=== PATIENT | male | born 1970 | race Caucasian/White ===

== ENCOUNTER → 2019-04-07 00:01 | Outpatient (RCR) | payer MEDICARE, MEDICAID, SELFPAY | LOC: ONCMED 03-10 06:01 | PROVIDERS: Family Provider Family Medicine; Referring Provider Internal Medicine Hematology & Oncology; Visit Provider Internal Medicine Hematology & Oncology | DX: Z51.0 Encounter for antineoplastic radiation therapy (principal); C16.2 Malignant neoplasm of body of stomach; R12 Heartburn; K52.9 Noninfective gastroenteritis and colitis, unspecified; R07.89 Other chest pain; J90 Pleural effusion, not elsewhere classified; E87.6 Hypokalemia; Z79.899 Other long term (current) drug therapy ==

== ENCOUNTER 2019-04-09 17:04 | Outpatient (CLI) | payer MEDICARE, MEDICAID, SELFPAY ==
--- NOTE | 2019-04-09 17:14 | XR_ITS ---
WS: [id number] CHEST 2 VIEWS HISTORY: ESOPHAGEAL CA, BILATERAL RIB PAIN COMPARISON: 02/02/2019 Lungs: Mildly hyperinflated lungs. Improved aeration at the LEFT lung base. No pneumonia or pleural e ffusion. No pulmonary nodules. Cardiac size: Normal. Mediastinum/Aorta: Normal mediastinum. Bones: Normal. XR/XR chest 2V* [id number] IMPRESSION: Resolved LEFT lower lobe pneumonia. No pulmonary mass or bone destruction identified.
== END 2019-04-09 17:05 | disposition home or self-care (01) ==
LOC: WPI 17:08
PROVIDERS: Family Provider Family Medicine; PCP Family Medicine; Referring Provider Nurse Practitioner; Visit Provider Nurse Practitioner
DX: R07.81 Pleurodynia (principal); C15.9 Malignant neoplasm of esophagus, unspecified
CPT/HCPCS: 71046

== ENCOUNTER 2019-05-01 05:44 | Outpatient (RCR) | payer MEDICARE, MEDICAID, SELFPAY ==
[2019-04-10] MEDS: sodium chloride 0.9% 500 ML 999 ML IV (11:22)
--- NOTE | 2019-04-12 23:37 | ONC FU_ITS ---
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 Castro is a 48-year-old gentleman with history of chronic anemia, melena and upper abdominal pain/discomfort underwent EGD on 08/05/2017 showed normal stomach with normal exam and duodenal, possible Merritt's esophagitis biopsy or done was negative also had colonoscopy same time, 6 mm polyp was removed from ascending colon. He continued to have abdominal discomfort/pain and he had abdominal sonogram done on 08/06/2017 which showed liver with increased echogenicity which is nonspecific. 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 pylori was identified. Patient underwent CT scan of chest abdomen pelvis on 08/29/2018 which showed no acute findings within the abdomen or pelvis and his blood workup showed normal hemoglobin and hematocrit and CMP was also normal. Patient underwent CT PET scan on 09/25/2018 which showed small focus of increase uptake within the distal gastric body/antrum. No finding to suggest metastatic disease in the chest abdomen or pelvis. Hypermetabolic left thyroid nodule 5 mm right pulmonary nodule along the major fissure probably represents an intrapulmonary lymph node. Underwent endoscopy ultrasound on 10/14/2018 which showed 1.6 x 0.9 cm hypoechoic lesion at the level of the known mass at 60 cm from the incisors. It appeared to penetrate the submucosa but not through it and the muscularis propria was intact and the visualized portion and EUS stage was T1 B, N0 MX, so no neoadjuvant chemotherapy was considered Patient was seen by Dr. Medel surgeon and underwent laparoscopic partial gastrectomy and perigastric lymph node and omental dissection on 11/19/2018 Final pathology report showed invasive poorly differentiated adenocarcinoma, diffuse/signet ring cell type Ulcerated tumor measures 1.5 cm in greatest dimension and shows invasion through the muscularis propria with involvement of serosa pT4a Surgical margins free 0 out of 11 lymph nodes showed metastatic disease. N0 stage IIB (T4a, N0 Mx) Now, based on new findings e.g. T4 a lesion seen on partial gastrectomy specimen compared to T1B on EUS staging, adjuvant chemotherapy/chemoradiation was recommended by medical oncologist in [place] Mr Castro was referred to GI oncology at [facility] for evaluation for clinical trial/second opinion and he was seen by on 01/12/2019 and her recommendations were, being high risk pT4a, less than D2 lymphadenectomy, adjuvant chemoradiation was recommended to maximize chance of cure. There was no clinical trial available at this time and due to patient's poor performance status and overall condition due to several postoperative complication, adjuvant chemotherapy was also suggested has an option or observation alone was also discussed. If patient's condition improves then FOLFOX or 5-FU alone could be considered and also recommended radiation consult. Patient underwent CT scan of abdomen pelvis on 01/23/2019 which showed partial atelectasis or pneumonia left lower lobe. Small loculated appearing left pleural effusion with an air-fluid level, a small empyema is not excluded. Resolved previous left subdiaphragmatic abscess but post infirmity changes remains in the left subdiaphragmatic soft tissue. Mr Castro was seen by Dr. Kauffman for left lower lobe consolidation and concern about empyema. As per Dr. Kauffman it could be reactive to his subdiaphragmatic process which was treated with catheter drainage and considering area of loculation was very small, he recommended follow-up CT scan in 3 months and patient underwent CT scan of abdomen pelvis on 03/06/2019 which showed significant improvement in the previous pneumonitis and a partial atelectasis left lower lobe and decrease in left pleural effusion since 01/23/2019. He was treatment with combined chemoradiation with oral Xeloda.1500 mg by mouth twice a day concurrent with radiation therapy. He developed diarrhea and hypokalemia so his Xeloda was put on hold. Once the diarrhea had resolved, the Xeloda restarted on 03/31/2019 but reduced to 1000 mg by mouth twice a day concurrent with radiation therapy. Mr. Castro is here today for follow-up. He is due for his weekly Xeloda visit. He states overall he does not feel he is tolerating it at all. He states his low to her to stomach about 30 to 40 minutes after he takes it. He states he has really bad cramping and flatulence and just measurable. He states he has really not had diarrhea or constipation with thoses symptoms although he does have constipation chronically. He denies any mouth sores, sore throat or difficulty swallowing. He has had no rashes or skin changes. He has had no skin flaking or peeling. He denies any abdominal pain. He has had no lower extremity edema. He denies fever or chills. His appetite is poor. His ECOG is 2. Past Medical History: Hypertension Renal calculi Thyroid nodule Past Surgical History: Colonoscopy in 2018 Allergies: Haldol Medications: amLODIPine Besylate 1 Tablet (of 10 mg) Oral daily Cyclobenzaprine HCl 1 Tablet (of 10 mg) Oral PRN Dicyclomine HCl 1 Capsule (of 10 mg) Oral four times a day PRN Famotidine 1 Tablet (of 40 mg) Oral b.i.d. Ferrous Gluconate 1 Tablet (of 324 (37.5 fe) mg) Oral b.i.d. Lisinopril 1 Tablet (of 20 mg) Oral daily Multivitamin Adult 1 Tablet Oral daily Ondansetron HCl 1 Tablet (of 4 mg) Oral q 6 hours PRN Pantoprazole Sodium 1 Tablet (of 40 mg) Tablet, enteric coated Oral b.i.d. Simvastatin 1 Tablet (of 5 mg) Oral daily Family History: The family history is unremarkable. Social History: Mr. Castro is and he is a disabled. Mr. Castro quit smoking less than one year ago but had smoked 1.0 pack/day for 24 years. He has no history of drinking. Mr. Castro reports the following support systems: lives with spouse, significant other, family, or friends, lives in own house, supportive family/friends willing to assist with needs, and adequate transportation available for expected visits. His diet consists of regular meals. He indicates his activity level as: regular exercise. Review Of Symptoms: Constitutional Denies fevers, chills, night sweats, excessive fatigue or new weight loss. Appetite is poor. Allergic/Immunologic No reactions. Eyes Denies significant visual changes. No diplopia. No amaurosis. ENMT Denies changes in hearing, sore throat, mouth sores, difficulty or changes in swallowing ability, and/or sinus drainage. Hematologic/Lymphatic Denies easy bruising or bleeding. The patient denies any tender or palpable lymph nodes. Respiratory Denies dyspnea on exertion, chest pain, cough or hemoptysis. Denies orthopnea. Cardiovascular Denies anginal chest pain, palpitations or orthopnea. Gastrointestinal Denies nausea, vomiting, diarrhea, GI bleeding, or constipation. Denies change in bowel habits and/or stool color or early satiety. He is having persistent heartburn/gastritis symptoms despite being on Protonix 40 mg twice daily. He states is consistent with when he takes the Xeloda. He states he has bad stomach cramps about 30 to 40 minutes after taking it. He states his been this way all along. He states he is scared to take it due to the cramping. Genitourinary (M) Denies hematuria, dysuria, increased frequency, urgency, hesitancy or incontinence. Musculoskeletal Denies joint pain, swelling or redness. No decreased range of motion. Integumentary Denies chronic rashes, inflammation, ulcerations or skin changes. Neurologic Denies headache, blurred vision, and no areas of focal weakness or numbness. Normal gait. No sensory problems. Psychiatric Denies insomnia, depression, dutch or mood swings. Vital Signs: Performed on Apr 09, 2019 15:26 Height - 75.00 in Weight - 148.0 lbs (HIGH) BSA - 1.93 sq.m BMI - 18.50 Temperature - 97.4 F (LOW) Pulse - 51 /min (LOW) Respiration - 24 /min BP - 140/83 mm(hg) O2 Sat - 100 % Pain - 5,2 - Ambulatory/capable of all self-care, unable to perform any work activities. Up and about more than 50% of waking hours. (ECOG) Physical Examination: Constitutional Alert, oriented, no acute distress. Frail in appearance. Skin pink, warm and dry. Head Normocephalic; atraumatic. Eyes Conjunctivae and sclerae are clear and without icterus. Pupils are reactive and equal. Neck Supple without masses or thyromegaly. No jugular venous distension. Hematologic/Lymphatic No petechiae or purpura. No tender or palpable lymph nodes in the cervical or supraclavicular areas. Respiratory Lungs are clear to auscultation without rhonchi or wheezing. Cardiovascular Regular rate and rhythm of heart without murmurs,clicks, gallops or rubs. Abdomen Non-tender, non-distended, no masses or ascites. Good bowel sounds noted in all quads. No guarding or rebound tenderness. No pulsatile masses. Back/Spine Non-tender to palpation. Extremities No visible deformities, no cyanosis, clubbing or edema. Musculoskeletal No tenderness or swelling, normal range of motion without obvious weakness. Integumentary No rashes or lesions. Neurologic No sensory or motor deficits, normal cerebellar function, normal gait. Psychiatric Alert and oriented times three. Coherent speech. Verbalizes understanding of our discussions today. Laboratory:Test performed on Apr 07, 2019 12:22 Sodium 143 mmol/L Potassium 3.5 mmol/L Chloride 103 mmol/L CO2 29 mmol/L Anion Gap 14.5 BUN 8 mg/dL Creatinine 0.8 mg/dL Cr Clearance (Est) 104.6100 mL/min eGFR 102.3 mL/min Glucose 105 mg/dl Calcium 9.8 mg/dL Protein, Total 6.5 g/dL Albumin 4.5 g/dL Globulin 2.0 gm/dL Bilirubin, Total 0.3 mg/dL ALT (SGPT) 15 U/L AST (SGOT) 23 U/L Alkaline Phosphatase 88 U/L WBC 4.0 10 3/uL RBC 5.04 10 6/uL HGB 12.8 g/dL HCT 41.0 % MCV 81.3 fl MCH 25.4 pg MCHC 31.2 g/dl RDW 16.7 % Platelet Count 255 10 3/cmm MPV 11.4 fl Neutrophils 2.6 10 3/uL Lymphocytes 0.5 10 3/uL Monocytes 0.5 10 3/uL Eosinophils 0.4 10 3/uL Basophils 0.1 10 3/uL Neutrophil % 63.7 % Lymphocyte % 12.6 % Monocyte % 12.6 % Eosinophil % 9.2 % Basophils % 1.7 % Test performed on Mar 10, 2019 14:08 Magnesium 2.0 mg/dL Test performed on Feb 18, 2019 11:31 Ferritin 187.0 ng/ml Iron 61 ug/dL % Iron Saturation 30.0 % UIBC 142 ug/dL Test performed on Feb 05, 2019 14:58 Vitamin B12 339 pg/mL Impression: Gastric signet cell adenocarcinoma, 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 However it is questionable how compliant he has been with the capecitabine because he is having side effects of it. Plan: 1. Encourage Mr. Castro to take nausea meds prior to trying the Xeloda. I encouraged him to ry just 1 tablet twice daily and if this goes well, he can resume the 100 mg BID dosing. 2. I have requested a PA for Marinol 2.5 to 5 mg 2-3 times daily for appetite. This may allow him to tolerate the Xeloda a little better also. 3. Labs from 04/07/2019 reviewed in detail and discussed with and Mrs. Castro and a copy was given to them. WBC 4.0, hemoglobin 12.8 platelets 255,000 ANC is 2600. Potassium 3.5 creatinine 0.8 LFTs are normal. 4. We will plan to see him back in 1 week with CBC CMP and discuss further with him Xeloda. I am concerned that he is not taking it. His states he only is taking a full dose for 5 times since he started. We discussed the benefits of the Xeloda but he is advised if it is making him sicker that he would need to hold it and just let us know. 5. We can do daily supportive care if needed such as hydration and antiemetics as wanted. 6. Mr. Castro was instructed to contact us in interim should questions or problems arise. Signed By: Remi Sherwood-KHANG, [facility] Gillian Marrero MD <<Signature on File>>
[2019-04-13] MEDS: sodium chloride 0.9% 500 ML 999 ML IV (10:40)
[2019-04-14] MEDS: sodium chloride 0.9% 500 ML IV (16:11)
--- NOTE | 2019-04-15 08:39 | ONCRAD TMN_ITS ---
Radiation Oncology Weekly Treatment Management Patient: Benny Castro MR#: [id number] : 1970> Age: 48> Sex: Male Dictated by: Dr. Johan Black Date of Service: 04/14/2019 Referring Physician(s) : Pedro Marrero M.D. Primary Diagnosis: C16.2 - Malignant neoplasm of body of stomach, Diagnosed 11/21/2018 (Active) Stage IIB, T4a, N0, M0 Radiotherapy to date: Course: Stomach 2018, Treatment Site: Stomach 45Gy, Ref. ID: [id number], Energy: 6X, Dose/Fx (cGy): 180, #Fx: , Dose Correction (cGy): 0, Total Dose (cGy): 2,520, Start Date: 03/24/2019, Elapsed Days: Current Complaints/Interval History: Constitutional Complains of lack of appetite and mild fatigue. Denies fever, night sweats and change in weight. Integumentary No redness or rash to the area of treatment Gastrointestinal Complains of moderate abdominal pain which is generalized / diffuse in nature. Complains of intermittent diarrhea which is characterized as loose, semisolid. Complains of heartburn / dyspepsia. Complains of mild nausea but denies vomiting. Complains of satiety. Denies melena / GI bleeding. Current Medications: AmLODIPine Besylate, cyclobenzaprine HCl, dicyclomine HCl, dronabinol, famotidine, famotidine, ferrous Gluconate, lisinopril, multivitamin Adult, nystatin, ondansetron HCl, ondansetron HCl, pantoprazole Sodium, potassium Chloride ER, simvastatin, sodium Chloride. Allergies: Haldol. Vital Signs: Performed on 04/14/2019 3:41 PM BMI - 18.574 kg/m2, Height - 75.00 in, Weight - 148.6 lbs, Temperature - 97.8 f, Pulse - 52, Respiration - 18, O2 Sat - 100 %, Pain - 3 and BP - 134/ 85 mm(hg). Physical Exam: Appears stable, no skin erythema or desquamation. Performance Status: 2 - Ambulatory/capable of all self-care, unable to perform any work activities. Up and about more than 50% of waking hours. (ECOG) Lab: Test performed on 04/07/2019 12:22 PM HCT - 41.0 % (low), MCH - 25.4 pg (low), RDW - 16.7 % (high), MPV - 11.4 fl (high), Lymphocytes - 0.5 10 3/ul (low) and Protein, Total - 6.5 g/dl (low). Imaging: No new diagnostic imaging was performed since the last weekly treatment visit. All radiation therapy related imaging (including but not limited to CBCT generated images) was reviewed. Appropriate changes, if any, were made to assure accurate target localization. Impression/Plan: Tolerating treatment well with expected side effects. Continue treatment as planned. Continue protonix and maalox CPT: 88970 Signed by: Dr. Johan Black>04/15/2019 8:39:10 AM <<Signature on File>>
[2019-04-17] MEDS: sodium chloride 0.9% 500 ML 999 ML IV (08:50)
[2019-04-21] MEDS: sodium chloride 0.9% 500 ML 999 ML IV (15:59)
[2019-04-23] MEDS: sodium chloride 0.9% 500 ML 999 ML IV (15:00)
--- NOTE | 2019-04-24 12:42 | ONCRAD TMN_ITS ---
Radiation Oncology Weekly Treatment Management Patient: Benny Castro MR#: [id number] : 1970> Age: 48> Sex: Male Dictated by: Dr. Johan Black Date of Service: 04/21/2019 Referring Physician(s) : Pedro Marrero M.D. Primary Diagnosis: C16.2 - Malignant neoplasm of body of stomach, Diagnosed 11/21/2018 (Active) Stage IIB, T4a, N0, M0 Radiotherapy to date: Course: Stomach 2018, Treatment Site: Stomach 45Gy, Ref. ID: [id number], Energy: 6X, Dose/Fx (cGy): 180, #Fx: , Dose Correction (cGy): 0, Total Dose (cGy): 3,420, Start Date: 03/24/2019, Elapsed Days: 28 Current Complaints/Interval History: Constitutional Complains of lack of appetite off and on, mild fatigue. and weight loss of 5 lbs. since last OTV on 04/14/19. Denies fever and night sweats. Gastrointestinal Complains of abdominal pain which is generalized / diffuse in nature characterized as dull, aching pain and mostly in the left lower quadrant. Complains of diarrhea has some last night. Complains of nausea. Complains of intermittent vomiting. Denies constipation. Genitourinary (M) Complains of dysuria off and on. Denies frequency, nocturia and urgency. Current Medications: AmLODIPine Besylate, cyclobenzaprine HCl, dicyclomine HCl, dronabinol, famotidine, famotidine, ferrous Gluconate, lidocaine HCl, lidocaine Viscous HCl, lisinopril, multivitamin Adult, norco, nystatin, ondansetron HCl, ondansetron HCl, pantoprazole Sodium, potassium Chloride ER, simvastatin. Allergies: Haldol. Vital Signs: Performed on 04/21/2019 3:27 PM BMI - 17.949 kg/m2 (low), Height - 75.00 in, Weight - 143.6 lbs, Temperature - 97.0 f, Pulse - 53, Respiration - 18, O2 Sat - 100 %, Pain - 3 and BP - 140/ 88 mm(hg). Physical Exam: Appears stable, no skin erythema or desquamation. Performance Status: 2 - Ambulatory/capable of all self-care, unable to perform any work activities. Up and about more than 50% of waking hours. (ECOG) Lab: Test performed on 04/07/2019 12:22 PM HCT - 41.0 % (low), MCH - 25.4 pg (low), RDW - 16.7 % (high), MPV - 11.4 fl (high), Lymphocytes - 0.5 10 3/ul (low) and Protein, Total - 6.5 g/dl (low). Imaging: No new diagnostic imaging was performed since the last weekly treatment visit. All radiation therapy related imaging (including but not limited to CBCT generated images) was reviewed. Appropriate changes, if any, were made to assure accurate target localization. Impression/Plan: Tolerating treatment well with expected side effects. Continue treatment as planned. Continue anti-nausea and anti-diarrhea medication as needed CPT: 47006 Signed by: Dr. Johan Black>04/24/2019 12:40:45 PM <<Signature on File>>
[2019-04-27] MEDS: sodium chloride 0.9% 500 ML 999 ML IV (12:05)
--- NOTE | 2019-04-28 16:27 | ONCRAD TMN_ITS ---
Radiation Oncology Weekly Treatment Management Patient: Benny Castro MR#: [id number] : 1970> Age: 48> Sex: Male Dictated by: Dr. Johan Black Date of Service: 04/28/2019 Referring Physician(s) : Pedro Marrero M.D. Primary Diagnosis: C16.2 - Malignant neoplasm of body of stomach, Diagnosed 11/21/2018 (Active) Stage IIB, T4a, N0, M0 Radiotherapy to date: Course: Stomach 2018, Treatment Site: Stomach 45Gy, Ref. ID: [id number], Energy: 6X, Dose/Fx (cGy): 180, #Fx: , Dose Correction (cGy): 0, Total Dose (cGy): 4,320, Start Date: 03/24/2019, Elapsed Days: 35 Current Complaints/Interval History: Constitutional Complains of moderate fatigue. Denies lack of appetite, fever and night sweats. Gastrointestinal Complains of abdominal pain, mild heartburn / dyspepsia, nausea and satiety. Denies constipation, diarrhea, melena / GI bleeding and vomiting. Genitourinary (M) Denies dysuria, frequency, nocturia and urgency. Current Medications: AmLODIPine Besylate, cyclobenzaprine HCl, dicyclomine HCl, dronabinol, famotidine, famotidine, ferrous Gluconate, lidocaine HCl, lidocaine Viscous HCl, lisinopril, multivitamin Adult, norco, nystatin, ondansetron HCl, ondansetron HCl, pantoprazole Sodium, potassium Chloride ER, simvastatin. Allergies: Haldol. Vital Signs: Performed on 04/28/2019 10:33 AM BMI - 18.024 kg/m2 (low), Height - 75.00 in, Weight - 144.2 lbs, Temperature - 96.9 f, Pulse - 59, Respiration - 20, O2 Sat - 100 %, Pain - 0 and BP - 142/ 88 mm(hg)(high/). Physical Exam: Appears stable, no skin erythema or desquamation. Performance Status: 2 - Ambulatory/capable of all self-care, unable to perform any work activities. Up and about more than 50% of waking hours. (ECOG) Lab: Test performed on 04/07/2019 12:22 PM HCT - 41.0 % (low), MCH - 25.4 pg (low), RDW - 16.7 % (high), MPV - 11.4 fl (high), Lymphocytes - 0.5 10 3/ul (low) and Protein, Total - 6.5 g/dl (low). Imaging: No new diagnostic imaging was performed since the last weekly treatment visit. All radiation therapy related imaging (including but not limited to CBCT generated images) was reviewed. Appropriate changes, if any, were made to assure accurate target localization. Impression/Plan: Tolerating treatment well with expected side effects. Continue treatment as planned. Continue anti-nausea medication as needed CPT: 60590 Signed by: Dr. Johan Black>04/28/2019 4:27:03 PM <<Signature on File>>
[2019-04-30] MEDS: sodium chloride 0.9% 500 ML 999 ML IV (10:39)
== END 2019-05-08 23:59 | disposition home or self-care (01) ==
LOC: ONCMED 05:44
PROVIDERS: Family Provider Family Medicine; PCP Family Medicine; Visit Provider Radiology Radiation Oncology
DX: Z51.0 Encounter for antineoplastic radiation therapy (principal); C16.2 Malignant neoplasm of body of stomach; E86.0 Dehydration; E04.1 Nontoxic single thyroid nodule; R91.1 Solitary pulmonary nodule; Z79.899 Other long term (current) drug therapy; Z79.891 Long term (current) use of opiate analgesic; Z90.3 Acquired absence of stomach [part of]; Z87.01 Personal history of pneumonia (recurrent); Z87.891 Personal history of nicotine dependence
CPT/HCPCS: 77014; 77280; 77300; 77336; 77338; 77386; 77427; 96360; 96361; 96365; 99214; J2405; J7040

== ENCOUNTER 2019-05-27 05:47 | Outpatient (RCR) | payer MEDICARE, MEDICAID, SELFPAY ==
[2019-05-12] MEDS: sodium chloride 0.9% 500 ML 999 ML IV (16:19)
[2019-05-15] MEDS: sodium chloride 0.9% 500 ML 999 ML IV (08:55)
[2019-05-15 09:58] LABS: Basophils % 1.5 %; Eosinophils # 0.2 10^3/uL (0.0-0.8); Eosinophils % 7.6 %; Hematocrit 37.8 % (42.0-52.0); Hemoglobin 12.1 g/dL (11.7-16.6); Lymphocytes # 0.4 10^3/uL (0.8-4.8); Lymphocytes % 13.3 %; Mean Corpuscular Volume 84.4 fL (80-94); Mean Platelet Volume 11.1 fL (7.4-10.4); Monocytes # 0.5 10^3/uL (0.2-0.9); Monocytes % 17.1 %; Neutrophils # 1.6 10^3/uL (1.8-7.7); Neutrophils % 60.1 %; Nucleated Red Blood Cells % 0 %; Platelet Count 156 10^3/cmm (130-400); Red Blood Count 4.48 10^6/uL (4.1-5.3); Red Cell Distribution Width 16.3 % (12.1-15.1); White Blood Count 2.6 10^3/uL (4.0-10.0)
[2019-05-15 10:13] LABS: Alanine Aminotransferase 19 U/L (0-41); Albumin Level 3.2 g/dL (3.5-5.2); Alkaline Phosphatase 80 IU/L (40-130); Anion Gap 11.4 (5-19); Aspartate Amino Transferase 25 U/L (0-40); Blood Urea Nitrogen 11 mg/dL (6-20); Calcium 9.1 mg/dL (8.5-10.5); Carbon Dioxide 28 mmol/L (22-29); Chloride 104 mmol/L (98-107); Globulin 2.5 g/dL (1.3-4.6); Glomerular Filtration Rate 102.3 mL/min (90-130); Glucose 115 mg/dL (65-115); Potassium 3.4 mmol/L (3.5-5.1); Sodium 140 mmol/L (136-145); Total Bilirubin 0.3 mg/dL (0.15-1.2); Total Protein 5.7 g/dL (6.6-8.7)
--- NOTE | 2019-05-17 15:45 | ONC FU_ITS ---
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 Castro is a 48-year-old gentleman with history of chronic anemia, melena and upper abdominal pain/discomfort underwent EGD on 08/05/2017 showed normal stomach with normal exam and duodenal, possible Merritt's esophagitis biopsy or done was negative also had colonoscopy same time, 6 mm polyp was removed from ascending colon. He continued to have abdominal discomfort/pain and he had abdominal sonogram done on 08/06/2017 which showed liver with increased echogenicity which is nonspecific. 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 pylori was identified. Patient underwent CT scan of chest abdomen pelvis on 08/29/2018 which showed no acute findings within the abdomen or pelvis and his blood workup showed normal hemoglobin and hematocrit and CMP was also normal. Patient underwent CT PET scan on 09/25/2018 which showed small focus of increase uptake within the distal gastric body/antrum. No finding to suggest metastatic disease in the chest abdomen or pelvis. Hypermetabolic left thyroid nodule 5 mm right pulmonary nodule along the major fissure probably represents an intrapulmonary lymph node. Underwent endoscopy ultrasound on 10/14/2018 which showed 1.6 x 0.9 cm hypoechoic lesion at the level of the known mass at 60 cm from the incisors. It appeared to penetrate the submucosa but not through it and the muscularis propria was intact and the visualized portion and EUS stage was T1 B, N0 MX, so no neoadjuvant chemotherapy was considered Patient was seen by Dr. Medel surgeon and underwent laparoscopic partial gastrectomy and perigastric lymph node and omental dissection on 11/19/2018 Final pathology report showed invasive poorly differentiated adenocarcinoma, diffuse/signet ring cell type Ulcerated tumor measures 1.5 cm in greatest dimension and shows invasion through the muscularis propria with involvement of serosa pT4a Surgical margins free 0 out of 11 lymph nodes showed metastatic disease. N0 stage IIB (T4a, N0 Mx) Based on the findings e.g. T4 a lesion seen on partial gastrectomy specimen compared to T1B on EUS staging, adjuvant chemotherapy/chemoradiation was recommended by medical oncologist in [place]. Mr Castro was referred to GI oncology at [facility] for evaluation for clinical trial/second opinion and he was seen by on 01/12/2019 and her recommendations were, being high risk pT4a, less than D2 lymphadenectomy, adjuvant chemoradiation was recommended to maximize chance of cure. There was no clinical trial available at this time and due to patient's poor performance status and overall condition due to several postoperative complication, adjuvant chemotherapy was also suggested has an option or observation alone was also discussed. If patient's condition improves then FOLFOX or 5-FU alone could be considered and also recommended radiation consult. Patient underwent CT scan of abdomen pelvis on 01/23/2019 which showed partial atelectasis or pneumonia left lower lobe. Small loculated appearing left pleural effusion with an air-fluid level, a small empyema is not excluded. Resolved previous left subdiaphragmatic abscess but post infirmity changes remains in the left subdiaphragmatic soft tissue. Mr Castro was seen by Dr. Kauffman for left lower lobe consolidation and concern about empyema. As per Dr. Kauffman it could be reactive to his subdiaphragmatic process which was treated with catheter drainage and considering area of loculation was very small, he recommended follow-up CT scan in 3 months and patient underwent CT scan of abdomen pelvis on 03/06/2019 which showed significant improvement in the previous pneumonitis and a partial atelectasis left lower lobe and decrease in left pleural effusion since 01/23/2019. He was treatment with combined chemoradiation with oral Xeloda.1500 mg by mouth twice a day concurrent with radiation therapy. He developed diarrhea and hypokalemia so his Xeloda was put on hold. Once the diarrhea had resolved, the Xeloda restarted on 03/31/2019 but reduced to 1000 mg by mouth twice a day concurrent with radiation therapy. Mr. Castro is here today for follow-up. He has completed radiation therapy. I am not convinced that he was able to take very much of his Xeloda during radiation. His compliance would be questionable as he frequently said it bothered his stomach and he couldn't take it. None the less, he has completed radiation. He completed 2 fractions for total dosing of 360 cGy to the stomach on May 01, 2019. He had fractionated dosing which consisted of 25 doses starting on March 24, 2019 and ending on April. This total dosing was 4500 cGy. He is required continuous supportive care. He is getting hydration at least 2-3 times a week. He states he is eating and swallowing much better but nothing tastes really good. He denies any fever or chills. The nausea seems to be some better. He has been taken the ondansetron at home which seems to help when he does take it. He is becoming a little bit more active but still overall has fatigue. He denies any diarrhea or constipation. He has had no change in his bladder function. He has had no skin changes. He denies any hand-foot syndrome symptoms. His ECOG is 2 due to the fatigue. Past Medical History: Hypertension Renal calculi Thyroid nodule Past Surgical History: Colonoscopy in 2018 Allergies: Haldol Medications: amLODIPine Besylate 1 Tablet (of 10 mg) Oral daily Cyclobenzaprine HCl 1 Tablet (of 10 mg) Oral PRN Dicyclomine HCl 1 Capsule (of 10 mg) Oral four times a day PRN Famotidine 1 Tablet (of 40 mg) Oral b.i.d. Ferrous Gluconate 1 Tablet (of 324 (37.5 fe) mg) Oral b.i.d. Lisinopril 1 Tablet (of 20 mg) Oral daily Multivitamin Adult 1 Tablet Oral daily Ondansetron HCl 1 Tablet (of 4 mg) Oral q 6 hours PRN Pantoprazole Sodium 1 Tablet (of 40 mg) Tablet, enteric coated Oral b.i.d. Simvastatin 1 Tablet (of 5 mg) Oral daily Family History: The family history is unremarkable. Social History: Mr. Castro is and he is a disabled. Mr. Castro quit smoking less than one year ago but had smoked 1.0 pack/day for 24 years. He has no history of drinking. Mr. Castro reports the following support systems: lives with spouse, significant other, family, or friends, lives in own house, supportive family/friends willing to assist with needs, and adequate transportation available for expected visits. His diet consists of regular meals. He indicates his activity level as: regular exercise. Review Of Symptoms: Constitutional Denies fevers, chills, night sweats, excessive fatigue or new weight loss. Appetite is poor. Allergic/Immunologic No reactions. Eyes Denies significant visual changes. No diplopia. No amaurosis. ENMT Denies changes in hearing, sore throat, mouth sores, difficulty or changes in swallowing ability, and/or sinus drainage. Endocrine No diabetes, thyroid disease or hormone replacement. Denies hot flashes or night sweats. Hematologic/Lymphatic Denies easy bruising or bleeding. The patient denies any tender or palpable lymph nodes. Breasts Respiratory Denies dyspnea on exertion, chest pain, cough or hemoptysis. Denies orthopnea. Cardiovascular Denies anginal chest pain, palpitations or orthopnea. Gastrointestinal Denies nausea, vomiting, diarrhea, GI bleeding, or constipation. Denies change in bowel habits and/or stool color or early satiety. He is having persistent heartburn/gastritis symptoms despite being on Protonix 40 mg twice daily. Genitourinary (M) Denies hematuria, dysuria, increased frequency, urgency, hesitancy or incontinence. Musculoskeletal Denies joint pain, swelling or redness. No decreased range of motion. Integumentary Denies chronic rashes, inflammation, ulcerations or skin changes. Neurologic Denies headache, blurred vision, and no areas of focal weakness or numbness. Normal gait. No sensory problems. Psychiatric Denies insomnia, depression, dutch or mood swings. Vital Signs: Performed on May 13, 2019 14:39 Height - 75.00 in Weight - 138.8 lbs (LOW) BSA - 1.88 sq.m BMI - 17.35 (LOW) Temperature - 97.5 F (LOW) Pulse - 62 /min Respiration - 18 /min BP - 132/84 mm(hg) O2 Sat - 100 % Pain - 5,2 - Ambulatory/capable of all self-care, unable to perform any work activities. Up and about more than 50% of waking hours. (ECOG) Physical Examination: Constitutional Alert, oriented, no acute distress. Frail in appearance. Skin pink, warm and dry. Head Normocephalic; atraumatic. Eyes Conjunctivae and sclerae are clear and without icterus. Pupils are reactive and equal. Neck Supple without masses or thyromegaly. No jugular venous distension. Hematologic/Lymphatic No petechiae or purpura. No tender or palpable lymph nodes in the cervical or supraclavicular areas. Respiratory Lungs are clear to auscultation without rhonchi or wheezing. Cardiovascular Regular rate and rhythm of heart without murmurs,clicks, gallops or rubs. Abdomen Non-tender, non-distended, no masses or ascites. Good bowel sounds noted in all quads. No guarding or rebound tenderness. No pulsatile masses. Back/Spine Non-tender to palpation. Extremities No visible deformities, no cyanosis, clubbing or edema. Musculoskeletal No tenderness or swelling, normal range of motion without obvious weakness. Integumentary No rashes or lesions. Neurologic No sensory or motor deficits, normal cerebellar function, normal gait. Psychiatric Alert and oriented times three. Coherent speech. Verbalizes understanding of our discussions today. Laboratory:Test performed on Apr 07, 2019 12:22 Sodium 143 mmol/L Potassium 3.5 mmol/L Chloride 103 mmol/L CO2 29 mmol/L Anion Gap 14.5 BUN 8 mg/dL Creatinine 0.8 mg/dL Cr Clearance (Est) 104.6100 mL/min eGFR 102.3 mL/min Glucose 105 mg/dl Calcium 9.8 mg/dL Protein, Total 6.5 g/dL Albumin 4.5 g/dL Globulin 2.0 gm/dL Bilirubin, Total 0.3 mg/dL ALT (SGPT) 15 U/L AST (SGOT) 23 U/L Alkaline Phosphatase 88 U/L WBC 4.0 10 3/uL RBC 5.04 10 6/uL HGB 12.8 g/dL HCT 41.0 % MCV 81.3 fl MCH 25.4 pg MCHC 31.2 g/dl RDW 16.7 % Platelet Count 255 10 3/cmm MPV 11.4 fl Neutrophils 2.6 10 3/uL Lymphocytes 0.5 10 3/uL Monocytes 0.5 10 3/uL Eosinophils 0.4 10 3/uL Basophils 0.1 10 3/uL Neutrophil % 63.7 % Lymphocyte % 12.6 % Monocyte % 12.6 % Eosinophil % 9.2 % Basophils % 1.7 % Test performed on Mar 10, 2019 14:08 Magnesium 2.0 mg/dL Test performed on Feb 18, 2019 11:31 Ferritin 187.0 ng/ml Iron 61 ug/dL % Iron Saturation 30.0 % UIBC 142 ug/dL Test performed on Feb 05, 2019 14:58 Vitamin B12 339 pg/mL Impression: Gastric signet cell adenocarcinoma, 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 However it is questionable how compliant he has been with the capecitabine because he is having side effects of it. He completed radiation therapy on 05/01/2019. Plan: 1. Continue supportive care with hydration and IV antiemetics if needed. 2. I have requested a PA for Marinol 2.5 to 5 mg 2-3 times daily for appetite. 3. He most recent labs were from 04/07/2019. I did request CBC CMP for follow-up today. 4. I did add omeprazole 40 mg twice daily to replace the Protonix. He does not feel the Protonix is controlling his acid reflux. 5. I have also asked him to go ahead and try Diflucan 100 mg daily to see if this will help the symptoms. He can continue the nystatin for now. 6. Also I did refill his hydrocodone APAP 7.5/325 for 5-day supply for persistent stomach wall pain. 7. He was inquiring about resuming his simvastatin I told him he could hold that for now until he recovers from the chemotherapy but did go ahead and authorize refills. 8. We will plan for him to see Dr. Marrero in the next few weeks for follow-up post chemoradiation and for further plan of care planning. 9. Mr. Castro was instructed to contact us in interim should questions or problems arise. Signed By: Remi Sherwood-, AOCNP Pedro Marrero MD <<Signature on File>>
[2019-05-21] MEDS: sodium chloride 0.9% 500 ML 999 ML IV (08:45)
[2019-05-21 08:58] LABS: Basophils # 0.1 10^3/uL (0.0-0.1); Basophils % 1.7 %; Eosinophils # 0.2 10^3/uL (0.0-0.8); Hemoglobin 12.5 g/dL (11.7-16.6); Lymphocytes # 0.5 10^3/uL (0.8-4.8); Lymphocytes % 15.7 %; Mean Corpuscular HGB Conc 32.1 g/dL (30.0-36.0); Mean Corpuscular Hemoglobin 26.9 pg (28.0-34.0); Mean Corpuscular Volume 84.1 fL (80-94); Mean Platelet Volume 10.8 fL (7.4-10.4); Monocytes # 0.5 10^3/uL (0.2-0.9); Monocytes % 17.3 %; Neutrophils # 1.7 10^3/uL (1.8-7.7); Neutrophils % 57.3 %; Nucleated Red Blood Cells % 0 %; Platelet Count 163 10^3/cmm (130-400); Red Blood Count 4.64 10^6/uL (4.1-5.3); Red Cell Distribution Width 16.5 % (12.1-15.1)
[2019-05-21 09:18] LABS: Alanine Aminotransferase 20 U/L (0-41); Alkaline Phosphatase 89 IU/L (40-130); Anion Gap 12.6 (5-19); Aspartate Amino Transferase 29 U/L (0-40); Blood Urea Nitrogen 13 mg/dL (6-20); Calcium 9.7 mg/dL (8.5-10.5); Carbon Dioxide 30 mmol/L (22-29); Chloride 105 mmol/L (98-107); Globulin 2.8 g/dL (1.3-4.6); Glomerular Filtration Rate 89.3 mL/min (90-130); Glucose 97 mg/dL (65-115); Potassium 3.6 mmol/L (3.5-5.1); Sodium 144 mmol/L (136-145); Total Bilirubin 0.4 mg/dL (0.15-1.2); Total Protein 6.8 g/dL (6.6-8.7)
[2019-05-25] MEDS: sodium chloride 0.9% 500 ML 999 ML IV (09:00)
== END 2019-05-27 23:59 | disposition home or self-care (01) ==
LOC: ONCMED 05:47
PROVIDERS: Family Provider Family Medicine; PCP Internal Medicine; Visit Provider Nurse Practitioner
DX: E86.0 Dehydration (principal); C16.2 Malignant neoplasm of body of stomach; I10 Essential (primary) hypertension; E04.1 Nontoxic single thyroid nodule; Z90.3 Acquired absence of stomach [part of]; Z87.01 Personal history of pneumonia (recurrent); Z92.3 Personal history of irradiation; Z87.442 Personal history of urinary calculi; Z87.891 Personal history of nicotine dependence; Z92.21 Personal history of antineoplastic chemotherapy; Z79.899 Other long term (current) drug therapy
CPT/HCPCS: 80053; 85025; 96360; 96365; 99214; J7040

== ENCOUNTER 2019-05-28 10:54 | Outpatient (CLI) | payer MEDICARE, MEDICAID, SELFPAY ==
--- NOTE | 2019-05-28 11:14 | CT_ITS ---
WS: [id number] CT CHEST WITH INTRAVENOUS CONTRAST HISTORY: PLEURAL EFFUSION TECHNIQUE: Contiguous 5 mm axial imaging performed on the thorax. Coronal and sagittal reformats are submitted. All CT scans at [facility] use at least one of these dose optimization techniq ues: automated exposure control; mA and/or kV adjustment per patient size (includes targeted exams wh ere dose is matched to clinical indication); or iterative reconstruction. CONTRAST: Omnipaque 300; 95 mL IV. DLP: 653.87 mGycm COMPARISON: 01/23/2019 and 01/23/2016 Lungs and central airway: Marked pulmonary hyperinflation. Stable linear nodularity at the RIGHT apex . Interval resolution of the LEFT lower lobe atelectasis/opacification since 01/23/2019. No residual nodular pneumonia or atelectasis. Pleura: Complex pleural fluid collection described at the LEFT lung base has also resolved. No residu al pleural fluid or empyema. Heart and pericardium: Normal size heart. No pericardial effusion. Mediastinum and bruce: RIGHT hilar lymph node measures 9.1 mm. There are additional smaller lymph node s throughout the mediastinum and hilum. Vessels: Normal size aorta. Normal size pulmonary artery. No coronary artery calcifications. The esop hagus beginning above the anthony through the level of the anthony is mildly prominent with wall thicke miguelangel. Chest wall and lower neck: Stable subcentimeter LEFT thyroid nodule. There are several axillary lymph nodes present bilaterally. The size is within normal limits. The number is increased. Upper abdomen: No adrenal mass. Visualized liver is normal. Partial gastrectomy is evident. Osseous structures: No destructive process. CT/CT chest w con* [id number] IMPRESSION: 1. Resolved LEFT pleural effusion and LEFT lower lobe atelectasis/pneumonia. 2. Chronic emphysema. 3. No adenopathy. Increase in number but subcentimeter bilateral axillary lymp h nodes. 4. Mild thickening of the esophagus. Consider esophagitis.
[2019-05-28] MEDS: iohexol 300 mg/mL 100 mL Btl IV (11:31)
== END 2019-05-28 10:55 | disposition home or self-care (01) ==
LOC: RADWPI 11:00
PROVIDERS: Family Provider Family Medicine; PCP Internal Medicine; Visit Provider Thoracic Surgery (Cardiothoracic Vascular Surgery)
DX: J90 Pleural effusion, not elsewhere classified (principal); J43.9 Emphysema, unspecified; J98.11 Atelectasis
CPT/HCPCS: 71260; Q9967

== ENCOUNTER 2019-06-02 05:33 | Outpatient (RCR) | payer MEDICARE, MEDICAID, SELFPAY ==
[2019-06-02 14:46] LABS: Basophils # 0.1 10^3/uL (0.0-0.1); Basophils % 1.2 %; Eosinophils # 0.3 10^3/uL (0.0-0.8); Eosinophils % 7.5 %; Hematocrit 38.9 % (42.0-52.0); Hemoglobin 12.2 g/dL (11.7-16.6); Lymphocytes # 0.4 10^3/uL (0.8-4.8); Lymphocytes % 9.7 %; Mean Corpuscular HGB Conc 31.4 g/dL (30.0-36.0); Mean Corpuscular Hemoglobin 26.4 pg (28.0-34.0); Mean Corpuscular Volume 84.2 fL (80-94); Mean Platelet Volume 10.5 fL (7.4-10.4); Monocytes # 0.6 10^3/uL (0.2-0.9); Monocytes % 14.9 %; Neutrophils # 2.8 10^3/uL (1.8-7.7); Neutrophils % 66.5 %; Nucleated Red Blood Cells % 0 %; Platelet Count 230 10^3/cmm (130-400); Red Blood Count 4.62 10^6/uL (4.1-5.3); Red Cell Distribution Width 17.2 % (12.1-15.1); White Blood Count 4.2 10^3/uL (4.0-10.0)
[2019-06-02 14:52] LABS: Alanine Aminotransferase 26 U/L (0-41); Alkaline Phosphatase 109 IU/L (40-130); Anion Gap 13.7 (5-19); Aspartate Amino Transferase 33 U/L (0-40); Blood Urea Nitrogen 8 mg/dL (6-20); Calcium 9.1 mg/dL (8.5-10.5); Carbon Dioxide 29 mmol/L (22-29); Chloride 104 mmol/L (98-107); Globulin 2.8 g/dL (1.3-4.6); Glomerular Filtration Rate 89.3 mL/min (90-130); Glucose 92 mg/dL (65-115); Potassium 3.7 mmol/L (3.5-5.1); Sodium 143 mmol/L (136-145); Total Bilirubin 0.4 mg/dL (0.15-1.2); Total Protein 6.8 g/dL (6.6-8.7)
--- NOTE | 2019-06-02 17:15 | ONC FU_ITS ---
Dr. Marrero follow up note Patient: Benny Castro Unit #: [id number]: [id number] Dicatated By: Pedro Marrero M.D.Date of Visit:Jun 02, 2019 Onc Med Follow-up/Prog Note History of Present Illness: Mr. Castro is a 48-year-old gentleman with history of chronic anemia, melena and upper abdominal pain/discomfort underwent EGD on 08/05/2017 showed normal stomach with normal exam and duodenal, possible Merritt's esophagitis biopsy or done was negative also had colonoscopy same time, 6 mm polyp was removed from ascending colon. He continued to have abdominal discomfort/pain and he had abdominal sonogram done on 08/06/2017 which showed liver with increased echogenicity which is nonspecific. 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 pylori was identified. Patient underwent CT scan of chest abdomen pelvis on 08/29/2018 which showed no acute findings within the abdomen or pelvis and his blood workup showed normal hemoglobin and hematocrit and CMP was also normal. Patient underwent CT PET scan on 09/25/2018 which showed small focus of increase uptake within the distal gastric body/antrum. No finding to suggest metastatic disease in the chest abdomen or pelvis. Hypermetabolic left thyroid nodule 5 mm right pulmonary nodule along the major fissure probably represents an intrapulmonary lymph node. Underwent endoscopy ultrasound on 10/14/2018 which showed 1.6 x 0.9 cm hypoechoic lesion at the level of the known mass at 60 cm from the incisors. It appeared to penetrate the submucosa but not through it and the muscularis propria was intact and the visualized portion and EUS stage was T1 B, N0 MX, so no neoadjuvant chemotherapy was considered Patient was seen by Dr. Medel surgeon and underwent laparoscopic partial gastrectomy and perigastric lymph node and omental dissection on 11/19/2018 Final pathology report showed invasive poorly differentiated adenocarcinoma, diffuse/signet ring cell type Ulcerated tumor measures 1.5 cm in greatest dimension and shows invasion through the muscularis propria with involvement of serosa pT4a Surgical margins free 0 out of 11 lymph nodes showed metastatic disease. N0 stage IIB (T4a, N0 Mx) Based on the findings e.g. T4 a lesion seen on partial gastrectomy specimen compared to T1B on EUS staging, adjuvant chemotherapy/chemoradiation was recommended by medical oncologist in [place]. Mr Castro was referred to GI oncology at [facility] for evaluation for clinical trial/second opinion and he was seen by on 01/12/2019 and her recommendations were, being high risk pT4a, less than D2 lymphadenectomy, adjuvant chemoradiation was recommended to maximize chance of cure. There was no clinical trial available at this time and due to patient's poor performance status and overall condition due to several postoperative complication, adjuvant chemotherapy was also suggested has an option or observation alone was also discussed. If patient's condition improves then FOLFOX or 5-FU alone could be considered and also recommended radiation consult. Patient underwent CT scan of abdomen pelvis on 01/23/2019 which showed partial atelectasis or pneumonia left lower lobe. Small loculated appearing left pleural effusion with an air-fluid level, a small empyema is not excluded. Resolved previous left subdiaphragmatic abscess but post infirmity changes remains in the left subdiaphragmatic soft tissue. Mr Castro was seen by Dr. Kauffman for left lower lobe consolidation and concern about empyema. As per Dr. Kauffman it could be reactive to his subdiaphragmatic process which was treated with catheter drainage and considering area of loculation was very small, he recommended follow-up CT scan in 3 months and patient underwent CT scan of abdomen pelvis on 03/06/2019 which showed significant improvement in the previous pneumonitis and a partial atelectasis left lower lobe and decrease in left pleural effusion since 01/23/2019. He was treatment with combined chemoradiation with oral Xeloda.1500 mg by mouth twice a day concurrent with radiation therapy. He developed diarrhea and hypokalemia so his Xeloda was put on hold. Once the diarrhea had resolved, the Xeloda restarted on 03/31/2019 but reduced to 1000 mg by mouth twice a day concurrent with radiation therapy. He has completed radiation therapy. I am not convinced that he was able to take very much of his Xeloda during radiation. His compliance would be questionable as he frequently said it bothered his stomach and he couldn't take it. None the less, he has completed radiation. He completed 2 fractions for total dosing of 360 cGy to the stomach on May 01, 2019. He had fractionated dosing which consisted of 25 doses starting on March 24, 2019 and ending on April. This total dosing was 4500 cGy. He is required continuous supportive care. He is getting hydration at least 2-3 times a week.but completed treatment on 05/01/2019 Came for follow-up, feeling somewhat better, now recovering from combined chemoradiation, still has mild abdominal discomfort especially with large meals otherwise no nausea or vomiting no diarrhea constipation, weight is stable appetite is reasonable. Medications: amLODIPine Besylate 1 Tablet (of 10 mg) Oral daily, Cyclobenzaprine HCl 1 Tablet (of 10 mg) Oral PRN, Dicyclomine HCl 1 Capsule (of 10 mg) Oral four times a day PRN, Famotidine 1 Tablet (of 40 mg) Oral b.i.d., Ferrous Gluconate 1 Tablet (of 324 (37.5 fe) mg) Oral b.i.d., Lisinopril 1 Tablet (of 20 mg) Oral daily, Multivitamin Adult 1 Tablet Oral daily, Ondansetron HCl 1 Tablet (of 4 mg) Oral q 6 hours PRN, Pantoprazole Sodium 1 Tablet (of 40 mg) Tablet, enteric coated Oral b.i.d., Simvastatin 1 Tablet (of 5 mg) Oral daily Allergies: Haldol Review of Systems: Review of Systems is not available for this patient. Vital Signs: Performed on Jun 02, 2019 15:47 Height - 75.00 in Weight - 141.0 lbs (HIGH) BSA - 1.89 sq.m BMI - 17.62 (LOW) Temperature - 97.8 F (LOW) Pulse - 71 /min Respiration - 18 /min BP - 127/80 mm(hg) O2 Sat - 99 % Pain - 5 Performance Status: 1 - No physically strenuous activity, but ambulatory and able to carry out light or sedentary work (e.g. office work, light house work). (ECOG) Physical Examination: ENMT - No oral exudates, ulcers, masses, thrush or mucositis. Oropharynx clear. Tongue normal, Respiratory - Lungs are clear to auscultation without rhonchi or wheezing, Cardiovascular - Regular rate and rhythm of heart, Abdomen - Non-tender, non-distended, Good bowel sounds. No guarding or rebound tenderness. No pulsatile masses, Extremities - no edema. Lab/Imaging: Test performed on May 21, 2019 08:49 Sodium 144 mmol/L Potassium 3.6 mmol/L Chloride 105 mmol/L CO2 30 mmol/L Anion Gap 12.6 BUN 13 mg/dL Creatinine 0.9 mg/dL Cr Clearance (Est) 87.4400 mL/min eGFR 89.3 mL/min Glucose 97 mg/dL Calcium 9.7 mg/dL Protein, Total 6.8 g/dL Albumin 4.0 g/dL Globulin 2.8 g/dL Bilirubin, Total 0.4 mg/dL ALT (SGPT) 20 U/L AST (SGOT) 29 U/L Alkaline Phosphatase 89 IU/L WBC 3.0 10 3/uL RBC 4.64 10 6/uL HGB 12.5 g/dL HCT 39.0 % MCV 84.1 fL MCH 26.9 pg MCHC 32.1 g/dL RDW 16.5 % Platelet Count 163 10 3/cmm MPV 10.8 fL Neutrophils 1.7 10 3/uL Lymphocytes 0.5 10 3/uL Monocytes 0.5 10 3/uL Eosinophils 0.2 10 3/uL Basophils 0.1 10 3/uL Neutrophil % 57.3 % Lymphocyte % 15.7 % Monocyte % 17.3 % Eosinophil % 8.0 % Basophils % 1.7 % Test performed on Mar 10, 2019 14:08 Magnesium 2.0 mg/dL Test performed on Feb 18, 2019 11:31 Ferritin 187.0 ng/ml Iron 61 ug/dL % Iron Saturation 30.0 % UIBC 142 ug/dL Test performed on Feb 05, 2019 14:58 Vitamin B12 339 pg/mL Impression: Gastric signet cell adenocarcinoma, 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 However it is questionable how compliant he has been with the capecitabine because he is having side effects of it. He completed radiation therapy on 05/01/2019. Plan: Discussed with patient regarding his labs white blood count 4.2 hemoglobin 12.2 crit 38.9 platelets 230,000 CMP within normal limits Clinically, patient is doing reasonably well, now recovering from combined chemoradiation which he completed on 05/01/2019. Role of adjuvant chemotherapy with FOLFOX or capeox was discussed but patient and decided not to take further chemotherapy because of related side effects and toxicity and patient could not tolerate combined chemoradiation that well either. Patient wants to wait for follow-up CT scan of abdomen are advised admission oncology and if it showed no disease then he would prefer observation alone. Knowing the risk versus benefits involved. Return to clinic in one month with CBC CMP. Signed By: Pedro Marrero M.D. <<Signature on File>>
[2019-06-05] MEDS: sodium chloride 0.9% 500 ML 999 ML IV (10:30)
== END 2019-06-06 23:59 | disposition home or self-care (01) ==
LOC: ONCMED 05:33
PROVIDERS: Family Provider Family Medicine; PCP Internal Medicine; Visit Provider Internal Medicine Hematology & Oncology
DX: E86.0 Dehydration (principal); C16.2 Malignant neoplasm of body of stomach; Z79.899 Other long term (current) drug therapy; Z90.3 Acquired absence of stomach [part of]; Z92.3 Personal history of irradiation; Z92.21 Personal history of antineoplastic chemotherapy
CPT/HCPCS: 80053; 85025; 96360; 99214; J7040

== ENCOUNTER 2019-07-07 06:36 | Outpatient (RCR) | payer MEDICARE, MEDICAID, SELFPAY ==
[2019-06-16] MEDS: sodium chloride 0.9% 1,000 ML 999 ML IV (14:20)
--- NOTE | 2019-06-19 21:38 | ONC FU_ITS ---
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 Castro is a 48-year-old gentleman with history of chronic anemia, melena and upper abdominal pain/discomfort underwent EGD on 08/05/2017 showed normal stomach with normal exam and duodenal, possible Merritt's esophagitis biopsy or done was negative also had colonoscopy same time, 6 mm polyp was removed from ascending colon. He continued to have abdominal discomfort/pain and he had abdominal sonogram done on 08/06/2017 which showed liver with increased echogenicity which is nonspecific. 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 pylori was identified. Patient underwent CT scan of chest abdomen pelvis on 08/29/2018 which showed no acute findings within the abdomen or pelvis and his blood workup showed normal hemoglobin and hematocrit and CMP was also normal. Patient underwent CT PET scan on 09/25/2018 which showed small focus of increase uptake within the distal gastric body/antrum. No finding to suggest metastatic disease in the chest abdomen or pelvis. Hypermetabolic left thyroid nodule 5 mm right pulmonary nodule along the major fissure probably represents an intrapulmonary lymph node. Underwent endoscopy ultrasound on 10/14/2018 which showed 1.6 x 0.9 cm hypoechoic lesion at the level of the known mass at 60 cm from the incisors. It appeared to penetrate the submucosa but not through it and the muscularis propria was intact and the visualized portion and EUS stage was T1 B, N0 MX, so no neoadjuvant chemotherapy was considered Mr Castro was seen by Dr. Medel and underwent laparoscopic partial gastrectomy and perigastric lymph node and omental dissection on 11/19/2018. Final pathology report showed invasive poorly differentiated adenocarcinoma, diffuse/signet ring cell type; Ulcerated tumor measures 1.5 cm in greatest dimension and shows invasion through the muscularis propria with involvement of serosa pT4a; Surgical margins free; 0 out of 11 lymph nodes showed metastatic disease. N0 stage IIB (T4a, N0 Mx) Based on the findings e.g. T4 a lesion seen on partial gastrectomy specimen compared to T1B on EUS staging, adjuvant chemotherapy/chemoradiation was recommended by medical oncologist in [place]. Mr Castro was referred to GI oncology at [facility] for evaluation for clinical trial/second opinion. He was seen by on 01/12/2019 and her recommendations were, being high risk pT4a, less than D2 lymphadenectomy, adjuvant chemoradiation was recommended to maximize chance of cure. There was no clinical trial available at this time and due to patient's poor performance status and overall condition due to several postoperative complication, adjuvant chemotherapy was also suggested has an option or observation alone was also discussed. If patient's condition improves then FOLFOX or 5-FU alone could be considered and also recommended radiation consult. Mr Castro underwent CT scan of abdomen pelvis on 01/23/2019 which showed partial atelectasis or pneumonia left lower lobe.Small loculated appearing left pleural effusion with an air-fluid level, a small empyema is not excluded. Resolved previous left subdiaphragmatic abscess but post infirmity changes remains in the left subdiaphragmatic soft tissue. Mr Castro was seen by Dr. Kauffman for left lower lobe consolidation and concern about empyema. As per Dr. Kauffman it could be reactive to his subdiaphragmatic process which was treated with catheter drainage and considering area of loculation was very small, he recommended follow-up CT scan in 3 months and patient underwent CT scan of abdomen pelvis on 03/06/2019 which showed significant improvement in the previous pneumonitis and a partial atelectasis left lower lobe and decrease in left pleural effusion since 01/23/2019. He was treatment with combined chemoradiation with oral Xeloda.1500 mg by mouth twice a day concurrent with radiation therapy. He developed diarrhea and hypokalemia so his Xeloda was put on hold. Once the diarrhea had resolved, the Xeloda restarted on 03/31/2019 but reduced to 1000 mg by mouth twice a day concurrent with radiation therapy. He has completed radiation therapy. I am not convinced that he was able to take very much of his Xeloda during radiation. His compliance would be questionable as he frequently said it bothered his stomach and he couldn't take it. None the less, he has completed radiation. He completed 2 fractions for total dosing of 360 cGy to the stomach on May 01, 2019. He had fractionated dosing which consisted of 25 doses starting on March 24, 2019 and ending on April. This total dosing was 4500 cGy. He has required continuous supportive care. He is getting hydration at least 2-3 times a week but completed treatment on 05/01/2019. Dr. Marrero discussed the role of adjuvant chemotherapy with FOLFOX for [facility] with and Mrs. Kenyon. Mr. Palm has decided not to take any further chemotherapy because of related side effects and toxicity. He did not tolerate combined chemoradiation well. The plan was to do a CT follow-up of the abdomen and if it showed no disease he would prefer observation alone. Follow-up chest CT report from May 28, 2019 reported resolved left pleural effusion and left lower lobe atelectasis/pneumonia. Chronic emphysema. No adenopathy, but increase in number of subcentimeter bilateral axillary lymph nodes there was a right hilar lymph node measuring at 9.1 mm. Also reported was mild thickening of the esophagus. Consider esophagitis . Mr Castro is here today for an unscheduled, urgent visit for concerns of increased abdominal pain. He states that he continues to have abdominal pain. He describes the pain as burning sharp and dull at times. He states he really just cannot describe it very well. It has been persistent over the last 2 to 3 weeks but he states he feels it is worsening over the last couple of days. He states he has had some red and dark stools but denies any bright red blood. He has had no emesis. He indicates that his pain occurs in the mid gastric area and radiates towards his chin. He states at times though it does travel across his stomach in the mid left quad and occasionally some in the mid right quad. He states he is just miserable at times. He states it seems to be worse after he eats. He states that he has had no actual nausea or vomiting but just a lot of discomfort. His energy is marginal. He is unsure if he is actually lost weight or not as he has been trying to eat small amounts frequently. He states he feels he can swallow okay but just has a lot of pain. He denies any fever or chills. He states he has had no diarrhea. Has occasional constipation which typically is relieved with stool softeners and [id number]-[id number] laxatives. He denies any mouth sores. He has poor oral dentition. He states his bladder is normal for him. He has had no lower extremity edema. He denies any neuropathy pain. His ECOG is 2. Past Medical History: Hypertension Renal calculi Thyroid nodule Past Surgical History: Colonoscopy in 2018 Allergies: Haldol Medications: amLODIPine Besylate 1 Tablet (of 10 mg) Oral daily Cyclobenzaprine HCl 1 Tablet (of 10 mg) Oral PRN Dicyclomine HCl 1 Capsule (of 10 mg) Oral four times a day PRN Ferrous Gluconate 1 Tablet (of 324 (37.5 fe) mg) Oral b.i.d. Lisinopril 1 Tablet (of 20 mg) Oral daily Multivitamin Adult 1 Tablet Oral daily Omeprazole 1 (40 mg) Capsule Delayed Release Oral b.i.d. Ondansetron HCl 1 Tablet (of 4 mg) Oral q 6 hours PRN Simvastatin 1 Tablet (of 5 mg) Oral daily Family History: The family history is unremarkable. Social History: Mr. Castro is and he is a disabled. Mr. Castro quit smoking less than one year ago but had smoked 1.0 pack/day for 24 years. He has no history of drinking. Mr. Castro reports the following support systems: lives with spouse, significant other, family, or friends, lives in own house, supportive family/friends willing to assist with needs, and adequate transportation available for expected visits. His diet consists of regular meals. He indicates his activity level as: regular exercise. Review Of Symptoms: Constitutional Denies fevers, chills, night sweats, excessive fatigue or new weight loss. Appetite is marginal to poor. Allergic/Immunologic No reactions. ENMT Denies changes in hearing, sore throat, mouth sores, difficulty or changes in swallowing ability, and/or sinus drainage. Endocrine No diabetes, thyroid disease or hormone replacement. Denies hot flashes or night sweats. Hematologic/Lymphatic Denies easy bruising or bleeding. The patient denies any tender or palpable lymph nodes. Respiratory Denies dyspnea on exertion, chest pain, cough or hemoptysis. Denies orthopnea. Cardiovascular Denies anginal chest pain, palpitations or orthopnea. Gastrointestinal Denies nausea, vomiting, diarrhea, GI bleeding, or constipation. Denies change in bowel habits and/or stool color or early satiety. He is having persistent and worsening abdominal pain that is suggestive of heartburn/gastritis symptoms despite being on Prilosec twice daily. Genitourinary (M) Denies hematuria, dysuria, increased frequency, urgency, hesitancy or incontinence. Musculoskeletal Denies joint pain, swelling or redness. No decreased range of motion. Integumentary Denies chronic rashes, inflammation, ulcerations or skin changes. Neurologic Denies headache, blurred vision, and no areas of focal weakness or numbness. Normal gait. No sensory problems. Psychiatric Denies insomnia, depression, dutch or mood swings. Vital Signs: Performed on Jun 16, 2019 14:20 Height - 75.00 in Temperature - 97.6 F (LOW) Pulse - 68 /min Respiration - 18 /min BP - 151/95 mm(hg) (HIGH) O2 Sat - 99 % Pain - 2 Fatigue - 0 Performed on Jun 16, 2019 11:28 Height - 75.00 in Weight - 140.0 lbs (LOW) BSA - 1.89 sq.m BMI - 17.50 (LOW) Temperature - 98.0 F (LOW) Pulse - 49 /min (LOW) Respiration - 18 /min BP - 143/87 mm(hg) (HIGH) O2 Sat - 100 % Pain - 5 Fatigue - 3,2 - Ambulatory/capable of all self-care, unable to perform any work activities. Up and about more than 50% of waking hours. (ECOG) Physical Examination: Constitutional Alert, oriented, no acute distress. Frail in appearance. Skin pink, warm and dry. Head Normocephalic; atraumatic. Eyes Conjunctivae and sclerae are clear and without icterus. Pupils are reactive and equal. Neck Supple without masses or thyromegaly. No jugular venous distension. Hematologic/Lymphatic No petechiae or purpura. Abdomen Mildly-tender but non-distended, no masses or ascites. Good bowel sounds noted in all quads. No guarding or rebound tenderness. No pulsatile masses. Back/Spine Non-tender to palpation. Extremities No visible deformities, no cyanosis, clubbing or edema. Musculoskeletal No tenderness or swelling, normal range of motion without obvious weakness. Integumentary No rashes or lesions. Neurologic No sensory or motor deficits, normal cerebellar function, normal gait. Psychiatric Alert and oriented times three. Coherent speech. Verbalizes understanding of our discussions today. Laboratory:Test performed on Jun 02, 2019 14:16 Sodium 143 mmol/L Potassium 3.7 mmol/L Chloride 104 mmol/L CO2 29 mmol/L Anion Gap 13.7 BUN 8 mg/dL Creatinine 0.9 mg/dL Cr Clearance (Est) 88.83 mL/min eGFR 89.3 mL/min Glucose 92 mg/dL Calcium 9.1 mg/dL Protein, Total 6.8 g/dL Albumin 4.0 g/dL Globulin 2.8 g/dL Bilirubin, Total 0.4 mg/dL ALT (SGPT) 26 U/L AST (SGOT) 33 U/L Alkaline Phosphatase 109 IU/L WBC 4.2 10 3/uL RBC 4.62 10 6/uL HGB 12.2 g/dL HCT 38.9 % MCV 84.2 fL MCH 26.4 pg MCHC 31.4 g/dL RDW 17.2 % Platelet Count 230 10 3/cmm MPV 10.5 fL Neutrophils 2.8 10 3/uL Lymphocytes 0.4 10 3/uL Monocytes 0.6 10 3/uL Eosinophils 0.3 10 3/uL Basophils 0.1 10 3/uL Neutrophil % 66.5 % Lymphocyte % 9.7 % Monocyte % 14.9 % Eosinophil % 7.5 % Basophils % 1.2 % Impression: Gastric signet cell adenocarcinoma, 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 However it is questionable how compliant he has been with the capecitabine because he was having side effects of it. He completed radiation therapy on 05/01/2019. Dr. Marrero discussed the role of adjuvant chemotherapy with FOLFOX for [place] with and Mrs. Kenyon. Mr. Palm has decided not to take any further chemotherapy because of related side effects and toxicity. He did not tolerate combined chemoradiation well. The plan was to do a CT follow-up of the abdomen and if it showed no disease he would prefer observation alone. Follow-up chest CT report from May 28, 2019 reported resolved left pleural effusion and left lower lobe atelectasis/pneumonia. Chronic emphysema. No adenopathy, but increase in number of subcentimeter bilateral axillary lymph nodes there was a right hilar lymph node measuring at 9.1 mm. Also reported was mild thickening of the esophagus. Consider esophagitis . Plan: 1. Continue supportive care with hydration and IV antiemetics as needed. 2. Increase fluconazole to 200 mg daily and add Protonix 40 mg twice daily for suspected gastritis. He is advised he could continue the Magic mouthwash but would need to swallow it and he will need to watch for sedation due to the Benadryl. 3. He most recent labs were from 06/02/2019. I did review the labs in detail and discussed them with Mr & Mrs Castro. 4. I did increase his hydrocodone APAP 10/325 for 5-day supply for persistent stomach wall/esophageal pain. 5. IFOB for red/dark stools. 6. Referral to Dr Barraza for possible EGD and colonoscopy (Mr Castro thinks he is due for followup and Dr Barraza had performed the last scope). With the CT of the chest from 05/28/2019 suggesting esophagitis, I recommended that Mr Castro followup with Dr Barraza for possible scope. 7. We will plan to see him back as scheduled. 8. Mr. Castro was instructed to contact us in interim should questions or problems arise. Signed By: Rayna SherwoodN.P.-KHANG, AOBOGDAN Marrero MD <<Signature on File>>
[2019-06-24] MEDS: sodium chloride 0.9% 1,000 ML 999 ML IV (14:13)
[2019-07-01] MEDS: sodium chloride 0.9% 1,000 ML 999 ML IV (13:37)
== END 2019-07-07 23:59 | disposition home or self-care (01) ==
LOC: ONCMED 06:36
PROVIDERS: Family Provider Family Medicine; PCP Internal Medicine; Visit Provider Internal Medicine Hematology & Oncology
DX: E86.0 Dehydration (principal); C16.2 Malignant neoplasm of body of stomach; J43.9 Emphysema, unspecified; R10.9 Unspecified abdominal pain; Z79.899 Other long term (current) drug therapy; Z79.891 Long term (current) use of opiate analgesic; Z90.3 Acquired absence of stomach [part of]; Z92.21 Personal history of antineoplastic chemotherapy; Z92.3 Personal history of irradiation; Z87.442 Personal history of urinary calculi; Z87.891 Personal history of nicotine dependence
CPT/HCPCS: 82274; 96360; 99214; J7030

== ENCOUNTER 2019-07-15 10:34 | Emergency (ER) | payer MEDICARE, MEDICAID, SELFPAY ==
[2019-07-15] VITALS (9 sets, daily range): BP systolic 125–144; BP diastolic 74–85; PULSE 48–56; RESP 14–16; TEMP 36.7; O2SAT 95–100; BMI 15.4
--- NOTE | 2019-07-15 11:09 | W.ED.GENADLT ---
Documented by User: LYLE Mcmillan 07/16/19 07:27 HPI - General Adult General: Chief complaint: General Medical Stated complaint: ABNORMAL LABS Time Seen by Provider: 07/15/19 10:59 History of Present Illness: HPI narrative: Patient is a 48-year-old male who comes into the ED with abdominal pain. He has a past medical history of stomach cancer. Patient says he received radiation treatment for his stomach cancer around 3 to 4 months ago. He says the last 3 days he has been unable to eat or drink much of anything. He says he does not have much of an appetite and then says when he does eat something it causes his abdominal pain to increase significantly. He also says he drinks some water yesterday and threw it right up. He also says he urinates about once a day. With the nausea and increased pain whenever he tries to ingest something has caused him to refrain from eating or drinking anything these past couple days. Denies any fever, chest pain, shortness of breath, diarrhea, hematuria. Associated symptoms: Reports nausea and vomiting; Deny chest pain, dyspnea, headache(s), rash or palpitations Review of Systems Const: Reports: change in appetite and change in weight (Since diagnosed with cancer he has lost over 60+ lbs.); Denies: fever, chills or fatigue Eyes: Denies: change in vision or eye discomfort ENMT: Denies: throat pain, painful swallowing, nasal discharge or nasal congestion Card: Denies: chest pain, palpitations, edema, swelling of feet/ankles, shortness of breath on exertion or shortness of breath when lying down Resp: Denies: shortness of breath, productive cough or non-productive cough GI: Reports: abdominal pain, nausea and vomiting; Denies: diarrhea, constipation or blood in stool : Reports: decreased urine ouput; Denies: flank pain, difficulty urinating, painful urination or blood in urine Musc: Denies: neck pain, back pain or extremity swelling Skin/Breast: Denies: rash or new lesion Neuro: Denies: headache, numbness in extremities or weakness in extremities [facility] ED PFSH: Social History Smoking and tobacco status: never smoked Physical Exam Const: COMMON NORMALS: oriented x3; negative for well nourished (Emaciation) NUTRITIONAL APPEARANCE: thin ORIENTATION/CONSCIOUSNESS: Yes awake, Yes oriented to person, Yes oriented to place and Yes oriented to time HENMT: COMMON NORMALS: normocephalic HEAD & SCALP: normocephalic MOUTH: oral and palatal mucosa normal TEETH & GINGIVA: Yes other (Teeth absent) THROAT: posterior oropharynx normal and uvula midline Eye: COMMON NORMALS: PERRL GENERAL EYE: normal appearance of both eyes PUPIL: Yes PERRL Neck/C-Spine: COMMON NORMALS: supple GENERAL: Yes normal visual inspection Resp: COMMON NORMALS: normal respiratory effort, no retractions, no use of accessory muscles and clear to auscultation bilaterally EFFORT & INSPECTION: Yes able to speak in complete sentences and No respiratory distress AUSCULTATION: clear to auscultation bilaterally Cardio: COMMON NORMALS: regular rate, regular rhythm, S1 normal heart sound, S2 normal heart sound, no gallops, no clicks, no murmurs and peripheral pulses 2+ throughout RATE: regular rate RHYTHM: regular rhythm HEART SOUNDS: S1 normal and S2 normal PERIPHERAL PULSES: pulses 2+ throughout GI: COMMON NORMALS: normal to inspection, nondistended, normoactive bowel sounds, soft to palpation, non-tender and no masses PALPATION: Yes soft : COMMON NORMALS: Yes no CVA tenderness BLADDER/KIDNEY EXAM: Yes no CVA tenderness Back/Pelvis: COMMON NORMALS: no CVA tenderness Extremity: COMMON NORMALS: normal to inspection and normal capillary refill Neuro: COMMON NORMALS: oriented x3 and moves all extremities SENSORIUM/ORIENTATION: Yes oriented to person, Yes oriented to place and Yes oriented to time Skin: COMMON NORMALS: no rashes or lesions noted GENERAL SKIN EXAM: no rashes or lesions noted and dry skin Course Consultations: Consultation #1: I called patient's oncologist Dr. Marrero and left a message for him to return my call to discuss patient case. Did not receive a call back. Vital Signs: Vital signs: Vital Signs Temperature 98.1 F 07/15/19 10:53 Pulse Rate 48 L 07/15/19 16:41 Respiratory Rate 14 07/15/19 16:40 Blood Pressure 125/78 07/15/19 16:41 Pulse Oximetry 100 07/15/19 16:41 MDM - General Adult MDM Narrative: Medical decision making narrative: Patient is a 48-year-old male with past medical history of stomach cancer that comes to the ED with worsening abdominal pain, nausea and vomiting. Oncology office told patient to come to the ED to help manage his acute on chronic pain and to check some blood work. Patient finished radiation treatments approximately 3 to 4 months ago. CBC was remarkable for white blood cell count of 3.3 and hemoglobin 10.8. CMP was all normal. Urinalysis no signs of bacterial infection. CT of the abdomen was performed and it did show some mild gallbladder wall thickening and it was recommended to do an ultrasound of the gallbladder. US Gallbladder showed Minimal prominence of the gallbladder wall with suggestion of trace edema. This may be incidental. Gallbladder wall measures approximately 3 mm. Gallbladder function can be further evaluated with HIDA scan. Patient's pain and nausea was controlled with Zofran and morphine along with IV fluids while here in the ED. Patient was told about ultrasound and CT findings and told to talk with PCP/oncologist about possible HIDA scan. Patient has a previously prescribed prescription of hydrocodone and Zofran at home. I instructed him on the importance of taking Zofran to help with the nausea. He is going to follow-up with his PCP in 1 to 3 days. Patient understood and agreed with plan. Lab Data: Attestation: I reviewed the patient's lab results. Labs: Lab Results 07/15/19 07/15/19 07/15/19 Range/Units 11:25 11:25 11:25 WBC 3.3 L (4.0-10.0) 10^3/ uL RBC 3.68 L (4.1-5.3) 10^6/u L Hgb 10.8 L (11.7-16.6) g/dL Hct 34.2 L (42.0-52.0) % MCV 92.9 (80-94) fL MCH 29.3 (28.0-34.0) pg MCHC 31.6 (30.0-36.0) g/dL RDW 15.7 H (12.1-15.1) % Plt Count 244 (130-400) 10^3/c mm MPV 10.6 H (7.4-10.4) fL Neut % (Auto) 55.0 % Lymph % (Auto) 14.5 % [place] % (Auto) 13.9 % Eos % (Auto) 14.8 % Baso % (Auto) 1.5 % Neut # (Auto) 1.8 (1.8-7.7) 10^3/u L Lymph # (Auto) 0.5 L (0.8-4.8) 10^3/u L [place] # (Auto) 0.5 (0.2-0.9) 10^3/u L Eos # (Auto) 0.5 (0.0-0.8) 10^3/u L Baso # (Auto) 0.1 (0.0-0.1) 10^3/u L Nucleated RBC % (a uto) 0 % Nucleated RBCs # 0.0 /100WBC Sodium 143 (136-145) mmol/L Potassium 3.6 (3.5-5.1) mmol/L Chloride 104 (98-107) mmol/L Carbon Dioxide 27 (22-29) mmol/L Anion Gap 15.6 (5-19) BUN 13 (6-20) mg/dL Creatinine 1.0 (0.7-1.2) mg/dL GFR Calculation 79.1 L (90-130) mL/min Glucose 98 (65-115) mg/dL Calculated Osmolal ity 292 (285-295) mOsm/k g Lactate 0.9 (0.5-2.2) mmol/L Calcium 9.3 (8.5-10.5) mg/dL Total Bilirubin 0.5 (0.15-1.2) mg/dL AST 29 (0-40) U/L ALT 14 (0-41) U/L Alkaline Phosphata se 111 (40-130) IU/L Total Protein 6.9 (6.6-8.7) g/dL Albumin 3.7 (3.5-5.2) g/dL Globulin 3.2 (1.3-4.6) g/dL Lipase 3 L (13-60) U/L Urine Color (Yellow) Urine Appearance (CLEAR) Urine pH (5-7) Ur Specific Gravit y (1.005-1.030) Urine Protein (Negative) Urine Glucose (UA) (Normal) Urine Ketones (Negative) Urine Blood (Negative) Urine Nitrate (Negative) Urine Bilirubin (NEGATIVE) Urine Urobilinogen (Negative) mg/dL Ur Leukocyte Beena ase (Negative) Urine RBC (0-2) /hpf Urine WBC (0-5) /hpf Ur Squamous Epith Cells (0-5) Calcium Oxalate Cr ystal /hpf Amorphous Sediment Urine Bacteria (NONE) 07/15/19 Range/Units 12:00 WBC (4.0-10.0) 10^3/ uL RBC (4.1-5.3) 10^6/u L Hgb (11.7-16.6) g/dL Hct (42.0-52.0) % MCV (80-94) fL MCH (28.0-34.0) pg MCHC (30.0-36.0) g/dL RDW (12.1-15.1) % Plt Count (130-400) 10^3/c mm MPV (7.4-10.4) fL Neut % (Auto) % Lymph % (Auto) % [place] % (Auto) % Eos % (Auto) % Baso % (Auto) % Neut # (Auto) (1.8-7.7) 10^3/u L Lymph # (Auto) (0.8-4.8) 10^3/u L [place] # (Auto) (0.2-0.9) 10^3/u L Eos # (Auto) (0.0-0.8) 10^3/u L Baso # (Auto) (0.0-0.1) 10^3/u L Nucleated RBC % (a uto) % Nucleated RBCs # /100WBC Sodium (136-145) mmol/L Potassium (3.5-5.1) mmol/L Chloride (98-107) mmol/L Carbon Dioxide (22-29) mmol/L Anion Gap (5-19) BUN (6-20) mg/dL Creatinine (0.7-1.2) mg/dL GFR Calculation (90-130) mL/min Glucose (65-115) mg/dL Calculated Osmolal ity (285-295) mOsm/k g Lactate (0.5-2.2) mmol/L Calcium (8.5-10.5) mg/dL Total Bilirubin (0.15-1.2) mg/dL AST (0-40) U/L ALT (0-41) U/L Alkaline Phosphata se (40-130) IU/L Total Protein (6.6-8.7) g/dL Albumin (3.5-5.2) g/dL Globulin (1.3-4.6) g/dL Lipase (13-60) U/L Urine Color Opal (Yellow) Urine Appearance Clear (CLEAR) Urine pH 6 (5-7) Ur Specific Gravit y 1.015 (1.005-1.030) Urine Protein Neg (Negative) Urine Glucose (UA) Norm (Normal) Urine Ketones 1+ H (Negative) Urine Blood Neg (Negative) Urine Nitrate Negative (Negative) Urine Bilirubin 1+ H (NEGATIVE) Urine Urobilinogen 1 H (Negative) mg/dL Ur Leukocyte Beena ase Negative (Negative) Urine RBC None (0-2) /hpf Urine WBC None (0-5) /hpf Ur Squamous Epith Cells None (0-5) Calcium Oxalate Cr ystal 0-4 H /hpf Amorphous Sediment 2+ Urine Bacteria Trace (NONE) Imaging Data^: CT Abd/Pel: Attestation: I personally reviewed and interpreted this imaging study as follows: Radiologist's impression: [place] [address] CT Scan Report Signed Patient: Benny Castro Unit #: [id number] : 1970 Age/Sex: 48 / M ADM Date: 07/15/19 Loc: ER Room/Bed: Attending Dr: Ordering Provider/Ordering MD: Leighton Vega Date of Service: 07/15/19 Procedure(s): CT abdomen pelvis w con* [id number] Accession Number(s): [id number] Report Number: [id number] WS: [id number] CT ABDOMEN PELVIS TECHNIQUE: Contrast-enhanced CT of the abdomen and pelvis with coronal and sagittal reformatted images. CLINICAL INFORMATION: abdominal pain, N/V COMPARISON: CT March 06, 2019 DLP: 506.[address] scans at [facility] use at least one of these dose optimization techniques: automated exposure control; mA and/or kV adjustment per patient size (includes targeted exams where dose is matched to clinical indication); or iterative reconstruction. FINDINGS: Prior postoperative changes subtotal gastrectomy with gastrojejunal anastomosis. This is unchanged in appearance from previous. Liver is normal in appearance. Normal portal vein and splenic vein. Mild gallbladder wall thickening with mild gallbladder wall enhancement. This could be further evaluated ultrasound. No cholelithiasis. Normal common bile duct. Normal spleen. Lung bases are well aerated. Adrenal glands are normal. Normal renal parenchymal enhancement. No hydronephrosis. Normal pancreas. Normal caliber abdominal aorta. No evidence of small or large bowel obstruction. Scattered stool in the colon. Appendix in the right lower quadrant is normal. Normal caliber fluid-filled small bowel loops in the pelvis. No evidence of high-grade obstruction. No abdominal or inguinal lymphadenopathy. Disc space narrowing L5-S1. CT/CT abdomen pelvis w con* [id number] IMPRESSION: 1. Mild gallbladder wall thickening with slight gallbladder wall enhancement. This can be further evaluated with ultrasound. No cholelithiasis. 2. Normal common bile duct. 3. Prior postoperative changes gastrojejunal anastomosis with subtotal gastrectomy. 4. A few fluid-filled loops of small bowel in the pelvis. No evidence of high-grade bowel obstruction. 5. Appendix in the right lower quadrant is normal. 6. No other significant findings. Dictated By: Khang Carter MD Signed By: Khang Carter MD Signed Date/Time: 07/15/19 1338 DD/ 1329 US: Attestation: I personally reviewed and interpreted this imaging study as follows: Radiologist's impression: [address] [place] [address] Ultrasound Report Signed Patient: Benny Castro Unit #: [id number] : 1970 Age/Sex: 48 / M ADM Date: 07/15/19 Loc: ER Room/Bed: Attending Dr: Ordering Provider/Ordering MD: Leighton Vega Date of Service: 07/15/19 Procedure(s): US gall bladder 03037 Accession Number(s): [id number] Report Number: [id number] WS: [id number] ULTRASOUND ABDOMEN LIMITED CLINICAL INFORMATION: n/v and abdominal pain COMPARISON: None. FINDINGS: Liver Size: Normal. Craniocaudal length: 9.8 cm. Echogenicity: Normal. Surface nodularity: None. Mass (size and location): None. Bile ducts Intrahepatic ducts: Normal. Common bile duct diameter: 0.4 cm. Gallbladder Minimal gallbladder wall thickening. No cholelithiasis. Gallstones: None. Gallbladder sludge: None. Gallbladder wall thickening: Minimal measuring 3 mm Pericholecystic fluid: Suggestion of trace edema Sonographic Estevez sign: Absent. Pancreas Normal as visualized. Right kidney: Normal. Hydronephrosis: None. Size: 10.5 cm x 4.9 cm x 3.9 cm. Abdominal aorta and IVC Visualized portions are normal. Ascites: None. US/US gall bladder 71243 IMPRESSION: 1. Minimal prominence of the gallbladder wall with suggestion of trace edema. This may be incidental. Gallbladder wall measures approximately 3 mm. Gallbladder function can be further evaluated with HIDA scan. 2. No cholelithiasis. 3. Normal common bile duct. 4. Normal liver. 5. No hydronephrosis in right kidney. Dictated By: Khang Carter MD Signed By: Khang Carter MD Signed Date/Time: 07/15/191436 DD/ 143 Discharge Plan Discharge Patient Disposition: Home, Self-Care Clinical Impression: Chronic abdominal pain, History of stomach cancer Condition: Stable Prescriptions: No Action fluconazole 200 mg tablet 200 mg PO DAILY RF: 0 lisinopril 20 mg tablet 20 mg PO DAILY RF: 0 ondansetron HCl 4 mg tablet 4 mg PO DAILY PRN (Reason: nausea/vomiting) RF: 0 famotidine 40 mg tablet 40 mg PO BID RF: 0 hydrocodone-acetaminophen 10-325 mg tablet 10 - 325 tab PO QID PRN (Reason: Pain) RF: 0 omeprazole 40 mg capsule,delayed release(DR/EC) 40 mg PO BID RF: 0 amlodipine 10 mg tablet 10 mg PO DAILY RF: 0 simvastatin 5 mg tablet 5 mg PO DAILY RF: 0 pantoprazole 40 mg tablet,delayed release (DR/EC) 40 mg PO DAILY RF: 0 Discharge Orders: Discharge Order (Routine); Ordered 07/15/19 Ordered By: Leighton Vega Referrals: GREGORIO MATHIS DO [Primary Care Provider] - Siri Hernandez DO [Family Provider] - Discharge Diet: Advance as tolerated Discharge Activity: Increase activity as tolerated Patient Instructions: Abdominal Pain (ED) Activity Restrictions/Additional Instructions: Follow-up with your oncologist tomorrow to set up next appointment and to discuss recent visit to the emergency department. It is recommended that she get an outpatient HIDA scan to assess your gallbladder function. Continue taking all your home medications as previously prescribed. Advance your diet as tolerated and make sure to take your Zofran for any nausea. Continue taking your hydrocodone as prescribed as needed for pain. Discharge Date/Time: 07/15/19 16:44 Coding Level of Care Code ED Mobility Specialist for Chg Fwd Exam Comprehensive Documented by User: Joseph Goldman DO 07/16/19 09:43 HPI - General Adult General: Chief complaint: General Medical Stated complaint: ABNORMAL LABS Time Seen by Provider: 07/15/19 10:59 PFSH ED PFSH: Social History Smoking and tobacco status: never smoked Course Vital Signs: Vital signs: Vital Signs Temperature 98.1 F 07/15/19 10:53 Pulse Rate 48 L 07/15/19 16:41 Respiratory Rate 14 07/15/19 16:40 Blood Pressure 125/78 07/15/19 16:41 Pulse Oximetry 100 07/15/19 16:41 MDM - General Adult MDM Narrative: Medical decision making narrative: Patient discussed with midlevel chart, reviewed agree with assessment and plan Lab Data: Labs: Lab Results 07/15/19 07/15/19 07/15/19 Range/Units 11:25 11:25 11:25 WBC 3.3 L (4.0-10.0) 10^3/ uL RBC 3.68 L (4.1-5.3) 10^6/u L Hgb 10.8 L (11.7-16.6) g/dL Hct 34.2 L (42.0-52.0) % MCV 92.9 (80-94) fL MCH 29.3 (28.0-34.0) pg MCHC 31.6 (30.0-36.0) g/dL RDW 15.7 H (12.1-15.1) % Plt Count 244 (130-400) 10^3/c mm MPV 10.6 H (7.4-10.4) fL Neut % (Auto) 55.0 % Lymph % (Auto) 14.5 % [place] % (Auto) 13.9 % Eos % (Auto) 14.8 % Baso % (Auto) 1.5 % Neut # (Auto) 1.8 (1.8-7.7) 10^3/u L Lymph # (Auto) 0.5 L (0.8-4.8) 10^3/u L [place] # (Auto) 0.5 (0.2-0.9) 10^3/u L Eos # (Auto) 0.5 (0.0-0.8) 10^3/u L Baso # (Auto) 0.1 (0.0-0.1) 10^3/u L Nucleated RBC % (a uto) 0 % Nucleated RBCs # 0.0 /100WBC Sodium 143 (136-145) mmol/L Potassium 3.6 (3.5-5.1) mmol/L Chloride 104 (98-107) mmol/L Carbon Dioxide 27 (22-29) mmol/L Anion Gap 15.6 (5-19) BUN 13 (6-20) mg/dL Creatinine 1.0 (0.7-1.2) mg/dL GFR Calculation 79.1 L (90-130) mL/min Glucose 98 (65-115) mg/dL Calculated Osmolal ity 292 (285-295) mOsm/k g Lactate 0.9 (0.5-2.2) mmol/L Calcium 9.3 (8.5-10.5) mg/dL Total Bilirubin 0.5 (0.15-1.2) mg/dL AST 29 (0-40) U/L ALT 14 (0-41) U/L Alkaline Phosphata se 111 (40-130) IU/L Total Protein 6.9 (6.6-8.7) g/dL Albumin 3.7 (3.5-5.2) g/dL Globulin 3.2 (1.3-4.6) g/dL Lipase 3 L (13-60) U/L Urine Color (Yellow) Urine Appearance (CLEAR) Urine pH (5-7) Ur Specific Gravit y (1.005-1.030) Urine Protein (Negative) Urine Glucose (UA) (Normal) Urine Ketones (Negative) Urine Blood (Negative) Urine Nitrate (Negative) Urine Bilirubin (NEGATIVE) Urine Urobilinogen (Negative) mg/dL Ur Leukocyte Beena ase (Negative) Urine RBC (0-2) /hpf Urine WBC (0-5) /hpf Ur Squamous Epith Cells (0-5) Calcium Oxalate Cr ystal /hpf Amorphous Sediment Urine Bacteria (NONE) 07/15/19 Range/Units 12:00 WBC (4.0-10.0) 10^3/ uL RBC (4.1-5.3) 10^6/u L Hgb (11.7-16.6) g/dL Hct (42.0-52.0) % MCV (80-94) fL MCH (28.0-34.0) pg MCHC (30.0-36.0) g/dL RDW (12.1-15.1) % Plt Count (130-400) 10^3/c mm MPV (7.4-10.4) fL Neut % (Auto) % Lymph % (Auto) % [place] % (Auto) % Eos % (Auto) % Baso % (Auto) % Neut # (Auto) (1.8-7.7) 10^3/u L Lymph # (Auto) (0.8-4.8) 10^3/u L [place] # (Auto) (0.2-0.9) 10^3/u L Eos # (Auto) (0.0-0.8) 10^3/u L Baso # (Auto) (0.0-0.1) 10^3/u L Nucleated RBC % (a uto) % Nucleated RBCs # /100WBC Sodium (136-145) mmol/L Potassium (3.5-5.1) mmol/L Chloride (98-107) mmol/L Carbon Dioxide (22-29) mmol/L Anion Gap (5-19) BUN (6-20) mg/dL Creatinine (0.7-1.2) mg/dL GFR Calculation (90-130) mL/min Glucose (65-115) mg/dL Calculated Osmolal ity (285-295) mOsm/k g Lactate (0.5-2.2) mmol/L Calcium (8.5-10.5) mg/dL Total Bilirubin (0.15-1.2) mg/dL AST (0-40) U/L ALT (0-41) U/L Alkaline Phosphata se (40-130) IU/L Total Protein (6.6-8.7) g/dL Albumin (3.5-5.2) g/dL Globulin (1.3-4.6) g/dL Lipase (13-60) U/L Urine Color Opal (Yellow) Urine Appearance Clear (CLEAR) Urine pH 6 (5-7) Ur Specific Gravit y 1.015 (1.005-1.030) Urine Protein Neg (Negative) Urine Glucose (UA) Norm (Normal) Urine Ketones 1+ H (Negative) Urine Blood Neg (Negative) Urine Nitrate Negative (Negative) Urine Bilirubin 1+ H (NEGATIVE) Urine Urobilinogen 1 H (Negative) mg/dL Ur Leukocyte Beena ase Negative (Negative) Urine RBC None (0-2) /hpf Urine WBC None (0-5) /hpf Ur Squamous Epith Cells None (0-5) Calcium Oxalate Cr ystal 0-4 H /hpf Amorphous Sediment 2+ Urine Bacteria Trace (NONE) Discharge Plan Discharge Patient Disposition: Home, Self-Care Clinical Impression: Chronic abdominal pain, History of stomach cancer Condition: Stable Prescriptions: No Action fluconazole 200 mg tablet 200 mg PO DAILY RF: 0 lisinopril 20 mg tablet 20 mg PO DAILY RF: 0 ondansetron HCl 4 mg tablet 4 mg PO DAILY PRN (Reason: nausea/vomiting) RF: 0 famotidine 40 mg tablet 40 mg PO BID RF: 0 hydrocodone-acetaminophen 10-325 mg tablet 10 - 325 tab PO QID PRN (Reason: Pain) RF: 0 omeprazole 40 mg capsule,delayed release(DR/EC) 40 mg PO BID RF: 0 amlodipine 10 mg tablet 10 mg PO DAILY RF: 0 simvastatin 5 mg tablet 5 mg PO DAILY RF: 0 pantoprazole 40 mg tablet,delayed release (DR/EC) 40 mg PO DAILY RF: 0 Discharge Orders: Discharge Order (Routine); Ordered 07/15/19 Ordered By: Leighton Vega Referrals: GREGORIO MATHIS DO [Primary Care Provider] - Siri Hernandez DO [Family Provider] - Discharge Diet: Advance as tolerated Discharge Activity: Increase activity as tolerated Patient Instructions: Abdominal Pain (ED) Activity Restrictions/Additional Instructions: Follow-up with your oncologist tomorrow to set up next appointment and to discuss recent visit to the emergency department. It is recommended that she get an outpatient HIDA scan to assess your gallbladder function. Continue taking all your home medications as previously prescribed. Advance your diet as tolerated and make sure to take your Zofran for any nausea. Continue taking your hydrocodone as prescribed as needed for pain. Discharge Date/Time: 07/15/19 16:44 Coding Level of Care Code ED Mobility Specialist for [place]ig Fwd Exam Comprehensive
[2019-07-15 11:36] LABS: Basophils # 0.1 10^3/uL (0.0-0.1); Basophils % 1.5 %; Eosinophils # 0.5 10^3/uL (0.0-0.8); Eosinophils % 14.8 %; Hematocrit 34.2 % (42.0-52.0); Hemoglobin 10.8 g/dL (11.7-16.6); Lymphocytes # 0.5 10^3/uL (0.8-4.8); Lymphocytes % 14.5 %; Mean Corpuscular HGB Conc 31.6 g/dL (30.0-36.0); Mean Corpuscular Hemoglobin 29.3 pg (28.0-34.0); Mean Corpuscular Volume 92.9 fL (80-94); Mean Platelet Volume 10.6 fL (7.4-10.4); Monocytes # 0.5 10^3/uL (0.2-0.9); Monocytes % 13.9 %; Neutrophils # 1.8 10^3/uL (1.8-7.7); Nucleated Red Blood Cells % 0 %; Platelet Count 244 10^3/cmm (130-400); Red Blood Count 3.68 10^6/uL (4.1-5.3); Red Cell Distribution Width 15.7 % (12.1-15.1); White Blood Count 3.3 10^3/uL (4.0-10.0)
[2019-07-15 11:44] LABS: Alanine Aminotransferase 14 U/L (0-41); Albumin Level 3.7 g/dL (3.5-5.2); Alkaline Phosphatase 111 IU/L (40-130); Anion Gap 15.6 (5-19); Aspartate Amino Transferase 29 U/L (0-40); Blood Urea Nitrogen 13 mg/dL (6-20); Calcium 9.3 mg/dL (8.5-10.5); Carbon Dioxide 27 mmol/L (22-29); Chloride 104 mmol/L (98-107); Globulin 3.2 g/dL (1.3-4.6); Glomerular Filtration Rate 79.1 mL/min (90-130); Glucose 98 mg/dL (65-115); Lipase 3 U/L (13-60); Osmolality Calculated 292 mOsm/kg (285-295); Potassium 3.6 mmol/L (3.5-5.1); Sodium 143 mmol/L (136-145); Total Bilirubin 0.5 mg/dL (0.15-1.2); Total Protein 6.9 g/dL (6.6-8.7)
[2019-07-15 11:45] LABS: Lactate (Lactic Acid level) 0.9 mmol/L (0.5-2.2)
[2019-07-15] MEDS: ondansetron 2 mg/ML SDV 2 mL 4 MG IVP (11:53)
[2019-07-15] MEDS: morphine 4 mg/mL SDV 1 mL IVP ×2 (11:53→16:00)
--- NOTE | 2019-07-15 11:55 | CT_ITS ---
WS: [id number] CT ABDOMEN PELVIS TECHNIQUE: Contrast-enhanced CT of the abdomen and pelvis with coronal and sagittal reformatted image s. CLINICAL INFORMATION: abdominal pain, N/V COMPARISON: CT March 06, 2019 DLP: 506.[address] scans at [facility] use at least one of these dose optimization techniques: automat ed exposure control; mA and/or kV adjustment per patient size (includes targeted exams where dose is matched to clinical indication); or iterative reconstruction. FINDINGS: Prior postoperative changes subtotal gastrectomy with gastrojejunal anastomosis. This is unchanged in appearance from previous. Liver is normal in appearance. Normal portal vein and splenic vein. Mild gallbladder wall thickening with mild gallbladder wall enhancement. This could be further evaluated ultrasound. No cholelithiasis . Normal common bile duct. Normal spleen. Lung bases are well aerated. Adrenal glands are normal. Normal renal parenchymal enhan cement. No hydronephrosis. Normal pancreas. Normal caliber abdominal aorta. No evidence of small or l arge bowel obstruction. Scattered stool in the colon. Appendix in the right lower quadrant is normal. Normal caliber fluid-filled small bowel loops in the pelvis. No evidence of high-grade obstruction. No abdominal or inguinal lymphadenopathy. Disc space narrowing L5-S1. CT/CT abdomen pelvis w con* [id number] IMPRESSION: 1. Mild gallbladder wall thickening with slight gallbladder wall enhancement. This can be further evaluated with ultrasound. No cholelithiasis. 2. Normal common bile duct. 3. Prior postoperative changes gastrojejunal anastomosis with subtotal gastrec ryan. 4. A few fluid-filled loops of small bowel in the pelvis. No evidence of high- grade bowel obstruction. 5. Appendix in the right lower quadrant is normal. 6. No other significant findings.
[2019-07-15] MEDS: sodium chloride 0.9% 1,000 ML 999 ML IV (12:08)
[2019-07-15] MEDS: iohexol 300 mg/mL 100 mL Btl IV (12:24)
--- NOTE | 2019-07-15 13:49 | US_ITS ---
WS: [id number] ULTRASOUND ABDOMEN LIMITED CLINICAL INFORMATION: n/v and abdominal pain COMPARISON: None. FINDINGS: Liver Size: Normal. Craniocaudal length: 9.8 cm. Echogenicity: Normal. Surface nodularity: None. Mass (size and location): None. Bile ducts Intrahepatic ducts: Normal. Common bile duct diameter: 0.4 cm. Gallbladder Minimal gallbladder wall thickening. No cholelithiasis. Gallstones: None. Gallbladder sludge: None. Gallbladder wall thickening: Minimal measuring 3 mm Pericholecystic fluid: Suggestion of trace edema Sonographic Estevez sign: Absent. Pancreas Normal as visualized. Right kidney: Normal. Hydronephrosis: None. Size: 10.5 cm x 4.9 cm x 3.9 cm. Abdominal aorta and IVC Visualized portions are normal. Ascites: None. US/US gall bladder [id number] IMPRESSION: 1. Minimal prominence of the gallbladder wall with suggestion of trace edema. This may be incidental. Gallbladder wall measures approximately 3 mm. Gallbladd er function can be further evaluated with HIDA scan. 2. No cholelithiasis. 3. Normal common bile duct. 4. Normal liver. 5. No hydronephrosis in right kidney.
[2019-07-15 15:12] LABS: Bilirubin Urine 1+ (NEGATIVE); Blood Urine Neg (Negative); Glucose Urine UA Norm (Normal); Ketones Urine 1+ (Negative); Leukocyte Esterase Urine Negative (Negative); Nitrate Urine Negative (Negative); Protein Urine Neg (Negative); Specific Gravity, Urine 1.015 (1.005-1.030); Urine Appearance Clear (CLEAR); Urine Color Amber (Yellow); Urobilinogen Urine 1 mg/dL (Negative); pH Urine 6 (5-7)
[2019-07-15 15:13] LABS: Add Urine Culture? No; Amorphous Sediment Urine 2+; Bacteria Urine TRACE; Calcium Oxalate Crystals Urine 0-4 /hpf
== END 2019-07-15 16:44 | disposition home or self-care (01) ==
PROVIDERS: Emergency Provider Physician Assistant; Family Provider Family Medicine; PCP Internal Medicine
DX: R10.9 Unspecified abdominal pain (principal); G89.29 Other chronic pain; Z85.028 Personal history of other malignant neoplasm of stomach
CPT/HCPCS: 12345; 36415; 74177; 76705; 80053; 81001; 83605; 83690; 85025; 96361; 96374; 96375; 96376; 99283; 99284; J2270; J2405; J7030; Q9967

== ENCOUNTER 2019-07-22 07:47 | Outpatient (CLI) | payer MEDICARE, MEDICAID, SELFPAY ==
--- NOTE | 2019-07-22 07:55 | NM_ITS ---
WS: [id number] NUCLEAR MEDICINE HIDA SCAN WITH GALLBLADDER EJECTION FRACTION HISTORY: ABDOMINAL PAIN,OTHER SPECIFIED DISORDER OF GALLBLADDER COMPARISON: 07/15/2019 TECHNIQUE: The patient was intravenously injected with 8.1 mCi of TC99m Mebrofenin. Immediate imaging over the right upper quadrant was followed by 5 minute image and additional images for a total of 60 minutes. Normal uptake of radiotracer throughout the liver. Activity identified in the gallbladder at 15 minutes and well distended by 60 minutes. Activity in the proximal small bowel was seen by 15 minutes. Good washout of the radiotracer from the liver by 60 minutes. The patient then drank 8 ounces of Ensure Plus. Ejection fraction at 60 minutes was 77%. Normal GB ej ection fraction is 35-75%. Post fatty meal symptoms: Mild nausea. NM/NM hepatobiliary w phar* [id number] IMPRESSION: 1. Normal HIDA scan. 2. Normal gallbladder ejection fraction.
== END 2019-07-22 07:48 | disposition home or self-care (01) ==
PROVIDERS: Family Provider Family Medicine; PCP Internal Medicine; Visit Provider Nurse Practitioner Family
DX: R10.9 Unspecified abdominal pain (principal); K82.8 Other specified diseases of gallbladder
CPT/HCPCS: 78227; A9537

== ENCOUNTER 2019-08-05 06:43 | Outpatient (RCR) | payer MEDICARE, MEDICAID, SELFPAY ==
[2019-07-23 20:23] LABS: Eosinophils # 0.5 10^3/uL (0.0-0.8); Eosinophils % 12.1 %; Hematocrit 36.8 % (42.0-52.0); Hemoglobin 11.1 g/dL (11.7-16.6); Lymphocytes # 0.6 10^3/uL (0.8-4.8); Lymphocytes % 14.6 %; Mean Corpuscular HGB Conc 30.2 g/dL (30.0-36.0); Mean Corpuscular Hemoglobin 28.9 pg (28.0-34.0); Mean Corpuscular Volume 95.8 fL (80-94); Mean Platelet Volume 11.3 fL (7.4-10.4); Monocytes # 0.5 10^3/uL (0.2-0.9); Monocytes % 12.3 %; Neutrophils # 2.4 10^3/uL (1.8-7.7); Neutrophils % 59.7 %; Nucleated Red Blood Cells % 0 %; Platelet Count 268 10^3/cmm (130-400); Red Blood Count 3.84 10^6/uL (4.1-5.3); Red Cell Distribution Width 15.4 % (12.1-15.1)
[2019-07-23 20:46] LABS: Alanine Aminotransferase 17 U/L (0-41); Albumin Level 3.8 g/dL (3.5-5.2); Alkaline Phosphatase 92 IU/L (40-130); Aspartate Amino Transferase 33 U/L (0-40); Blood Urea Nitrogen 19 mg/dL (6-20); Calcium 9.5 mg/dL (8.5-10.5); Carbon Dioxide 30 mmol/L (22-29); Chloride 105 mmol/L (98-107); Globulin 2.5 g/dL (1.3-4.6); Glomerular Filtration Rate 70.9 mL/min (90-130); Glucose 59 mg/dL (65-115); Osmolality Calculated 294 mOsm/kg (285-295); Sodium 145 mmol/L (136-145); Total Bilirubin 0.4 mg/dL (0.15-1.2); Total Protein 6.3 g/dL (6.6-8.7)
--- NOTE | 2019-07-27 14:50 | ONC FU_ITS ---
Dr. Marrero follow up note Patient: Benny Castro Unit #: [id number]: [id number] Dicatated By: Pedro Marrero M.D.Date of Visit:Jul 27, 2019 Onc Med Follow-up/Prog Note History of Present Illness: Mr. Castro is a 48-year-old gentleman with history of chronic anemia, melena and upper abdominal pain/discomfort underwent EGD on 08/05/2017 showed normal stomach with normal exam and duodenal, possible Merritt's esophagitis biopsy or done was negative also had colonoscopy same time, 6 mm polyp was removed from ascending colon. He continued to have abdominal discomfort/pain and he had abdominal sonogram done on 08/06/2017 which showed liver with increased echogenicity which is nonspecific. 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 pylori was identified. Patient underwent CT scan of chest abdomen pelvis on 08/29/2018 which showed no acute findings within the abdomen or pelvis and his blood workup showed normal hemoglobin and hematocrit and CMP was also normal. Patient underwent CT PET scan on 09/25/2018 which showed small focus of increase uptake within the distal gastric body/antrum. No finding to suggest metastatic disease in the chest abdomen or pelvis. Hypermetabolic left thyroid nodule 5 mm right pulmonary nodule along the major fissure probably represents an intrapulmonary lymph node. Underwent endoscopy ultrasound on 10/14/2018 which showed 1.6 x 0.9 cm hypoechoic lesion at the level of the known mass at 60 cm from the incisors. It appeared to penetrate the submucosa but not through it and the muscularis propria was intact and the visualized portion and EUS stage was T1 B, N0 MX, so no neoadjuvant chemotherapy was considered Mr Castro was seen by Dr. Medel and underwent laparoscopic partial gastrectomy and perigastric lymph node and omental dissection on 11/19/2018. Final pathology report showed invasive poorly differentiated adenocarcinoma, diffuse/signet ring cell type; Ulcerated tumor measures 1.5 cm in greatest dimension and shows invasion through the muscularis propria with involvement of serosa pT4a; Surgical margins free; 0 out of 11 lymph nodes showed metastatic disease. N0 stage IIB (T4a, N0 Mx) Based on the findings e.g. T4 a lesion seen on partial gastrectomy specimen compared to T1B on EUS staging, adjuvant chemotherapy/chemoradiation was recommended by medical oncologist in [place]. Mr Castro was referred to GI oncology at [facility] for evaluation for clinical trial/second opinion. He was seen by on 01/12/2019 and her recommendations were, being high risk pT4a, less than D2 lymphadenectomy, adjuvant chemoradiation was recommended to maximize chance of cure. There was no clinical trial available at this time and due to patient's poor performance status and overall condition due to several postoperative complication, adjuvant chemotherapy was also suggested has an option or observation alone was also discussed. If patient's condition improves then FOLFOX or 5-FU alone could be considered and also recommended radiation consult. Mr Castro underwent CT scan of abdomen pelvis on 01/23/2019 which showed partial atelectasis or pneumonia left lower lobe.Small loculated appearing left pleural effusion with an air-fluid level, a small empyema is not excluded. Resolved previous left subdiaphragmatic abscess but post infirmity changes remains in the left subdiaphragmatic soft tissue. Mr Castro was seen by Dr. Kauffman for left lower lobe consolidation and concern about empyema. As per Dr. Kauffman it could be reactive to his subdiaphragmatic process which was treated with catheter drainage and considering area of loculation was very small, he recommended follow-up CT scan in 3 months and patient underwent CT scan of abdomen pelvis on 03/06/2019 which showed significant improvement in the previous pneumonitis and a partial atelectasis left lower lobe and decrease in left pleural effusion since 01/23/2019. He was treatment with combined chemoradiation with oral Xeloda.1500 mg by mouth twice a day concurrent with radiation therapy. He developed diarrhea and hypokalemia so his Xeloda was put on hold. Once the diarrhea had resolved, the Xeloda restarted on 03/31/2019 but reduced to 1000 mg by mouth twice a day concurrent with radiation therapy. He has completed radiation therapy. I am not convinced that he was able to take very much of his Xeloda during radiation. His compliance would be questionable as he frequently said it bothered his stomach and he couldn't take it. None the less, he has completed radiation. He completed 2 fractions for total dosing of 360 cGy to the stomach on May 01, 2019. He had fractionated dosing which consisted of 25 doses starting on March 24, 2019 and ending on April. This total dosing was 4500 cGy. He has required continuous supportive care. He is getting hydration at least 2-3 times a week but completed treatment on 05/01/2019. discussed the role of adjuvant chemotherapy with FOLFOX for [facility] with and Mrs. Kenyon. Mr. Palm has decided not to take any further chemotherapy because of related side effects and toxicity. He did not tolerate combined chemoradiation well. he would prefer observation alone. Follow-up chest CT report from May 28, 2019 reported resolved left pleural effusion and left lower lobe atelectasis/pneumonia. Chronic emphysema. No adenopathy, but increase in number of subcentimeter bilateral axillary lymph nodes there was a right hilar lymph node measuring at 9.1 mm. Also reported was mild thickening of the esophagus. Consider esophagitis . Follow-up CT scan of abdomen pelvis done on 07/15/2019 showed mild gallbladder wall thickening with slight gallbladder wall enhancement. Normal common bile duct. Post operative changes gastrojejunal anastomosis with subtotal gastrectomy. No lymphadenopathy. Ultrasound gallbladder done on 07/15/2019 shows minimal gallbladder wall thickening no cholelithiasis. No sludge noted. pericholecystic fluid suggestive of trace edema HIDA scan done on 07/22/2019 showed normal HIDA scan normal gallbladder ejection fraction. Came for follow-up, complaining of mid abdominal pain, more with fried food especially with fried chicken. Denies any nausea vomiting denies any diarrhea constipation, denies any abdominal fullness, denies any dysuria or hematuria, denies any hemoptysis or hematemesis melena or hematochezia. Denies any jaundice denies any fever chills. Poor appetite, and also losing weight. Patient said with the pain medication hydrocodone he can at least eat otherwise having problem with maintaining nutrition. Patient schedule see Dr. Barraza on 08/04/2019 Medications: amLODIPine Besylate 1 Tablet (of 10 mg) Oral daily, Cyclobenzaprine HCl 1 Tablet (of 10 mg) Oral PRN, Dicyclomine HCl 1 Capsule (of 10 mg) Oral four times a day PRN, Ferrous Gluconate 1 Tablet (of 324 (37.5 fe) mg) Oral b.i.d., Lisinopril 1 Tablet (of 20 mg) Oral daily, Multivitamin Adult 1 Tablet Oral daily, Omeprazole 1 (40 mg) Capsule Delayed Release Oral b.i.d., Ondansetron HCl 1 Tablet (of 4 mg) Oral q 6 hours PRN, Simvastatin 1 Tablet (of 5 mg) Oral daily Allergies: Haldol Review of Systems: Review of Systems is not available for this patient. Vital Signs: Performed on Jul 27, 2019 14:06 Height - 75.00 in Weight - 129.2 lbs (LOW) BSA - 1.82 sq.m BMI - 16.15 (LOW) Temperature - 98.3 F (LOW) Pulse - 62 /min Respiration - 18 /min BP - 115/84 mm(hg) O2 Sat - 99 % Pain - 8 Performance Status: 1 - No physically strenuous activity, but ambulatory and able to carry out light or sedentary work (e.g. office work, light house work). (ECOG) Physical Examination: ENMT - no mouth sores, Respiratory - Lungs are clear to auscultation, Abdomen - Good bowel sounds. mild guarding but rebound tenderness.or distention, Extremities - no edema. Lab/Imaging: Test performed on Jun 02, 2019 14:16 Sodium 143 mmol/L Potassium 3.7 mmol/L Chloride 104 mmol/L CO2 29 mmol/L Anion Gap 13.7 BUN 8 mg/dL Creatinine 0.9 mg/dL Cr Clearance (Est) 88.83 mL/min eGFR 89.3 mL/min Glucose 92 mg/dL Calcium 9.1 mg/dL Protein, Total 6.8 g/dL Albumin 4.0 g/dL Globulin 2.8 g/dL Bilirubin, Total 0.4 mg/dL ALT (SGPT) 26 U/L AST (SGOT) 33 U/L Alkaline Phosphatase 109 IU/L WBC 4.2 10 3/uL RBC 4.62 10 6/uL HGB 12.2 g/dL HCT 38.9 % MCV 84.2 fL MCH 26.4 pg MCHC 31.4 g/dL RDW 17.2 % Platelet Count 230 10 3/cmm MPV 10.5 fL Neutrophils 2.8 10 3/uL Lymphocytes 0.4 10 3/uL Monocytes 0.6 10 3/uL Eosinophils 0.3 10 3/uL Basophils 0.1 10 3/uL Neutrophil % 66.5 % Lymphocyte % 9.7 % Monocyte % 14.9 % Eosinophil % 7.5 % Basophils % 1.2 % Test performed on Mar 10, 2019 14:08 Magnesium 2.0 mg/dL Test performed on Feb 18, 2019 11:31 Ferritin 187.0 ng/ml Iron 61 ug/dL % Iron Saturation 30.0 % UIBC 142 ug/dL Test performed on Feb 05, 2019 14:58 Vitamin B12 339 pg/mL Impression: Gastric signet cell adenocarcinoma, 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 However it is questionable how compliant he has been with the capecitabine because he is having side effects of it. He completed radiation therapy on 05/01/2019. discussed the role of adjuvant chemotherapy with FOLFOX for [place] with and Mrs. Kenyon. Mr. Palm has decided not to take any further chemotherapy because of related side effects and toxicity. He did not tolerate combined chemoradiation well. The plan was to do a CT follow-up of the abdomen and if it showed no disease he would prefer observation alone. Follow-up chest CT report from May 28, 2019 reported resolved left pleural effusion and left lower lobe atelectasis/pneumonia. Chronic emphysema. No adenopathy, but increase in number of subcentimeter bilateral axillary lymph nodes there was a right hilar lymph node measuring at 9.1 mm. Also reported was mild thickening of the esophagus. Consider esophagitis . Plan: Discussed with patient regarding his labs white blood count 4 hemoglobin 11.1 crit 36.8 platelets 268,000 CMP within normal limits except glucose 59 Clinically, patient is in mild to moderate distress due to persistent/recurrent midepigastric/mid abdomen pain. So far workup done including CT scan of chest abdomen pelvis, ultrasound gallbladder, HIDA scan remained inconclusive, showed no evidence of recurrence of disease or any acute changes. Etiology of his persistent abdominal pain is still unclear, patient is scheduled to see Dr. Barraza, general surgeon for evaluation. In the meantime we will check amylase and lipase to rule out pancreatitis and continue with pain medication, as patient said it helps him tolerating food orally. Patient will return after surgical evaluation. Patient was advised in case there is a worsening of pain, he need to go to hospital immediately. Signed By: Pedro Marrero M.D. <<Signature on File>>
[2019-07-27 15:55] LABS: Amylase 44 U/L (28-100); Lipase 27 U/L (13-60)
[2019-08-05] MEDS: sodium chloride 0.9% 1,000 ML 999 ML IV (14:15)
== END 2019-08-06 23:59 | disposition home or self-care (01) ==
LOC: ONCMED 06:43
PROVIDERS: Internal Medicine Hematology & Oncology; Family Provider Family Medicine; PCP Internal Medicine; Visit Provider Nurse Practitioner
DX: C16.2 Malignant neoplasm of body of stomach (principal); E86.0 Dehydration; I10 Essential (primary) hypertension
CPT/HCPCS: 36415; 80053; 82150; 83690; 85025; 96360; J7030

== ENCOUNTER 2019-08-13 08:15 | Day surgery (SDC) | payer MEDICARE, MEDICAID, SELFPAY ==
[2019-08-12 14:05] VITALS: BMI 15.7
[2019-08-13] MEDS: sodium chloride 0.9% 1,000 ML 30 ML IV (08:43)
--- NOTE | 2019-08-13 08:54 | W.PM.OPSUD ---
Surgery/Procedure H&P Update DATE OF PROCEDURE: August 13, 2019 DATE H&P PERFORMED: 08/04/19 H&P UPDATE INFORMATION: I have examined patient prior to procedure and No changes to prior documentation PLANNED PROCEDURE: Operation Date: 08/13/19 09:45 Proposed Procedures p EGD(Not Applicable) - Marcos Barraza MD s scar exploration with possible hernia repair(Right) - Marcos Barraza MD
[2019-08-13 09:00] VITALS: BP 161/94; PULSE 51; RESP 18; TEMP 36.5; O2SAT 100
--- NOTE | 2019-08-13 09:24 | ANES.PREANE2 ---
Pre-Anesthetic Assessment Pre-Anesthetic Assessment: Height/Weight: Height 1.91 m Weight 57.153 kg Proposed Procedure: Operation Date: 08/13/19 09:45 Proposed Procedures p EGD(Not Applicable) - Marcos Barraza MD s scar exploration with possible hernia repair(Right) - Marcos Barraza MD Was Beta Aga taken within 24 hours: N/A Last intake: Intake Last Liquid Date 08/12/19 Last Liquid Time 20:00 Last Solid Date 08/12/19 Last Solid Time 20:00 Social: Social History: No alcohol and No tobacco Exam: Pre-Anes Outpt Exam: alert, oriented x 3, clear to auscultation bilaterally and regular rate & rhythm Airway: Submandibular: WNL Cervical ROM: WNL MP: 2 Dentition: False History/ROS: No significant history except as noted Pulmonary: Pulmonary: None reported CV/HEM: CV/HEM: HTN : : None reported Hepatic: Hepatic: None reported GI: GI: GERD Musc/skel: Musc/skel: Lower Back Pain Anesthetic Plan: ASA status: 2 Anesthesia: Anesthesia Evaluation and General Meds/Allergies Current Medications: Current Medications Generic Name Dose Route Start Last Admin Trade Name Freq PRN Reason Stop Dose Admin Sodium Chloride 1,000 mls @ 30 ml s/hr 08/13/19 08:30 08/13/19 08:43 Sodium Chloride 0.9% IV 08/14/19 08:29 30 mls/hr .Q24H TORRES Administration PFSH Anesthesia PFSH: Social History Smoking and tobacco status: never smoked Data Anesthesia Cardiac Studies: No Data to Display
--- NOTE | 2019-08-13 09:28 | ANES.PREANE2 ---
Pre-Anesthetic Assessment Pre-Anesthetic Assessment: Height/Weight: Height 1.91 m Weight 57.153 kg Proposed Procedure: Operation Date: 08/13/19 09:45 Proposed Procedures p EGD(Not Applicable) - Marcos Barraza MD s scar exploration with possible hernia repair(Right) - Marcos Barraza MD Was Beta Aga taken within 24 hours: N/A Last intake: Intake Last Liquid Date 08/12/19 Last Liquid Time 20:00 Last Solid Date 08/12/19 Last Solid Time 20:00 Social: Social History: No alcohol and No tobacco Exam: Pre-Anes Outpt Exam: alert, oriented x 3, clear to auscultation bilaterally and regular rate & rhythm Airway: Submandibular: WNL Cervical ROM: WNL MP: 2 Dentition: False History/ROS: No significant history except as noted Pulmonary: Pulmonary: None reported CV/HEM: CV/HEM: HTN : : None reported Hepatic: Hepatic: None reported GI: GI: None reported Metabolic: Metabolic: None reported Musc/skel: Musc/skel: None reported Neuropsych: Neuropsych: None reported Anesthetic Plan: ASA status: 2 Anesthesia: Anesthesia Evaluation and MAC Meds/Allergies Current Medications: Current Medications Generic Name Dose Route Start Last Admin Trade Name Freq PRN Reason Stop Dose Admin Sodium Chloride 1,000 mls @ 30 ml s/hr 08/13/19 08:30 08/13/19 08:43 Sodium Chloride 0.9% IV 08/14/19 08:29 30 mls/hr .Q24H TORRES Administration PFSH Anesthesia PFSH: Social History Smoking and tobacco status: never smoked Data Anesthesia Cardiac Studies: No Data to Display
--- NOTE | 2019-08-13 10:46 | P.OP_ITS ---
Operative Report Date of procedure: August 13, 2019 Pre-op Diagnosis: 1. Esophageal thickening by CAT scan with history of gastric carcinoma.2. Painful laparoscopy scar in the right upper quadrant. Post-op diagnosis: same Post-op Diagnosis: Normal esophagus on endoscopy, apparent retracting scar tissue underneath laparoscopic scar in right upper quadrant. Procedure Done: 1. EGD (upper endoscopy). 2. Scar exploration with excision of scar tissue at rectus muscle and right upper quadrant. Specimens removed/disposition: Apparent scar tissue from anterior rectus sheath/rectus muscle in right upper quadrant. Surgeon: Marcos Barraza Anesthesia: MAC Estimated blood loss (mL): 5 Complications: None. Condition: stable Disposition: same day Procedure: The patient was brought to the operating room and was placed in a supine position on the operating room table. A monitored anesthetic was induced. Upper endoscopy was then carried out. The distal esophagus appeared normal. The gastric anatomy had been obviously changed from the patient's previous gastric surgery and he had a small gastric remnant with an apparent gastrojejun ostomy present. Other than the anatomic changes, no obvious abnormalities were noted. See endoscopy report for further details. The abdomen was then prepped and draped in a sterile fashion. A combination of 1% lidocaine with 1 to 100,000 parts epinephrine and 0.5% bupivacaine was used for local anesthesia throughout the procedure. The patient's previous laparoscopy scar above and to the right side of the umbilicus was reopened with a scalpel. The patient had some very dense scar tissue in the subcutaneous layer which was intimately associated with the anterior rectus sheath on that side. This scar tissue was from the surrounding subcutaneous tissue and then was excised including a portion of the anterior rectus sheath. Given the patient's history of gastric carcinoma, the decision was made to send the specimen for pathologic analysis. No other abnormalities were seen or palpated in the region after the scar tissue had been removed; it was clearly responsible for the firm mass that was being felt preoperatively. The small opening in the anterior rectus sheath was closed using multiple interrupted sutures of 0 Vicryl placed transversely. The wound was extensively irrigated with saline. The skin was reapproximated using a running subcuticular suture of 3-0 Vicryl. Benzoin and Steri-Strips were placed over the incision and the patient was taken to the outpatient recovery area in stable condition postoperatively.
[2019-08-13 10:56] VITALS: BP 122/75; PULSE 58; RESP 16; TEMP 36.1; O2SAT 100
[2019-08-13 11:07] VITALS: BP 149/79; PULSE 61; RESP 18; O2SAT 100
== END 2019-08-13 11:26 | disposition home or self-care (01) ==
PROVIDERS: PCP Internal Medicine; Visit Provider Surgery
PROC: 0DJ08ZZ Inspection of Upper Intestinal Tract, Via Natural or Artificial Opening Endoscopic (ICD-10-PCS; CPT 43235; principal; 2019-08-13 09:45)
PROC: (CPT 11400; 2019-08-13 09:45)
DX: K22.8 Other specified diseases of esophagus (principal); L90.5 Scar conditions and fibrosis of skin; I10 Essential (primary) hypertension; Z79.1 Long term (current) use of non-steroidal anti-inflammatories (NSAID); F17.210 Nicotine dependence, cigarettes, uncomplicated; Z79.891 Long term (current) use of opiate analgesic; Z85.028 Personal history of other malignant neoplasm of stomach
CPT/HCPCS: 11400; 43235; 12345; J0690; J2001; J2704; J3010; J3490; J7030

== ENCOUNTER 2019-08-17 15:18 | Outpatient (RCR) | payer MEDICARE, MEDICAID, SELFPAY ==
[2019-08-17] MEDS: sodium chloride 0.9% 1,000 ML 75 ML IV ×6 (15:30→16:43)
== END 2019-08-17 23:59 | disposition home or self-care (01) ==
LOC: ONCMED 15:18
PROVIDERS: PCP Internal Medicine; Visit Provider Internal Medicine Medical Oncology
DX: E86.0 Dehydration (principal); C16.2 Malignant neoplasm of body of stomach
CPT/HCPCS: 88304; 96360; J7030

== ENCOUNTER 2019-08-18 10:21 | Outpatient (CLI) | payer MEDICARE, MEDICAID, SELFPAY ==
--- NOTE | 2019-08-18 10:28 | CT_ITS ---
WS: [id number] CT ABDOMEN CONTRAST TECHNIQUE: Contrast enhanced CT of the abdomen with coronal and sagittal reformatted images. CLINICAL INFORMATION: LEFT UPPER QUADRANT ABDOMINAL PAIN COMPARISON: CT July 15, 2019 DLP: 607.[address] scans at [facility] use at least one of these dose optimization techniques: automat ed exposure control; mA and/or kV adjustment per patient size (includes targeted exams where dose is matched to clinical indication); or iterative reconstruction. Liver is normal in appearance. Normal portal vein and splenic vein. Gallbladder is contracted today. Normal common bile duct. Normal spleen. Prior postoperative changes subtotal gastrectomy with gastro jejunal anastomosis. This is unchanged in appearance. Again seen are a few dilated loops of small bow el in the anterior abdomen with air-fluid levels. Normal caliber abdominal aorta. Disc space narrowing L5-S1. Lung bases are well aerated. Diffuse heterogeneous striated enhancement involving both kidneys consis tent with pyelonephritis. This is new from previous. No hydronephrosis. Recommend correlation for uri nary tract infection. Fatty atrophy of the pancreas with normal enhancement. Splenic vein is normal. New mild abdominal ascites with perihepatic and perisplenic ascites. Diffuse transmural wall thickening with mucosal enhancement involving the transverse colon consistent with infectious or inflammatory colitis. Less prominent involvement of the hepatic flexure. Descendi ng left colon and sigmoid colon appear normal. Mild abdominal ascites likely related to colitis. CT/CT abdomen w con* [id number] IMPRESSION: 1. Circumferential diffuse wall thickening and mucosal enhancement involving t he transverse colon most consistent with infectious or inflammatory colitis. Le ss prominent involvement of the hepatic flexure. 2. Diffuse heterogeneous striated enhancement involving the right greater than left kidneys consistent with pyelonephritis. This is new from previous. 3. New mild abdominal ascites mainly in the upper abdomen and pericolic gutter s likely related to the above-described colitis colitis. 4. Prior postoperative changes subtotal gastrectomy with gastrojejunal anastom osis.
[2019-08-18] MEDS: iohexol 300 mg/mL 50 mL Btl PO (11:00)
[2019-08-18] MEDS: iohexol 300 mg/mL 100 mL Btl IV (11:06)
[2019-08-18 11:43] LABS: Basophils # 0.1 10^3/uL (0.0-0.1); Basophils % 0.8 %; Eosinophils # 0.2 10^3/uL (0.0-0.8); Eosinophils % 2.8 %; Hematocrit 40.4 % (42.0-52.0); Hemoglobin 12.8 g/dL (11.7-16.6); Lymphocytes # 0.5 10^3/uL (0.8-4.8); Lymphocytes % 7.7 %; Mean Corpuscular HGB Conc 31.7 g/dL (30.0-36.0); Mean Corpuscular Hemoglobin 29.4 pg (28.0-34.0); Mean Corpuscular Volume 92.9 fL (80-94); Mean Platelet Volume 10.2 fL (7.4-10.4); Monocytes # 0.6 10^3/uL (0.2-0.9); Monocytes % 9.1 %; Neutrophils # 5.1 10^3/uL (1.8-7.7); Neutrophils % 79.3 %; Nucleated Red Blood Cells % 0 %; Platelet Count 317 10^3/cmm (130-400); Red Blood Count 4.35 10^6/uL (4.1-5.3); Red Cell Distribution Width 13.3 % (12.1-15.1); White Blood Count 6.4 10^3/uL (4.0-10.0)
[2019-08-18 12:03] LABS: Alanine Aminotransferase 25 U/L (0-41); Albumin Level 4.3 g/dL (3.5-5.2); Alkaline Phosphatase 105 IU/L (40-130); Anion Gap 15.8 (5-19); Aspartate Amino Transferase 41 U/L (0-40); Blood Urea Nitrogen 11 mg/dL (6-20); Calcium 9.3 mg/dL (8.5-10.5); Carbon Dioxide 26 mmol/L (22-29); Chloride 100 mmol/L (98-107); Globulin 2.7 g/dL (1.3-4.6); Glomerular Filtration Rate 89.3 mL/min (90-130); Glucose 102 mg/dL (65-115); Osmolality Calculated 282 mOsm/kg (285-295); Potassium 3.8 mmol/L (3.5-5.1); Sodium 138 mmol/L (136-145); Total Bilirubin 0.4 mg/dL (0.15-1.2)
== END 2019-08-18 10:22 | disposition home or self-care (01) ==
LOC: RADWPI 10:25
PROVIDERS: PCP Internal Medicine; Visit Provider Nurse Practitioner Family
DX: R10.12 Left upper quadrant pain (principal); K52.9 Noninfective gastroenteritis and colitis, unspecified; R18.8 Other ascites
CPT/HCPCS: 36415; 74160; 80053; 85025; Q9967

== ENCOUNTER 2019-08-19 20:02 | Inpatient (IN) | payer MEDICARE, MEDICAID, SELFPAY ==
[2019-08-19 20:21] VITALS: BP 169/105; PULSE 70; RESP 16; TEMP 36.3; O2SAT 100; BMI 15.4
[2019-08-19 20:53] LABS: Basophils # 0.1 10^3/uL (0.0-0.1); Eosinophils # 0.3 10^3/uL (0.0-0.8); Eosinophils % 5.4 %; Hematocrit 35.2 % (42.0-52.0); Hemoglobin 11.1 g/dL (11.7-16.6); Lymphocytes # 0.4 10^3/uL (0.8-4.8); Lymphocytes % 9.2 %; Mean Corpuscular HGB Conc 31.5 g/dL (30.0-36.0); Mean Corpuscular Hemoglobin 29.8 pg (28.0-34.0); Mean Corpuscular Volume 94.6 fL (80-94); Mean Platelet Volume 10.3 fL (7.4-10.4); Monocytes # 0.6 10^3/uL (0.2-0.9); Monocytes % 12.7 %; Neutrophils # 3.4 10^3/uL (1.8-7.7); Neutrophils % 71.5 %; Nucleated Red Blood Cells % 0 %; Platelet Count 259 10^3/cmm (130-400); Red Blood Count 3.72 10^6/uL (4.1-5.3); Red Cell Distribution Width 13.5 % (12.1-15.1); White Blood Count 4.8 10^3/uL (4.0-10.0)
[2019-08-19 21:00] VITALS: RESP 16
[2019-08-19] MEDS: sodium chloride 0.9% 1,000 ML 999 ML IV (21:00)
[2019-08-19] MEDS: HYDROmorphone 1 mg/mL INJ 1 mL 0.5 MG IVP (21:00)
[2019-08-19] MEDS: ondansetron 2 mg/ML SDV 2 mL 4 MG IVP (21:05)
[2019-08-19 21:08] VITALS: BP 144/105; BP 168/95; BP 176/103; PULSE 55; PULSE 58; PULSE 68
[2019-08-19 21:08] LABS: Alanine Aminotransferase 21 U/L (0-41); Albumin Level 3.8 g/dL (3.5-5.2); Alkaline Phosphatase 93 IU/L (40-130); Anion Gap 11.8 (5-19); Aspartate Amino Transferase 34 U/L (0-40); Blood Urea Nitrogen 10 mg/dL (6-20); Calcium 9.5 mg/dL (8.5-10.5); Carbon Dioxide 28 mmol/L (22-29); Chloride 102 mmol/L (98-107); Globulin 2.9 g/dL (1.3-4.6); Glomerular Filtration Rate 102.3 mL/min (90-130); Glucose 108 mg/dL (65-115); Lipase 3 U/L (13-60); Osmolality Calculated 283 mOsm/kg (285-295); Potassium 3.8 mmol/L (3.5-5.1); Sodium 138 mmol/L (136-145); Total Bilirubin 0.3 mg/dL (0.15-1.2); Total Protein 6.7 g/dL (6.6-8.7)
[2019-08-19] MEDS: piperacillin-tazobactam 3.375 GM in sodium chloride 0.9% (plus) 50 ML IV (21:30)
--- NOTE | 2019-08-19 21:47 | ED_ITS ---
HPI - Abdominal Pain General: Chief Complaint: Abdominal Pain Stated Complaint: in pain Time Seen by Provider: 08/19/19 20:34 History of Present Illness: HPI narrative: Benny is a very nice 48-year-old male who comes in complaining of abdominal pain. Patient had a subcutaneous tissue surgery done 1 week ago and was doing fine after that but over the past few days has developed pain and nauseousness and vomiting. He had an outpatient CT scan performed yesterday and he is unsure of the results but he was referred by his nurse practitioner to go to [place]. The patient does not want to go that far so is here to be evaluated. Associated Symptoms: Denies chills, coffee ground emesis, constipation, GI cramping, diarrhea, dysuria, fever(s), heartburn, hematochezia, hematuria, hematemesis, melena, nausea, syncope and vomiting Review of Systems Const: Denies: fever(s), chills, body aches, fatigue, malaise, night sweats or diaphoresis Eyes: Denies: change in vision, blurry vision or blind spots ENMT: Denies: throat pain, odynophagia, hoarseness, ear or mastoid pain, ear discharge, change in hearing or nasal discharge Card: Denies: chest pain, palpitations, irregular heart rhythm, lightheadedness, syncope, pre-syncope, dyspnea on exertion or orthopnea Resp: Denies: dyspnea, productive cough, non-productive cough, wheezing, hemoptysis or chest congestion GI: Reports: abdominal pain; Denies: nausea, vomiting, hematemesis, coffee ground emesis, heartburn, diarrhea, constipation, GI cramping, hematochezia or melena : Denies: flank pain, dysuria, urinary frequency, urinary urgency, oliguria, urinary incontinence or hematuria Musc: Denies: neck pain, back pain, extremity pain, extremity swelling, joint pain, joint swelling, joint redness, joint warmth or joint stiffness Skin/Breast: Denies: rash, pruritus, erythema, skin tenderness or jaundice Neuro: Denies: headache(s), numbness in extremities, weakness in extremities, sensory changes, lack of coordination, difficulty walking, dizziness, vertigo, confusion or Slurred speech present Endo: Denies: polyuria, polydipsia, tired all the time, cold intolerance, excessive sweating, flushing, hot flashes or heat intolerance Ceasar/Lymph: Denies: easy bruising, easy bleeding, petechiae, purpura or enla rged lymph nodes All/Imm: Denies: urticaria, throat swelling, tongue swelling, facial swelling or acute wheezing PFSH ED PFSH: Medical History Gastric carcinoma GERD (gastroesophageal reflux disease) HTN (hypertension), benign Surgical History (Updated 08/20/19 @ 15:26 by Maximiliano Petty MD) H/O esophagogastroduodenoscopy S/P partial gastrectomy Status post colonoscopy with polypectomy Social History Smoking and tobacco status: former smoker Physical Exam Const: COMMON NORMALS: no acute distress, patient oriented x3, no limitations, healthy appearing and well nourished EXAM LIMITATIONS: no altered mental status GENERAL APPEARANCE: cooperative, well kempt and well developed HENMT: COMMON NORMALS: normocephalic, atraumatic, hearing grossly normal bilaterally, external ears normal, EAC's normal, Normal external nose present and moist oral mucous membranes HEAD & SCALP: normal to inspection, normocephalic and atraumatic FACE & SINUS: normal facial exam and face symmetric NOSE: Normal external nose present and Normal nares present EXTERNAL EAR: Yes external ears normal EXTERNAL AUDITORY CANAL: EAC's normal MOUTH: Normal oral and palatal mucosa present, lip normal and tongue normal Eye: COMMON NORMALS: Equal, round and reactive pupils present, EOMs intact bilaterally, conjunctivae normal and no scleral icterus GENERAL EYE: appearance normal, both eyes and all related structures and normal light reflex ALIGNMENT: Yes alignment normal PERIORBITAL: periorbital findings normal EYELID: eyelids normal CONJUNCTIVA: Yes conjunctivae normal SCLERA: sclerae normal PUPIL: Yes Equal, round and reactive pupils present DIRECT OPHTHALMOSCOPY: Yes normal light reflex Neck/C-Spine: COMMON NORMALS: full ROM, no lymphadenopathy, supple, no meningeal signs and no JVD GENERAL: Yes normal visual inspection and Yes trachea midline CERVICAL SPINE: Yes cervical ROM normal Chest: COMMONS NORMALS: normal inspection of the chest and normal palpation of entire chest wall Resp: COMMON NORMALS: normal respiratory effort, No retractions, No use of accessory muscles and clear to auscultation bilaterally EFFORT & INSPECTION: Yes able to speak in complete sentences AUSCULTATION: clear to auscultation bilaterally, no crackles, no rales, no rhonchi and no wheezes Cardio: COMMON NORMALS: no JVD, regular rate, regular rhythm, S1 normal heart sound present, S2 normal heart sound present, No gallops present (Cardio), No clicks present (Cardio), No murmurs present (Cardio) and No rub (Cardio) RATE: regular rate RHYTHM: regular rhythm HEART SOUNDS: S1 normal heart sound present, S2 normal heart sound present, no click, no gallops, no murmurs and no rubs GI: COMMON NORMALS: Soft to palpation, No hepatosplenomegaly present and no masses PALPATION: Yes Soft to palpation, Yes Tenderness to palpation present (GI) (firm and tender diffusely.), No Guarding due to palpation present (GI), No Rigid due to palpation, Yes No hepatosplenomegaly present, No Hernia present, No Palpable mass present and No Pulsatile mass present : COMMON NORMALS: Yes no CVA tenderness BLADDER/KIDNEY EXAM: Yes no CVA tenderness Back/Pelvis: COMMON NORMALS: no CVA tenderness, thoracic and lumbar spine normal to inspection, no thoracic nor lumbar tenderness and thoraco-lumbar ROM normal Extremity: COMMON NORMALS: normal to inspection, full ROM, capillary refill normal, no joint enlargement, no clubbing, cyanosis or edema and no calf tenderness Neuro: COMMON NORMALS: patient oriented x3, CN's II-XII intact bilaterally, moves all extremities, no focal motor deficits and no sensory deficits noted MENINGEAL SIGNS: Yes no meningeal signs SPEECH: speech normal Psych: COMMON NORMALS: mental status grossly normal, Normal thought process present, cooperative, normal affect, speech normal and activity/motor behavior normal APPEARANCE: Yes well kempt SPEECH: Yes normal speech THOUGHT PROCESS: Normal thought process present Skin: COMMON NORMALS: no rashes or lesions noted, turgor normal, no jaundice, no petechiae and no mottling GENERAL SKIN EXAM: no rashes or lesions noted and turgor normal Course Vital Signs: Vital signs: Vital Signs Temperature 98.0 F 08/21/19 16:00 Pulse Rate 72 08/21/19 16:00 Respiratory Rate 16 08/21/19 17:10 Blood Pressure 150/100 08/21/19 16:00 Pulse Oximetry 100 08/21/19 16:00 MDM - Abdominal Pain MDM Narrative: Medical decision making narrative: Patient's previous CT showed significant colitis and possible pyelonephritis. Because of his tenderness tonight I have reviewed the case with Dr. Nice he agrees with going ahead with another CT as the patient is so tender. We have tried to avoid repeat radiation but due to his tenderness we feel this should happen. Dr. Nice agrees to follow-up on CT and consult surgery if necessary. Lab Data: Attestation: I reviewed the patient's lab results. Labs: Lab Results 08/19/19 08/19/19 08/19/19 Range/Units 20:45 20:45 20:45 WBC 4.8 (4.0-10.0) 10^3/ uL RBC 3.72 L (4.1-5.3) 10^6/u L Hgb 11.1 L (11.7-16.6) g/dL Hct 35.2 L (42.0-52.0) % MCV 94.6 H (80-94) fL MCH 29.8 (28.0-34.0) pg MCHC 31.5 (30.0-36.0) g/dL RDW 13.5 (12.1-15.1) % Plt Count 259 (130-400) 10^3/c mm MPV 10.3 (7.4-10.4) fL Neut % (Auto) 71.5 % Lymph % (Auto) 9.2 % [place] % (Auto) 12.7 % Eos % (Auto) 5.4 % Baso % (Auto) 1.0 % Neut # (Auto) 3.4 (1.8-7.7) 10^3/u L Lymph # (Auto) 0.4 L (0.8-4.8) 10^3/u L [place] # (Auto) 0.6 (0.2-0.9) 10^3/u L Eos # (Auto) 0.3 (0.0-0.8) 10^3/u L Baso # (Auto) 0.1 (0.0-0.1) 10^3/u L Nucleated RBC % (a uto) 0 % Nucleated RBCs # 0.0 /100WBC Sodium 138 (136-145) mmol/L Potassium 3.8 (3.5-5.1) mmol/L Chloride 102 (98-107) mmol/L Carbon Dioxide 28 (22-29) mmol/L Anion Gap 11.8 (5-19) BUN 10 (6-20) mg/dL Creatinine 0.8 (0.7-1.2) mg/dL GFR Calculation 102.3 (90-130) mL/min Glucose 108 (65-115) mg/dL Calculated Osmolal ity 283 L (285-295) mOsm/k g Lactic Acid 1.0 (0.5-2.2) mmol/L Calcium 9.5 (8.5-10.5) mg/dL Magnesium (1.7-2.3) mg/dL Total Bilirubin 0.3 (0.15-1.2) mg/dL AST 34 (0-40) U/L ALT 21 (0-41) U/L Alkaline Phosphata se 93 (40-130) IU/L Total Protein 6.7 (6.6-8.7) g/dL Albumin 3.8 (3.5-5.2) g/dL Globulin 2.9 (1.3-4.6) g/dL Lipase 3 L (13-60) U/L Urine Color (Yellow) Urine Appearance (CLEAR) Urine pH (5-7) Ur Specific [place] y (1.005-1.030) Urine Protein (Negative) Urine Glucose (UA) (Normal) Urine Ketones (Negative) Urine Blood (Negative) Urine Nitrate (Negative) Urine Bilirubin (NEGATIVE) Urine Urobilinogen (Negative) mg/dL Ur Leukocyte Beena ase (Negative) Urine RBC (0-2) /hpf Urine WBC (0-5) /hpf Ur Squamous Epith Cells (0-5) Urine Bacteria (NONE) 08/19/19 08/20/19 08/20/19 Range/Units 22:01 04:34 04:34 WBC 4.8 (4.0-10.0) 10^3/ uL RBC 3.79 L (4.1-5.3) 10^6/u L Hgb 11.1 L (11.7-16.6) g/dL Hct 35.4 L (42.0-52.0) % MCV 93.4 (80-94) fL MCH 29.3 (28.0-34.0) pg MCHC 31.4 (30.0-36.0) g/dL RDW 13.7 (12.1-15.1) % Plt Count 251 (130-400) 10^3/c mm MPV 10.7 H (7.4-10.4) fL Neut % (Auto) 69.1 % Lymph % (Auto) 9.1 % [place] % (Auto) 16.2 % Eos % (Auto) 4.6 % Baso % (Auto) 0.8 % Neut # (Auto) 3.3 (1.8-7.7) 10^3/u L Lymph # (Auto) 0.4 L (0.8-4.8) 10^3/u L [place] # (Auto) 0.8 (0.2-0.9) 10^3/u L Eos # (Auto) 0.2 (0.0-0.8) 10^3/u L Baso # (Auto) 0.0 (0.0-0.1) 10^3/u L Nucleated RBC % (a uto) 0 % Nucleated RBCs # 0.0 /100WBC Sodium 142 (136-145) mmol/L Potassium 3.9 (3.5-5.1) mmol/L Chloride 103 (98-107) mmol/L Carbon Dioxide 30 H (22-29) mmol/L Anion Gap 12.9 (5-19) BUN 9 (6-20) mg/dL Creatinine 0.8 (0.7-1.2) mg/dL GFR Calculation 102.3 (90-130) mL/min Glucose 100 (65-115) mg/dL Calculated Osmolal ity 290 (285-295) mOsm/k g Lactic Acid (0.5-2.2) mmol/L Calcium 9.3 (8.5-10.5) mg/dL Magnesium 2.3 (1.7-2.3) mg/dL Total Bilirubin (0.15-1.2) mg/dL AST (0-40) U/L ALT (0-41) U/L Alkaline Phosphata se (40-130) IU/L Total Protein (6.6-8.7) g/dL Albumin (3.5-5.2) g/dL Globulin (1.3-4.6) g/dL Lipase (13-60) U/L Urine Color Yellow (Yellow) Urine Appearance Clear (CLEAR) Urine pH 5 (5-7) Ur Specific Gravit y 1.020 (1.005-1.030) Urine Protein Neg (Negative) Urine Glucose (UA) Norm (Normal) Urine Ketones Negative (Negative) Urine Blood Neg (Negative) Urine Nitrate Negative (Negative) Urine Bilirubin Neg (NEGATIVE) Urine Urobilinogen Norm (Negative) mg/dL Ur Leukocyte Beena ase Negative (Negative) Urine RBC 0-4 H (0-2) /hpf Urine WBC 0-4 H (0-5) /hpf Ur Squamous Epith Cells 0-4 H (0-5) Urine Bacteria Trace (NONE) Discharge Plan Discharge Patient Disposition: Admitted As Inpatient Admit Provider: Alberto Glover Clinical Impression: Abdominal pain Qualifiers: Abdominal location: generalized Qualified Code(s): R10.84 - Generalized abdominal pain Condition: Stable Discharge Date/Time: 08/20/19 03:52 Coding Level of Care Code ED Jig And Fixture Builder for Chg Fwd Exam Comprehensive
[2019-08-19] MEDS: sodium chloride 0.9% 1,000 ML 100 ML IV (22:00)
--- NOTE | 2019-08-19 22:11 | CTR_ITS ---
PROCEDURE INFORMATION: Exam: CT Abdomen And Pelvis With Contrast Exam date and time: 08/19/2019 10:18 PM Age: 48 years old Clinical indication: Abdominal pain; Prior surgery; Surgery type: Stomach TECHNIQUE: Imaging protocol: Computed tomography of the abdomen and pelvis with intravenous contrast. Radiation optimization: All CT scans at this facility use at least one of these dose optimization techniques: automated exposure control; mA and/or kV adjustment per patient size (includes targeted exams where dose is matched to clinical indication); or iterative reconstruction. Contrast material: OMNI 300; Contrast volume: 95 ml; Contrast route: IV; COMPARISON: CT abdomen pelvis w con* [id number] 07/15/2019 12:22 PM RADIATION DOSE METRICS: Total DLP: 526.94 mGy-cm FINDINGS: Lungs: Limited assessment lung bases without visible evidence of active cardiopulmonary process. Liver: Liver unremarkable without visible hepatic mass. No visible hepatic metastasis. Gallbladder and bile ducts: Gallbladder without visible cholelithiasis. No gross intra or extrahepatic biliary ectasia. Pancreas: Pancreas atrophic but without pancreatic ductal ectasia. Spleen: Spleen unremarkable. Adrenals: Adrenal glands unremarkable. Kidneys and ureters: Stable simple parapelvic cyst inferior pole left kidney. No hydronephrosis or perinephric fluid bilaterally. Stomach and bowel: Apparent status post subtotal gastrectomy with gastrojejunal anastomosis. Markedly ectatic loops of distal small bowel. The ectatic loops of small bowel appear to be ileal loops to the terminal ileum. Proximal small bowel loops appear non ectatic. Transition zone for the small bowel partial obstruction appears left lower quadrant best identified on the coronal images series 602 image 23. The evidence of marked ectasia of the ileal loops alone raises the potential for closed loop obstruction. Associated marked ectasia of the proximal colon to the splenic flexure. Decompression of the descending colon to the rectosigmoid junction. Old consolidated oral contrast within the distal colonic segment from the splenic flexure distally from a CT abdomen exam of 08/18/2019. The examination of 08/18/2019 is not available for review.. Concern for both high-grade partial small bowel and colonic obstruction due to adhesions. Transition zone for the colonic obstruction appears to be left mid abdomen near numerous anastomotic sutures. Appendix: No evidence of appendicitis. Unable to identify the appendix this examination. Appendix appeared normal on 07/15/2019. Intraperitoneal space: Small volume intraperitoneal ascites the majority of the fluid in the pouch of [place]. Vasculature: The abdominal aorta is nonaneurysmal. Mild arterial sclerotic disease. Lymph nodes: Unremarkable. No visible enlarged lymph nodes. Bladder: Urinary bladder without filling defect. Reproductive: Unremarkable as visualized. Bones/joints: No visible acute osseous abnormality. Degenerative disc disease L5/S1. Soft tissues: Unremarkable. Other findings: No oral contrast administered. This will limit assessment. Cachexia. CT/CT abdomen pelvis w con* [id number] IMPRESSION: 1. Findings of both a partial high-grade distal small bowel and proximal colonic obstruction as detailed in text above. 2. Ectatic colonic loops to the splenic flexure near numerous anastomotic sutures. 3. Ectatic loops of ileal bowel loops to the terminal ileum without ectasia of proximal jejunal loops. This raises concern for potential closed-loop small bowel obstruction. 4. Evidence of a previous subtotal gastrectomy with gastrojejunal anastomosis. 5. Small volume intraperitoneal ascites. Radiation Dose CTDIVOL = (mGy): DLP = 526.94 (mGy-cm)
[2019-08-19] MEDS: iohexol 300 mg/mL 100 mL Btl IV (22:41)
[2019-08-19 22:55] LABS: Bacteria Urine TRACE; Bilirubin Urine Neg (NEGATIVE); Blood Urine Neg (Negative); Glucose Urine UA Norm (Normal); Ketones Urine Negative (Negative); Leukocyte Esterase Urine Negative (Negative); Nitrate Urine Negative (Negative); Protein Urine Neg (Negative); RBC Urine 0-4 /hpf (0-2); Squamous Epithelial Cell Urine 0-4 (0-5); Urine Appearance Clear (CLEAR); Urine Color Yellow (Yellow); Urobilinogen Urine Norm (Negative); WBC Urine 0-4 /hpf (0-5); pH Urine 5 (5-7)
--- NOTE | 2019-08-19 23:47 | PC.NURSE ---
during pt rounds, pt states his pain in RLQ is 7/10 scale. vo obtained from Dr Barber 0.5mg of dilaudid IVP
[2019-08-20] VITALS (12 sets, daily range): BP systolic 116–178; BP diastolic 82–109; PULSE 52–98; RESP 13–19; TEMP 36.4–37.4; O2SAT 95–100
[2019-08-20] MEDS: HYDROmorphone 1 mg/mL INJ 1 mL 0.5 MG IVP (00:05)
--- NOTE | 2019-08-20 00:19 | P.HP_ITS ---
Providers/Chief Complaint Admitting Physician: Alberto Glover Primary Care Provider: GREGORIO MATHIS DO Chief Complaint: in pain History of Present Illness Benny Castro is a 48 year old male who underwent partial gastrectomy due to poorly differentiated stage IIb gastric adenocarcinoma in [place]. Consequently the patient experienced ongoing abdominal pain. Recently the patient underwent EGD and exploration of the surgical scar by Dr. Barraza. Since then the patient reports generalized abdominal pain. The pain is moderate to severe intensity. No modifying factors. He denies fevers or chills. No nausea or vomiting. His last bowel movement was 2 days ago. He denies diarrhea or rectal blood/black stools. Denies any chest pain, shortness of breath, cough, palpitations. He denies dysuria. He denies similar episodes in the past. Today CT of the abdomen reveals small bowel obstruction and colonic obstruction. See official radiology report for more details. The patient also reports history of well-controlled hypertension, GERD. Review of Systems General: Reports: 10 or more systems reviewed and unremarkable except in HPI and below Medications/Allergies Home Medications Medication Instructions Recorded Confirmed Last Taken Type amlodipine 10 mg PO DAILY 07/15/19 08/19/19 08/12/19 History famotidine 40 mg PO BID 07/15/19 08/19/19 08/18/19 History fluconazole 200 mg PO DAILY 07/15/19 08/19/19 08/12/19 History hydrocodone-acetaminophen 10 - 325 tab PO QID PRN 07/15/19 08/19/19 08/19/19 History lisinopril 20 mg PO DAILY 07/15/19 08/19/19 08/18/19 History pantoprazole 40 mg PO DAILY 07/15/19 08/19/19 08/18/19 History acetaminophen [Tylenol] 325 mg PO QID PRN 08/19/19 08/19/19 Unknown History ibuprofen 800 mg PO Q6H PRN 08/19/19 08/19/19 Unknown History magnesium carbonate 54 mg PO BID 08/19/19 08/19/19 08/19/19 History omeprazole 40 mg PO BID 08/19/19 08/19/19 08/18/19 History ondansetron HCl 4 mg PO PRN PRN 08/19/19 08/19/19 Unknown History Allergies Allergy/AdvReac Type Severity Reaction Status Date / Time No Known Allergies Allergy Verified 08/13/19 08:37 PFSH Acute PFSH: Social History Smoking and tobacco status: former smoker Vitals/I&O/Wt Last Vital Signs Temp 97.4 F L 08/19/19 20:21 Pulse 55 L 08/19/19 21:08 Resp 16 08/19/19 21:00 BP 168/95 08/19/19 21:08 Pulse Ox 100 08/19/19 20:21 Weight last 48 hrs Weight 57.606 kg Physical Exam Narrative: EXAM NARRATIVE: The patient is awake alert and oriented. No acute distress. Mood and affect are appropriate responses are adequate. Skin is warm and dry. Dry mucous membranes. Eyes PERRLA, extraocular muscles intact. No icterus. Neck supple. No JVD Lungs clear to auscultation bilaterally. No wheezes or crackles. No res piratory distress Heart S1, S2, regular Abdomen is soft, tender diffusely, no rebound, bowel sounds are present Extremities no edema cyanosis or calf tenderness bilaterally Neuro examination is nonfocal. Data : 08/19/19 20:45 08/19/19 20:45 Other Labs: Laboratory Results WBC 4.8 10^3/uL (4.0-10.0) 08/19/19 20:45 RBC 3.72 10^6/uL (4.1-5.3) L 08/19/19 20:45 Hgb 11.1 g/dL (11.7-16.6) L 08/19/19 20:45 Hct 35.2 % (42.0-52.0) L 08/19/19 20:45 MCV 94.6 fL (80-94) H 08/19/19 20:45 MCH 29.8 pg (28.0-34.0) 08/19/19 20:45 MCHC 31.5 g/dL (30.0-36.0) 08/19/19 20:45 RDW 13.5 % (12.1-15.1) 08/19/19 20:45 Plt Count 259 10^3/cmm (130-400) 08/19/19 20:45 MPV 10.3 fL (7.4-10.4) 08/19/19 20:45 Neut % (Auto) 71.5 % 08/19/19 20:45 Lymph % (Auto) 9.2 % 08/19/19 20:45 [place] % (Auto) 12.7 % 08/19/19 20:45 Eos % (Auto) 5.4 % 08/19/19 20:45 Baso % (Auto) 1.0 % 08/19/19 20:45 Neut # (Auto) 3.4 10^3/uL (1.8-7.7) 08/19/19 20:45 Lymph # (Auto) 0.4 10^3/uL (0.8-4.8) L 08/19/19 20:45 [place] # (Auto) 0.6 10^3/uL (0.2-0.9) 08/19/19 20:45 Eos # (Auto) 0.3 10^3/uL (0.0-0.8) 08/19/19 20:45 Baso # (Auto) 0.1 10^3/uL (0.0-0.1) 08/19/19 20:45 Nucleated RBC % (auto) 0 % 08/19/19 20:45 Nucleated RBCs # 0.0 /100WBC 08/19/19 20:45 Sodium 138 mmol/L (136-145) 08/19/19 20:45 Potassium 3.8 mmol/L (3.5-5.1) 08/19/19 20:45 Chloride 102 mmol/L (98-107) 08/19/19 20:45 Carbon Dioxide 28 mmol/L (22-29) 08/19/19 20:45 Anion Gap 11.8 (5-19) 08/19/19 20:45 BUN 10 mg/dL (6-20) 08/19/19 20:45 Creatinine 0.8 mg/dL (0.7-1.2) 08/19/19 20:45 GFR Calculation 102.3 mL/min (90-130) 08/19/19 20:45 Glucose 108 mg/dL (65-115) 08/19/19 20:45 Calculated Osmolality 283 mOsm/kg (285-295) L 08/19/19 20:45 Lactic Acid 1.0 mmol/L (0.5-2.2) 08/19/19 20:45 Calcium 9.5 mg/dL (8.5-10.5) 08/19/19 20:45 Total Bilirubin 0.3 mg/dL (0.15-1.2) 08/19/19 20:45 AST 34 U/L (0-40) 08/19/19 20:45 ALT 21 U/L (0-41) 08/19/19 20:45 Alkaline Phosphatase 93 IU/L (40-130) 08/19/19 20:45 Total Protein 6.7 g/dL (6.6-8.7) 08/19/19 20:45 Albumin 3.8 g/dL (3.5-5.2) 08/19/19 20:45 Globulin 2.9 g/dL (1.3-4.6) 08/19/19 20:45 Lipase 3 U/L (13-60) L 08/19/19 20:45 Urine Color Yellow (Yellow) 08/19/19 22: Urine Appearance Clear (CLEAR) 08/19/19 22: Urine pH 5 (5-7) 08/19/19 22: Ur Specific [place] 1.020 (1.005-1.030) 08/19/19 22: Urine Protein Neg (Negative) 08/19/19 22: Urine Glucose (UA) Norm (Normal) 08/19/19 22: Urine Ketones Negative (Negative) 08/19/19 22: Urine Blood Neg (Negative) 08/19/19 22: Urine Nitrate Negative (Negative) 08/19/19 22: Urine Bilirubin Neg (NEGATIVE) 08/19/19 22: Urine Urobilinogen Norm mg/dL (Negative) 08/19/19 22: Ur Leukocyte Esterase Negative (Negative) 08/19/19 22: Urine RBC 0-4 /hpf (0-2) H 08/19/19 22: Urine WBC 0-4 /hpf (0-5) H 08/19/19 22: Ur Squamous Epith Cells 0-4 (0-5) H 08/19/19 22: Urine Bacteria Trace (NONE) 08/19/19 22:01 Impressions Abdomen/Pelvis CT 08/19/19 22:11 IMPRESSION: 1. Findings of both a partial high-grade distal small bowel and proximal colonic obstruction as detailed in text above. 2. Ectatic colonic loops to the splenic flexure near numerous anastomotic sutures. 3. Ectatic loops of ileal bowel loops to the terminal ileum without ectasia of proximal jejunal loops. This raises concern for potential closed-loop small bowel obstruction. 4. Evidence of a previous subtotal gastrectomy with gastrojejunal anastomosis. 5. Small volume intraperitoneal ascites. Radiation Dose CTDIVOL = (mGy): DLP = 526.94 (mGy-cm) ADDENDUM: 08/19/19 2343 THIS REPORT CONTAINS FINDINGS THAT MAY BE CRITICAL TO PATIENT CARE. The findings were verbally communicated via telephone conference with Aysha Barber at 11:41 PM CDT on 08/19/2019. The findings were acknowledged and understood. Radiation Dose CTDIVOL = (mGy): DLP = 526.94 (mGy-cm) A&P Additional A&P Information 48-year-old male presenting with abdominal pain. He has history of recent partial gastrectomy secondary to poorly differentiated gastric adenocarcinoma stage IIb. He is found to have small bowel obstruction and colonic obstruction. I had a long discussion with the radiologist who read the CT report, Dr. Hicks. I appreciate his input! there is no evidence of bowel ischemia or any findings of impending perforation such as severely distended cecum at this time. He feels that it is reasonable to wait until morning for surgical evaluation. The patient underwent EGD and exploration of the surgical scar by Dr. Barraza recently. Please contact Dr. Barraza in the morning. Small bowel obstruction and colonic obstruction. Bowel rest/n.p.o., NG tube, IV fluids. Will monitor and replace electrolytes as needed. Pain management. History of hypertension. Since he is n.p.o. we will hold his home medications and order as needed hydralazine. DVT prophylaxis. Lovenox. CODE STATUS. The patient wants to be full code. Attestations Medical Necessity Statement*: Based on my assessment of patient's findings I expect that the patient will spend more than 2 midnights in the hospital. Coding Level of Care Code Acute Hvac Refrigeration Technician for Ramin Alston
[2019-08-20] MEDS: enoxaparin 40 mg/0.4 mL Syringe SUBCUT (02:30)
[2019-08-20] MEDS: sodium chlor 0.9% + KCl 20 mEq 20 MEQ/1,000 ML BAG 100 MEQ IV ×3 (03:11→19:30)
[2019-08-20] MEDS: pantoprazole 40 mg SDV IVP ×3 (03:11→23:52)
--- NOTE | 2019-08-20 03:12 | PC.NURSE ---
After three attempts, pt is refusing NG tube insertion stating that will cause his pain to increase. Floor notified
[2019-08-20] MEDS: morphine 4 mg/mL SDV 1 mL IVP ×5 (04:51→23:56)
[2019-08-20 05:32] LABS: Basophils % 0.8 %; Eosinophils # 0.2 10^3/uL (0.0-0.8); Eosinophils % 4.6 %; Hematocrit 35.4 % (42.0-52.0); Hemoglobin 11.1 g/dL (11.7-16.6); Lymphocytes # 0.4 10^3/uL (0.8-4.8); Lymphocytes % 9.1 %; Mean Corpuscular HGB Conc 31.4 g/dL (30.0-36.0); Mean Corpuscular Hemoglobin 29.3 pg (28.0-34.0); Mean Corpuscular Volume 93.4 fL (80-94); Mean Platelet Volume 10.7 fL (7.4-10.4); Monocytes # 0.8 10^3/uL (0.2-0.9); Monocytes % 16.2 %; Neutrophils # 3.3 10^3/uL (1.8-7.7); Neutrophils % 69.1 %; Nucleated Red Blood Cells % 0 %; Platelet Count 251 10^3/cmm (130-400); Red Blood Count 3.79 10^6/uL (4.1-5.3); Red Cell Distribution Width 13.7 % (12.1-15.1); White Blood Count 4.8 10^3/uL (4.0-10.0)
[2019-08-20 05:43] LABS: Anion Gap 12.9 (5-19); Blood Urea Nitrogen 9 mg/dL (6-20); Calcium 9.3 mg/dL (8.5-10.5); Carbon Dioxide 30 mmol/L (22-29); Chloride 103 mmol/L (98-107); Glomerular Filtration Rate 102.3 mL/min (90-130); Glucose 100 mg/dL (65-115); Magnesium 2.3 mg/dL (1.7-2.3); Osmolality Calculated 290 mOsm/kg (285-295); Potassium 3.9 mmol/L (3.5-5.1); Sodium 142 mmol/L (136-145)
--- NOTE | 2019-08-20 05:44 | XR_ITS ---
WS: [id number] PORTABLE CHEST HISTORY: CHECK FOR NG TUBE PLACEMENT COMPARISON: 04/09/2019 Nasogastric tube ends in the LEFT upper quadrant. The proximal port is at the GE junction. Lungs are clear and well expanded. No pleural effusion or pneumothorax. Cardiac size: Normal. Mediastinum/Aorta: Normal mediastinum. No osseous abnormality seen. XR/XR chest 1V portable [id number] IMPRESSION: Recommend advancing nasogastric tube 10 cm for more optimal positioning.
[2019-08-20] MEDS: LORazepam 2 mg/mL INJ 1 mL 1 MG IVP (06:41)
--- NOTE | 2019-08-20 08:59 | PC.NURSE ---
Patient reports he used the urinal and spilled urine on the floor. He states he slipped and did not fall but caught his NG tube and it came out. Dr. Peña on unit. Dr. Peña made aware NG is out.
[2019-08-20] MEDS: ondansetron 2 mg/ML SDV 2 mL 4 MG IVP ×2 (09:06→15:30)
--- NOTE | 2019-08-20 10:41 | PM.PN ---
Subjective Subjective: Interval history: This morning patient states that he continues to have abdominal pain and feels nauseous, has not had a bowel movement, after NG tube placement, had nosebleed from right nostril, since an NG tube has been removed, nasal bleed has reduced, Patient states that what brought me here was abdominal pain, feeling lightheaded and dizzy, poor appetite, has not had a bowel movement in many days, just does not feel well, denies shortness of breath, denies cough, denies fevers Vitals/I&O/Wt Last Vital Signs Temp 98.8 F 08/20/19 07:52 Pulse 98 08/20/19 07:52 Resp 18 08/20/19 09:06 BP 177/109 08/20/19 07:52 Pulse Ox 96 08/20/19 09:06 08/19/19 08/20/19 08/20/19 22:59 06:59 14:59 Intake Total 0 / 0 Balance 0 / 0 Weight last 48 hrs Weight 57.606 kg Physical Exam Const: COMMON NORMALS: no acute distress and patient oriented x3 HENMT: COMMON NORMALS: normocephalic HEAD & SCALP: normocephalic Neck/C-Spine: COMMON NORMALS: no JVD Resp: COMMON NORMALS: normal respiratory effort, No retractions, No use of accessory muscles and clear to auscultation bilaterally AUSCULTATION: clear to auscultation bilaterally Cardio: COMMON NORMALS: no JVD, regular rate, regular rhythm, S1 normal heart sound present and S2 normal heart sound present RATE: regular rate RHYTHM: regular rhythm HEART SOUNDS: S1 normal heart sound present and S2 normal heart sound present GI: COMMON NORMALS: Normal to inspection, nondistended, normoactive bowel sounds present, non-tender and No hepatosplenomegaly present INSPECTION: Yes incision Inspection of incision: healing well PALPATION: No Firmness to palpation present (GI), Yes Tenderness to palpation present (GI) Details: LLQ, RLQ, LUQ, RUQ and other, No Guarding due to palpation present (GI), No Rigid due to palpation and Yes No hepatosplenomegaly present Extremity: COMMON NORMALS: capillary refill normal, no clubbing, cyanosis or edema, no calf tenderness and no pedal edema Neuro: COMMON NORMALS: patient oriented x3 Psych: COMMON NORMALS: mental status grossly normal Data : 08/20/19 04:34 08/20/19 04:34 A&P Assessment and plan (1) Bowel obstruction: -Patient has a history of gastric singlet cell adenocarcinoma, status post partial gastrectomy, perigastric lymph nodes and omentum dissection done 11/19/2018, stage IIb, status post radiation completed course 05/01/2019 and capecitabine -Patient has been on Protonix and fluconazole for gastritis -Status post EGD and colonoscopy Dr. Barraza, normal esophagus on endoscopy, apparent retracting scar tissue underneath laparoscopic scar in the right upper quadrant, also had scar exploration with excision of scar tissue at the rectus muscle and right upper quadrant -CT scan abdomen shows: 1. Findings of both a partial high-grade distal small bowel and proximal colonic obstruction as detailed in text above. 2. Ectatic colonic loops to the splenic flexure near numerous anastomotic sutures. 3. Ectatic loops of ileal bowel loops to the terminal ileum without ectasia of proximal jejunal loops. This raises concern for potential closed-loop small bowel obstruction. Plan: -I have consulted general surgery -Keep n.p.o. 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
--- NOTE | 2019-08-20 11:15 | PC.CHAP ---
Pastoral Care Encounter/Spiritual Assessment Type of Contact [] Declined eligibility technician visit [] Patient/Family/Request visit [] Outpatient visit [] Follow-up visit [] Physician referral [] Code/Alert [x] Routine visit [] Staff referral [] Actively dying [] Patient sleeping [] Family support [] [] Out of room [] Palliative care [] [] Receiving care in room [] Pre-surgical visit [] Trauma [] Long length of stay [] ICU visit [] Other: Relational/Emotional Strength [x] Patient feels connected with others/family/visitors/staff [] Distress [] Loneliness/isolation [] Abandonment Spirituality of Patient [x] Person of Mary [x] Attends Nondenominational of their Mary [x] Believes in Prayer [x] Reads Bible or Yarsanism materials [] There are Spiritual issues to be addressed 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 Interventions [x] Prayer [x] Active listening [x] Non-anxious presence [x] Spiritual/emotional support [] Crisis/trauma care x[] Spiritual counseling [] Bereavement support [] Provided bereavement packet [] Provided Bible/devotional materials [] Provided toy/stuffed animal, coloring book to patient or family member [] Provided Communion [] Anointing/Stover [] Salvation [x] Completed spiritual assessment [] Other: Impact on Illness or Injury [] Angry [] Fearful [] Anxious [] Often cries [] Exhaustion [] Unable to work [] Unable to attend sabianist [] Unable to walk/stand [] Unable to read [] Unable to drive [] Unable to eat/drink [] Unable to sleep [] Unable to be with family [] Patient intubated [x] Other: n/a Summary Patient is strong in his mary in [place] and also asked for prayer for his . Time spent with patient 10 minutes
[2019-08-20 11:19] LABS: Hemoglobin 11.2 g/dL (11.7-16.6)
--- NOTE | 2019-08-20 15:22 | P.CONIM_ITS ---
Providers/Reason For Consult Consulting Physican/Specialty*: Syd Peña MD Reason for Consult*: Colonic obstruction Attending Physician: Syd Peña MD Primary Care Provider: GREGORIO MATHIS DO History of Present Illness History of Present Illness Benny Castro is a 48 year old male who had undergone partial gastrectomy in [place] for stage IIb gastric adenocarcinoma. Patient had recently undergone EGD correction of abdominal wall scar by Dr. Barraza last week for abdom inal pain. He presented to the ER yesterday with generalized abdominal pain. He denies any nausea, vomiting, states that he is passing flatus and has not had a bowel movement for 3 days. No fevers or chills. Patient states that he has been constipated while being on pain medications. Review of Systems General: Reports: 10 or more systems reviewed and unremarkable except in HPI and below Meds/Allergies Home Medications and Allergies Home Medications Medication Instructions Recorded Confirmed Last Taken Type amlodipine 10 mg PO DAILY 07/15/19 08/19/19 08/12/19 History famotidine 40 mg PO BID 07/15/19 08/19/19 08/18/19 History fluconazole 200 mg PO DAILY 07/15/19 08/19/19 08/12/19 History hydrocodone-acetaminophen 10 - 325 tab PO QID PRN 07/15/19 08/19/19 08/19/19 History lisinopril 20 mg PO DAILY 07/15/19 08/19/19 08/18/19 History pantoprazole 40 mg PO DAILY 07/15/19 08/19/19 08/18/19 History acetaminophen [Tylenol] 325 mg PO QID PRN 08/19/19 08/19/19 Unknown History ibuprofen 800 mg PO Q6H PRN 08/19/19 08/19/19 Unknown History magnesium carbonate 54 mg PO BID 08/19/19 08/19/19 08/19/19 History omeprazole 40 mg PO BID 08/19/19 08/19/19 08/18/19 History ondansetron HCl 4 mg PO PRN PRN 08/19/19 08/19/19 Unknown History Allergies Allergy/AdvReac Type Severity Reaction Status Date / Time No Known Allergies Allergy Verified 08/13/19 08:37 Current Medications Current Medications Generic Name Dose Route Start Last Admin Trade Name Freq PRN Reason Stop Dose Admin Potassium Chloride/Sodium Chloride 20 meq in 1,000 mls @ 100 mls/hr 08/19/19 23:30 08/20/19 12:01 Sodium Chlor 0.9% + Kcl 20 Meq IV 100 mls/hr .Q10H TORRES Administration Lorazepam 1 mg 08/20/19 06:32 08/20/19 06:41 Ativan IVP 1 mg Q8H PRN Administration ANXIETY Morphine Sulfate 4 mg 08/19/19 23:28 08/20/19 09:06 Morphine IVP 4 mg Q4H PRN Administration SEVERE PAIN Ondansetron HCl 4 mg 08/19/19 23:28 08/20/19 09:06 Zofran IVP 4 mg Q6H PRN Administration vomiting, or N/V if npo Pantoprazole Sodium 40 mg 08/19/19 23:45 08/20/19 12:00 Protonix IVP 40 mg Q12H TORRES Administration PFSH Acute PFSH: Medical History Gastric carcinoma GERD (gastroesophageal reflux disease) HTN (hypertension), benign Surgical History H/O esophagogastroduodenoscopy S/P partial gastrectomy Social History Smoking and tobacco status: former smoker Vitals/I&O/Wt Last Vital Signs Temp 98.3 F 08/20/19 11:47 Pulse 53 L 08/20/19 11:47 Resp 13 08/20/19 11:47 BP 162/103 08/20/19 11:47 Pulse Ox 99 08/20/19 11:47 08/20/19 08/20/19 08/20/19 06:59 14:59 22:59 Intake Total 0 / 0 883.333 / 883.333 Output Total 820 / 820 Balance 0 / 0 63.333 / 63.333 Weight last 48 hrs Weight 127 lb Physical Exam Narrative: EXAM NARRATIVE: HEENT: Normocephalic Eye: Sclera /conjunctiva normal Abdomen: Soft to palpation, well-healed scar, generalized tenderness but no gu arding or rigidity, nondistended Neurological: Oriented to place person and time Skin: Intact, no lesions appreciated on gross exam Data Imaging^: CT Abd/Pel: Radiologist's impression: Lungs: Limited assessment lung bases without visible evidence of active cardiopulmonary process. Liver: Liver unremarkable without visible hepatic mass. No visible hepatic metastasis. Gallbladder and bile ducts: Gallbladder without visible cholelithiasis. No gross intra or extrahepatic biliary ectasia. Pancreas: Pancreas atrophic but without pancreatic ductal ectasia. Spleen: Spleen unremarkable. Adrenals: Adrenal glands unremarkable. Kidneys and ureters: Stable simple parapelvic cyst inferior pole left kidney. No hydronephrosis or perinephric fluid bilaterally. Stomach and bowel: Apparent status post subtotal gastrectomy with gastrojejunal anastomosis. Markedly ectatic loops of distal small bowel. The ectatic loops of small bowel appear to be ileal loops to the terminal ileum. Proximal small bowel loops appear non ectatic. Transition zone for the small bowel partial obstruction appears left lower quadrant best identified on the coronal images series 602 image 23. The evidence of marked ectasia of the ileal loops alone raises the potential for closed loop obstruction. Associated marked ectasia of the proximal colon to the splenic flexure. Decompression of the descending colon to the rectosigmoid junction. Old consolidated oral contrast within the distal colonic segment from the splenic flexure distally from a CT abdomen exam of 08/18/2019. The examination of 08/18/2019 is not available for review.. Concern for both high-grade partial small bowel and colonic obstruction due to adhesions. Transition zone for the colonic obstruction appears to be left mid abdomen near numerous anastomotic sutures. Appendix: No evidence of appendicitis. Unable to identify the appendix this examination. Appendix appeared normal on 07/15/2019. Intraperitoneal space: Small volume intraperitoneal ascites the majority of the fluid in the pouch of Lopez. Vasculature: The abdominal aorta is nonaneurysmal. Mild arterial sclerotic disease. Lymph nodes: Unremarkable. No visible enlarged lymph nodes. Bladder: Urinary bladder without filling defect. Reproductive: Unremarkable as visualized. Bones/joints: No visible acute osseous abnormality. Degenerative disc disease L5/S1. Soft tissues: Unremarkable. Other findings: No oral contrast administered. This will limit assessment. Cachexia. CT/CT abdomen pelvis w con* [id number] IMPRESSION: 1. Findings of both a partial high-grade distal small bowel and proximal colonic obstruction as detailed in text above. 2. Ectatic colonic loops to the splenic flexure near numerous anastomotic sutures. 3. Ectatic loops of ileal bowel loops to the terminal ileum without ectasia of proximal jejunal loops. This raises concern for potential closed-loop small bowel obstruction. 4. Evidence of a previous subtotal gastrectomy with gastrojejunal anastomosis. 5. Small volume intraperitoneal ascites. A&P Assessment and plan (1) Bowel obstruction: 48-year-old gentleman status post partial gastrectomy for gastric adenocarcinoma presents with suspected bowel obstruction on CT scan. Patient is currently hemodynamically stable, no evidence of peritonitis. CT scan shows significant amount of stool in the right colon and possible obstruction near the splenic flexure. N.p.o. Milk of molasses enema Abdominal series in the morning Labs a.m. 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
[2019-08-21] VITALS (12 sets, daily range): BP systolic 120–167; BP diastolic 77–100; PULSE 63–112; RESP 16–20; TEMP 36.6–37.2; O2SAT 96–100
--- NOTE | 2019-08-21 03:30 | XR_ITS ---
WS: [id number] ABDOMEN 2 VIEW(S) HISTORY: sbo COMPARISON: 08/19/2019 Air-fluid levels at various levels in the small bowel consistent with small bowel obstruction. There are additional air-fluid levels in the proximal colon. There is mild dilatation of the colon to the s plenic flexure. Oral contrast is noted in the distal colon. No free air. As compared to the prior exa mination no significant improvement. No suspicious calcifications or masses. No bone abnormality. XR/XR abdomen min 2V [id number] IMPRESSION: 1. Partial small bowel mechanical obstruction. 2. Mild distention of the colon to the splenic flexure. No complete obstructio n. 3. No free air.
[2019-08-21] MEDS: enoxaparin 40 mg/0.4 mL Syringe SUBCUT (03:32)
[2019-08-21] MEDS: morphine 4 mg/mL SDV 1 mL IVP ×2 (04:04→08:22)
[2019-08-21] MEDS: sodium chlor 0.9% + KCl 20 mEq 20 MEQ/1,000 ML BAG 100 MEQ IV ×2 (04:33→17:05)
[2019-08-21 04:35] LABS: Basophils % 0.7 %; Eosinophils # 0.2 10^3/uL (0.0-0.8); Eosinophils % 3.3 %; Hemoglobin 12.5 g/dL (11.7-16.6); Lymphocytes # 0.4 10^3/uL (0.8-4.8); Lymphocytes % 6.9 %; Mean Corpuscular HGB Conc 32.1 g/dL (30.0-36.0); Mean Corpuscular Volume 93.5 fL (80-94); Mean Platelet Volume 10.2 fL (7.4-10.4); Monocytes # 0.8 10^3/uL (0.2-0.9); Monocytes % 13.9 %; Neutrophils % 74.8 %; Nucleated Red Blood Cells % 0 %; Platelet Count 258 10^3/cmm (130-400); Red Blood Count 4.17 10^6/uL (4.1-5.3); Red Cell Distribution Width 13.6 % (12.1-15.1); White Blood Count 5.4 10^3/uL (4.0-10.0)
[2019-08-21 04:53] LABS: Alanine Aminotransferase 17 U/L (0-41); Albumin Level 3.4 g/dL (3.5-5.2); Alkaline Phosphatase 86 IU/L (40-130); Anion Gap 16.4 (5-19); Aspartate Amino Transferase 27 U/L (0-40); Blood Urea Nitrogen 10 mg/dL (6-20); Calcium 8.7 mg/dL (8.5-10.5); Carbon Dioxide 25 mmol/L (22-29); Chloride 101 mmol/L (98-107); Globulin 2.3 g/dL (1.3-4.6); Glomerular Filtration Rate 102.3 mL/min (90-130); Glucose 78 mg/dL (65-115); Magnesium 2.3 mg/dL (1.7-2.3); Osmolality Calculated 281 mOsm/kg (285-295); Phosphorus 3.4 mg/dL (2.5-4.5); Potassium 4.4 mmol/L (3.5-5.1); Sodium 138 mmol/L (136-145); Total Bilirubin 0.5 mg/dL (0.15-1.2); Total Protein 5.7 g/dL (6.6-8.7)
--- NOTE | 2019-08-21 09:44 | PC.CHAP ---
Pastoral Care Encounter/Spiritual Assessment Type of Contact [] Declined cableman visit [] Patient/Family/Request visit [] Outpatient visit [x] Follow-up visit [] Physician referral [] Code/Alert [x] Routine visit [] Staff referral [] Actively dying [] Patient sleeping [] Family support [] [] Out of room [] Palliative care [] [] Receiving care in room [] Pre-surgical visit [] Trauma [] Long length of stay [] ICU visit [] Other: Relational/Emotional Strength [] Patient feels connected with others/family/visitors/staff [] Distress [] Loneliness/isolation [] Abandonment Spirituality of Patient [] Person of Mary [] Attends Oriental Orthodox of their Mary [] Believes in Prayer [] Reads Bible or Yazidism materials [] There are Spiritual issues to be addressed 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 [x] Prayer [] Active listening [] Non-anxious presence [] Spiritual/emotional support [] Crisis/trauma care [] Spiritual counseling [] Bereavement support [] Provided bereavement packet [] Provided Bible/devotional materials [] Provided toy/stuffed animal, coloring book to patient or family member [] Provided Communion [] Anointing/Piru [] Salvation [x] Completed spiritual assessment [] Other: Impact on Illness or Injury [] Angry [] Fearful [] Anxious [] Often cries [] Exhaustion [] Unable to work [] Unable to attend christian [] Unable to walk/stand [] Unable to read [] Unable to drive [] Unable to eat/drink [] Unable to sleep [] Unable to be with family [] Patient intubated [] Other: Summary Patient resting Time spent with patient 10 min
--- NOTE | 2019-08-21 11:31 | CT_ITS ---
WS: [id number] CT CHEST ANGIOGRAPHY WITH REFORMATS HISTORY: chest pain, pleuritic, rule out PE TECHNIQUE: Contiguous axial images are obtained through the chest during arterial injection of intrav enous contrast. Images are reconstructed to evaluate the pulmonary arteries. MIP imaging also reviewe d. All CT scans at [facility] use at least one of these dose optimization techniques: aut omated exposure control; mA and/or kV adjustment per patient size (includes targeted exams where dose is matched to clinical indication); or iterative reconstruction. CONTRAST: Omnipaque 350; 95 mL IV. DLP: 525.87 mGy.cm COMPARISON: 05/28/2019. Good opacification of the pulmonary arteries. No filling defect or pulmonary embolism. Normal-sized t horacic aorta and pulmonary artery. Indeterminate 10 mm RIGHT hilar lymph node is similar to the prio r study. There is dilatation and air distention of the proximal esophagus. Thickening of the distal w all of the esophagus. No pulmonary mass or adenopathy. Small LEFT pleural effusion. There is a moderate amount of ascites within the upper abdomen surrounding the liver and spleen. Diff use mesenteric edema. Recent CT of the abdomen was performed as a dedicated exam on 08/19/2019. There are extensive postoperative changes which are better seen on the prior study. There is still marked d ilatation of the visualized GI tract with wall thickening. CT/CT angio chest PE protcl [id number] IMPRESSION: 1. No pulmonary embolism. 2. No pulmonary nodule or mass. 3. Small LEFT pleural effusion. 4. Indeterminate but stable RIGHT hilar lymph node at 10 mm. 5. Ascites noted in the upper abdomen. The abdomen was recently evaluated by Arjun Engel of 08/19/2019 is a dedicated study. 6. Proximal air-filled esophagus with distal esophageal wall thickening.
[2019-08-21] MEDS: pantoprazole 40 mg SDV IVP (11:34)
[2019-08-21] MEDS: iohexol 350 mg/mL 100 mL Btl IV (11:51)
[2019-08-21] MEDS: HYDROmorphone 1 mg/mL INJ 1 mL IVP ×3 (12:57→21:19)
--- NOTE | 2019-08-21 14:06 | PM.PN ---
Subjective Subjective: Interval history: Patient appears to be doing okay, will start him on a clear liquid diet Vitals/I&O/Wt Last Vital Signs Temp 98.3 F 08/21/19 11:40 Pulse 64 08/21/19 11:40 Resp 16 08/21/19 12:57 BP 142/89 08/21/19 11:40 Pulse Ox 98 08/21/19 11:40 08/20/19 08/21/19 08/21/19 22:59 06:59 14:59 Intake Total 748.333 / 2536.666 905 / 2536.666 Output Total 822 Balance 746.333 / 1714.666 905 / 1714.666 Weight last 48 hrs Weight 127 lb Physical Exam Narrative: EXAM NARRATIVE: Abdomen: Soft, nondistended, minimally tender Data : 08/22/19 05:02 08/22/19 05:02 A&P Assessment and plan (1) Bowel obstruction: Small bowel obstruction likely secondary to adhesions aggravated by constipation, abdominal x-ray today shows significant improvement. Clear liquid diet Ambulate ad aubree. 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
[2019-08-21] MEDS: magnesium citrate Btl 296 mL PO (14:43)
--- NOTE | 2019-08-21 14:45 | P.PN_ITS ---
Subjective Subjective: Interval history: Patient this morning was a bit agitated, was walking in the hallways, said that the nurses have not been giving his pain medications when he needs him, states that the pain medication wears off too soon, states that he still has abdominal pain, he had 2 small bowel movements overnight, no fevers, no chills, no nausea, no vomiting He does report pleuritic-like chest pain, with taking a deep breath in, left- sided, no hemoptysis, no recent travel, but does have a history of gastric cancer Vitals/I&O/Wt Last Vital Signs Temp 98.3 F 08/21/19 11:40 Pulse 64 08/21/19 11:40 Resp 16 08/21/19 12:57 BP 142/89 08/21/19 11:40 Pulse Ox 98 08/21/19 11:40 08/20/19 08/21/19 08/21/19 22:59 06:59 14:59 Intake Total 748.333 / 1631.666 905 / 2536.666 Output Total 2 / 822 Balance 746.333 / 809.666 905 / 1714.666 Weight last 48 hrs Weight 57.606 kg Physical Exam Const: COMMON NORMALS: no acute distress and patient oriented x3 HENMT: COMMON NORMALS: normocephalic HEAD & SCALP: normocephalic Neck/C-Spine: COMMON NORMALS: no JVD Resp: COMMON NORMALS: normal respiratory effort, No retractions, No use of accessory muscles and clear to auscultation bilaterally AUSCULTATION: clear to auscultation bilaterally Cardio: COMMON NORMALS: no JVD, regular rate, regular rhythm, S1 normal heart sound present and S2 normal heart sound present RATE: regular rate RHYTHM: regular rhythm HEART SOUNDS: S1 normal heart sound present and S2 normal heart sound present GI: COMMON NORMALS: Normal to inspection, nondistended, normoactive bowel sounds present, non-tender and No hepatosplenomegaly present INSPECTION: Yes incision Inspection of incision: healing well PALPATION: No Firmness to palpation present (GI), Yes Tenderness to palpation present (GI), No Guarding due to palpation present (GI), No Rigid due to palpation and Yes No hepatosplenomegaly present Extremity: COMMON NORMALS: capillary refill normal, no clubbing, cyanosis or edema, no calf tenderness and no pedal edema Neuro: COMMON NORMALS: patient oriented x3 Psych: COMMON NORMALS: mental status grossly normal Data : 08/21/19 04:27 08/21/19 04:27 A&P Assessment and plan (1) Bowel obstruction: -Patient has a history of gastric singlet cell adenocarcinoma, status post partial gastrectomy, perigastric lymph nodes and omentum dissection done 11/19/2018, stage IIb, status post radiation completed course 05/01/2019 and capecitabine -Patient has been on Protonix and fluconazole for gastritis -Status post EGD and colonoscopy Dr. Barraza, normal esophagus on endoscopy, apparent retracting scar tissue underneath laparoscopic scar in the right upper quadrant, also had scar exploration with excision of scar tissue at the rectus muscle and right upper quadrant -CT scan abdomen shows: 1. Findings of both a partial high-grade distal small bowel and proximal colonic obstruction as detailed in text above. 2. Ectatic colonic loops to the splenic flexure near numerous anastomotic sutures. 3. Ectatic loops of ileal bowel loops to the terminal ileum without ectasia of proximal jejunal loops. This raises concern for potential closed-loop small bowel obstruction. -NG tube has been removed -Abdominal exam is improved today, abdomen less distended, has good bowel sounds, had 2 bowel movements, still has generalized tenderness Plan: -I have consulted general surgery -Keep n.p.o. -IV hydration -Place NG tube -Serial abdominal exams, monitor for bowel movement -Pain control with Dilaudid Status: Acute (2) Gastric carcinoma: Status: Acute Additional A&P Information Given patient's complaints of chest pain, intermittent shortness of breath, pleuritic pain, history of gastric cancer I will order up a CTA to rule out pulmonary embolism History of hypertension. Since he is n.p.o. we will hold his home medications and order as needed hydralazine. DVT prophylaxis. Lovenox. CODE STATUS. The patient wants to be full code. Attestations Medical Necessity Statement*: She requires continued hospitalization for small bowel obstruction Coding Level of Care Code Acute Director Loss Prevention for g Fwd Diagnoses Bowel obstruction K56.609 Gastric carcinoma C16.9
[2019-08-22] VITALS (11 sets, daily range): BP systolic 114–158; BP diastolic 71–102; PULSE 62–80; RESP 16–20; TEMP 36.7–37.1; O2SAT 96–100
[2019-08-22] MEDS: pantoprazole 40 mg SDV IVP ×3 (00:12→22:43)
[2019-08-22] MEDS: enoxaparin 40 mg/0.4 mL Syringe SUBCUT (02:53)
[2019-08-22] MEDS: ondansetron 2 mg/ML SDV 2 mL 4 MG IVP (02:59)
[2019-08-22] MEDS: HYDROmorphone 1 mg/mL INJ 1 mL IVP ×5 (03:58→22:13)
[2019-08-22] MEDS: sodium chlor 0.9% + KCl 20 mEq 20 MEQ/1,000 ML BAG 100 MEQ IV ×2 (04:17→15:29)
[2019-08-22 05:59] LABS: Eosinophils # 0.1 10^3/uL (0.0-0.8); Eosinophils % 3.7 %; Hematocrit 30.5 % (42.0-52.0); Hemoglobin 9.7 g/dL (11.7-16.6); Lymphocytes # 0.4 10^3/uL (0.8-4.8); Lymphocytes % 9.4 %; Mean Corpuscular HGB Conc 31.8 g/dL (30.0-36.0); Mean Corpuscular Hemoglobin 29.7 pg (28.0-34.0); Mean Corpuscular Volume 93.3 fL (80-94); Mean Platelet Volume 10.5 fL (7.4-10.4); Monocytes # 0.8 10^3/uL (0.2-0.9); Monocytes % 19.8 %; Neutrophils # 2.5 10^3/uL (1.8-7.7); Neutrophils % 65.8 %; Nucleated Red Blood Cells % 0 %; Platelet Count 247 10^3/cmm (130-400); Red Blood Count 3.27 10^6/uL (4.1-5.3); Red Cell Distribution Width 13.6 % (12.1-15.1); White Blood Count 3.8 10^3/uL (4.0-10.0)
[2019-08-22 06:28] LABS: Alanine Aminotransferase 13 U/L (0-41); Albumin Level 3.1 g/dL (3.5-5.2); Alkaline Phosphatase 75 IU/L (40-130); Anion Gap 13.3 (5-19); Aspartate Amino Transferase 22 U/L (0-40); Blood Urea Nitrogen 13 mg/dL (6-20); Calcium 9.1 mg/dL (8.5-10.5); Carbon Dioxide 28 mmol/L (22-29); Chloride 105 mmol/L (98-107); Globulin 2.2 g/dL (1.3-4.6); Glomerular Filtration Rate 227.7 mL/min (90-130); Glucose 106 mg/dL (65-115); Magnesium 2.3 mg/dL (1.7-2.3); Osmolality Calculated 291 mOsm/kg (285-295); Phosphorus 3.6 mg/dL (2.5-4.5); Potassium 4.3 mmol/L (3.5-5.1); Sodium 142 mmol/L (136-145); Total Bilirubin 0.2 mg/dL (0.15-1.2); Total Protein 5.3 g/dL (6.6-8.7)
--- NOTE | 2019-08-22 11:25 | PM.PN ---
Subjective Subjective: Interval history: Patient is ambulating, no nausea or vomiting, tolerating clear liquid diet. Had loose BMs patient is distended over the incision Vitals/I&O/Wt Last Vital Signs Temp 98.2 F 08/22/19 11:15 Pulse 73 08/22/19 11:15 Resp 18 08/22/19 11:15 BP 158/102 08/22/19 11:15 Pulse Ox 99 08/22/19 11:15 08/21/19 08/22/19 08/22/19 22:59 06:59 14:59 Intake Total 1240 / 2240 240 / 240 Balance 1240 / 2240 240 / 240 Physical Exam Narrative: EXAM NARRATIVE: Soft, nondistended, tender over the scar. Recent surgery Data : 08/22/19 05:02 08/22/19 05:02 A&P Assessment and plan (1) Bowel obstruction: 48-year-old gentleman status post partial gastrectomy for gastric adenocarcinoma presents with suspected bowel obstruction on CT scan. Patient is currently hemodynamically stable, no evidence of peritonitis. 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
[2019-08-22] MEDS: magnesium citrate Btl 296 mL PO (12:06)
[2019-08-22] MEDS: lactulose oral liq 20 gm/30 mL UDC 10 GM PO ×2 (12:06→22:42)
--- NOTE | 2019-08-22 12:31 | PM.PN ---
Subjective Subjective: Interval history: No acute events overnight. On examination patient walking in the hallway doing well. He states he has had a bowel movement earlier in the day today. He is complaining of mild abdominal pain at the surgical site. Denies of having any nausea, vomiting, headache, dizziness. He states he tolerated clear liquid diet well. Vitals/I&O/Wt Last Vital Signs Temp 98.2 F 08/22/19 11:15 Pulse 73 08/22/19 11:15 Resp 18 08/22/19 11:15 BP 158/102 08/22/19 11:15 Pulse Ox 99 08/22/19 11:15 08/21/19 08/22/19 08/22/19 22:59 06:59 14:59 Intake Total 1240 / 2240 240 / 240 Balance 1240 / 2240 240 / 240 Physical Exam Narrative: EXAM NARRATIVE: General: No acute distress, AO x3, cachectic HEENT: PERRLA, pupils bilaterally equal and reactive Chest: Normal vesicular breath sounds, no added sounds, equal good air entry bilaterally CVS: S1-S2 regular, no murmurs, no tachycardia, no gallops, no rubs Abdomen: Bowel sounds present, nondistended, nontender except to palpation in right lower quadrant, no guarding no rigidity, no organomegaly. Neuro: No focal deficits, no facial deformity, AO x3, power 5/5 in all limbs Data : 08/22/19 05:02 08/22/19 05:02 A&P Assessment and plan (1) Abdominal pain: Status: Acute Qualifiers: Abdominal location: generalized Qualified Code(s): R10.84 - Generalized abdominal pain (2) Bowel obstruction: Status: Acute (3) Gastric carcinoma: Status: Acute (4) HTN (hypertension), benign: Status: Acute (5) Anemia: Status: Acute Additional A&P Information Abdominal pain most likely due to bowel obstruction: History of gastric stimulator and adenocarcinoma, status post partial gastrectomy in November 2018, stage II, status post radiation course completed April 2019 -Status post EGD and colonoscopy Dr. Barraza, normal esophagus on endoscopy, apparent retracting scar tissue underneath laparoscopic scar in the right upper quadrant, also had scar exploration with excision of scar tissue at the rectus muscle and right upper quadrant -CT scan abdomen shows: Partial high-grade distal small bowel and proximal colonic obstruction. Plan: Greatly appreciate surgical recommendations. Diet advanced to soft diet today. Continue with lactulose p.o. every 12 hourly. Continue with Protonix 40 mg IV every 12 hourly. Patient is to get milk of molasses enema today. Abdominal series in the morning. Serial abdominal examination. Hypertension: Blood pressure well controlled. We will start him back on his home medication of amlodipine. We will hold off on lisinopril for now to prevent hypotension/JULIA due to decreased oral intake. Anemia: Hemoglobin 9.7 today. Baseline seems to be ranging from 11.5-10. Has gone down as low as 9.6 in January of last year. Most likely because of iron deficiency anemia and anemia of chronic disease. Check iron panel. Will check stool for occult blood as well. Monitor hemoglobin daily. DVT prophylaxis. Lovenox. GI soft diet. Full code. Patient continues to do well can plan to discharge patient tomorrow. 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
[2019-08-22 16:48] LABS: Iron 23 ug/dL (59-158); Percent Saturation 16.5 % (20-50); Total Iron Binding Capacity 139 mcg/dl; Unsaturated Iron Binding 116 ug/dL (112-347)
[2019-08-23] VITALS (8 sets, daily range): BP systolic 122–157; BP diastolic 78–93; PULSE 64–74; RESP 16–20; TEMP 36.7–37.3; O2SAT 97–100
[2019-08-23] MEDS: enoxaparin 40 mg/0.4 mL Syringe SUBCUT (02:26)
[2019-08-23] MEDS: sodium chlor 0.9% + KCl 20 mEq 20 MEQ/1,000 ML BAG 100 MEQ IV ×2 (02:26→13:30)
[2019-08-23] MEDS: HYDROmorphone 1 mg/mL INJ 1 mL IVP ×3 (05:12→13:31)
[2019-08-23 05:51] LABS: Basophils % 0.9 %; Eosinophils # 0.2 10^3/uL (0.0-0.8); Hematocrit 31.5 % (42.0-52.0); Hemoglobin 9.9 g/dL (11.7-16.6); Lymphocytes # 0.4 10^3/uL (0.8-4.8); Lymphocytes % 12.1 %; Mean Corpuscular HGB Conc 31.4 g/dL (30.0-36.0); Mean Corpuscular Hemoglobin 29.7 pg (28.0-34.0); Mean Corpuscular Volume 94.6 fL (80-94); Mean Platelet Volume 10.8 fL (7.4-10.4); Monocytes # 0.7 10^3/uL (0.2-0.9); Monocytes % 20.9 %; Neutrophils # 1.9 10^3/uL (1.8-7.7); Neutrophils % 58.8 %; Nucleated Red Blood Cells % 0 %; Platelet Count 244 10^3/cmm (130-400); Red Blood Count 3.33 10^6/uL (4.1-5.3); Red Cell Distribution Width 13.6 % (12.1-15.1); White Blood Count 3.3 10^3/uL (4.0-10.0)
[2019-08-23 06:21] LABS: Alanine Aminotransferase 12 U/L (0-41); Albumin Level 3.3 g/dL (3.5-5.2); Alkaline Phosphatase 71 IU/L (40-130); Anion Gap 11.7 (5-19); Aspartate Amino Transferase 25 U/L (0-40); Blood Urea Nitrogen 8 mg/dL (6-20); Calcium 8.2 mg/dL (8.5-10.5); Carbon Dioxide 28 mmol/L (22-29); Chloride 103 mmol/L (98-107); Globulin 2.1 g/dL (1.3-4.6); Glomerular Filtration Rate 102.3 mL/min (90-130); Glucose 101 mg/dL (65-115); Magnesium 2.1 mg/dL (1.7-2.3); Osmolality Calculated 284 mOsm/kg (285-295); Phosphorus 2.2 mg/dL (2.5-4.5); Potassium 3.7 mmol/L (3.5-5.1); Sodium 139 mmol/L (136-145); Total Bilirubin 0.3 mg/dL (0.15-1.2); Total Protein 5.4 g/dL (6.6-8.7)
--- NOTE | 2019-08-23 06:25 | XRR_ITS ---
PROCEDURE INFORMATION: Exam: XR Abdomen, 2 Views Exam date and time: 08/23/2019 7:33 AM Age: 48 years old Clinical indication: Abdominal pain; Generalized; Additional info: Sbo TECHNIQUE: Imaging protocol: XR of the abdomen. Views: 2 Views. COMPARISON: CR [place] upper GI series [id number] 11/20/2018 10:30 AM FINDINGS: Gastrointestinal tract: Diffuse abnormal and prominent dilatation of bowel with numerous air-fluid levels most suspicious for mechanical bowel obstruction. Distinction of colonic and small bowel involvement is limited with at least partial gaseous distension of the right colon. Intraperitoneal space: Numerous surgical changes of suture material and clips overlie the abdomen. Bones/joints: Unremarkable for age. XR/XR abdomen min 2V [id number] IMPRESSION: Markedly distended bowel with numerous air-fluid levels remains concerning for mechanical bowel obstruction. There is partial clearance of residual contrast media within the distal colon although the extent of dilatation of small bowel centrally and within the upper abdomen appears mildly worsened.
--- NOTE | 2019-08-23 09:00 | PC.SOCIAL ---
Pg 2 IMM Explained to pt Pg 2 IMM. Pt verbally understands. No questions voiced. Provided pt a copy & left on pt's bedside table. Signed, dated, & timed a copy & placed in pt's chart.
[2019-08-23] MEDS: amlodipine 10 mg Tablet PO (09:10)
--- NOTE | 2019-08-23 12:35 | PM.PN ---
Subjective Subjective: Interval history: Patient has been doing well denies any nausea or vomiting, tolerating GI soft diet, had multiple bowel movements Vitals/I&O/Wt Last Vital Signs Temp 98.7 F 08/23/19 11:21 Pulse 74 08/23/19 11:21 Resp 19 H 08/23/19 11:21 BP 135/93 08/23/19 11:21 Pulse Ox 100 08/23/19 11:21 08/22/19 08/23/19 08/23/19 22:59 06:59 14:59 Intake Total 1000 / 2840 40 / 40 Balance 1000 / 2840 40 / 40 Physical Exam Narrative: EXAM NARRATIVE: Abdomen: Soft, nondistended, tender around the incision Data : 08/23/19 04:55 08/23/19 04:55 Micro: Microbiology 08/22/19 18:15 Occult Blood (FIT) - Final Stool A&P Assessment and plan (1) Bowel obstruction: 48-year-old gentleman status post partial gastrectomy for gastric adenocarcinoma presents with suspected bowel obstruction on CT scan. Patient is currently hemodynamically stable, no evidence of peritonitis. Tolerating GI soft diet, DC home today Follow-up with Dr. 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
--- NOTE | 2019-08-23 12:55 | PM.DCS ---
Discharge Providers Date of Admission: 08/20/19 09:38 Date of Discharge: August 23, 2019 Attending Provider at Admission: Alberto Glover Attending Provider at Discharge: Jose Macias MD Consults: Surgery: Dr. Petty Primary Care Provider: GREGORIO MATHIS DO Diagnoses at Discharge Discharge Diagnosis (1) Abdominal pain: Status: Acute Qualifiers: Abdominal location: generalized Qualified Code(s): R10.84 - Generalized abdominal pain (2) Bowel obstruction: Status: Acute (3) Gastric carcinoma: Status: Acute Problem details: Status post partial gastrectomy in November, stage II, status post radiation course with last in April 2019. Follows up with Dr. Marrero. (4) HTN (hypertension), benign: Status: Acute (5) Anemia: Status: Acute Reason for Visit Reason for Visit: Reason For Visit: in pain Hospital Course Discharge Summary: Benny Castro is a 48 year old male who underwent partial gastrectomy due to poorly differentiated stage IIb gastric adenocarcinoma in [place]. Consequently the patient experienced ongoing abdominal pain. Recently the patient underwent EGD and exploration of the surgical scar by Dr. Barraza. Since then the patient reports generalized abdominal pain. The pain is moderate to severe intensity. No modifying factors. He denies fevers or chills. No nausea or vomiting. His last bowel movement was 2 days ago. He denies diarrhea or rectal blood/black stools. Denies any chest pain, shortness of breath, cough, palpitations. He denies dysuria. He denies similar episodes in the past. He presented to ER on 08/19. Today CT of the abdomen reveals small bowel obstruction and colonic obstruction. See official radiology report for more details. Patient was admitted to the hospital and surgery was consulted. Patient concerning for obstruction of the splenic flexure along with severe constipation with family clinical picture as per the surgical plan so at first he was put n.p.o. With enema patient responded well to the treatment and had good bowel movement. His diet was gradually advanced which he tolerated well. Patient during the hospital stay did receive aggressive bowel regimen during which he had frequent bowel movements. His abdominal pain has been getting better during the hospitalization. Given extensive surgery in the past as per surgery recommendation patient is most likely to have recurrent abdominal pains and most likely SBO. He has been advised to follow-up with Dr. Barraza and he already has an appointment for complicated stay. He has been discharged in hemodynamically stable condition on GI soft bland diet advised to follow-up with his surgeons. Physical Exam Narrative: EXAM NARRATIVE: General: No acute distress, AO x3, cachectic HEENT: PERRLA, pupils bilaterally equal and reactive Chest: Normal vesicular breath sounds, no added sounds, equal good air entry bilaterally CVS: S1-S2 regular, no murmurs, no tachycardia, no gallops, no rubs Abdomen: Bowel sounds present, nondistended, nontender except to palpation in right lower quadrant, no guarding no rigidity, no organomegaly. Neuro: No focal deficits, no facial deformity, AO x3, power 5/5 in all limbs Discharge Data Data Completed and Pending: Completed Studies During Hospitalization Category Date Time Status CT abdomen pelvis w con* [id number] Stat Cat Scan 08/19/19 22:[address] angio chest PE protcl [id number] Rout ine Cat Scan 08/21/19 11:31 Completed XR abdomen min 2V [id number] Routine Exams 08/21/19 03:30 Completed XR abdomen min 2V [id number] Routine Exams 08/23/19 06:25 Completed XR chest 1V alexandro ble [id number] Stat Exams 08/20/19 05:44 Completed Labs from last 24 hours 08/23/19 08/23/19 08/22/19 04:55 04:55 05:02 WBC 3.3 L RBC 3.33 L Hgb 9.9 L Hct 31.5 L MCV 94.6 H MCH 29.7 MCHC 31.4 RDW 13.6 Plt Count 244 MPV 10.8 H Neut % (Auto) 58.8 Lymph % (Auto) 12.1 Castro % (Auto) 20.9 Eos % (Auto) 7.0 Baso % (Auto) 0.9 Neut # (Auto) 1.9 Lymph # (Auto) 0.4 L Castro # (Auto) 0.7 Eos # (Auto) 0.2 Baso # (Auto) 0.0 Nucleated RBC % (a uto) 0 Nucleated RBCs # 0.0 Sodium 139 Potassium 3.7 Chloride 103 Carbon Dioxide 28 Anion Gap 11.7 BUN 8 Creatinine 0.8 GFR Calculation 102.3 Glucose 101 Calculated Osmolal ity 284 L Calcium 8.2 L Phosphorus 2.2 L Magnesium 2.1 Iron 23 L TIBC 139 % Saturation 16.5 L Unsat Iron Binding 116 Total Bilirubin 0.3 AST 25 ALT 12 Alkaline Phosphata se 71 Total Protein 5.4 L Albumin 3.3 L Globulin 2.1 Vitals: Last Vital Signs Temp 98.7 F 08/23/19 11:21 Pulse 74 08/23/19 11:21 Resp 19 H 08/23/19 11:21 BP 135/93 08/23/19 11:21 Pulse Ox 100 08/23/19 11:21 Discharge Plan Discharge Patient Disposition: Home, Self-Care Condition: Stable Prescriptions: New lactulose 20 gram/30 mL Solution 10 g PO Q12H Qty: 150 RF: 0 Colace 2-In-1 8.6-50 mg tablet 1 tab-cap PO BID Qty: 30 RF: 0 Continued fluconazole 200 mg tablet 200 mg PO DAILY RF: 0 lisinopril 20 mg tablet 20 mg PO DAILY RF: 0 famotidine 40 mg tablet 40 mg PO BID RF: 0 amlodipine 10 mg tablet 10 mg PO DAILY RF: 0 pantoprazole 40 mg tablet,delayed release (DR/EC) 40 mg PO DAILY RF: 0 ibuprofen 800 mg Tablet 800 mg PO Q6H PRN (Reason: Pain) RF: 0 ondansetron HCl 4 mg tablet 4 mg PO PRN PRN (Reason: nausea/vomiting) RF: 0 omeprazole 40 mg capsule,delayed release(DR/EC) 40 mg PO BID RF: 0 magnesium carbonate 54 mg/5 mL Liquid 54 mg PO BID RF: 0 Changed hydrocodone-acetaminophen 10-325 mg tablet 10 - 325 tab PO Q8H PRN (Reason: Pain) Qty: 0 RF: 0 Discontinued acetaminophen [Tylenol] 325 mg Tablet 325 mg PO QID PRN (Reason: Pain) RF: 0 Discharge Orders: Discharge Order (Routine); Ordered 08/23/19 Ordered By: Jose Macias Referrals: GREGORIO MATHIS DO [Primary Care Provider] - 2 weeks (You will need to call Saturday and make a hosptial follow up appointment with Dr. Mathis in 2 weeks.) Marcos Barraza MD [Physician] - 08/25/19 (You will need to call Saturday and make a hospital follow up appointment with Dr. Barraza for August 24 is when they were wanting to see you.) Discharge Diet: GI Soft Discharge Activity: Resume usual activity Patient Instructions: Bowel Obstruction, Laxative, Stimulant (By mouth), Lactulose (By mouth), Soft Diet (DC) Activity Restrictions/Additional Instructions: Please follow-up with Dr. Barraza on scheduled appointment. Please follow-up with your surgeon at [place] within next 2 weeks. Discharge Date/Time: 08/23/19 14:45 Discharge Attestations Time Spent in Discharge Care*: greater than 30 min Specific Discharge Activities: Specific discharge activities: educating patient, educating and/or supporting family/caregiver, discussing with pcp/other providers, documenting/other paperwork and evaluating patient/reviewing data Status at Discharge: Cognitive status at discharge: cognitively intact, Behavioral status at discharge: cooperative, Functional status at discharge: independent ambulation Overall status at discharge: patient is progressing back to baseline Quality Metrics Clinical Quality Measures During this hospital stay, did patient experience: None Coding Level of Care Code 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
[2019-08-23] MEDS: pantoprazole 40 mg SDV IVP (13:30)
== END 2019-08-23 14:45 | disposition home or self-care (01) | DRG 389 ==
LOC: ER 23:30 → MEDSURG 08-20 00:12
PROVIDERS: Emergency Medicine; Family Medicine; Admitting Provider Internal Medicine; PCP Internal Medicine; Visit Provider Student in an Organized Health Care Education/Training Program
DX: K56.50 Intestinal adhesions [bands], unspecified as to partial versus complete obstruction (principal); C16.9 Malignant neoplasm of stomach, unspecified; Z90.3 Acquired absence of stomach [part of]; Z87.891 Personal history of nicotine dependence; Z92.3 Personal history of irradiation; K59.03 Drug induced constipation; T40.605A Adverse effect of unspecified narcotics, initial encounter; K21.9 Gastro-esophageal reflux disease without esophagitis; I10 Essential (primary) hypertension; D50.9 Iron deficiency anemia, unspecified; D63.8 Anemia in other chronic diseases classified elsewhere
CPT/HCPCS: 12345; 36415; 71045; 71275; 74019; 74160; 74177; 80048; 80053; 81001; 82274; 83540; 83550; 83605; 83690; 83735; 84100; 85014; 85018; 85025; 96360; 96372; 96375; 99283; C9113; G0378; J1170; J1650; J2060; J2270; J2405; J2543; J7030; Q9967

== ENCOUNTER 2019-08-27 08:51 | Day surgery (SDC) | payer MEDICARE, MEDICAID, SELFPAY ==
[2019-08-26 10:17] VITALS: BMI 16.0
--- NOTE | 2019-08-27 09:19 | W.PM.OPSUD ---
Surgery/Procedure H&P Update DATE OF PROCEDURE: August 27, 2019 DATE H&P PERFORMED: 08/04/19 H&P UPDATE INFORMATION: No changes to prior documentation PREOP DIAGNOSIS: 1. Esophageal thickening by CAT scan with history of gastric carcinoma.2. Painful laparoscopy scar in the right upper quadrant. PLANNED PROCEDURE: Operation Date: 08/27/19 10:20 Proposed Procedures p Colonoscopy(Not Applicable) - Marcos Barraza MD
[2019-08-27] MEDS: sodium chloride 0.9% 1,000 ML 30 ML IV (09:27)
[2019-08-27 09:30] VITALS: BP 128/91; PULSE 94; RESP 20; TEMP 36.7; O2SAT 100
--- NOTE | 2019-08-27 09:39 | P.ANESASSM_ITS ---
Pre-Anesthetic Assessment Pre-Anesthetic Assessment: Height/Weight: Height 1.91 m Weight 58.06 kg Temp Pulse Resp BP Pulse Ox 98.1 F 94 20 H 128/91 100 08/27/19 09:30 08/27/19 09:30 08/27/19 09:30 08/27/19 09:30 08/27/19 09:30 Preop Diagnosis: 1. Esophageal thickening by CAT scan with history of gastric carcinoma.2. Painful laparoscopy scar in the right upper quadrant. Proposed Procedure: Operation Date: 08/27/19 10:20 Proposed Procedures p Colonoscopy(Not Applicable) - Marcos Barraza MD Familial anesthetic complications: none Was Beta Aga taken within 24 hours: N/A Last intake: Intake Last Liquid Date 08/26/19 Last Liquid Time 23:00 Last Solid Date 08/25/19 Last Solid Time 23:59 Social: Social History: No alcohol and No tobacco Exam: Pre-Anes Outpt Exam: alert, oriented x 3, clear to auscultation bilaterally and regular rate & rhythm Airway: Cervical ROM: WNL MP: 3 Additional comments: ednetulous CV/HEM: CV/HEM: HTN GI: GI: GERD Comments: gastric cancer Anesthetic Plan: ASA status: 3 Anesthesia: MAC Risk of > 500 ml blood l oss (7ml/kg in children): No Meds/Allergies Current Medications: Current Medications Generic Name Dose Route Start Last Admin Trade Name Freq PRN Reason Stop Dose Admin Sodium Chloride 1,000 mls @ 30 ml s/hr 08/27/19 09:15 08/27/19 09:27 Sodium Chloride 0.9% IV 08/28/19 09:14 30 mls/hr .Q24H TORRES Administration PFSH Anesthesia PFSH: Medical History (Updated 08/24/19 @ 00:00 by ) Gastric carcinoma Status post partial gastrectomy in November, stage II, status post radiation course with last in April 2019. Follows up with Dr. Marrero. GERD (gastroesophageal reflux disease) HTN (hypertension), benign Surgical History (Updated 08/20/19 @ 15:26 by Maximiliano Petty MD) H/O esophagogastroduodenoscopy S/P partial gastrectomy Status post colonoscopy with polypectomy Social History Smoking and tobacco status: former smoker Data Anesthesia Cardiac Studies: No Data to Display
[2019-08-27 11:16] VITALS: BP 127/87; PULSE 68; RESP 16; TEMP 36.2; O2SAT 98
--- NOTE | 2019-08-27 11:19 | ANE.PACU2 ---
Inpatient post-anesthesia follow up: Airway intact: Yes Vital signs: Temperature 97.2 F Pulse Rate 68 Respiratory Rate 16 Blood Pressure 127/87 Pulse Oximetry 98 Oxygen Delivery Me thod Room Air Oxygen Flow Rate Fraction of Inspir ed Oxygen Hydration adequate: Yes Nausea and vomiting: No Pain level: 1 Mental status: Baseline
[2019-08-27 11:36] VITALS: BP 131/90; PULSE 64; RESP 18; O2SAT 99
== END 2019-08-27 12:00 | disposition home or self-care (01) ==
PROVIDERS: Visit Provider Surgery
PROC: 0DJD8ZZ Inspection of Lower Intestinal Tract, Via Natural or Artificial Opening Endoscopic (ICD-10-PCS; CPT 45378; principal; 2019-08-27 10:15)
DX: K22.8 Other specified diseases of esophagus (principal); Z85.028 Personal history of other malignant neoplasm of stomach; L90.5 Scar conditions and fibrosis of skin; I10 Essential (primary) hypertension; K21.9 Gastro-esophageal reflux disease without esophagitis; E78.00 Pure hypercholesterolemia, unspecified; Z79.1 Long term (current) use of non-steroidal anti-inflammatories (NSAID); Z79.891 Long term (current) use of opiate analgesic; K56.699 Other intestinal obstruction unspecified as to partial versus complete obstruction
CPT/HCPCS: 12345; 45378; J2704; J7030

== ENCOUNTER 2019-08-29 11:08 | Emergency (ER) | payer MEDICARE, MEDICAID, SELFPAY ==
[2019-08-29] VITALS (7 sets, daily range): BP systolic 148–189; BP diastolic 93–111; PULSE 52–69; RESP 16–18; TEMP 36.5; O2SAT 98–100; BMI 16.7
--- NOTE | 2019-08-29 11:35 | ED_ITS ---
HPI - Abdominal Pain General: Chief Complaint: Urogenital-Male Stated Complaint: flank pain, hematuria Time Seen by Provider: 08/29/19 11:25 Source: patient Mode of arrival: ambulatory Limitations: no limitations History of Present Illness: HPI narrative: Patient is a 48-year-old male with a history of gastric adenocarcinoma here for complaint of right lower abdominal pain x 2 days. Patient has had multiple abdominal issues over the past few years. Patient was recently admitted to the hospital on 08/18 for a SBO. He was managed inpatient non-operatively with a clear liquid diet and aggressive bowel regimen. After discharge, he underwent a colonoscopy (08/26) by Dr. Barraza. Patient tells me pain is localized to his right lower quadrant and suprapubic area. He states he has had one episode of non bloody vomit yesterday. Bowel movements seem to be normal-last BM was yesterday. Patient is passing gas. He is not complaining of any urinary symptoms. Patient was seen at urgent care and referred here for further evaluation. Onset (ago): day(s) Pain Consistency: constant Location: RLQ and Suprapubic Severity: moderate Quality: aching and sharp Migration to: no migration Exacerbating factors: nothing Associated Symptoms: Reports nausea and vomiting; Denies change in stool character, chills, coffee ground emesis, constipation, diarrhea, dysuria, fever(s), heartburn, hematochezia, hematuria, hematemesis, melena and syncope Review of Systems Const: Denies: fever(s), chills, body aches, change in appetite, change in weight, fatigue or malaise Eyes: Denies: change in vision or blurry vision Card: Denies: chest pain, palpitations, irregular heart rhythm, lightheadedness, syncope or dyspnea on exertion Resp: Denies: dyspnea, productive cough or pain on inspiration GI: Reports: abdominal pain, nausea and vomiting; Denies: hematemesis, coffee ground emesis, heartburn, diarrhea, constipation, pain on defecation, change in stool character, hematochezia, melena or white/light colored stool : Denies: flank pain, difficulty urinating, dysuria, urinary frequency, urinary urgency, urinary hesitancy, difficulty starting urination, change in urine stream, hematuria, genital pain, genital lesions, testicular pain or scrotal swelling Musc: Denies: neck pain, back pain or joint pain Skin/Breast: Denies: rash Neuro: Denies: headache(s), numbness in extremities, weakness in extremities or sensory changes PFSH ED PFSH: Medical History (Updated 08/29/19 @ 16:08 by LYLE Dumont) Gastric carcinoma Status post partial gastrectomy in November, stage II, status post radiation course with last in April 2019. Follows up with Dr. Marrero. GERD (gastroesophageal reflux disease) HTN (hypertension), benign Surgical History (Updated 08/20/19 @ 15:26 by Maximiliano Petty MD) H/O esophagogastroduodenoscopy S/P partial gastrectomy Status post colonoscopy with polypectomy Social History (Updated 08/29/19 @ 10:12 by Viry Perez LPN) Smoking and tobacco status: former smoker Physical Exam Const: COMMON NORMALS: patient oriented x3, no limitations and alert GENERAL APPEARANCE: in distress (due to discomfort ) HENMT: COMMON NORMALS: normocephalic and atraumatic HEAD & SCALP: normocephalic and atraumatic Resp: COMMON NORMALS: normal respiratory effort and clear to auscultation bilaterally AUSCULTATION: clear to auscultation bilaterally Cardio: COMMON NORMALS: regular rate and regular rhythm RATE: regular rate RHYTHM: regular rhythm GI: COMMON NORMALS: No hepatosplenomegaly present and no masses AUSCULTATION: Yes normoactive bowel sounds PALPATION: Yes Tenderness to palpation present (GI) (throughout abdomen but more so to RLQ and suprapubic region), Yes Guarding due to palpation present (GI) and Yes No hepatosplenomegaly present : MALE GROIN/PERINEUM EXAM: No edema, No erythema and No inguinal lymphadenopathy PENIS: normal penis MEATUS: meatus normal SCROTUM: Yes testes descended bilaterally TESTES: Yes testicular lie normal, No Enlarged testicle(s) present, No testicular swelling, No testicular tenderness, No testicular mass, Yes epididymides normal and No epididymal tenderness Extremity: COMMON NORMALS: normal to inspection Neuro: COMMON NORMALS: patient oriented x3 SENSORIUM/ORIENTATION: Yes alert Skin: COMMON NORMALS: no rashes or lesions noted GENERAL SKIN EXAM: no rashes or lesions noted Course Vital Signs: Vital signs: Vital Signs Temperature 97.7 F 05/23/20 11:17 Pulse Rate 69 08/29/19 15:00 Respiratory Rate 16 08/29/19 15:00 Blood Pressure 148/98 08/29/19 15:00 Pulse Oximetry 99 08/29/19 15:00 MDM - Abdominal Pain MDM Narrative: Medical decision making narrative: Patient is a 48-year-old male who presents to ED today with a complaint of right lower abdominal pain. On patient's CT scan it shows persistent area of mid transverse colon region narrowing/stricture producing partial obstruction that is relatively unchanged from previous exam. I spoke to the general surgeon on-call Dr. Juarez and we reviewed patient's recent colonoscopy. Colonoscopy appeared normal. There were no obvious intraluminal abnormalities seen. Dr. Barraza commented while no obvious strictures were present, the patient's colon is very redundant. He felt this may be contributing to the partial bowel obstruction process. Patient had a normal bowel movement yesterday. He had one episode of vomiting yesterday but none since. He is continuing to pass gas. Patient was offered admission however states he feels he can go home. Dr. Juarez recommend we write him for an outpatient order for a barium enema (this was done and placed with CM) and he needs to follow-up with either Dr. Barraza, Dr. Petty who he saw in patient or Dr. Juarez stated he would be more than happy to see patient as well. I will have CM try and get him follow up with Dr. Barraza as he recently performed the colonscopy and I feel this would be the best continuity of care. Strict return to ED precautions given. Patient instructed to adhere to clear liquid diet, advancing as tolerated. Lab Data: Labs: Lab Results 08/29/19 08/29/19 08/29/19 Range/Units 11:44 11:44 12:10 WBC 4.1 (4.0-10.0) 10^3/ uL RBC 4.03 L (4.1-5.3) 10^6/u L Hgb 11.7 (11.7-16.6) g/dL Hct 37.5 L (42.0-52.0) % MCV 93.1 (80-94) fL MCH 29.0 (28.0-34.0) pg MCHC 31.2 (30.0-36.0) g/dL RDW 12.5 (12.1-15.1) % Plt Count 379 (130-400) 10^3/c mm MPV 9.6 (7.4-10.4) fL Neut % (Auto) 58.2 % Lymph % (Auto) 10.4 % [place] % (Auto) 27.5 % Eos % (Auto) 2.7 % Baso % (Auto) 0.7 % Neut # (Auto) 2.4 (1.8-7.7) 10^3/u L Lymph # (Auto) 0.4 L (0.8-4.8) 10^3/u L [place] # (Auto) 1.1 H (0.2-0.9) 10^3/u L Eos # (Auto) 0.1 (0.0-0.8) 10^3/u L Baso # (Auto) 0.0 (0.0-0.1) 10^3/u L Nucleated RBC % (a uto) 0 % Nucleated RBCs # 0.0 /100WBC Sodium 139 (136-145) mmol/L Potassium 3.3 L (3.5-5.1) mmol/L Chloride 99 (98-107) mmol/L Carbon Dioxide 30 H (22-29) mmol/L Anion Gap 13.3 (5-19) BUN 15 (6-20) mg/dL Creatinine 0.8 (0.7-1.2) mg/dL GFR Calculation 102.3 (90-130) mL/min Glucose 97 (65-115) mg/dL Calculated Osmolal ity 284 L (285-295) mOsm/k g Calcium 8.3 L (8.5-10.5) mg/dL Total Bilirubin 0.3 (0.15-1.2) mg/dL AST 27 (0-40) U/L ALT 13 (0-41) U/L Alkaline Phosphata se 90 (40-130) IU/L Total Protein 5.9 L (6.6-8.7) g/dL Albumin 3.5 (3.5-5.2) g/dL Globulin 2.4 (1.3-4.6) g/dL Urine Color Yellow (Yellow) Urine Appearance Clear (CLEAR) Urine pH 5 (5-7) Ur Specific Gravit y 1.010 (1.005-1.030) Urine Protein Neg (Negative) Urine Glucose (UA) Norm (Normal) Urine Ketones Negative (Negative) Urine Blood Neg (Negative) Urine Nitrate Negative (Negative) Urine Bilirubin Neg (NEGATIVE) Urine Urobilinogen Norm (Negative) mg/dL Ur Leukocyte Beena ase Negative (Negative) Imaging Data ^: CT Abd/Pel: Radiologist's impression: [facility] [address] [place] [address] CT Scan Report Signed with Addenda Patient: Benny Castro Unit #: [id number] : [id number] Age/Sex: 48 / M ADM Date: 08/29/19 Loc: ER Room/Bed: Attending Dr: Ordering Provider/Ordering MD: Yasmeen Ribeiro Date of Service: 08/29/19 Procedure(s): CT abdomen pelvis w con* [id number] Accession Number(s): [id number] Report Number: [id number]/CT abdomen pelvis w con* [id number] Addendum created at 2:[address] findings discussed with LYLE Ribeiro via phone conference at 2:38 p.m.. Findings were understood and acknowledged. Radiation Dose CTDIVOL = (mGy): DLP = 563.76 (mGy-cm) Addendum Dictated By: Houston Harrington MD Addendum Signed By: Houston Harrington MD Signed Date/Time: 1459 Addendum Cosigned By: PROCEDURE INFORMATION: Exam: CT Abdomen And Pelvis With Contrast Exam date and time: 08/29/2019 12:41 PM Age: 48 years old Clinical indication: Abdominal pain; Localized; Prior surgery; Surgery date: 6+ months; Surgery type: Stomach; Patient HX: Lower abdomen pain; Additional info: Rlq/suprapubic pain; Recent colonoscopy TECHNIQUE: Imaging protocol: Computed tomography of the abdomen and pelvis with intravenous contrast. Radiation optimization: All CT scans at this facility use at least one of these dose optimization techniques: automated exposure control; mA and/or kV adjustment per patient size (includes targeted exams where dose is matched to clinical indication); or iterative reconstruction. Contrast material: OMNI 300; Contrast volume: 95 ml; Contrast route: 20G; COMPARISON: CT abdomen pelvis w con* [id number] 08/19/2019 10:34 PM RADIATION DOSE METRICS: Total DLP: 563.76 mGy-cm FINDINGS: Pleural space: Small left pleural effusion. Liver: Normal. No mass. Gallbladder and bile ducts: Normal. No calcified stones. No ductal dilation. Pancreas: Normal. No ductal dilation. Spleen: Normal. No splenomegaly. Adrenals: Normal. No mass. Kidneys and ureters: Normal. No hydronephrosis. Stomach and bowel: Prior subtotal gastrectomy with probable gastrojejunostomy. Dilated mid and distal small bowel with fecalization of contents. Abundant stool throughout right side of colon. Persistent area of mid transverse colon region narrowing/stricture (series 2, axial image 27 or series 602, coronal image 38). Modest amount of air and stool in rectosigmoid region. Appendix: No evidence of appendicitis. Intraperitoneal space: Increasing ascites. Vasculature: Unremarkable. No abdominal aortic aneurysm. Lymph nodes: Unremarkable. No enlarged lymph nodes. Bladder: Unremarkable as visualized. Reproductive: Unremarkable as visualized. Bones/joints: L5-S1 degenerative disc disease, chronic. Soft tissues: Unremarkable. CT/CT abdomen pelvis w con* [id number] IMPRESSION: 1.) Persistent area of mid transverse colon region narrowing/stricture producing partial obstruction, relatively unchanged. 2.) Prior gastric surgery. 3.) Increasing ascites. New small left pleural effusion. Radiation Dose CTDIVOL = (mGy): DLP = 563.76 (mGy-cm) Dictated By: Houston Harrington MD Signed By: Houston Harrington MD Signed Date/Time: 08/29/191412 DD/ 11 Discharge Plan Discharge Patient Disposition: Home, Self-Care Clinical Impression: Partial bowel obstruction Qualifiers: Intestinal obstruction type: unspecified Qualified Code(s): K56.600 - Partial intestinal obstruction, unspecified as to cause Condition: Stable Prescriptions: No Action lisinopril 20 mg tablet 20 mg PO DAILY RF: 0 famotidine 40 mg tablet 40 mg PO BID RF: 0 amlodipine 10 mg tablet 10 mg PO DAILY RF: 0 pantoprazole 40 mg tablet,delayed release (DR/EC) 40 mg PO DAILY RF: 0 ibuprofen 800 mg Tablet 800 mg PO Q6H PRN (Reason: Pain) RF: 0 ondansetron HCl 4 mg tablet 4 mg PO PRN PRN (Reason: nausea/vomiting) RF: 0 lactulose 20 gram/30 mL Solution 10 g PO Q12H Qty: 150 RF: 0 sennosides-docusate sodium [Colace 2-In-1] 8.6-50 mg tablet 1 tab-cap PO BID Qty: 30 RF: 0 hydrocodone-acetaminophen 10-325 mg tablet 10 - 325 tab PO Q8H PRN (Reason: Pain) Qty: 0 RF: 0 Discharge Orders: Discharge Order (Routine); Ordered 08/29/19 Ordered By: Yasmeen Ribeiro Referrals: Marcos Barraza MD [Physician] - Discharge Diet: Clear Liquid Patient Instructions: Bowel Obstruction (ED) Activity Restrictions/Additional Instructions: As discussed I will have case management try to set you up with Dr. Barraza for follow-up. You need to adhere to a clear liquid diet and advance as tolerated. Return to the emergency department for worsening pain, inability to defecate or pass gas, repetitive episodes of vomiting, fevers, or any other concerns you may have. Coding Level of Care Code ED Transit Planning Director for [facility] Fwd Exam Comprehensive
[2019-08-29 11:50] LABS: Basophils % 0.7 %; Eosinophils # 0.1 10^3/uL (0.0-0.8); Eosinophils % 2.7 %; Hematocrit 37.5 % (42.0-52.0); Hemoglobin 11.7 g/dL (11.7-16.6); Lymphocytes # 0.4 10^3/uL (0.8-4.8); Lymphocytes % 10.4 %; Mean Corpuscular HGB Conc 31.2 g/dL (30.0-36.0); Mean Corpuscular Volume 93.1 fL (80-94); Mean Platelet Volume 9.6 fL (7.4-10.4); Monocytes # 1.1 10^3/uL (0.2-0.9); Monocytes % 27.5 %; Neutrophils # 2.4 10^3/uL (1.8-7.7); Neutrophils % 58.2 %; Nucleated Red Blood Cells % 0 %; Platelet Count 379 10^3/cmm (130-400); Red Blood Count 4.03 10^6/uL (4.1-5.3); Red Cell Distribution Width 12.5 % (12.1-15.1); White Blood Count 4.1 10^3/uL (4.0-10.0)
[2019-08-29 12:08] LABS: Alanine Aminotransferase 13 U/L (0-41); Albumin Level 3.5 g/dL (3.5-5.2); Alkaline Phosphatase 90 IU/L (40-130); Anion Gap 13.3 (5-19); Aspartate Amino Transferase 27 U/L (0-40); Blood Urea Nitrogen 15 mg/dL (6-20); Calcium 8.3 mg/dL (8.5-10.5); Carbon Dioxide 30 mmol/L (22-29); Chloride 99 mmol/L (98-107); Globulin 2.4 g/dL (1.3-4.6); Glomerular Filtration Rate 102.3 mL/min (90-130); Glucose 97 mg/dL (65-115); Osmolality Calculated 284 mOsm/kg (285-295); Potassium 3.3 mmol/L (3.5-5.1); Sodium 139 mmol/L (136-145); Total Bilirubin 0.3 mg/dL (0.15-1.2); Total Protein 5.9 g/dL (6.6-8.7)
[2019-08-29 12:28] LABS: Add Urine Microscopic? NO
[2019-08-29] MEDS: ondansetron 2 mg/ML SDV 2 mL 4 MG IVP (12:33)
[2019-08-29] MEDS: morphine 4 mg/mL SDV 1 mL IVP ×2 (12:34→14:27)
[2019-08-29 12:37] LABS: Urine Appearance Clear (CLEAR); Urine Color Yellow (Yellow)
[2019-08-29 12:38] LABS: Bilirubin Urine Neg (NEGATIVE); Blood Urine Neg (Negative); Glucose Urine UA Norm (Normal); Ketones Urine Negative (Negative); Leukocyte Esterase Urine Negative (Negative); Nitrate Urine Negative (Negative); Protein Urine Neg (Negative); Urobilinogen Urine Norm (Negative); pH Urine 5 (5-7)
[2019-08-29] MEDS: iohexol 300 mg/mL 100 mL Btl IV (13:06)
--- NOTE | 2019-09-01 14:07 | DCPLANNER ---
Addendum entered by Kiera Apodaca 09/08/19 08:00: Maria E from Dr. Bonilla office called case investigator and informed case investigator that this appointment is cancelled, per Dr. Barraza, patient can follow up at his regular scheduled appointment. Original Note: e learning manager had message to schedule a follow up appointment for patient with . e learning manager spoke with Maria E, gave clinic patients information. A follow up appointment was scheduled for Sunday, September 08, 2019 at 9:15 with . e learning manager was asked to fax patients records to the clinic. e learning manager called patient, unable to speak with patient at this time, a voicemail was left for patient to return major case detective phone call. e learning manager also faxed an order for barium enema to centralized scheduling to be scheduled. e learning manager will call for appointment information.
--- NOTE | 2019-09-08 08:02 | DCPLANNER ---
Patient has an outpatient barium enema study scheduled for Saturday, September 14, 2019 at 9:15.
--- NOTE | 2019-09-25 12:41 | DCPLANNER ---
Patient did not attend appointment scheduled for 09.14.19.
== END 2019-08-29 16:41 | disposition home or self-care (01) ==
PROVIDERS: Emergency Provider Physician Assistant
DX: K56.600 Partial intestinal obstruction, unspecified as to cause (principal); Z85.00 Personal history of malignant neoplasm of unspecified digestive organ; I10 Essential (primary) hypertension; Z87.891 Personal history of nicotine dependence
CPT/HCPCS: 12345; 36415; 74177; 80053; 81000; 81003; 85025; 87086; 96374; 96375; 96376; 99283; J2270; J2405; Q9967

== ENCOUNTER 2019-09-12 12:09 | Inpatient (IN) | payer MEDICARE, MEDICAID, SELFPAY ==
[2019-09-12] VITALS (17 sets, daily range): BP systolic 102–147; BP diastolic 67–102; PULSE 54–98; RESP 12–20; TEMP 36–36.9; O2SAT 69–100; BMI 16.5
--- NOTE | 2019-09-12 12:33 | ED_ITS ---
HPI - Abdominal Pain General: Chief Complaint: Abdominal Pain Stated Complaint: abdominal swelling, unable to eat Time Seen by Provider: 09/12/19 12:25 History of Present Illness: HPI narrative: Mr. Esposito is a 48-year-old male who comes in complaining of abdominal bloating and nausea. The patient states he has been out of [facility] in [place] for approximately 1 week. He was diagnosed with an intestinal infection but also had a scope with a dilation of the junction of his stomach and small bowel. He states that he had scar tissue there from previous partial gastrectomy. The gastrectomy was performed secondary to a history of adenocarcinoma of the stomach which he says he is been cleared from. He states since leaving he has been on Flagyl but anytime he eats or drinks anything his abdomen bloats and causes him pain. He states he had a large normal bowel movement 2 days ago. He is still passing flatulence. He denies any fevers, chills, urinary symptoms or any other exacerbating or alleviating factors. Patient states that the bloating was present ever since he left the hospital and just will not resolve. Associated Symptoms: Reports nausea; Denies chills, coffee ground emesis, constipation, GI cramping, diarrhea, dysuria, fever(s), heartburn, hematochezia, hematuria, hematemesis, melena, syncope and vomiting Review of Systems Const: Denies: fever(s), chills, body aches, fatigue, malaise or diaphoresis Eyes: Denies: change in vision, blurry vision, blind spots or photophobia ENMT: Denies: throat pain, odynophagia, hoarseness, swelling of lips/tongue, ear or mastoid pain, ear discharge, change in hearing or nasal discharge Card: Denies: chest pain, palpitations, irregular heart rhythm, edema, lightheadedness, syncope, pre-syncope, dyspnea on exertion or orthopnea Resp: Denies: dyspnea, productive cough, non-productive cough, wheezing, hemoptysis or chest congestion GI: Reports: abdominal pain and nausea; Denies: vomiting, hematemesis, coffee ground emesis, heartburn, diarrhea, constipation, GI cramping, hematochezia or melena : Denies: flank pain, dysuria, urinary frequency, urinary urgency or hematuria Musc: Denies: neck pain, back pain, extremity pain, extremity swelling, joint pain, joint swelling, joint redness, joint warmth or joint stiffness Skin/Breast: Denies: rash, pruritus, erythema, skin tenderness or jaundice Neuro: Denies: headache(s), numbness in extremities, weakness in extremities, sensory changes, lack of coordination, difficulty walking, dizziness, vertigo, confusion or Slurred speech present Ceasar/Lymph: Denies: easy bruising, easy bleeding, petechiae, purpura or enlarged lymph nodes All/Imm: Denies: urticaria, throat swelling, tongue swelling, facial swelling or acute wheezing PFSH ED PFSH: Medical History Gastric carcinoma Status post partial gastrectomy in November 2018, stage II, status post radia tion course with last in April 2019. Follows up with Dr. Marrero. GERD (gastroesophageal reflux disease) History of colon polyps HTN (hypertension), benign Hyperlipidemia Surgical History (Updated 09/12/19 @ 15:46 by Marcos Barraza MD) H/O esophagogastroduodenoscopy S/P partial gastrectomy Laparoscopic --Dr. Medel in [place] Scar conditions/skin fibrosis Excision of subcutaneous/anterior rectus sheath scar tissue at laparoscopic incision Status post colonoscopy with polypectomy 07/2017 -- 1 polyp, pathology unknown ([place]) Family History Family/Other Cancer Paternal uncle with bone cancer Social History Smoking and tobacco status: never smoked Physical Exam Const: COMMON NORMALS: no acute distress, patient oriented x3, no limitations, healthy appearing and well nourished GENERAL APPEARANCE: cooperative, well kempt and well developed HENMT: COMMON NORMALS: normocephalic, atraumatic, external ears normal, EAC's normal and Normal external nose present HEAD & SCALP: normal to inspection, normocephalic and atraumatic FACE & SINUS: normal facial exam and face symmetric NOSE: Normal external nose present and Normal nares present EXTERNAL EAR: Yes external ears normal EXTERNAL AUDITORY CANAL: EAC's normal MOUTH: Normal oral and palatal mucosa present, lip normal and tongue normal Eye: COMMON NORMALS: Equal, round and reactive pupils present and conjunctivae normal GENERAL EYE: appearance normal, both eyes and all related structures ALIGNMENT: Yes alignment normal PERIORBITAL: periorbital findings normal EYELID: eyelids normal CONJUNCTIVA: Yes conjunctivae normal SCLERA: sclerae normal PUPIL: Yes Equal, round and reactive pupils present Neck/C-Spine: COMMON NORMALS: full ROM, no lymphadenopathy, supple, no meningeal signs and no JVD GENERAL: Yes normal visual inspection and Yes trachea midline Chest: COMMONS NORMALS: normal inspection of the chest and normal palpation of entire chest wall Resp: COMMON NORMALS: normal respiratory effort, No retractions and No use of accessory muscles EFFORT & INSPECTION: Yes able to speak in complete sentences and Yes symmetric chest movement AUSCULTATION: no crackles, no rales, no rhonchi and no wheezes Cardio: COMMON NORMALS: no JVD, regular rate, regular rhythm, S1 normal heart sound present and S2 normal heart sound present RATE: regular rate RHYTHM: regular rhythm HEART SOUNDS: S1 normal heart sound present, S2 normal heart sound present, no click, no gallops, no murmurs, no rubs and abnormal split S2 GI: COMMON NORMALS: Soft to palpation and No hepatosplenomegaly present PALPATION: Yes Soft to palpation, Yes Tenderness to palpation present (GI) (Mild diffusely without rebound or guarding.), No Guarding due to palpation present (GI), No Rigid due to palpation, Yes No hepatosplenomegaly present, No Hernia present, No Palpable mass present and No Pulsatile mass present : COMMON NORMALS: Yes no CVA tenderness BLADDER/KIDNEY EXAM: Yes no CVA tenderness Back/Pelvis: COMMON NORMALS: no CVA tenderness, thoracic and lumbar spine normal to inspection, no thoracic nor lumbar tenderness and thoraco-lumbar ROM normal Extremity: COMMON NORMALS: normal to inspection, full ROM, capillary refill normal, no joint enlargement, no clubbing, cyanosis or edema and no calf tenderness Neuro: COMMON NORMALS: patient oriented x3, CN's II-XII intact bilaterally, moves all extremities, no focal motor deficits and no sensory deficits noted MENINGEAL SIGNS: Yes no meningeal signs SPEECH: speech normal Psych: COMMON NORMALS: mental status grossly normal, Normal thought process present, cooperative, normal affect, speech normal and activity/motor behavior normal APPEARANCE: Yes well kempt SPEECH: Yes normal speech THOUGHT PROCESS: Normal thought process present Skin: COMMON NORMALS: no rashes or lesions noted, turgor normal, no jaundice, no petechiae and no mottling GENERAL SKIN EXAM: no rashes or lesions noted and turgor normal Course Vital Signs: Vital signs: Vital Signs Temperature 98.4 F 09/12/19 16:09 Pulse Rate 80 09/12/19 16:09 Respiratory Rate 16 09/12/19 16:09 Blood Pressure 147/102 09/12/19 16:09 Pulse Oximetry 96 09/12/19 16:09 MDM - Abdominal Pain MDM Narrative: Medical decision making narrative: Arrival -Mr. Esposito is a nice 48-year-old male who comes in with a complaint of abdominal pain and bloating. His vital signs are stable and the problem is been present for 1 week. On exam his abdomen is distended and mildly tender. Differential is extensive and include small bowel obstruction, colitis, appendicitis, among many others. Work-up will be directed at alleviating his symptoms and pain as well as investigating for cause. Admission -CT scan reveals a bowel obstruction originating from the mid transverse colon. This appears worse than previous. I reviewed the case with both Dr. Macias and Christi, they will admit and consult respectively. At this time we will hold off an NG tube as the patient is not vomiting. His abdomen is tender and distended but there is no sign of peritonitis. Further care be dictated on the admission side. Lab Data: Attestation: I reviewed the patient's lab results. Labs: Lab Results 09/12/19 09/12/19 09/12/19 Range/Units 12:36 12:36 12:36 WBC 8.4 (4.0-10.0) 10^3/ uL RBC 3.78 L (4.1-5.3) 10^6/u L Hgb 11.2 L (11.7-16.6) g/dL Hct 34.6 L (42.0-52.0) % MCV 91.5 (80-94) fL MCH 29.6 (28.0-34.0) pg MCHC 32.4 (30.0-36.0) g/dL RDW 13.4 (12.1-15.1) % Plt Count 399 (130-400) 10^3/c mm MPV 10.0 (7.4-10.4) fL Neut % (Auto) 83.3 % Lymph % (Auto) 6.0 % Angelina % (Auto) 9.3 % Eos % (Auto) 0.5 % Baso % (Auto) 0.5 % Neut # (Auto) 7.0 (1.8-7.7) 10^3/u L Lymph # (Auto) 0.5 L (0.8-4.8) 10^3/u L Angelina # (Auto) 0.8 (0.2-0.9) 10^3/u L Eos # (Auto) 0.0 (0.0-0.8) 10^3/u L Baso # (Auto) 0.0 (0.0-0.1) 10^3/u L Nucleated RBC % (a uto) 0 % Nucleated RBCs # 0.0 /100WBC Sodium 135 L (136-145) mmol/L Potassium 3.7 (3.5-5.1) mmol/L Chloride 97 L (98-107) mmol/L Carbon Dioxide 26 (22-29) mmol/L Anion Gap 15.7 (5-19) BUN 19 (6-20) mg/dL Creatinine 0.8 (0.7-1.2) mg/dL GFR Calculation 102.3 (90-130) mL/min Glucose 105 (65-115) mg/dL Calculated Osmolal ity 277 L (285-295) mOsm/k g Lactic Acid 1.9 (0.5-2.2) mmol/L Calcium 8.9 (8.5-10.5) mg/dL Ferritin (30-400) ng/mL Total Bilirubin 0.2 (0.15-1.2) mg/dL AST 29 (0-40) U/L ALT 12 (0-41) U/L Alkaline Phosphata se 64 (40-130) IU/L Total Protein 6.1 L (6.6-8.7) g/dL Albumin 3.2 L (3.5-5.2) g/dL Globulin 2.9 (1.3-4.6) g/dL Lipase 14 (13-60) U/L Procalcitonin (0-0.5) ng/mL TSH (0.27-4.20) uIU/ mL Urine Color (Yellow) Urine Appearance (CLEAR) Urine pH (5-7) Ur Specific Gravit y (1.005-1.030) Urine Protein (Negative) Urine Glucose (UA) (Normal) Urine Ketones (Negative) Urine Blood (Negative) Urine Nitrate (Negative) Urine Bilirubin (NEGATIVE) Urine Urobilinogen (Negative) mg/dL Ur Leukocyte Beena ase (Negative) Urine RBC (0-2) /hpf Urine WBC (0-5) /hpf Ur Squamous Epith Cells (0-5) Urine Bacteria (NONE) Urine Mucus 09/12/19 09/12/19 09/12/19 Range/Units 12:36 12:36 13:00 WBC (4.0-10.0) 10^3/ uL RBC (4.1-5.3) 10^6/u L Hgb (11.7-16.6) g/dL Hct (42.0-52.0) % MCV (80-94) fL MCH (28.0-34.0) pg MCHC (30.0-36.0) g/dL RDW (12.1-15.1) % Plt Count (130-400) 10^3/c mm MPV (7.4-10.4) fL Neut % (Auto) % Lymph % (Auto) % Angelina % (Auto) % Eos % (Auto) % Baso % (Auto) % Neut # (Auto) (1.8-7.7) 10^3/u L Lymph # (Auto) (0.8-4.8) 10^3/u L Angelina # (Auto) (0.2-0.9) 10^3/u L Eos # (Auto) (0.0-0.8) 10^3/u L Baso # (Auto) (0.0-0.1) 10^3/u L Nucleated RBC % (a uto) % Nucleated RBCs # /100WBC Sodium (136-145) mmol/L Potassium (3.5-5.1) mmol/L Chloride (98-107) mmol/L Carbon Dioxide (22-29) mmol/L Anion Gap (5-19) BUN (6-20) mg/dL Creatinine (0.7-1.2) mg/dL GFR Calculation (90-130) mL/min Glucose (65-115) mg/dL Calculated Osmolal ity (285-295) mOsm/k g Lactic Acid (0.5-2.2) mmol/L Calcium (8.5-10.5) mg/dL Ferritin 326 (30-400) ng/mL Total Bilirubin (0.15-1.2) mg/dL AST (0-40) U/L ALT (0-41) U/L Alkaline Phosphata se (40-130) IU/L Total Protein (6.6-8.7) g/dL Albumin (3.5-5.2) g/dL Globulin (1.3-4.6) g/dL Lipase (13-60) U/L Procalcitonin 0.09 (0-0.5) ng/mL TSH 4.67 H (0.27-4.20) uIU/ mL Urine Color Yellow (Yellow) Urine Appearance Clear (CLEAR) Urine pH 5 (5-7) Ur Specific Gravit y 1.015 (1.005-1.030) Urine Protein Neg (Negative) Urine Glucose (UA) Norm (Normal) Urine Ketones Negative (Negative) Urine Blood Neg (Negative) Urine Nitrate Negative (Negative) Urine Bilirubin 1+ H (NEGATIVE) Urine Urobilinogen Norm (Negative) mg/dL Ur Leukocyte Beena ase 1+ H (Negative) Urine RBC None (0-2) /hpf Urine WBC 5-10 H (0-5) /hpf Ur Squamous Epith Cells Rare (0-5) Urine Bacteria Trace (NONE) Urine Mucus 1+ Imaging Data ^: CT Abd/Pel: Radiologist's impression: [place] [address] CT Scan Report Signed Patient: Benny Castro Unit #: [id number] : 1970 Age/Sex: 48 / M ADM Date: 09/12/19 Loc: ER Room/Bed: Attending Dr: Ordering Provider/Ordering MD: Aysha Barber DO Date of Service: 09/12/19 Procedure(s): CT abdomen pelvis w con* [id number] Accession Number(s): [id number] Report Number: [id number] PROCEDURE INFORMATION: Exam: CT Abdomen And Pelvis With Contrast Exam date and time: 09/12/2019 12:59 PM Age: 48 years old Clinical indication: Abdominal pain; Generalized; Prior surgery; Surgery date: 6+ months; Surgery type: Stomach; Patient HX: C/O abd pain and distention TECHNIQUE: Imaging protocol: Computed tomography of the abdomen and pelvis with intravenous contrast. Radiation optimization: All CT scans at this facility use at least one of these dose optimization techniques: automated exposure control; mA and/or kV adjustment per patient size (includes targeted exams where dose is matched to clinical indication); or iterative reconstruction. Contrast material: OMNI 300; Contrast volume: 95 ml; Contrast route: 20G; COMPARISON: CT abdomen pelvis w con* [id number] 08/29/2019 12:43 PM RADIATION DOSE METRICS: Total DLP: 614.32 mGy-cm FINDINGS: Pleural space: Small pleural effusions larger on the left, relatively unchanged. Liver: Normal. No mass. Gallbladder and bile ducts: Normal. No calcified stones. No ductal dilation. Pancreas: Normal. No ductal dilation. Spleen: Normal. No splenomegaly. Adrenals: Normal. No mass. Kidneys and ureters: Normal. No hydronephrosis. Stomach and bowel: Persistent area of mid transverse colon narrowing (series 2, axial image 30). Uncertain if this is due to intrinsic transverse colon disease versus extrinsic compression. Nevertheless, process/narrowing is resulting in worsening bowel obstruction with considerable stool throughout dilated right colon. All of the small bowel loops are distended with fecalization of contents. Left colon beyond lesion is empty/collapsed. Prior gastric surgery. Appendix: No evidence of appendicitis. Intraperitoneal space: Scattered ascites, unchanged. Vasculature: Unremarkable. No abdominal aortic aneurysm. Lymph nodes: Unremarkable. No enlarged lymph nodes. Bladder: Small amount of urinary bladder air is presumably iatrogenic from recent catheterization/instrumentation. Reproductive: Unremarkable as visualized. Bones/joints: L5-S1 degenerative disc disease, chronic. Soft tissues: Unremarkable. CT/CT abdomen pelvis w con* [id number] IMPRESSION: Persistent mid transverse colon narrowing/stricture with worsening bowel obstruction. Radiation Dose CTDIVOL = (mGy): DLP = 614.32 (mGy-cm) Dictated By: Houston Harrington MD Signed By: Houston Harrington MD Signed Date/Time: 09/12/191402 DD/ 02 Discharge Plan Discharge Patient Disposition: Admitted As Inpatient Clinical Impression: Bowel obstruction Qualifiers: Intestinal obstruction type: unspecified Intestinal obstruction extent: complete Qualified Code(s): K56.601 - Complete intestinal obstruction, unspecified as to cause Condition: Stable Discharge Date/Time: 09/12/19 16:08 Coding Level of Care Code ED Quality Process Engineer for g Fwd Exam Comprehensive
[2019-09-12 12:47] LABS: Basophils % 0.5 %; Eosinophils % 0.5 %; Hematocrit 34.6 % (42.0-52.0); Hemoglobin 11.2 g/dL (11.7-16.6); Lymphocytes # 0.5 10^3/uL (0.8-4.8); Mean Corpuscular HGB Conc 32.4 g/dL (30.0-36.0); Mean Corpuscular Hemoglobin 29.6 pg (28.0-34.0); Mean Corpuscular Volume 91.5 fL (80-94); Monocytes # 0.8 10^3/uL (0.2-0.9); Monocytes % 9.3 %; Neutrophils % 83.3 %; Nucleated Red Blood Cells % 0 %; Platelet Count 399 10^3/cmm (130-400); Red Blood Count 3.78 10^6/uL (4.1-5.3); Red Cell Distribution Width 13.4 % (12.1-15.1); White Blood Count 8.4 10^3/uL (4.0-10.0)
[2019-09-12] MEDS: sodium chloride 0.9% 1,000 ML 100 ML IV (12:49)
[2019-09-12] MEDS: ondansetron 2 mg/ML SDV 2 mL 4 MG IVP (12:49)
[2019-09-12] MEDS: morphine 4 mg/mL SDV 1 mL IVP ×2 (12:49→15:32)
[2019-09-12 13:02] LABS: Lactic Sepsis W/Reflex 1.9 mmol/L (0.5-2.2)
[2019-09-12 13:03] LABS: Alanine Aminotransferase 12 U/L (0-41); Albumin Level 3.2 g/dL (3.5-5.2); Alkaline Phosphatase 64 IU/L (40-130); Anion Gap 15.7 (5-19); Aspartate Amino Transferase 29 U/L (0-40); Blood Urea Nitrogen 19 mg/dL (6-20); Calcium 8.9 mg/dL (8.5-10.5); Carbon Dioxide 26 mmol/L (22-29); Chloride 97 mmol/L (98-107); Globulin 2.9 g/dL (1.3-4.6); Glomerular Filtration Rate 102.3 mL/min (90-130); Glucose 105 mg/dL (65-115); Lipase 14 U/L (13-60); Osmolality Calculated 277 mOsm/kg (285-295); Potassium 3.7 mmol/L (3.5-5.1); Sodium 135 mmol/L (136-145); Total Bilirubin 0.2 mg/dL (0.15-1.2); Total Protein 6.1 g/dL (6.6-8.7)
[2019-09-12] MEDS: iohexol 300 mg/mL 100 mL Btl IV (13:07)
[2019-09-12 13:41] LABS: Specific Gravity, Urine 1.015 (1.005-1.030); Urine Appearance Clear (CLEAR); Urine Color Yellow (Yellow); pH Urine 5 (5-7)
[2019-09-12 13:42] LABS: Bilirubin Urine 1+ (NEGATIVE); Blood Urine Neg (Negative); Glucose Urine UA Norm (Normal); Ketones Urine Negative (Negative); Leukocyte Esterase Urine 1+ (Negative); Nitrate Urine Negative (Negative); Protein Urine Neg (Negative); Urobilinogen Urine Norm (Negative)
[2019-09-12 13:54] LABS: Bacteria Urine TRACE; Mucus Urine 1+; Squamous Epithelial Cell Urine RARE (0-5)
[2019-09-12 13:55] LABS: Add Urine Culture? No
--- NOTE | 2019-09-12 14:40 | P.HP_ITS ---
Providers/Chief Complaint Chief Complaint: cant drink, eat, and swelling History of Present Illness Benny Castro is a 48 year old male who underwent partial gastrectomy due to poorly differentiated stage IIb gastric adenocarcinoma in [place]. Consequently the patient experienced ongoing abdominal pain. Recently the patient underwent EGD and exploration of the surgical scar by Dr. Barraza on 08/13/2019 and then was admitted again from August 19 to August 22 for small bowel obstruction which was treated conservatively. Since then patient has been to his primary gastric surgeon in [facility] and had a procedure which sounds like dilation of gastric outlet obstruction by EGD last week. After the patient since the procedure patient has been feeling bloated with episodes of some nausea and vomiting last night. Vomitus consisted of food particles was nonprojectile, nonbloody or foul-smelling. As per the patient and his patient some bloating has been going up and down gets worse after having a meal but is never completely gone. Patient's last bowel movement was 2 days ago and was normal without any blood, constipation or diarrhea. He denies of having any cough, runny nose, fever, chills, dizziness, chest palpitations, chest pain, dysuria. In the ER patient's hemoglobin was 11.2, white count was 8.4, sodium of 135, chloride was 97, creatinine was 0.8 and urinalysis was positive for 1+ bilirubin and 1+ leuk esterase with WBC 5-10. CT abdomen was done which was consistent of persistent mid transverse colon narrowing/stricture with worsening bowel obs truction. Review of Systems Const: Denies: fever(s), chills, body aches, change in appetite, malaise, night sweats, diaphoresis, change in sleep pattern, daytime sleepiness or snoring Eyes: Denies: change in vision, blurry vision, photophobia, eye discomfort or eye discharge ENMT: Denies: throat pain, enlarged tonsils, hoarseness, mouth pain, oral sores, dry mouth, tinnitus, nasal congestion or post nasal drip Card: Denies: chest pain, palpitations, irregular heart rhythm, edema, swelling of feet/ankles, lightheadedness, syncope, pre-syncope, dyspnea on exertion, orthopnea, leg pain with exertion or acrocyanosis Resp: Denies: dyspnea, productive cough, non-productive cough, wheezing, stridor, pain on inspiration, change in phlegm color, hemoptysis or chest congestion GI: Reports: abdominal pain, nausea, vomiting, bloating and GI cramping; Denies: hematemesis, coffee ground emesis, dysphagia, heartburn, diarrhea, constipation, change in bowel habits, pain on defecation, hematochezia or melena : Denies: flank pain, difficulty urinating, dysuria, urinary frequency, urinary urgency, urinary hesitancy, urinary dribbling, difficulty starting urination, change in urine stream, nocturia or hematuria Musc: Denies: neck pain, back pain, extremity pain, joint pain, joint sw elling, joint redness, joint stiffness or limited range of motion Neuro: Denies: headache(s), numbness in extremities, weakness in extremities, sensory changes, lack of coordination, difficulty walking, frequent falls, dizziness, vertigo, confusion, Slurred speech present, difficulty communicating thoughts or seizure-like activity Psych: Denies: anxiety, depression, mood swings, panic attacks, hopelessness or irritability Endo: Denies: polyuria, polydipsia, tired all the time, cold intolerance, excessive sweating, flushing or heat intolerance Ceasar/Lymph: Denies: easy bruising or easy bleeding All/Imm: Denies: tongue swelling, facial swelling or acute wheezing Medications/Allergies Home Medications Medication Instructions Recorded Confirmed Last Taken Type lisinopril 20 mg PO DAILY 07/15/19 09/12/19 09/05/19 History pantoprazole 40 mg PO BID 07/15/19 09/12/19 09/05/19 History ibuprofen 800 mg PO Q6H PRN 08/19/19 09/12/19 08/26/19 History ondansetron HCl 4 - 8 mg PO TID PRN 08/19/19 09/12/19 09/10/19 History sennosides-docusate sodium [Colace 1 tab-cap PO BID #30 tab 08/23/19 09/12/19 08/26/19 Rx 2-In-1] Gas Relief (simethicone) See Rx Instructions .ROUTE .COMPLEX 09/12/19 09/12/19 Unknown History acetaminophen [Tylenol Extra 1,000 mg PO PRN 09/12/19 09/12/19 09/11/19 History Strength] alum-mag hydroxide-simeth [Mylanta 20 ml PO PRN 09/12/19 09/12/19 09/12/19 History Maximum Strength] dicyclomine 20 mg PO QID 09/12/19 09/12/19 09/10/19 History hydrocodone-acetaminophen [[place]] 1 tab PO Q6H PRN 09/12/19 09/12/19 09/12/19 04:00 History metronidazole 500 mg PO TID 09/12/19 09/12/19 09/12/19 08:00 History Allergies Allergy/AdvReac Type Severity Reaction Status Date / Time haloperidol [From Haldol] Allergy ADR/ALGY-Pa Verified 09/12/19 13:32 lpitations PFSH Acute PFSH: Medical History Gastric carcinoma Status post partial gastrectomy in November 2018, stage II, status post radiation course with last in April 2019. Follows up with Dr. Marrero. GERD (gastroesophageal reflux disease) History of colon polyps HTN (hypertension), benign Hyperlipidemia Surgical History (Updated 09/12/19 @ 15:46 by Marcos Barraza MD) H/O esophagogastroduodenoscopy S/P partial gastrectomy Laparoscopic --Dr. Medel in [place] Scar conditions/skin fibrosis Excision of subcutaneous/anterior rectus sheath scar tissue at laparoscopic incision Status post colonoscopy with polypectomy 07/2017 -- 1 polyp, pathology unknown ([place]) Family History Family/Other Cancer Paternal uncle with bone cancer Social History Smoking and tobacco status: never smoked Vitals/I&O/Wt Last Vital Signs Temp 97.7 F 09/12/19 12:18 Pulse 69 09/12/19 13:56 Resp 18 09/12/19 13:56 BP 107/74 09/12/19 13:56 Pulse Ox 69 L 09/12/19 13:56 Weight last 48 hrs Weight 61.689 kg Physical Exam Narrative: EXAM NARRATIVE: General: No acute distress, AO x3 HEENT: PERRLA, pupils bilaterally equal and reactive Chest: Normal vesicular breath sounds, no added sounds, equal good air entry bilaterally CVS: S1-S2 regular, no murmurs, no tachycardia, no gallops, no rubs Abdomen: Soft, nontender, no organomegaly, bowel sounds present Neuro: No focal deficits, no facial deformity, AO x3, power 5/5 in all limbs Data : 09/12/19 12:36 09/12/19 12:36 A&P Assessment and plan (1) Bowel obstruction: Status: Acute Qualifiers: Intestinal obstruction extent: complete Intestinal obstruction type: unspecified Qualified Code(s): K56.601 - Complete intestinal obstruction, unspecified as to cause (2) Gastric carcinoma: Status: Acute (3) HTN (hypertension), benign: Status: Acute (4) GERD (gastroesophageal reflux disease): Status: Acute (5) S/P partial gastrectomy: Status: Acute Additional A&P Information Abdominal pain most likely due to bowel obstruction: History of gastric stimulator and adenocarcinoma, status post partial gastrectomy in November 2018, stage II, status post radiation course completed April 2019 -Status post EGD and colonoscopy Dr. Barraza, normal esophagus on endoscopy, apparent retracting scar tissue underneath laparoscopic scar in the right upper quadrant, also had scar exploration with excision of scar tissue at the rectus muscle and right upper quadrant -CT scan abdomen shows: Persistent mid transverse colon narrowing/stricture with worsening bowel obstruction. Plan: Dr. Barraza has been consulted from the ER. Keep n.p.o. Zofran for vomiting as needed, Protonix 40 mg twice daily, pain regimen. NG tube to be placed by Dr. Barraza and patient to go to the OR for possible colectomy and diverting colostomy. Hypertension: Blood pressure well controlled. Normal saline with D5 at 75 cc/h for now. For now we will hold off on any antihypertensives. Postop will start IV antihypertensives as required. Anemia: Baseline is around 11.5. Today 11.2. Iron studies done last time consistent with mild iron deficiency anemia and anemia of chronic disease. Continue with IV iron supplementation. Check ferritin levels. SCDs for DVT prophylaxis for now. We will hold off on mechanical prophylaxis as patient is supposed to go to the OR. We will start postop prophylaxis as per Dr. Barraza. N.p.o. for now. Full code Attestations Medical Necessity Statement*: More than 2 midnights for mechanical bowel obstruction Time Spent in Patient Care: Greater than 35 minutes (>than 50% of time spent in counselling and/or direct pt care on unit) . Coding Level of Care Code Acute Medical Technical Writer for Chg Fwd Diagnoses Bowel obstruction K56.601 Intestinal obstruction extent: complete Intestinal obstruction type: unspecified Gastric carcinoma C16.9 HTN (hypertension), benign I10 GERD (gastroesophageal reflux disease) K21.9 S/P partial gastrectomy Z90.3
[2019-09-12] MEDS: cefTRIAXone 1,000 MG in sodium chloride 0.9% (plus) 50 ML 100 MG IV (14:49)
--- NOTE | 2019-09-12 15:23 | PM.CONSULT ---
Providers/Reason For Consult Consulting Physican/Specialty*: General Surgery Marcos Barraza MD Reason for Consult*: Recurrent transverse colon obstruction. Attending Physician: Jose Macias MD History of Present Illness History of Present Illness Benny Castro is a 48 year old male who I met within the past couple of months for some pain at a previous laparoscopic incision as well as some possible esophageal thickening on imaging. He had undergone laparoscopic surgery in [place] for a small gastric adenocarcinoma the previous year. The patient had been complaining of pain at 1 of the laparoscopic sites and this was explored and some scar tissue was removed from the anterior rectus sheath. His EGD showed postoperative changes of the stomach, but no evidence of any esophageal issues. He has had recurring problems with a transverse colon stricture/obstruction on multiple imaging studies. He has been admitted here at least once and conservative management was employed. I actually performed a colonoscopy on him last month and the colon was very redundant and somewhat difficult to traverse in areas due to its redundancy, but no intrinsic lesions were identified. I told him at that time that I think his colon is either being affected by some scar tissue in the area of his previous surgery, or is becoming distended and kinked from the combination of distention and the redundant course that it takes. Since then, he has had continuing problems with distention. He was sent back to his surgeon in [place] and apparently they did an endoscopic dilatation of the anastomosis between his stomach and small bowel. He was discharged from there a week ago today. He has been distended ever since. He says he has continued to pass some flatus but less so recently. He did have a normal bowel movement a couple days ago, although it was small. He presented once again to the emergency department today with abdominal distention and a CAT scan once again showed an obstructive process involving the transverse colon adjacent to his area of previous surgery on his stomach. The patient says he has not been vomiting at home, but does feel fluid gurgling up into my throat. Review of Systems General: Reports: 10 or more systems reviewed and unremarkable except in HPI and below Const: Denies: fever(s) GI: Reports: abdominal pain and bloating Meds/Allergies Home Medications and Allergies Home Medications Medication Instructions Recorded Confirmed Last Taken Type lisinopril 20 mg PO DAILY 07/15/19 09/12/19 09/05/19 History pantoprazole 40 mg PO BID 07/15/19 09/12/19 09/05/19 History ibuprofen 800 mg PO Q6H PRN 08/19/19 09/12/19 08/26/19 History ondansetron HCl 4 - 8 mg PO TID PRN 08/19/19 09/12/19 09/10/19 History sennosides-docusate sodium [Colace 1 tab-cap PO BID #30 tab 08/23/19 09/12/19 08/26/19 Rx 2-In-1] Gas Relief (simethicone) See Rx Instructions .ROUTE .COMPLEX 09/12/19 09/12/19 Unknown History acetaminophen [Tylenol Extra 1,000 mg PO PRN 09/12/19 09/12/19 09/11/19 History Strength] alum-mag hydroxide-simeth [Mylanta 20 ml PO PRN 09/12/19 09/12/19 09/12/19 History Maximum Strength] dicyclomine 20 mg PO QID 09/12/19 09/12/19 09/10/19 History hydrocodone-acetaminophen [Pioneer] 1 tab PO Q6H PRN 09/12/19 09/12/19 09/12/19 04:00 History metronidazole 500 mg PO TID 09/12/19 09/12/19 09/12/19 08:00 History Allergies Allergy/AdvReac Type Severity Reaction Status Date / Time haloperidol [From Haldol] Allergy ADR/ALGY-Pa Verified 09/12/19 13:32 lpitations PFSH Acute PFSH: Medical History Gastric carcinoma Status post partial gastrectomy in November 2018, stage II, status post radiation course with last in April 2019. Follows up with Dr. Marrero. GERD (gastroesophageal reflux disease) History of colon polyps HTN (hypertension), benign Hyperlipidemia Surgical History (Updated 09/12/19 @ 15:46 by Marcos Barraza MD) H/O esophagogastroduodenoscopy S/P partial gastrectomy Laparoscopic --Dr. Medel in [place] Scar conditions/skin fibrosis Excision of subcutaneous/anterior rectus sheath scar tissue at laparoscopic incision Status post colonoscopy with polypectomy 07/2017 -- 1 polyp, pathology unknown ([place]) Family History Family/Other Cancer Paternal uncle with bone cancer Social History Smoking and tobacco status: never smoked Vitals/I&O/Wt Last Vital Signs Temp 97.7 F 09/12/19 12:18 Pulse 62 09/12/19 14:53 Resp 16 09/12/19 14:53 BP 115/80 09/12/19 14:53 Pulse Ox 99 09/12/19 14:53 09/12/19 09/12/19 09/12/19 06:59 14:59 22:59 Intake Total 1000 / 1000 Balance 1000 / 1000 Weight last 48 hrs Weight 136 lb Physical Exam Narrative: EXAM NARRATIVE: The patient was encountered in his room in the emergency department. He does not appear to be in any acute distress. The pupils seem equal. No carotid bruits are heard. The lungs are clear anteriorly. The heart is regular. The patient has a tunneled dual-lumen Parmar catheter in the right internal jugular vein exiting on the right side of the chest. The abdomen is clearly distended but not tensely so. He does not really seem to have much in the way of tenderness on exam but bowel sounds are hyperactive. The small incision from his recent scar tissue removal from the anterior rectus sheath in the right upper quadrant has healed well. The extremities reveal no edema. Neurologically the patient appears to be grossly intact. Data Imaging^: CT Abd/Pel: Radiologist's impression: CT abdomen/pelvis 09/12/2019 iMPRESSION: Persistent mid transverse colon narrowing/stricture with worsening bowel obstruction. A&P Assessment and plan (1) Obstruction of transverse colon: This is been a recurring problem clinically, and confirmed on multiple imaging studies. His colonoscopy did not show any intrinsic lesions. The patient has been distended ever since he was discharged from [place] a week ago today. While he did have dilation of the gastroenteric anastomosis, I am afraid that that is not where his persistent trouble has been occurring. I made him aware that while we might be able to temporize and get him feeling better again with conservative measures, I suspect this is going to just recur again; surgery may be only way to make this problem better. While somewhat dangerous to operate with his current distention, it may be the best way to find out where and what his problem is. He does have impressive dilatation of his small intestine on imaging today. The transverse colon stricture was once again identified as the problematic area on CT today. I made him aware that if we explore him we may be able to take some scar tissue down and get things moving through, but it might require removal of a significant portion of his colon if it is more of a kinking phenomenon. Given his current obstructive process an extended right hemicolectomy may be needed. Surgical risks of bleeding, infection, internal organ injury, etc. were all gone over. The patient would like to proceed with surgery today. Status: Acute Consult Attestations Medical Necessity Statement: See admitting service's notation. Coding Level of Care Code Acute Insurance Healthcare Consultant for Ramin Alston Diagnoses Obstruction of transverse colon K56.609
--- NOTE | 2019-09-12 15:43 | ANES.PREANE2 ---
Pre-Anesthetic Assessment Pre-Anesthetic Assessment: Height/Weight: Height 1.93 m Weight 61.689 kg Temp Pulse Resp BP Pulse Ox 97.7 F 62 18 115/80 98 09/12/19 12:18 09/12/19 14:53 09/12/19 15:32 09/12/19 14:53 09/12/19 15:32 Preop Diagnosis: 1. Esophageal thickening by CAT scan with history of gastric carcinoma.2. Painful laparoscopy scar in the right upper quadrant. Proposed Procedure: Operation Date: 09/12/19 16:15 Proposed Procedures p Exploratory Laparotomy(Not Applicable) - Marcos Barraza MD s Colon Resection(Not Applicable) - Marcos Barraza MD Last intake: Intake Last Liquid Date 09/12/19 Last Liquid Time 12:00 Last Solid Date 09/12/19 Last Solid Time 08:30 Pulmonary: Pulmonary: None reported CV/HEM: CV/HEM: HTN GI: GI: GERD Comments: SBO w/ hx gastric cancer and partial gastrectomy Anesthetic Plan: ASA status: 3E Anesthesia: General Risk of > 500 ml blood loss (7ml/kg in children): No PFSH Anesthesia PFSH: Medical History (Updated 09/12/19 @ 15:44 by Marcos Barraza MD) Gastric carcinoma Status post partial gastrectomy in November 2018, stage II, status post radiation course with last in April 2019. Follows up with Dr. Marrero. GERD (gastroesophageal reflux disease) History of colon polyps HTN (hypertension), benign Hyperlipidemia Surgical History (Updated 09/12/19 @ 15:37 by Marcos Barraza MD) H/O esophagogastroduodenoscopy S/P partial gastrectomy Laparoscopic --Dr. Medel in [place] Status post colonoscopy with polypectomy 07/2017 -- 1 polyp, pathology unknown ([place]) Social History Smoking and tobacco status: never smoked Data Anesthesia CBC & Chem 7: 09/12/19 12:36 09/12/19 12:36 Other Labs: Laboratory Results - last 48 hr 09/12/19 09/12/19 09/12/19 12:36 12:36 12:36 WBC 8.4 RBC 3.78 L Hgb 11.2 L Hct 34.6 L MCV 91.5 MCH 29.6 MCHC 32.4 RDW 13.4 Plt Count 399 MPV 10.0 Neut % (Auto) 83.3 Lymph % (Auto) 6.0 Coleman % (Auto) 9.3 Eos % (Auto) 0.5 Baso % (Auto) 0.5 Neut # (Auto) 7.0 Lymph # (Auto) 0.5 L Coleman # (Auto) 0.8 Eos # (Auto) 0.0 Baso # (Auto) 0.0 Nucleated RBC % (auto) 0 Nucleated RBCs # 0.0 Sodium 135 L Potassium 3.7 Chloride 97 L Carbon Dioxide 26 Anion Gap 15.7 BUN 19 Creatinine 0.8 GFR Calculation 102.3 Glucose 105 Calculated Osmolality 277 L Lactic Acid 1.9 Calcium 8.9 Total Bilirubin 0.2 AST 29 ALT 12 Alkaline Phosphatase 64 Total Protein 6.1 L Albumin 3.2 L Globulin 2.9 Lipase 14 Urine Color Urine Appearance Urine pH Ur Specific [place] Urine Protein Urine Glucose (UA) Urine Ketones Urine Blood Urine Nitrate Urine Bilirubin Urine Urobilinogen Ur Leukocyte Esterase Urine RBC Urine WBC Ur Squamous Epith Cells Urine Bacteria Urine Mucus 09/12/19 13:00 WBC RBC Hgb Hct MCV MCH MCHC RDW Plt Count MPV Neut % (Auto) Lymph % (Auto) Coleman % (Auto) Eos % (Auto) Baso % (Auto) Neut # (Auto) Lymph # (Auto) Coleman # (Auto) Eos # (Auto) Baso # (Auto) Nucleated RBC % (auto) Nucleated RBCs # Sodium Potassium Chloride Carbon Dioxide Anion Gap BUN Creatinine GFR Calculation Glucose Calculated Osmolality Lactic Acid Calcium Total Bilirubin AST ALT Alkaline Phosphatase Total Protein Albumin Globulin Lipase Urine Color Yellow Urine Appearance Clear Urine pH 5 Ur Specific [place] 1.015 Urine Protein Neg Urine Glucose (UA) Norm Urine Ketones Negative Urine Blood Neg Urine Nitrate Negative Urine Bilirubin 1+ H Urine Urobilinogen Norm Ur Leukocyte Esterase 1+ H Urine RBC None Urine WBC 5-10 H Ur Squamous Epith Cells Rare Urine Bacteria Trace Urine Mucus 1+ Cardiac Studies: No Data to Display
[2019-09-12 16:06] LABS: Procalcitonin 0.09 ng/mL (0-0.5)
[2019-09-12 16:07] LABS: Ferritin 326 ng/mL (30-400); Thyroid Stimulating Hormone 4.67 uIU/mL (0.27-4.20)
[2019-09-12] MEDS: metroNIDAZOLE IV 500 MG/100 ML PREMIX 100 MG IV ×2 (16:44→23:49)
--- NOTE | 2019-09-12 17:05 | SUR.OPER ---
Family Notified Of Patient's Status Via Phone.
--- NOTE | 2019-09-12 17:49 | SUR.OPER ---
Family Notified Of Patient's Status Via Phone.
--- NOTE | 2019-09-12 18:29 | SUR.OPER ---
Family Notified Of Patient's Status Via Phone.
--- NOTE | 2019-09-12 19:20 | PM.OP ---
Operative Report Date of procedure: September 12, 2019 Pre-op Diagnosis: Chronic recurring transverse colon obstruction. Post-op Diagnosis: Same secondary to scarred small bowel mesenteric window. Procedure Done: 1. Exploratory laparotomy with extended right hemicolectomy with reanastomosis. 2. Mobilization of colonic splenic flexure. Specimens removed/disposition: Right colon with additional transverse colon segment. Surgeon: Marcos Barraza Anesthesia: General Estimated blood loss (mL): 100 Complications: None. Condition: stable Disposition: PACU Procedure: The patient was brought to the operating room and was placed in a supine position on the operating room table. General endotracheal anesthesia was induced. A Kowalski catheter was inserted. The abdomen was prepped and draped in a sterile fashion. A midline incision was carried out from the high epigastrium to a level just below the umbilicus. Cautery was used to divide the subcutaneous tissue in the midline fascia and the peritoneal cavity was entered. The patient had several 100 mL of serosanguineous fluid in the abdomen that were suctioned out. The small bowel was exteriorized and was was found to be quite dilated, apparently chronically, throughout its length. The ascending colon and proximal transverse colon were markedly dilated and tense, even including the appendix. The distal colon was decompressed. It was found that the patient had had a previous antecolic Stephen-en-Y gastrojejunostomy. The patient had extensive fibrosis involving the small bowel mesenteric window just behind the Stephen-en-Y loop, significantly compressing the colon. The colon was squeezing through a very firm, fibrous opening only about 2 cm wide. In addition, he had some dense adhesions to the left side of the abdomen involving some small bowel loops. The most significant of these appeared to be at the anastomosis of the Stephen-en-Y limb in the jejunum, as this area was densely adhesed to the left lateral sidewall. The adhesions were all taken down very carefully. An effort was then made to try to enlarge the mesenteric window, but the patient had dense fibrosis in this area and it was clear that the colon was going to have to be divided to free it from the mesenteric window while not devascularizing any of the small bowel. The ascending colon was mobilized by incising the peritoneal reflections laterally. The appendix was then divided partially at its base to decompress the ascending colon and the distal small bowel. The patient had cuco liquid stool extending retrograde all the way into the jejunum and this was manipulated distally and then into a basin through the partially opened appendix on the field. The ascending colon was similarly decompressed in a retrograde fashion through the appendiceal opening. The appendiceal base was then ligated with a tie of 3-0 Vicryl to avoid any further contamination. The colon was carefully freed from the fibrotic mesenteric window from both a proximal and distal direction. Eventually, the colon was divided with a NEIL stapler to the right side of the mesenteric window after it had been partially freed up. The intervening mesentery was divided using the LigaSure. The distal small bowel had been divided using a NEIL 55 stapler and the right colon was then removed from the field. Additional careful dissection in the fibrotic mesenteric window was performed. The colon also appeared to be densely adhesed to the gastric remnant/area of the gastrojejunal anastomosis to the left side of the mesenteric window. Very careful dissection was done and the colon was eventually freed from the surrounding structures. The splenic flexure of the colon was then systematically taken down using a combination of sharp dissection and cautery. The peritoneal reflection was incised more distally down the left side to allow more mobilization of the left colon. All the bowel was returned to the abdomen and extensive irrigation was carried out with multiple liters of saline. The small bowel was inspected and appeared to be viable and in good condition throughout its length. Decompressing the small bowel actually allowed it to pink up and look more healthy throughout. The remaining colon just distal to the staple line, however, was somewhat dusky and had some somewhat dense omental adhesions on it. An additional segment of transverse colon measuring perhaps 6 inches was then taken off of the transverse colon with a NEIL 55 stapler. Another round of irrigation was carried out. After all of the irrigant had been suctioned out the bowel was once again run from the Stephen-en-Y loop down to the cut end of ileum. All of the small bowel appear to be in good condition. Likewise, the remaining colon all appeared to be viable. The terminal ileum and distal transverse colon were placed next each other in preparation for a functional end-to-end anastomosis. The 2 limbs were held together with some stay sutures of 3-0 Vicryl. An opening was made on the end of the small bowel and the colon and then an arm of a NEIL 55 stapler was passed down either limb and was fired, creating a common opening between the 2 limbs of bowel. The staple lines were transposed and the common opening on the end was closed using a TX 60 stapler. The anastomosis was palpably patent and all of the tissue looked good. Some stay sutures of 3-0 Vicryl were placed at the end of the staple line in between the 2 limbs to take tension off of the anastomosis. There was no significant mesenteric window to close from removal of the colon and mobilization of the transverse colon. The small mesenteric window where the colon had been was now in more of a slitlike configuration, and was closed with a [id number] suture of 3-0 Vicryl. A final round of irrigation was carried out. With some irrigant still in the abdomen I asked anesthesia to insufflate the patient's gastric remnant with air. The air moved distally into the Stephen limb and there were no leaks proximally where the colon had been adhesed to the upper GI structures. After a final round of irrigation and inspection of the anastomosis and layout of the bowel, attention was directed towards closure. The midline fascia was closed using a running looped suture of #1 PDS. The subcutaneous tissue was irrigated and the skin was brought back together using skin geronimo. A sterile dressing was placed over the wound and the patient was taken to the recovery room in stable condition postoperatively.
[2019-09-12] MEDS: D5-NS 0.45% + KCL 20 mEq 20 MEQ/1,000 ML BAG 100 MEQ IV (21:17)
[2019-09-12] MEDS: heparin 5,000 unit/mL INJ 1 mL 5000 UNIT SUBCUT (21:20)
[2019-09-12] MEDS: ketorolac 30 mg/mL INJ 15 MG IVP (21:41)
[2019-09-12] MEDS: famotidine 20 mg/2 mL INJ IVP (21:41)
[2019-09-13] VITALS (15 sets, daily range): BP systolic 100–118; BP diastolic 65–77; PULSE 72–100; RESP 15–18; TEMP 36.7–37.1; O2SAT 96–97
[2019-09-13] MEDS: ketorolac 30 mg/mL INJ 15 MG IVP ×4 (03:01→19:49)
[2019-09-13] MEDS: morphine 4 mg/mL SDV 1 mL IVP ×3 (04:07→09:07)
[2019-09-13 05:30] LABS: Basophils % 0.1 %; Hematocrit 33.2 % (42.0-52.0); Hemoglobin 10.3 g/dL (11.7-16.6); Lymphocytes # 0.3 10^3/uL (0.8-4.8); Lymphocytes % 1.6 %; Mean Corpuscular Hemoglobin 28.9 pg (28.0-34.0); Mean Corpuscular Volume 93.3 fL (80-94); Monocytes # 0.7 10^3/uL (0.2-0.9); Monocytes % 4.6 %; Neutrophils # 14.7 10^3/uL (1.8-7.7); Neutrophils % 93.3 %; Nucleated Red Blood Cells % 0 %; Platelet Count 331 10^3/cmm (130-400); Red Blood Count 3.56 10^6/uL (4.1-5.3); Red Cell Distribution Width 13.8 % (12.1-15.1); White Blood Count 15.8 10^3/uL (4.0-10.0)
[2019-09-13 05:42] LABS: Alanine Aminotransferase 11 U/L (0-41); Albumin Level 2.1 g/dL (3.5-5.2); Alkaline Phosphatase 45 IU/L (40-130); Anion Gap 12.2 (5-19); Aspartate Amino Transferase 30 U/L (0-40); Blood Urea Nitrogen 17 mg/dL (6-20); Calcium 7.9 mg/dL (8.5-10.5); Carbon Dioxide 23 mmol/L (22-29); Chloride 104 mmol/L (98-107); Globulin 2.2 g/dL (1.3-4.6); Glomerular Filtration Rate 142.6 mL/min (90-130); Glucose 149 mg/dL (65-115); Osmolality Calculated 279 mOsm/kg (285-295); Potassium 4.2 mmol/L (3.5-5.1); Sodium 135 mmol/L (136-145); Total Bilirubin 0.2 mg/dL (0.15-1.2); Total Protein 4.3 g/dL (6.6-8.7)
[2019-09-13] MEDS: lactated ringers 1,000 ML 250 ML IV (05:45)
--- NOTE | 2019-09-13 06:52 | PM.PN ---
Subjective Subjective: Interval history: The patient is sore but otherwise has no complaints. Vitals/I&O/Wt Last Vital Signs Temp 98.7 F 09/13/19 04:00 Pulse 87 09/13/19 04:00 Resp 15 09/13/19 04:07 BP 102/68 09/13/19 04:00 Pulse Ox 97 09/13/19 04:00 09/12/19 09/12/19 09/13/19 14:59 22:59 06:59 Intake Total 1000 / 2436.667 600 / 2436.667 836.667 / 2436.667 Output Total 400 / 625 225 / 625 Balance 1000 / 1811.667 200 / 1811.667 611.667 / 1811.667 Weight last 48 hrs Weight 136 lb Physical Exam Narrative: EXAM NARRATIVE: The patient's urine output drifted last night somewhat. He has had a bolus of lactated Ringer's. Vital signs remained stable. Lungs are clear anteriorly. The abdomen actually already reveals a few bowel sounds. The midline dressing is intact. Urinary Catheter Management^: F: Cath Placed During This Visit: yes Reason for Continuing Indwelling Catheter: Perioperative Use in Selected Surgeries Urinary Catheter Date of Insertion: 09/12/19 Urinary Catheter Time of Insertion: 16:40 Data : 09/13/19 05:11 09/13/19 05:11 Micro: Microbiology 09/12/19 20:37 Blood Culture - Preliminary Blood SPECIMEN COLLECTED 09/12/19 12:36 Blood Culture - Preliminary Blood SPECIMEN COLLECTED A&P Assessment and plan (1) Obstruction of transverse colon: Status post extended right hemicolectomy for moderately high-grade colonic obstruction through his small bowel mesenteric window from his gastric surgery. Continue LR boluses as needed to keep urine output up. Status: Acute Attestations Medical Necessity Statement*: See admitting service's notation. Patient remains in inpatient status. Coding Level of Care Code Acute Clerical And Office Support Workers for Ramin Alston Diagnoses Obstruction of transverse colon K56.609
[2019-09-13] MEDS: phenol oral Spray 177 mL 3 SPRAY MUCOUS MEM ×2 (07:33→14:13)
[2019-09-13] MEDS: lactated ringers 500 ML 999 ML IV (07:34)
[2019-09-13] MEDS: heparin 5,000 unit/mL INJ 1 mL 5000 UNIT SUBCUT ×2 (09:09→19:48)
[2019-09-13] MEDS: famotidine 20 mg/2 mL INJ IVP ×2 (09:09→19:49)
[2019-09-13] MEDS: metroNIDAZOLE IV 500 MG/100 ML PREMIX 100 MG IV ×2 (09:28→15:03)
[2019-09-13] MEDS: cefTRIAXone 1,000 MG in sodium chloride 0.9% (plus) 50 ML 100 MG IV (09:33)
[2019-09-13] MEDS: iron sucrose 200 MG in sodium chloride 0.9% (100 ml) 100 ML 220 MG IV ×2 (10:42→10:46)
--- NOTE | 2019-09-13 11:18 | P.PN_ITS ---
Subjective Subjective: Interval history: POD 1. Post OP from exploratory laprotomy and right hemicolectomy and reanastomosis. Examination today patient is in distress because of pain in his bilateral flanks. NG tube is to intermittent suction having some bloody collection. Vitals have remained stable. Patient denies of any nausea, vomiting. Denies of passing any flatus or having any bowel movements. Patient has remained afebrile. Saturating more than 92% on room air. Vitals/I&O/Wt Last Vital Signs Temp 98.7 F 09/13/19 07:21 Pulse 72 09/13/19 09:18 Resp 17 09/13/19 09:18 BP 100/65 09/13/19 07:21 Pulse Ox 96 09/13/19 09:18 09/12/19 09/13/19 09/13/19 22:59 06:59 14:59 Intake Total 600 / 1600 836.667 / 2436.667 14.667 / 14.667 Output Total 400 / 400 225 / 625 Balance 200 / 1200 611.667 / 1811.667 14.667 / 14.667 Weight last 48 hrs Weight 61.689 kg Physical Exam Narrative: EXAM NARRATIVE: General: Acute distress because of pain, AO x3, NG tube present with bloody collection. HEENT: PERRLA, pupils bilaterally equal and reactive Chest: Normal vesicular breath sounds, no added sounds, equal good air entry bilaterally CVS: S1-S2 regular, no murmurs, no tachycardia, no gallops, no rubs Abdomen: Soft, bowel sounds sluggish, tenderness present in bilateral flanks and anteriorly in right lower quadrant. Neuro: No focal deficits, no facial deformity, AO x3, power 5/5 in all limbs Urinary Catheter Management^: F: Cath Placed During This Visit: yes Reason for Continuing Indwelling Catheter: Accurate Measurement of Urinary Output in Critically Ill Patients Urinary Catheter Date of Insertion: 09/12/19 Urinary Catheter Time of Insertion: 16:40 Data : 09/13/19 05:11 09/13/19 05:11 Micro: Microbiology 09/12/19 20:37 Blood Culture - Preliminary Blood SPECIMEN COLLECTED 09/12/19 12:36 Blood Culture - Preliminary Blood SPECIMEN COLLECTED A&P Assessment and plan (1) Gastric carcinoma: Status: Acute (2) HTN (hypertension), benign: Status: Acute (3) GERD (gastroesophageal reflux disease): Status: Acute (4) S/P partial gastrectomy: Status: Acute (5) S/P exploratory laparotomy: Status: Acute (6) S/P right hemicolectomy: Status: Acute (7) Obstruction of transverse colon: Status: Acute Additional A&P Information 48-year-old male with past medical history of gastric stimulator and adenocarcinoma, status post partial gastrectomy in November 2018, stage II, status post radiation course completed April 2019. Has had multiple admissions in last 1 month because of recurrent SBO and abdominal pain and has had EGD and colonoscopy [address] Barraza which revealed normal esophagus on endoscopy, apparent retracting scar tissue underneath laparoscopic scar in the right upper quadrant, also had scar exploration with excision of scar tissue at the rectus muscle and right upper quadrant Transverse colon obstruction: Postop day 1. Patient underwent exploratory laparotomy and right hemicolectomy with Dr. Barraza. Case discussed with Dr. Barraza. Keep n.p.o. for now. Advance diet as per Dr. Barraza Zofran for vomiting as needed, Protonix 40 mg twice daily. Pain regimen: Change morphine to Dilaudid 0.5 and 1 mg for pain scale 1-5 in 6- 10 rib respectively. Patient has remained afebrile. For now we will continue with Rocephin and Flagyl. Leukocytosis today most likely because of postoperative status. If patient continues to remain afebrile and leukocytosis starts resolving can discontinue antibiotics in next 2 to 3 days. Recheck hemoglobin in afternoon at around 4 PM. Hypertension: Blood pressure well controlled without antihypertensives for now Normal saline with D5 at 75 cc/h for now. For now we will hold off on any antihypertensives. Postop will start IV antihypertensives as required. Anemia: Baseline is around 11.5. 10.3 today. Iron studies done last time consistent with mild iron deficiency anemia and anemia of chronic disease. Continue with IV iron supplementation. Check ferritin levels. SCDs for DVT prophylaxis for now. We will hold off on mechanical prophylaxis as patient is supposed to go to the OR. We will start postop prophylaxis as per Dr. Barraza. N.p.o. for now. Full code Attestations Medical Necessity Statement*: Transverse colon mechanical obstruction, postoperative care Time Spent in Patient Care: Greater than 35 minutes (>than 50% of time spent in counselling and/or direct pt care on unit) . Coding Level of Care Code Acute Shrink Pit Supervisor for Chg Fwd Diagnoses Gastric carcinoma C16.9 HTN (hypertension), benign I10 GERD (gastroesophageal reflux disease) K21.9 S/P partial gastrectomy Z90.3 S/P exploratory laparotomy Z98.890 S/P right hemicolectomy Z90.49 Obstruction of transverse colon K56.609
--- NOTE | 2019-09-13 11:33 | PC.NURSE ---
while nurse was in room with pt, a small amount of dark bloody output in NG tube. Dr. Macias notified who spoke with Dr. Barraza
[2019-09-13 12:01] LABS: Free T4 Free Thyroxine 1.15 ng/dL (0.82-1.77); T3 Free 1.2 PG/ML (2.0-4.4)
[2019-09-13] MEDS: D5-NS 0.45% + KCL 20 mEq 20 MEQ/1,000 ML BAG 100 MEQ IV ×2 (12:54→19:48)
[2019-09-13 15:04] LABS: Basophils % 0.2 %; Hemoglobin 9.6 g/dL (11.7-16.6); Lymphocytes # 0.3 10^3/uL (0.8-4.8); Mean Corpuscular Volume 96.9 fL (80-94); Mean Platelet Volume 9.9 fL (7.4-10.4); Monocytes # 0.9 10^3/uL (0.2-0.9); Monocytes % 7.6 %; Neutrophils # 10.2 10^3/uL (1.8-7.7); Neutrophils % 88.9 %; Nucleated Red Blood Cells % 0 %; Platelet Count 300 10^3/cmm (130-400); Red Cell Distribution Width 14.1 % (12.1-15.1); White Blood Count 11.5 10^3/uL (4.0-10.0)
[2019-09-13] MEDS: HYDROmorphone 1 mg/mL INJ 1 mL IVP ×2 (16:42→21:21)
[2019-09-13] MEDS: ondansetron 2 mg/ML SDV 2 mL 4 MG IVP ×2 (17:19→21:35)
--- NOTE | 2019-09-13 18:13 | PC.NURSE ---
pt has only had about 50ml urine output since 1400. Dr. Macias notified who gave order to give 1000ml ns bolus over one hour and to notify Dr. Barraza and ask if he would like to do an abdominal ct. Dr. Barraza notified who stated that the ns bolus was okay but ct was not needed. Pt still complaining of bilateral flank pain. IV dilaudid given. BP 109/72 P 82 at this time. No further orders received.
[2019-09-13] MEDS: sodium chloride 0.9% 1,000 ML 999 ML IV (18:23)
[2019-09-14] VITALS (13 sets, daily range): BP systolic 104–148; BP diastolic 66–92; PULSE 62–87; RESP 16–20; TEMP 36.6–36.9; O2SAT 95–99
[2019-09-14] MEDS: metroNIDAZOLE IV 500 MG/100 ML PREMIX 100 MG IV ×3 (00:29→14:53)
[2019-09-14] MEDS: ketorolac 30 mg/mL INJ 15 MG IVP ×4 (01:22→19:26)
[2019-09-14] MEDS: HYDROmorphone 1 mg/mL INJ 1 mL IVP ×4 (02:13→20:47)
[2019-09-14] MEDS: ondansetron 2 mg/ML SDV 2 mL 4 MG IVP ×3 (02:14→20:48)
--- NOTE | 2019-09-14 04:40 | CTR_ITS ---
PROCEDURE INFORMATION: Exam: CT Abdomen And Pelvis Without Contrast Exam date and time: 09/14/2019 4:45 AM Age: 48 years old Clinical indication: Bloating; Prior surgery; Surgery date: Post-operative (0-2 days); Surgery type: Stomach; Additional info: Compartment syndrome TECHNIQUE: Imaging protocol: Computed tomography of the abdomen and pelvis without contrast. Radiation optimization: All CT scans at this facility use at least one of these dose optimization techniques: automated exposure control; mA and/or kV adjustment per patient size (includes targeted exams where dose is matched to clinical indication); or iterative reconstruction. COMPARISON: CT abdomen pelvis w con* [id number] 09/12/2019 1:00 PM RADIATION DOSE METRICS: Total DLP: 414.37 mGy-cm FINDINGS: Tubes, catheters and devices: NG tube terminates in the stomach. Pleural space: Bilateral pleural effusions with compressive atelectasis in the lower lobes. Liver: No mass. Gallbladder and bile ducts: Diffuse gallbladder edema. No calcified stones. Pancreas: No ductal dilation. Spleen: No splenomegaly. Adrenals: No mass. Kidneys and ureters: No hydronephrosis. Stomach and bowel: Postsurgical changes of the stomach. There are mildly prominent thickened loops of small bowel without a definite a definite abrupt transition point. Small amount of contrast is noted in the left colon. Evaluation of the proximal colon is limited by nondistention. Appendix: The appendix is not identified. Intraperitoneal space: There is free intraperitoneal air in keeping with recent bowel surgery. Large amount of abdominopelvic ascites. Vasculature: No abdominal aortic aneurysm. Lymph nodes: No enlarged lymph nodes. Bladder: Unremarkable as visualized. Reproductive: Unremarkable as visualized. Bones/joints: Unremarkable. No acute fracture. Soft tissues: Unremarkable. CT/CT abdomen pelvis con [id number] IMPRESSION: 1. Mildly prominent thickened loops of small bowel which may represent ileus/enteritis in the early postoperative periods. Limited evaluation of the colon. If symptoms persist short-term follow-up may be considered. 2. Free intraperitoneal air in keeping with recent bowel surgery. 3. Large amount of abdominopelvic ascites. 4. Diffuse gallbladder wall thickening. No stones. 5. Bilateral pleural effusions with compressive atelectasis in the lower lobes. Radiation Dose CTDIVOL = (mGy): DLP = 414.37 (mGy-cm)
[2019-09-14 05:51] LABS: Basophils % 0.2 %; Eosinophils % 0.2 %; Hematocrit 25.1 % (42.0-52.0); Lymphocytes # 0.3 10^3/uL (0.8-4.8); Lymphocytes % 3.9 %; Mean Corpuscular HGB Conc 31.9 g/dL (30.0-36.0); Mean Corpuscular Hemoglobin 29.7 pg (28.0-34.0); Mean Corpuscular Volume 93.3 fL (80-94); Mean Platelet Volume 10.7 fL (7.4-10.4); Monocytes # 0.6 10^3/uL (0.2-0.9); Neutrophils # 5.7 10^3/uL (1.8-7.7); Neutrophils % 86.2 %; Nucleated Red Blood Cells % 0 %; Platelet Count 276 10^3/cmm (130-400); Red Blood Count 2.69 10^6/uL (4.1-5.3); Red Cell Distribution Width 14.1 % (12.1-15.1); White Blood Count 6.6 10^3/uL (4.0-10.0)
[2019-09-14 06:09] LABS: Anion Gap 8.6 (5-19); Blood Urea Nitrogen 15 mg/dL (6-20); Calcium 8.1 mg/dL (8.5-10.5); Carbon Dioxide 25 mmol/L (22-29); Chloride 107 mmol/L (98-107); Glomerular Filtration Rate 119.4 mL/min (90-130); Glucose 104 mg/dL (65-115); Osmolality Calculated 279 mOsm/kg (285-295); Potassium 4.6 mmol/L (3.5-5.1); Sodium 136 mmol/L (136-145)
[2019-09-14] MEDS: D5-NS 0.45% + KCL 20 mEq 20 MEQ/1,000 ML BAG 100 MEQ IV (08:36)
[2019-09-14] MEDS: famotidine 20 mg/2 mL INJ IVP ×2 (08:37→19:26)
--- NOTE | 2019-09-14 09:13 | PM.PN ---
Subjective Subjective: Interval history: The patient says he is feeling better today. He feels a lot of rumbling in his abdomen but has not passed any flatus yet. He does have some chronic back pain and neck pain, but he seems to indicate it's a little bit better today. The patient continued to sequester some fluid yesterday, requiring intravenous fluid boluses. The hospitalist repeated the patient's CAT scan last night which showed reaccumulation of his ascites (which has been worsening over the past several months by imaging) and some postoperative changes. Vitals/I&O/Wt Last Vital Signs Temp 98.3 F 09/14/19 07:58 Pulse 66 09/14/19 08:28 Resp 16 09/14/19 08:28 BP 112/74 09/14/19 07:58 Pulse Ox 95 09/14/19 08:28 09/13/19 09/14/19 09/14/19 22:59 06:59 14:59 Intake Total 790 / 2428.000 1100 / 2428.000 Output Total 100 / 475 175 / 475 Balance 690 / 1953.000 925 / 1953.000 Weight last 48 hrs Weight 143 lb 1 oz Weight 137 lb 4.8 oz Weight 137 lb 4 oz Weight 136 lb Physical Exam Narrative: EXAM NARRATIVE: The patient's abdomen reveals very active bowel sounds this morning. The dressing was removed and the incision looks good. Urinary Catheter Management^: F: Cath Placed During This Visit: yes Reason for Continuing Indwelling Catheter: Accurate Measurement of Urinary Output in Critically Ill Patients Urinary Catheter Date of Insertion: 09/12/19 Urinary Catheter Time of Insertion: 16:40 Data : 09/14/19 04:54 09/14/19 04:54 Other Labs: Laboratory Tests 09/13/19 05:11 Albumin 2.1 L Micro: Microbiology 09/12/19 20:37 Blood Culture - Preliminary Blood NEGATIVE TO DATE 09/12/19 12:36 Blood Culture - Preliminary Blood NEGATIVE TO DATE CT Abd/Pel: Radiologist's impression: CT abdomen/pelvis 09/14/2019 iMPRESSION: 1. Mildly prominent thickened loops of small bowel which may represent ileus/enteritis in the early postoperative periods. Limited evaluation of the colon. If symptoms persist short-term follow-up may be considered. 2. Free intraperitoneal air in keeping with recent bowel surgery. 3. Large amount of abdominopelvic ascites. 4. Diffuse gallbladder wall thickening. No stones. 5. Bilateral pleural effusions with compressive atelectasis in the lower lobes. A&P Assessment and plan (1) Obstruction of transverse colon: Status post extended right hemicolectomy for moderately high-grade colonic obstruction through his small bowel mesenteric window from his gastric surgery. The patient says he is feeling better today. His white blood cell count has returned to normal and his hemodynamics appear to be reasonably stable. Despite some concerns that he is reaccumulating his ascites, all other indicators seem to indicate that he is improving. The patient has had some worsening ascites changes on imaging over the past several months. I suspected at the time of surgery this was from his chronic obstructive process involving his colon, but he is obviously reaccumulating some fluid now. His albumin is low which may be playing a role. I am going to keep his Kowalski catheter in today to keep a close eye on his urine output and will administer some albumin. Ambulate. Awaiting return of bowel function. Status: Acute Attestations Medical Necessity Statement*: The patient remains in inpatient status for close monitoring and convalescence following abdominal surgery. 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
[2019-09-14] MEDS: cefTRIAXone 1,000 MG in sodium chloride 0.9% (plus) 50 ML 100 MG IV (09:29)
[2019-09-14] MEDS: iron sucrose 200 MG in sodium chloride 0.9% (100 ml) 100 ML 220 MG IV (09:45)
--- NOTE | 2019-09-14 14:54 | P.PN_ITS ---
Subjective Subjective: Interval history: Chart reviewed, had 175 mL urine output overnight. He is POD # 2 s/p exploratory laparotomy with extended right hemicolectomy with reanastomosis. Kowalski catheter in place, noted hypoalbuminemia, received 1 dose of IV albumin secondary to noted large amount of ascites on repeat imaging. VSS, afebrile. Patient seen and examined, sitting up in bed, reports some abdominal discomfort but has improved since yesterday and has required less pain medications today. Ambulated in the hallway with nursing staff, now passing gas and will be started on CLD. Medications: Reviewed: Yes Medication Review Details: Active Medications Generic Name Dose Route Start Last Admin Trade Name Freq PRN Reason Stop Dose Admin Albuterol/Ipratrop ium 3 ml 09/13/19 10:44 Duoneb INHALATION Q6H.RESPIRATORY P RN sob Famotidine 20 mg 09/12/19 20:02 09/14/19 08:37 Pepcid Inj IVP 20 mg Q12H TORRES Administration Heparin Sodium (Be ef Lung) 5,000 unit 09/12/19 20:02 09/13/19 19:48 Heparin SUBCUT 5,000 unit Q12H TORRES Administration Hydromorphone HCl 0.5 - 1 mg 09/13/19 11:20 09/14/19 06:14 Dilaudid Inj IVP 0.5 mg Q4H PRN Administration PAIN Iron Sucrose 200 m g/ Sodium 110 mls @ 220 mls /hr 09/13/19 09:00 09/14/19 09:45 Chloride IV 09/18/19 08:59 220 mls/hr DAILY TORRES Administration Metronidazole 500 mg in 100 mls @ 100 mls/hr 09/13/19 00:00 09/14/19 08:36 Flagyl Iv IV 100 mls/hr Q8H TORRES Administration Protocol Ceftriaxone Sodium 1,000 mg/ 50 mls @ 100 mls/ hr 09/13/19 09:00 09/14/19 09:29 Sodium Chloride IV 100 mls/hr Q24H TORRES Administration Protocol Potassium Chloride /Dextrose/Sod Cl 20 meq in 1,000 m ls @ 30 mls/hr 09/12/19 20:02 09/14/19 08:36 D5-Ns 0.45% + Jeff l 20 Meq IV 100 mls/hr .Q24H TORRES Administration Ketorolac Trometha mine 15 mg 09/12/19 20:02 09/14/19 13:02 Toradol IVP 09/17/19 20:01 15 mg Q6H TORRES Administration Ondansetron HCl 4 mg 09/12/19 20:02 09/14/19 06:14 Zofran IVP 4 mg Q4H PRN Administration NAUSEA AND VOMITI NG Phenol 3 spray 09/12/19 20:02 09/13/19 14:13 Phenaseptic MUCOUS MEM 3 spray Q2H PRN Administration SORE THROAT Promethazine HCl 12.5 mg 09/12/19 16:13 Phenergan IM Q6H PRN NAUSEA haloperidol [From Haldol] Allergy (Verified 09/12/19 13:32) ADR/ALGY-Palpitations Vitals/I&O/Wt Last Vital Signs Temp 98.4 F 09/14/19 11:34 Pulse 87 09/14/19 11:34 Resp 16 09/14/19 11:34 BP 127/81 09/14/19 11:34 Pulse Ox 95 09/14/19 11:34 09/13/19 09/14/19 09/14/19 22:59 06:59 14:59 Intake Total 790 / 5457.461 6858 / 2318.000 Output Total 100 / 300 175 / 475 200 / 200 Balance 690 / 918.000 925 / 1843.000 -200 / -200 Weight last 48 hrs Weight 64.892 kg Weight 62.278 kg Weight 62.256 kg Physical Exam Const: COMMON NORMALS: no acute distress, patient oriented x3 and alert GENERAL APPEARANCE: cooperative, comfortable and frail appearing NUTRITIONAL APPEARANCE: cachectic ORIENTATION/CONSCIOUSNESS: Yes awake HENMT: COMMON NORMALS: normocephalic, atraumatic, hearing grossly normal bilaterally and moist oral mucous membranes HEAD & SCALP: normocephalic and atraumatic Eye: COMMON NORMALS: Equal, round and reactive pupils present, EOMs intact bilaterally and conjunctivae normal CONJUNCTIVA: Yes conjunctivae normal PUPIL: Yes Equal, round and reactive pupils present Neck/C-Spine: COMMON NORMALS: full ROM GENERAL: Yes normal visual inspection and Yes trachea midline Chest: CHEST: Yes Vascular access present (PICC line in place on R) Resp: COMMON NORMALS: normal respiratory effort, No retractions, No use of accessory muscles and clear to auscultation bilaterally EFFORT & INSPECTION: Yes able to speak in complete sentences, Yes symmetric chest movement and No tachypneic AUSCULTATION: clear to auscultation bilaterally OTHER: -on RA Cardio: COMMON NORMALS: regular rate, regular rhythm, S1 normal heart sound p resent, S2 normal heart sound present and No murmurs present (Cardio) RATE: regular rate RHYTHM: regular rhythm HEART SOUNDS: S1 normal heart sound present and S2 normal heart sound present GI: COMMON NORMALS: Normal to inspection, nondistended, normoactive bowel s ounds present and Soft to palpation INSPECTION: Yes abdominal distension and Yes scar (linear with geronimo intact) PALPATION: Yes Soft to palpation and Yes Tenderness to palpation present (GI) (tenderness along incision) : BLADDER/KIDNEY EXAM: Yes catheter in place Catheter type (Male): urethral Extremity: COMMON NORMALS: normal to inspection, full ROM, no clubbing, cyanosis or edema and no pedal edema Neuro: COMMON NORMALS: patient oriented x3, moves all extremities, no focal motor deficits, no sensory deficits noted and gait normal SENSORIUM/ORIENTATION: Yes alert Psych: COMMON NORMALS: mental status grossly normal, Normal thought process present, cooperative, normal affect and speech normal SPEECH: Yes normal speech THOUGHT PROCESS: Normal thought process present Skin: COMMON NORMALS: no rashes or lesions noted, no jaundice, no petechiae and no mottling GENERAL SKIN EXAM: no rashes or lesions noted Urinary Catheter Management^: F: Cath Placed During This Visit: yes Reason for Continuing Indwelling Catheter: Accurate Measurement of Urinary Output in Critically Ill Patients Urinary Catheter Date of Insertion: 09/12/19 Urinary Catheter Time of Insertion: 16:40 Data : 09/14/19 04:54 09/14/19 04:54 Micro: Microbiology 09/12/19 20:37 Blood Culture - Preliminary Blood NEGATIVE TO DATE 09/12/19 12:36 Blood Culture - Preliminary Blood NEGATIVE TO DATE A&P Assessment and plan (1) S/P exploratory laparotomy: -POD # 2 s/p exploratory laparotomy with extended right hemicolectomy with reanastomosis -antiemetics, pain control as needed -on IVF hydration, NPO -on dual antibiotics (Ceftriaxone, Metronidazole) -started on CLD for this evening; advance as tolerated Status: Acute (2) S/P right hemicolectomy: -as noted above Status: Acute (3) Obstruction of transverse colon: -had exploratory laparotomy due to recurrent transverse colon obstruction as noted above -recent EGD done showing post-op changes following previous partial gastrectomy (for gastric carcinoma) and he did have some scar tissue removed from anterior rectus sheath Status: Chronic (4) S/P partial gastrectomy: Status: Chronic (5) GERD (gastroesophageal reflux disease): -on famotidine IV Status: Chronic Qualifiers: Esophagitis presence: without esophagitis Qualified Code(s): K21.9 - Gastro-esophageal reflux disease without esophagitis (6) HTN (hypertension), benign: -VSS; continue to monitor -hold antihypertensives Status: Chronic (7) Gastric carcinoma: -s/p partial gastrectomy in November 2018, stage II, status post radiation course with last in April 2019. -Follows up with Dr. Marrero. Status: Chronic Additional A&P Information -Cachexia: BMI-17 kg/m2 -At least moderate protein calorie malnutrition -GI ppx with Famotidine -DVT ppx with heparin, SCDs -Dispo: home, potentially with HH -Code status: FULL code Attestations Medical Necessity Statement*: Patient requires hospitalization for continued post-op care including pain control, pending oral intake. Time Spent in Patient Care: Greater than 35 minutes (>than 50% of time spent in counselling and/or direct pt care on unit) . Coding Level of Care Code Acute Complaint Supervisor for [facility] Fwd Exam Comprehensive Diagnoses S/P exploratory laparotomy Z98.890 S/P right hemicolectomy Z90.49 Obstruction of transverse colon K56.609 S/P partial gastrectomy Z90.3 GERD (gastroesophageal reflux disease) K21.9 Esophagitis presence: without esophagitis HTN (hypertension), benign I10 Gastric carcinoma C16.9
--- NOTE | 2019-09-14 19:11 | PC.NURSE ---
Pt has done well this shift, NG tube was discontinue per Dr. Barraza's order. Only 50mL total output from NG in the last two days, serosanguenous in color. He has ambulated with staff twice this shift. he has sat up in the chair twice. incision to medial abdomen paradise. urine output total of 450 per shift, Dr. Barraza aware and no new orders received.
[2019-09-15] VITALS (9 sets, daily range): BP systolic 130–144; BP diastolic 82–96; PULSE 68–97; RESP 16–20; TEMP 36.6–37.2; O2SAT 95–98; BMI 17.4
[2019-09-15] MEDS: metroNIDAZOLE IV 500 MG/100 ML PREMIX 100 MG IV ×3 (00:01→15:36)
[2019-09-15] MEDS: ketorolac 30 mg/mL INJ 15 MG IVP ×4 (02:15→19:23)
[2019-09-15 02:30] LABS: Basophils % 0.3 %; Eosinophils # 0.1 10^3/uL (0.0-0.8); Eosinophils % 1.7 %; Hematocrit 28.5 % (42.0-52.0); Hemoglobin 8.5 g/dL (11.7-16.6); Lymphocytes # 0.2 10^3/uL (0.8-4.8); Lymphocytes % 3.3 %; Mean Corpuscular HGB Conc 29.8 g/dL (30.0-36.0); Mean Corpuscular Hemoglobin 29.4 pg (28.0-34.0); Mean Corpuscular Volume 98.6 fL (80-94); Mean Platelet Volume 9.9 fL (7.4-10.4); Monocytes # 0.6 10^3/uL (0.2-0.9); Monocytes % 8.4 %; Neutrophils # 6.2 10^3/uL (1.8-7.7); Nucleated Red Blood Cells % 0 %; Platelet Count 297 10^3/cmm (130-400); Red Blood Count 2.89 10^6/uL (4.1-5.3); Red Cell Distribution Width 13.9 % (12.1-15.1); White Blood Count 7.2 10^3/uL (4.0-10.0)
[2019-09-15 03:01] LABS: Anion Gap 12.2 (5-19); Blood Urea Nitrogen 15 mg/dL (6-20); Calcium 8.5 mg/dL (8.5-10.5); Carbon Dioxide 22 mmol/L (22-29); Chloride 104 mmol/L (98-107); Glomerular Filtration Rate 119.4 mL/min (90-130); Glucose 108 mg/dL (65-115); Osmolality Calculated 275 mOsm/kg (285-295); Potassium 4.2 mmol/L (3.5-5.1); Sodium 134 mmol/L (136-145)
[2019-09-15] MEDS: ondansetron 2 mg/ML SDV 2 mL 4 MG IVP (05:57)
[2019-09-15] MEDS: HYDROmorphone 1 mg/mL INJ 1 mL IVP (06:04)
--- NOTE | 2019-09-15 06:46 | P.PN_ITS ---
Subjective Subjective: Interval history: The patient is feeling well today. He started passing flatus and has had a small loose bowel movement. He started clear liquids yesterday which he tolerated well. He would like to try some solid food. Vitals/I&O/Wt Last Vital Signs Temp 98.9 F 09/15/19 03:56 Pulse 69 09/15/19 03:56 Resp 18 09/15/19 06:04 BP 134/82 09/15/19 03:56 Pulse Ox 96 09/15/19 03:56 09/14/19 09/14/19 09/15/19 14:59 22:59 06:59 Intake Total 100 / 330 130 / 330 100 / 330 Output Total 200 / 1200 300 / 1200 700 / 1200 Balance -100 / -870 -170 / -870 -600 / -870 Weight last 48 hrs Weight 143 lb 1 oz Weight 143 lb 1 oz Weight 137 lb 4.8 oz Physical Exam Narrative: EXAM NARRATIVE: Vital signs are stable. Urine output improved considerably yesterday after the administration of albumin. The patient still feels like his peripheral tissues are somewhat edematous. Bowel sounds are present. The incision looks good. Urinary Catheter Management^: F: Cath Placed During This Visit: yes Reason for Continuing Indwelling Catheter: Acute Urinary Retention or Obstruction Urinary Catheter Date of Insertion: 09/12/19 Urinary Catheter Time of Insertion: 16:40 Data : 09/15/19 02:27 09/15/19 02:27 A&P Assessment and plan (1) Obstruction of transverse colon: Status post extended right hemicolectomy. Advance diet. I am going to try 1 dose of Lasix since the patient's blood pressure has improved today. Resume home oral pain medication. Discontinue Kowalski catheter. Status: Chronic Attestations Medical Necessity Statement*: See admitting service's notation. Coding Level of Care Code Acute Dimension [employer]ar[employer] Supervisor for [facility] Diagnoses Obstruction of transverse colon K56.609
[2019-09-15] MEDS: FUROsemide 10 mg/mL SDV 2mL 20 MG IVP (06:59)
[2019-09-15] MEDS: HYDROcodone-acetaminophen 7.5-325 mg Tablet 1 TAB PO ×3 (08:47→22:27)
[2019-09-15] MEDS: cefTRIAXone 1,000 MG in sodium chloride 0.9% (plus) 50 ML 100 MG IV (10:24)
[2019-09-15] MEDS: pantoprazole DR 40 mg Tablet PO (10:27)
[2019-09-15] MEDS: iron sucrose 200 MG in sodium chloride 0.9% (100 ml) 100 ML 220 MG IV (11:08)
--- NOTE | 2019-09-15 11:15 | PC.SOCIAL ---
IMM Update Pg 2 of IMM given and explained to patient who verbalized understanding. Copy provided.
--- NOTE | 2019-09-15 13:39 | P.PN_ITS ---
Subjective Subjective: Interval history: Patient is POD # 3 s/p ex. lap. Had 700 mL urine output and 1 small BM overnight. Seemed to have tolerated CLD without difficulty, advanced to GI soft diet. Stable hemoglobin and renal function. Hemodynamically stable, in fact blood pressure seems to be trending up. Given 20 mg IV dose of Lasix this morning. Has had 2 loose BMs today, has required henrietta e Toradol for pain control. Overall feels better today. Medications: Reviewed: Yes Medication Review Details: Active Medications Generic Name Dose Route Start Last Admin Trade Name Freq PRN Reason Stop Dose Admin Hydrocodone Bitart /Acetaminophen 1 tab 09/15/19 06:38 09/15/19 08:47 [place] 7.5-325 Mg PO 1 tab Q6H PRN Administration Pain Albuterol/Ipratrop ium 3 ml 09/13/19 10:44 Duoneb INHALATION Q6H.RESPIRATORY P RN sob Heparin Sodium (Be ef Lung) 5,000 unit 09/12/19 20:02 09/13/19 19:48 Heparin SUBCUT 5,000 unit Q12H TORRES Administration Iron Sucrose 200 m g/ Sodium 110 mls @ 220 mls /hr 09/13/19 09:00 09/15/19 11:08 Chloride IV 09/18/19 08:59 220 mls/hr DAILY TORRES Administration Metronidazole 500 mg in 100 mls @ 100 mls/hr 09/13/19 00:00 09/15/19 10:51 Flagyl Iv IV Infused Q8H TORRES Infusion Protocol Ceftriaxone Sodium 1,000 mg/ 50 mls @ 100 mls/ hr 09/13/19 09:00 09/15/19 11:11 Sodium Chloride IV Infused Q24H TORRES Infusion Protocol Ketorolac Trometha mine 15 mg 09/12/19 20:02 09/15/19 13:27 Toradol IVP 09/17/19 20:01 15 mg Q6H TORRES Administration Ondansetron HCl 4 mg 09/12/19 20:02 09/15/19 05:57 Zofran IVP 4 mg Q4H PRN Administration NAUSEA AND VOMITI NG Pantoprazole Sodiu m 40 mg 09/15/19 09:00 09/15/19 10:27 Protonix PO 40 mg BID TORRES Administration Phenol 3 spray 09/12/19 20:02 09/13/19 14:13 Phenaseptic MUCOUS MEM 3 spray Q2H PRN Administration SORE THROAT Promethazine HCl 12.5 mg 09/12/19 16:13 Phenergan IM Q6H PRN NAUSEA haloperidol [From Haldol] Allergy (Verified 09/12/19 13:32) ADR/ALGY-Palpitations Vitals/I&O/Wt Last Vital Signs Temp 98.2 F 09/15/19 11:30 Pulse 86 09/15/19 11:30 Resp 20 H 09/15/19 11:30 BP 142/82 09/15/19 11:30 Pulse Ox 97 09/15/19 11:30 09/14/19 09/15/19 09/15/19 22:59 06:59 14:59 Intake Total 130 / 390 100 / 490 270 / 270 Output Total 300 / 500 700 / 1200 375 / 375 Balance -170 / -110 -600 / -710 -105 / -105 Weight last 48 hrs Weight 64.892 kg Weight 64.892 kg Weight 62.278 kg Physical Exam Const: COMMON NORMALS: no acute distress, patient oriented x3 and alert GENERAL APPEARANCE: cooperative, comfortable and frail appearing NUTRITIONAL APPEARANCE: cachectic ORIENTATION/CONSCIOUSNESS: Yes awake HENMT: COMMON NORMALS: normocephalic, atraumatic, hearing grossly normal bilaterally and moist oral mucous membranes HEAD & SCALP: normocephalic and atraumatic Eye: COMMON NORMALS: Equal, round and reactive pupils present, EOMs intact bilaterally and conjunctivae normal CONJUNCTIVA: Yes conjunctivae normal PUPIL: Yes Equal, round and reactive pupils present Neck/C-Spine: COMMON NORMALS: full ROM GENERAL: Yes normal visual inspection and Yes trachea midline Chest: CHEST: Yes Vascular access present (PICC line in place on R) Resp: COMMON NORMALS: normal respiratory effort, No retractions, No use of accessory muscles and clear to auscultation bilaterally EFFORT & INSPECTION: Yes able to speak in complete sentences, Yes symmetric chest movement and No tachypneic AUSCULTATION: clear to auscultation bilaterally OTHER: -on RA Cardio: COMMON NORMALS: regular rate, regular rhythm, S1 normal heart sound present, S2 normal heart sound present and No murmurs present (Cardio) RATE: regular rate RHYTHM: regular rhythm HEART SOUNDS: S1 normal heart sound present and S2 normal heart sound present GI: COMMON NORMALS: Normal to inspection, nondistended, normoactive bowel sounds present and Soft to palpation INSPECTION: Yes abdominal distension and Yes scar (linear with geronimo intact) PALPATION: Yes Soft to palpation and Yes Tenderness to palpation present (GI) (tenderness along incision) : BLADDER/KIDNEY EXAM: Yes catheter in place Extremity: COMMON NORMALS: normal to inspection, full ROM, no clubbing, cyanosis or edema and no pedal edema Neuro: COMMON NORMALS: patient oriented x3, moves all extremities, no focal motor deficits, no sensory deficits noted and gait normal SENSORIUM/OR IENTATION: Yes alert Psych: COMMON NORMALS: mental status grossly normal, Normal thought process present, cooperative, normal affect and speech normal SPEECH: Yes normal speech THOUGHT PROCESS: Normal thought process present Skin: COMMON NORMALS: no rashes or lesions noted, no jaundice, no petechiae and no mottling GENERAL SKIN EXAM: no rashes or lesions noted Urinary Catheter Management^: F: Cath Placed During This Visit: yes Reason for Continuing Indwelling Catheter: Acute Urinary Retention or Obstruction Urinary Catheter Date of Insertion: 09/12/19 Urinary Catheter Time of Insertion: 16:40 Data : 09/15/19 02:27 09/15/19 02:27 A&P Assessment and plan (1) S/P exploratory laparotomy: -POD # 3 s/p exploratory laparotomy with extended right hemicolectomy with reanastomosis -antiemetics, pain control as needed -on IVF hydration, advanced to GI soft diet today -on dual antibiotics (Ceftriaxone, Metronidazole) -antiemetics as needed Status: Acute (2) S/P right hemicolectomy: -as noted above Status: Acute (3) Obstruction of transverse colon: -had exploratory laparotomy due to recurrent transverse colon obstruction as noted above -recent EGD done showing post-op changes following previous partial gastrectomy (for gastric carcinoma) and he did have some scar tissue removed from anterior rectus sheath Status: Chronic (4) S/P partial gastrectomy: Status: Chronic (5) GERD (gastroesophageal reflux disease): -on famotidine IV Status: Chronic Qualifiers: Esophagitis presence: without esophagitis Qualified Code(s): K21.9 - Gastro-esophageal reflux disease without esophagitis (6) HTN (hypertension), benign: -VSS; continue to monitor -antihypertensives on hold; may need more diuresis so will continue to hold BP meds Status: Chronic (7) Gastric carcinoma: -s/p partial gastrectomy in November 2018, stage II, status post radiation course with last in April 2019. -Follows up with Dr. Marrero. Status: Chronic Additional A&P Information -Cachexia: BMI-17 kg/m2 -At least moderate protein calorie malnutrition -GI ppx with Famotidine -DVT ppx with heparin, SCDs -Dispo: home, potentially with HH -Code status: FULL code Attestations Medical Necessity Statement*: Patient requires hospitalization for continued postop care including pain management, improved oral intake and tolerance, diuresis. Time Spent in Patient Care: 16 - 35 minutes (>than 50% of time spent in counselling and/or direct pt care on unit) . 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
--- NOTE | 2019-09-15 18:04 | PC.NURSE ---
summary pt seemed to have a good day. He had several episodes of diarrhea with the last one being a large amt. Oral pain med given twice with pain starting at 8-9 to a zero. pt has ambulated in [facility] once today the to the restroom. he stated he would walk again after dinner.
[2019-09-15] MEDS: heparin 5,000 unit/mL INJ 1 mL 5000 UNIT SUBCUT (19:23)
[2019-09-16] VITALS (8 sets, daily range): BP systolic 126–152; BP diastolic 84–100; PULSE 67–73; RESP 16–18; TEMP 36.6–36.9; O2SAT 97–99; BMI 17.4
[2019-09-16] MEDS: metroNIDAZOLE IV 500 MG/100 ML PREMIX 100 MG IV ×2 (00:55→08:22)
[2019-09-16 02:39] LABS: Basophils % 0.2 %; Eosinophils # 0.2 10^3/uL (0.0-0.8); Eosinophils % 2.4 %; Hematocrit 25.6 % (42.0-52.0); Hemoglobin 8.2 g/dL (11.7-16.6); Lymphocytes # 0.3 10^3/uL (0.8-4.8); Lymphocytes % 4.5 %; Mean Corpuscular Hemoglobin 29.8 pg (28.0-34.0); Mean Corpuscular Volume 93.1 fL (80-94); Monocytes # 0.6 10^3/uL (0.2-0.9); Monocytes % 9.7 %; Neutrophils # 5.1 10^3/uL (1.8-7.7); Neutrophils % 82.4 %; Nucleated Red Blood Cells % 0 %; Platelet Count 297 10^3/cmm (130-400); Red Blood Count 2.75 10^6/uL (4.1-5.3); Red Cell Distribution Width 13.6 % (12.1-15.1); White Blood Count 6.2 10^3/uL (4.0-10.0)
[2019-09-16 03:04] LABS: Anion Gap 11.1 (5-19); Blood Urea Nitrogen 14 mg/dL (6-20); Calcium 8.1 mg/dL (8.5-10.5); Carbon Dioxide 24 mmol/L (22-29); Chloride 106 mmol/L (98-107); Glomerular Filtration Rate 142.6 mL/min (90-130); Glucose 98 mg/dL (65-115); Osmolality Calculated 280 mOsm/kg (285-295); Potassium 4.1 mmol/L (3.5-5.1); Sodium 137 mmol/L (136-145)
--- NOTE | 2019-09-16 04:56 | PC.NURSE ---
Patient with multiple bowel movements, patient states each time he has a BM he is peeing but he isnt going to take the time to grab the urinal and poop his pants. Education given and patient declined.
[2019-09-16] MEDS: HYDROcodone-acetaminophen 7.5-325 mg Tablet 1 TAB PO ×2 (06:04→12:58)
[2019-09-16] MEDS: ketorolac 30 mg/mL INJ 15 MG IVP (08:23)
[2019-09-16] MEDS: heparin 5,000 unit/mL INJ 1 mL 5000 UNIT SUBCUT (08:23)
--- NOTE | 2019-09-16 08:42 | PM.PN ---
Subjective Subjective: Interval history: The patient is feeling well today. He continues to have some loose bowel movements but is tolerating a soft diet. He is anxious to go home. Vitals/I&O/Wt Last Vital Signs Temp 97.9 F 09/16/19 07:28 Pulse 73 09/16/19 08:13 Resp 18 09/16/19 08:13 BP 142/100 09/16/19 07:28 Pulse Ox 97 09/16/19 08:13 09/15/19 09/16/19 09/16/19 22:59 06:59 14:59 Intake Total 100 / 580 100 / 580 Output Total 400 / 1150 375 / 1150 Balance -300 / -570 -275 / -570 Weight last 48 hrs Weight 143 lb 1 oz Weight 143 lb 1 oz Physical Exam Narrative: EXAM NARRATIVE: Bowel sounds are present. The midline incision looks good. Urinary Catheter Management^: F: Cath Placed During This Visit: yes Reason for Continuing Indwelling Catheter: Acute Urinary Retention or Obstruction Urinary Catheter Date of Insertion: 09/12/19 Urinary Catheter Time of Insertion: 16:40 Data : 09/16/19 02:00 09/16/19 02:00 A&P Assessment and plan (1) Obstruction of transverse colon: Status post extended right hemicolectomy. The pathologist called me yesterday to let me know that it appears the patient is going to have some microscopic evidence of his gastric carcinoma on part of the colon specimens. Final pathology pending. This was discussed with him today. I will eventually make arrangements for him to follow-up with oncology regarding this. The patient is doing well and is anxious to go home. He has been instructed with respect to wound care, activity limitations, diet, etc. I will make arrangements for the patient to follow-up with me in the office early next week. Await hospitalist input for final discharge arrangements. Status: Chronic Attestations Medical Necessity Statement*: See admitting service's notation. Coding Level of Care Code Acute Leather Shaver for Ramin Alston Diagnoses Obstruction of transverse colon K56.609
[2019-09-16] MEDS: cefTRIAXone 1,000 MG in sodium chloride 0.9% (plus) 50 ML 100 MG IV (09:41)
[2019-09-16] MEDS: iron sucrose 200 MG in sodium chloride 0.9% (100 ml) 100 ML 220 MG IV (10:45)
--- NOTE | 2019-09-16 12:59 | PM.DCS ---
Discharge Providers Date of Admission: 09/12/19 19:19 Date of Discharge: September 16, 2019 Attending Provider at Admission: Marcos Barraza MD Attending Provider at Discharge: Marcos Barraza MD Diagnoses at Discharge Discharge Diagnosis (1) Obstruction of transverse colon: Status: Chronic Problem details: -POD # 4 s/p exploratory laparotomy with extended right hemicolectomy with reanastomosis -antiemetics, pain control as needed -off IVF hydration, tolerating GI soft diet -on dual antibiotics (Ceftriaxone, Metronidazole) -antiemetics as needed -prelim pathology shows possible metastatic poorly differentiated gastric adenocarcinoma primarily on the serosal surface of the colon and appendix with focal extension into muscularis propria. Final pathology pending, Dr. Barraza to follow-up (2) GERD (gastroesophageal reflux disease): Status: Chronic Qualifiers: Esophagitis presence: without esophagitis Qualified Code(s): K21.9 - Gastro-esophageal reflux disease without esophagitis (3) HTN (hypertension), benign: Status: Chronic (4) Gastric carcinoma: Status: Chronic Problem details: -s/p partial gastrectomy in November 2018, stage II, status post radiation course with last in April 2019. -Follows up with Dr. Marrero. (5) S/P partial gastrectomy: Status: Chronic Problem details: Laparoscopic --Dr. Medel in [place] Other Information Additional DC diagnoses/information: -Cachexia: BMI-17 kg/m2 -At least moderate protein calorie malnutrition Reason for Visit Reason for Visit: cant drink, eat, and swelling Hospital Course Hospital Course: Patient was admitted to the medical surgical floor and surgery consulted due to findings on imaging consistent with recurrent transverse colon obstruction. Patient subsequently had exploratory laparotomy with extended right hemicolectomy with reanastomosis done by Dr. Barraza; he is POD# 4 today and has had a relatively uncomplicated postop course. His diet was advanced as tolerated and he has done well on a GI soft diet. Within 24 hours postop he had follow-up abdominal imaging showing bilateral pleural effusions and abdominopelvic ascites for which he received albumin with noted improvement in his urine output and symptomatically as well. Hemoglobin has been stable and he has not required transfusion of blood products. He has had some bowel movements and was covered with dual antibiotic treatment during his hospital stay. He is hemodynamically stable, afebrile, ambulatory. Preliminary pathology is as noted above and Dr. Barraza will follow up on final results. Patient will need appropriate follow-up with his primary care provider and with Dr. Barraza as arranged. Discharge Summary: -Patient to follow up with primary care provider within 1 week -Patient to follow up with Dr. Barraza as scheduled Physical Exam Const: COMMON NORMALS: no acute distress, patient oriented x3 and alert GENERAL APPEARANCE: cooperative, comfortable and frail appearing NUTRITIONAL APPEARANCE: cachectic ORIENTATION/CONSCIOUSNESS: Yes awake HENMT: COMMON NORMALS: normocephalic, atraumatic, hearing grossly normal bilaterally and moist oral mucous membranes HEAD & SCALP: normocephalic and atraumatic Eye: COMMON NORMALS: Equal, round and reactive pupils present, EOMs intact bilaterally and conjunctivae normal CONJUNCTIVA: Yes conjunctivae normal PUPIL: Yes Equal, round and reactive pupils present Neck/C-Spine: COMMON NORMALS: full ROM GENERAL: Yes normal visual inspection and Yes trachea midline Chest: CHEST: Yes Vascular access present (PICC line in place on R) Resp: COMMON NORMALS: normal respiratory effort, No retractions, No use of accessory muscles and clear to auscultation bilaterally EFFORT & INSPECTION: Yes able to speak in complete sentences, Yes symmetric chest movement and No tachypneic AUSCULTATION: clear to auscultation bilaterally OTHER: -on RA Cardio: COMMON NORMALS: regular rate, regular rhythm, S1 normal heart sound present, S2 normal heart sound present and No murmurs present (Cardio) RATE: regular rate RHYTHM: regular rhythm HEART SOUNDS: S1 normal heart sound present and S2 normal heart sound present GI: COMMON NORMALS: Normal to inspection, nondistended, normoactive bowel sounds present and Soft to palpation INSPECTION: Yes abdominal distension and Yes scar (linear with geronimo intact) PALPATION: Yes Soft to palpation and Yes Tenderness to palpation present (GI) (tenderness along incision) : BLADDER/KIDNEY EXAM: No catheter in place Extremity: COMMON NORMALS: normal to inspection, full ROM, no clubbing, cyanosis or edema and no pedal edema Neuro: COMMON NORMALS: patient oriented x3, moves all extremities, no focal motor deficits, no sensory deficits noted and gait normal SENSORIUM/ORIENTATION: Yes alert Psych: COMMON NORMALS: mental status grossly normal, Normal thought process present, cooperative, normal affect and speech normal SPEECH: Yes normal speech THOUGHT PROCESS: Normal thought process present Skin: COMMON NORMALS: no rashes or lesions noted, no jaundice, no petechiae and no mottling GENERAL SKIN EXAM: no rashes or lesions noted Urinary Catheter Management^: F: Cath Placed During This Visit: yes Reason for Continuing Indwelling Catheter: Acute Urinary Retention or Obstruction Urinary Catheter Date of Insertion: 09/12/19 Urinary Catheter Time of Insertion: 16:40 Discharge Data Data Completed and Pending: Completed Studies During Hospitalization Category Date Time Status CT abdomen pelvis w con* [id number] Stat Cat Scan 09/12/19 12:[address] abdomen pelvis wo con [id number] Stat Cat Scan 09/14/19 04:40 Completed Pending at discharge Category Date Time Status Blood Culture Sta t Lab 09/12/19 20:37 Results Pathology: Surgic al [PTH] Routine Pth 09/12/19 19:25 Received Labs from last 24 hours 09/16/19 09/16/19 02:00 02:00 WBC 6.2 RBC 2.75 L Hgb 8.2 L Hct 25.6 L MCV 93.1 D MCH 29.8 MCHC 32.0 D RDW 13.6 Plt Count 297 MPV 10.0 Neut % (Auto) 82.4 Lymph % (Auto) 4.5 [place] % (Auto) 9.7 Eos % (Auto) 2.4 Baso % (Auto) 0.2 Neut # (Auto) 5.1 Lymph # (Auto) 0.3 L [place] # (Auto) 0.6 Eos # (Auto) 0.2 Baso # (Auto) 0.0 Nucleated RBC % (a uto) 0 Nucleated RBCs # 0.0 Sodium 137 Potassium 4.1 Chloride 106 Carbon Dioxide 24 Anion Gap 11.1 BUN 14 Creatinine 0.6 L GFR Calculation 142.6 H Glucose 98 Calculated Osmolal ity 280 L Calcium 8.1 L Vitals: Last Vital Signs Temp 98.0 F 09/16/19 11:19 Pulse 71 09/16/19 11:19 Resp 18 09/16/19 11:19 BP 126/93 09/16/19 11:19 Pulse Ox 99 09/16/19 11:19 Discharge Plan Discharge Patient Disposition: Home, Self-Care Condition: Stable Prescriptions: New hydrocodone-acetaminophen 5-325 mg tablet 1 - 2 tab PO Q5H PRN (Reason: pain) Qty: 30 RF: 0 Continued lisinopril 20 mg tablet 20 mg PO DAILY RF: 0 pantoprazole 40 mg tablet,delayed release (DR/EC) 40 mg PO BID RF: 0 metronidazole 500 mg tablet 500 mg PO TID RF: 0 Tylenol Extra Strength 500 mg Tablet 1,000 mg PO PRN RF: 0 dicyclomine 20 mg Tablet 20 mg PO QID RF: 0 Mylanta Maximum Strength 400-400-40 mg/5 mL Suspension 20 ml PO PRN RF: 0 Gas Relief (simethicone) See Rx Instructions .ROUTE .COMPLEX RF: 0 ibuprofen 800 mg Tablet 800 mg PO Q6H PRN (Reason: Pain) RF: 0 ondansetron HCl 4 mg tablet 4 - 8 mg PO TID PRN (Reason: nausea/vomiting) RF: 0 Held [place] 7.5-325 mg Tablet 1 tab PO Q6H PRN (Reason: Pain) RF: 0 Discontinued sennosides-docusate sodium [Colace 2-In-1] 8.6-50 mg tablet 1 tab-cap PO BID Qty: 30 RF: 0 Discharge Orders: Discharge Order (Routine); Ordered 09/16/19 Ordered By: Vicenta Ochoa Referrals: GREGORIO MATHIS DO [Referring] - 09/21/19 9:00 am Marcos Barraza MD [Physician] - 09/22/19 9:30 am (Nursing: Please call Dr. Barraza's office ([phone]) and make an appointment for the patient to be seen next week.) Discharge Diet: Advance as tolerated Discharge Activity: Limit activity as instructed Patient Instructions: Hydrocodone/Acetaminophen (By mouth), Colectomy (DC), Laparoscopic Bowel Resection (DC), Laparoscopic Gastrectomy (DC) Activity Restrictions/Additional Instructions: 1. Appointment to see Dr. Barraza next week as above. 2. May shower at home as discussed. 3. [place] 5/325 1-2 tablets by mouth every 5 hours as needed for pain. #30, no refills. 4. Imodium as discussed and needed at home for loose stools. No lifting over 20 pounds, no repetitive bending or twisting, no strenuous pushing / pulling or other heavy activity. Ambulate regularly. May go up and down steps if needed. Discharge Date/Time: 09/16/19 14:00 Discharge Attestations Time Spent in Discharge Care*: greater than 30 min Specific Discharge Activities: Specific discharge activities: educating patient, discussing with caseworker protective services/social workers/dc planners, documenting/other paperwork and evaluating patient/reviewing data Status at Discharge: Cognitive status at discharge: cognitively intact, Behavioral status at discharge: cooperative, Functional status at discharge: independent ambulation Overall status at discharge: patient is progressing back to baseline Quality Metrics Clinical Quality Measures During this hospital stay, did patient experience: None Coding Level of Care Code Acute Energy [employer] Sustainability Manager for Chg Fwd Exam Comprehensive Diagnoses Obstruction of transverse colon K56.609 GERD (gastroesophageal reflux disease) K21.9 Esophagitis presence: without esophagitis HTN (hypertension), benign I10 Gastric carcinoma C16.9 S/P partial gastrectomy Z90.3
== END 2019-09-16 14:00 | disposition home or self-care (01) | DRG 330 ==
LOC: ER 14:25 → OR 15:32 → MEDSURG 19:19
PROVIDERS: Emergency Medicine; Family Medicine; Student in an Organized Health Care Education/Training Program; Admitting Provider Surgery; Visit Provider Surgery
PROC: 0DTF0ZZ Resection of Right Large Intestine, Open Approach (ICD-10-PCS; CPT 49000; principal; 2019-09-12 16:15)
PROC: 0DTF0ZZ Resection of Right Large Intestine, Open Approach (ICD-10-PCS; 2019-09-12 16:15)
DX: K56.601 Complete intestinal obstruction, unspecified as to cause (principal); C16.9 Malignant neoplasm of stomach, unspecified; R64 Cachexia; Z68.1 Body mass index [BMI] 19.9 or less, adult; E44.0 Moderate protein-calorie malnutrition; C78.5 Secondary malignant neoplasm of large intestine and rectum; K21.9 Gastro-esophageal reflux disease without esophagitis; I10 Essential (primary) hypertension; Z90.3 Acquired absence of stomach [part of]; E86.0 Dehydration; E78.5 Hyperlipidemia, unspecified; Z86.010 Personal history of colon polyps; D64.9 Anemia, unspecified
CPT/HCPCS: 12345; 36415; 51702; 74176; 74177; 80048; 80053; 81001; 82728; 83605; 83690; 84145; 84439; 84443; 84481; 85025; 87040; 88309; 94664; 96372; 96375; 99283; C9290; J0690; J0696; J1100; J1170; J1644; J1756; J1885; J1940; J2270; J2370; J2405; J2710; J3010; J3490; J7030; P9047; Q9967; S0030

== ENCOUNTER 2019-09-29 13:12 | Outpatient (CLI) | payer MEDICARE, MEDICAID, SELFPAY ==
[2019-09-29 14:12] LABS: Basophils # 0.1 10^3/uL (0.0-0.1); Basophils % 1.5 %; Eosinophils # 0.2 10^3/uL (0.0-0.8); Eosinophils % 2.9 %; Hematocrit 30.9 % (42.0-52.0); Hemoglobin 9.6 g/dL (11.7-16.6); Lymphocytes # 0.5 10^3/uL (0.8-4.8); Lymphocytes % 8.5 %; Mean Corpuscular HGB Conc 31.1 g/dL (30.0-36.0); Mean Corpuscular Hemoglobin 28.8 pg (28.0-34.0); Mean Corpuscular Volume 92.8 fL (80-94); Mean Platelet Volume 9.1 fL (7.4-10.4); Monocytes # 0.6 10^3/uL (0.2-0.9); Monocytes % 11.5 %; Neutrophils # 4.1 10^3/uL (1.8-7.7); Neutrophils % 75.2 %; Nucleated Red Blood Cells % 0 %; Platelet Count 603 10^3/cmm (130-400); Red Blood Count 3.33 10^6/uL (4.1-5.3); White Blood Count 5.5 10^3/uL (4.0-10.0)
[2019-09-29 14:28] LABS: Alanine Aminotransferase 11 U/L (0-41); Albumin Level 3.1 g/dL (3.5-5.2); Alkaline Phosphatase 75 IU/L (40-130); Anion Gap 15.1 (5-19); Aspartate Amino Transferase 22 U/L (0-40); Blood Urea Nitrogen 16 mg/dL (6-20); Calcium 8.6 mg/dL (8.5-10.5); Carbon Dioxide 27 mmol/L (22-29); Chloride 103 mmol/L (98-107); Globulin 3.2 g/dL (1.3-4.6); Glomerular Filtration Rate 118.9 mL/min (90-130); Glucose 89 mg/dL (65-115); Osmolality Calculated 290 mOsm/kg (285-295); Potassium 3.1 mmol/L (3.5-5.1); Sodium 142 mmol/L (136-145); Total Bilirubin 0.2 mg/dL (0.15-1.2); Total Protein 6.3 g/dL (6.6-8.7)
[2019-09-29] MEDS: sodium chloride 0.9% 500 ML 800 ML IV (15:35)
[2019-09-29] MEDS: dexamethasone 10 mg/mL INJ 5 MG IV (15:35)
[2019-09-29 16:24] LABS: Bilirubin Urine 1+ (NEGATIVE); Blood Urine Neg (Negative); Glucose Urine UA Norm (Normal); Ketones Urine Negative (Negative); Nitrate Urine Negative (Negative); Protein Urine Neg (Negative); Urine Color Yellow (Yellow); pH Urine 5 (5-7)
[2019-09-29 16:25] LABS: Leukocyte Esterase Urine Negative (Negative); Urobilinogen Urine Norm (Negative)
[2019-09-29 16:26] LABS: RBC Urine 0-4 /hpf (0-2); Urine Appearance Hazy (CLEAR)
[2019-09-29 16:27] LABS: Add Urine Culture? No; Bacteria Urine 1+; Squamous Epithelial Cell Urine 0-4 (0-5)
[2019-09-29 17:20] LABS: Carcinoembryonic Antigen 1.6 ng/mL (0.0-4.7)
--- NOTE | 2019-09-29 17:58 | ONC FU_ITS ---
Dr. Marrero follow up note Patient: Benny Castro Unit #: [id number]: [id number] Dicatated By: Pedro Marrero M.D.Date of Visit:Sep 29, 2019 Onc Med Follow-up/Prog Note History of Present Illness: Mr. Castro is a 49-year-old gentleman with history of chronic anemia, melena and upper abdominal pain/discomfort underwent EGD on 08/05/2017 showed normal stomach with normal exam and duodenal, possible Merritt's esophagitis biopsy or done was negative also had colonoscopy same time, 6 mm polyp was removed from ascending colon. He continued to have abdominal discomfort/pain and he had abdominal sonogram done on 08/06/2017 which showed liver with increased echogenicity which is nonspecific. 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 pylori was identified. Patient underwent CT scan of chest abdomen pelvis on 08/29/2018 which showed no acute findings within the abdomen or pelvis and his blood workup showed normal hemoglobin and hematocrit and CMP was also normal. Patient underwent CT PET scan on 09/25/2018 which showed small focus of increase uptake within the distal gastric body/antrum. No finding to suggest metastatic disease in the chest abdomen or pelvis. Hypermetabolic left thyroid nodule 5 mm right pulmonary nodule along the major fissure probably represents an intrapulmonary lymph node. Underwent endoscopy ultrasound on 10/14/2018 which showed 1.6 x 0.9 cm hypoechoic lesion at the level of the known mass at 60 cm from the incisors. It appeared to penetrate the submucosa but not through it and the muscularis propria was intact and the visualized portion and EUS stage was T1 B, N0 MX, so no neoadjuvant chemotherapy was considered Mr Castro was seen by Dr. Medel and underwent laparoscopic partial gastrectomy and perigastric lymph node and omental dissection on 11/19/2018. Final pathology report showed invasive poorly differentiated adenocarcinoma, diffuse/signet ring cell type; Ulcerated tumor measures 1.5 cm in greatest dimension and shows invasion through the muscularis propria with involvement of serosa pT4a; Surgical margins free; 0 out of 11 lymph nodes showed metastatic disease. N0 stage IIB (T4a, N0 Mx) Based on the findings e.g. T4 a lesion seen on partial gastrectomy specimen compared to T1B on EUS staging, adjuvant chemotherapy/chemoradiation was recommended by medical oncologist in [place]. Mr Castro was referred to GI oncology at [facility] for evaluation for clinical trial/second opinion. He was seen by on 01/12/2019 and her recommendations were, being high risk pT4a, less than D2 lymphadenectomy, adjuvant chemoradiation was recommended to maximize chance of cure. There was no clinical trial available at this time and due to patient's poor performance status and overall condition due to several postoperative complication, adjuvant chemotherapy was also suggested as an option or observation alone was also discussed. If patient's condition improves then FOLFOX or 5-FU alone could be considered and also recommended radiation consult. Mr Castro underwent CT scan of abdomen pelvis on 01/23/2019 which showed partial atelectasis or pneumonia left lower lobe.Small loculated appearing left pleural effusion with an air-fluid level, a small empyema is not excluded. Resolved previous left subdiaphragmatic abscess but post infirmity changes remains in the left subdiaphragmatic soft tissue. Mr Castro was seen by Dr. Kauffman for left lower lobe consolidation and concern about empyema. As per Dr. Kauffman it could be reactive to his subdiaphragmatic process which was treated with catheter drainage and considering area of loculation was very small, he recommended follow-up CT scan in 3 months and patient underwent CT scan of abdomen pelvis on 03/06/2019 which showed significant improvement in the previous pneumonitis and a partial atelectasis left lower lobe and decrease in left pleural effusion since 01/23/2019. He was treatment with combined chemoradiation with oral Xeloda.1500 mg by mouth twice a day concurrent with radiation therapy. He developed diarrhea and hypokalemia so his Xeloda was put on hold. Once the diarrhea had resolved, the Xeloda restarted on 03/31/2019 but reduced to 1000 mg by mouth twice a day concurrent with radiation therapy. He has completed radiation therapy. I am not convinced that he was able to take very much of his Xeloda during radiation. His compliance would be questionable as he frequently said it bothered his stomach and he couldn't take it. None the less, he has completed radiation. He completed 2 fractions for total dosing of 360 cGy to the stomach on May 01, 2019. He had fractionated dosing which consisted of 25 doses starting on March 24, 2019 and ending on April. This total dosing was 4500 cGy. He has required continuous supportive care. He is getting hydration at least 2-3 times a week but completed treatment on 05/01/2019. discussed the role of adjuvant chemotherapy with FOLFOX or [place] ox with and Mrs. Alvarado. Mr. Castro has decided not to take any further chemotherapy because of related side effects and toxicity. He did not tolerate combined chemoradiation well. he would prefer observation alone. Follow-up chest CT report from May 28, 2019 reported resolved left pleural effusion and left lower lobe atelectasis/pneumonia. Chronic emphysema. No adenopathy, but increase in number of subcentimeter bilateral axillary lymph nodes there was a right hilar lymph node measuring at 9.1 mm. Also reported was mild thickening of the esophagus. Consider esophagitis . Follow-up CT scan of abdomen pelvis done on 07/15/2019 showed mild gallbladder wall thickening with slight gallbladder wall enhancement. Normal common bile duct. Post operative changes gastrojejunal anastomosis with subtotal gastrectomy. No lymphadenopathy. Ultrasound gallbladder done on 07/15/2019 shows minimal gallbladder wall thickening no cholelithiasis. No sludge noted. pericholecystic fluid suggestive of trace edema HIDA scan done on 07/22/2019 showed normal HIDA scan normal gallbladder ejection fraction. complaining of mid abdominal pain, more with fried food especially with fried chicken. Denies any nausea vomiting denies any diarrhea constipation, denies any abdominal fullness, denies any dysuria or hematuria, denies any hemoptysis or hematemesis melena or hematochezia. Denies any jaundice denies any fever chills. Poor appetite, and also losing weight. Patient said with the pain medication hydrocodone he can at least eat otherwise having problem with maintaining nutrition.CT scan of her abdomen done on August 18, 2019 showed circumferential diffuse wall thickening and mucosal enhancement involving the transverse colon most consistent with infectious or inflammatory colitis. Diffuse heterogeneous striated enhancement involving the right greater than left kidneys consistent with pyelonephritis. Mild abdominal ascites mainly in the upper abdomen and pericolic gutters likely related to above described colitis. Postoperative changes subtotal gastrectomy and gastrojejunal anastomosis Patient was referred to Dr. 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 And final pathology report came back poorly differentiated adenocarcinoma on the outside of the colonic specimen and with appendix involvement particular the tip, metastatic disease versus second primary was a concern. Further testing is under consideration. Patient came for follow-up complaining of poor oral intake and mild but persistent lower abdominal pain/discomfort but no melena or hematochezia, no hematuria, no abdominal fullness surgical wound has healed up good but patient has lost significant weight Medications: HYDROcodone-Acetaminophen 1 Tablet (of 10-325 mg) Oral four times a day PRN, IBU-200 4 Tablet (of 200 mg) Oral b.i.d., Lisinopril 1 Tablet (of 20 mg) Oral daily, Multivitamin Adult 1 Tablet Oral daily, Ondansetron HCl 1 Tablet (of 4 mg) Oral q 6 hours PRN, Protonix 1 Tablet (of 40 mg) Tablet, enteric coated Oral daily Allergies: Haldol Review of Systems: Constitutional - Appetite is fair and weight is decreasing. No fever, chills, hot flashes, or night sweats. Energy level is poor, ENMT - No sinus congestion/drainage. No mouth sores. No sore throat. Positive for difficulty swallowing, Hematologic/Lymphatic - No abnormal bruising or bleeding, Respiratory - Positive for shortness of breath. No cough. No pleuritic pain or hemoptysis, Cardiovascular - No angina pain. No palpitations, Gastrointestinal - No nausea or vomiting. No heartburn or acid reflux. Positive for diarrhea, no constipation. Pt reports hemorrhoids, Genitourinary (M) - No dysuria. Negative for hematuria. No urinary frequency. No urgency or incontinence, Musculoskeletal - Positive for back pain, Neurologic - No headache or dizziness. No numbness/paresthesias or other focal neurologic symptoms, Psychiatric - No anxiety or depression. No insomnia. Vital Signs: Vitals are not available for this patient. Performance Status: 2 - Ambulatory/capable of all self-care, unable to perform any work activities. Up and about more than 50% of waking hours. (ECOG) Physical Examination: ENMT - No mouth sores, no, Respiratory - Lungs are clear, Cardiovascular - Regular rate and rhythm of heart, Abdomen - Well-healed midline surgical scar, abdomen soft, bowel sounds present, mild tenderness on deep palpation in the lower abdomen no rebound tenderness, Extremities - Trace edema bilaterally. Lab/Imaging: Test performed on Jul 27, 2019 11:45 Amylase 44 U/L Test performed on Jul 23, 2019 10:05 Sodium 145 mmol/L Potassium 4.0 mmol/L Chloride 105 mmol/L CO2 30 mmol/L Anion Gap 14.0 BUN 19 mg/dL Creatinine 1.1 mg/dL Cr Clearance (Est) 66.60 mL/min eGFR 70.9 mL/min Glucose 59 mg/dL Calcium 9.5 mg/dL Protein, Total 6.3 g/dL Albumin 3.8 g/dL Globulin 2.5 g/dL Bilirubin, Total 0.4 mg/dL ALT (SGPT) 17 U/L AST (SGOT) 33 U/L Alkaline Phosphatase 92 IU/L WBC 4.0 10 3/uL RBC 3.84 10 6/uL HGB 11.1 g/dL HCT 36.8 % MCV 95.8 fL MCH 28.9 pg MCHC 30.2 g/dL RDW 15.4 % Platelet Count 268 10 3/cmm MPV 11.3 fL Neutrophils 2.4 10 3/uL Lymphocytes 0.6 10 3/uL Monocytes 0.5 10 3/uL Eosinophils 0.5 10 3/uL Basophils 0.0 10 3/uL Neutrophil % 59.7 % Lymphocyte % 14.6 % Monocyte % 12.3 % Eosinophil % 12.1 % Basophils % 1.0 % Impression: Newly diagnosed adenocarcinoma involving serosal surface of right colon and appendiceal tip involvement, per extended right hemicolectomy/mobilization of colonic splenic flexure done on September 12, 2019, metastatic gastric carcinoma versus a second primary, work-up is in progress Gastric signet cell adenocarcinoma, 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 However it is questionable how compliant he has been with the capecitabine because he is having side effects of it. He completed radiation therapy on 05/01/2019. discussed the role of adjuvant chemotherapy with FOLFOX for [place] ox with and Mrs. Kenyon. Mr. Palm has decided not to take any further chemotherapy because of related side effects and toxicity. He did not tolerate combined chemoradiation well. The plan was to do a CT follow-up of the abdomen and if it showed no disease he would prefer observation alone. Follow-up chest CT report from May 28, 2019 reported resolved left pleural effusion and left lower lobe atelectasis/pneumonia. Chronic emphysema. No adenopathy, but increase in number of subcentimeter bilateral axillary lymph nodes there was a right hilar lymph node measuring at 9.1 mm. Also reported was mild thickening of the esophagus. Consider esophagitis . Plan: Discussed with patient regarding his labs white blood count 5.5 hemoglobin 9.6 crit 30.9 platelets 603,000 CMP within normal limits except potassium 3.1 Clinically, patient is in mild to moderate distress due to newly diagnosed malignancy involving serosal surface of the colon and appendix with focal extension into muscularis propria of appendix and constant lower abdominal pain, etiology unclear could be due to carcinomatosis, mild ascites/inflammation, ileus, or renal pathology as CT scan done in August 2019 showed bilateral renal changes. Although patient has no urinary signs symptoms, no fever or chills, at this point will consider lower abdominal sonogram, and also given pain medication. And hydrate him with 500 cc normal saline and patient will continue take potassium supplements and follow his potassium level. And also discuss his case with Dr. Barraza regarding any evidence of obvious carcinomatosis as in his op notes, it was mentioned about extensive adhesions only. And also discussed with Dr. Diaz regarding primary eg metastatic gastric cancer or second primary involving appendix or cecum. If patient has extensive carcinomatosis or recurrent gastric carcinoma, considering his performance status and in the past intolerance to even single agent Xeloda, his prognosis is guarded rather poor, case was discussed with his and also discussed about hospice. But patient wants to try any treatment if it can be helpful. We will check his CEA level, also request Dr. Diaz to perform next initial sequencing to identify targetable therapy his initial gastric carcinoma was HER-2/perfecto negative. Patient return to clinic after abdominal sonogram for further discussion and plan. Signed By: Pedro Marrero M.D. <<Signature on File>>
== END 2019-09-29 13:13 | disposition home or self-care (01) ==
LOC: ONCMED 13:16
PROVIDERS: Visit Provider Internal Medicine Hematology & Oncology
DX: C16.2 Malignant neoplasm of body of stomach (principal); C78.5 Secondary malignant neoplasm of large intestine and rectum; R93.422 Abnormal radiologic findings on diagnostic imaging of left kidney; R93.421 Abnormal radiologic findings on diagnostic imaging of right kidney; Z90.3 Acquired absence of stomach [part of]; Z79.899 Other long term (current) drug therapy; Z92.3 Personal history of irradiation
CPT/HCPCS: 80053; 81001; 82378; 85025; 96365; 99214; J1100; J7040

== ENCOUNTER 2019-10-01 15:17 | Outpatient (CLI) | payer MEDICARE, MEDICAID, SELFPAY ==
--- NOTE | 2019-10-01 | US_ITS ---
WS: [id number] Complete ABDOMINAL ULTRASOUND HISTORY: PAIN RLQ AND BLADDER DISTENTION COMPARISON: 07/15/2019 Liver: 14.4 cm in length. Liver is normal size. No mass identified or intrahepatic dilatation. Gallbladder: Normally distended with no gallstones, wall thickening or pericholecystic fluid. Gallbladder wall thickness: 0.2 cm. Pancreas: Not visualized. Large amount of air in the upper abdomen with shadowing. CBD: 0.5 cm. Right kidney: 11.4 cm x 6.1 cm x 4.5 cm. No mass, cortical thickening or hydronephrosis. Left kidney: 9.9 cm x 6.9 cm x 5.3 cm. No mass, cortical thickening or hydronephrosis. Spleen: Normal size and echogenicity. Abdominal aorta and IVC are within normal limits. Moderate amount of ascites within the abdomen. Small RIGHT pleural effusion. Urinary bladder is not distended. US/US abdomen complete* [id number] IMPRESSION: 1. Limited evaluation of the abdominal structures. 2. Moderate ascites. Ascites is also identified on the CT of 09/14/2019. 3. Small RIGHT pleural effusion.
== END 2019-10-01 15:18 | disposition home or self-care (01) ==
LOC: RAD 15:21
PROVIDERS: PCP Nurse Practitioner Family; Visit Provider Nurse Practitioner Family
DX: R10.31 Right lower quadrant pain (principal); N32.89 Other specified disorders of bladder; R18.8 Other ascites; J90 Pleural effusion, not elsewhere classified
CPT/HCPCS: 76700

== ENCOUNTER 2019-10-08 11:19 | Outpatient (CLI) | payer MEDICARE, MEDICAID, SELFPAY ==
--- NOTE | 2019-10-08 11:34 | CTR_ITS ---
PROCEDURE INFORMATION: Exam: CT Abdomen And Pelvis With Contrast Exam date and time: 10/08/2019 11:40 AM Age: 49 years old Clinical indication: Condition or disease; Cancer; Other: Stomach; Initial oncological staging assessment; No known metastasis; Additional info: Neoplasm of stomach TECHNIQUE: Imaging protocol: Computed tomography of the abdomen and pelvis with intravenous contrast. Radiation optimization: All CT scans at this facility use at least one of these dose optimization techniques: automated exposure control; mA and/or kV adjustment per patient size (includes targeted exams where dose is matched to clinical indication); or iterative reconstruction. Contrast material: OMNI 300; Contrast volume: 75 ml; Contrast route: INTRAVENOUS (IV); COMPARISON: CT abdomen pelvis wo con [id number] 09/14/2019 4:59 AM RADIATION DOSE METRICS: Total DLP (mGy-cm): 394.81 FINDINGS: Pleural space: Moderate-sized right and small left pleural effusions. Liver: Normal. No mass. Gallbladder and bile ducts: Normal. No calcified stones. No ductal dilation. Pancreas: Normal. No ductal dilation. Spleen: Normal. No splenomegaly. Adrenals: Normal. No mass. Kidneys and ureters: Normal. No hydronephrosis. Stomach and bowel: Prior gastric and bowel surgeries. Dilated loops of small bowel with fecalization appearance distally suggesting reduced motility/ileus. Small bowel obstruction not absolutely excluded although there is no definite transition zone. Moderate sigmoid colon diverticulosis changes. Appendix: No evidence of appendicitis. Intraperitoneal space: Mild scattered ascites. Vasculature: Unremarkable. No abdominal aortic aneurysm. Lymph nodes: Unremarkable. No enlarged lymph nodes. Bladder: Unremarkable as visualized. Reproductive: Unremarkable as visualized. Bones/joints: L5-S1 degenerative disc disease, chronic. Soft tissues: Unremarkable. CT/CT abdomen pelvis w con* [id number] IMPRESSION: 1.) Prior gastric and bowel surgeries. Dilated loops of small bowel with fecalization appearance distally suggesting reduced motility/ileus. Small bowel obstruction not absolutely excluded although there is no definite transition zone. Moderate sigmoid colon diverticulosis changes. 2.) Pleural effusions and mild scattered ascites. Radiation Dose CTDIVOL = (mGy): DLP = 394.81 (mGy-cm)
[2019-10-08] MEDS: iohexol 300 mg/mL 50 mL Btl IV (13:22)
[2019-10-08] MEDS: iohexol 300 mg/mL 100 mL Btl IV (13:24)
== END 2019-10-08 11:20 | disposition home or self-care (01) ==
PROVIDERS: PCP Nurse Practitioner Family; Visit Provider Internal Medicine Hematology & Oncology
DX: C16.9 Malignant neoplasm of stomach, unspecified (principal); J90 Pleural effusion, not elsewhere classified; R18.8 Other ascites
CPT/HCPCS: 74177

== ENCOUNTER 2019-10-15 08:11 | Outpatient (CLI) | payer MEDICARE, MEDICAID, SELFPAY ==
--- NOTE | 2019-10-15 15:12 | ONC FU_ITS ---
Dr. Marrero follow up note Patient: Benny Castro Unit #: [id number]: 1970 Dicatated By: Pedro Marrero M.D.Date of Visit:Oct 15, 2019 Onc Med Follow-up/Prog Note History of Present Illness: Mr. Castro is a 49-year-old gentleman with history of chronic anemia, melena and upper abdominal pain/discomfort underwent EGD on 08/05/2017 showed normal stomach with normal exam and duodenal, possible Merritt's esophagitis biopsy or done was negative also had colonoscopy same time, 6 mm polyp was removed from ascending colon. He continued to have abdominal discomfort/pain and he had abdominal sonogram done on 08/06/2017 which showed liver with increased echogenicity which is nonspecific. 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 pylori was identified. Patient underwent CT scan of chest abdomen pelvis on 08/29/2018 which showed no acute findings within the abdomen or pelvis and his blood workup showed normal hemoglobin and hematocrit and CMP was also normal. Patient underwent CT PET scan on 09/25/2018 which showed small focus of increase uptake within the distal gastric body/antrum. No finding to suggest metastatic disease in the chest abdomen or pelvis. Hypermetabolic left thyroid nodule 5 mm right pulmonary nodule along the major fissure probably represents an intrapulmonary lymph node. Underwent endoscopy ultrasound on 10/14/2018 which showed 1.6 x 0.9 cm hypoechoic lesion at the level of the known mass at 60 cm from the incisors. It appeared to penetrate the submucosa but not through it and the muscularis propria was intact and the visualized portion and EUS stage was T1 B, N0 MX, so no neoadjuvant chemotherapy was considered Mr Castro was seen by Dr. Medel and underwent laparoscopic partial gastrectomy and perigastric lymph node and omental dissection on 11/19/2018. Final pathology report showed invasive poorly differentiated adenocarcinoma, diffuse/signet ring cell type; Ulcerated tumor measures 1.5 cm in greatest dimension and shows invasion through the muscularis propria with involvement of serosa pT4a; Surgical margins free; 0 out of 11 lymph nodes showed metastatic disease. N0 stage IIB (T4a, N0 Mx) Based on the findings e.g. T4 a lesion seen on partial gastrectomy specimen compared to T1B on EUS staging, adjuvant chemotherapy/chemoradiation was recommended by medical oncologist in [place]. Mr Castro was referred to GI oncology at [facility] for evaluation for clinical trial/second opinion. He was seen by on 01/12/2019 and her recommendations were, being high risk pT4a, less than D2 lymphadenectomy, adjuvant chemoradiation was recommended to maximize chance of cure. There was no clinical trial available at this time and due to patient's poor performance status and overall condition due to several postoperative complication, adjuvant chemotherapy was also suggested as an option or observation alone was also discussed. If patient's condition improves then FOLFOX or 5-FU alone could be considered and also recommended radiation consult. Mr Castro underwent CT scan of abdomen pelvis on 01/23/2019 which showed partial atelectasis or pneumonia left lower lobe.Small loculated appearing left pleural effusion with an air-fluid level, a small empyema is not excluded. Resolved previous left subdiaphragmatic abscess but post infirmity changes remains in the left subdiaphragmatic soft tissue. Mr Castro was seen by Dr. Kauffman for left lower lobe consolidation and concern about empyema. As per Dr. Kauffman it could be reactive to his subdiaphragmatic process which was treated with catheter drainage and considering area of loculation was very small, he recommended follow-up CT scan in 3 months and patient underwent CT scan of abdomen pelvis on 03/06/2019 which showed significant improvement in the previous pneumonitis and a partial atelectasis left lower lobe and decrease in left pleural effusion since 01/23/2019. He was treatment with combined chemoradiation with oral Xeloda.1500 mg by mouth twice a day concurrent with radiation therapy. He developed diarrhea and hypokalemia so his Xeloda was put on hold. Once the diarrhea had resolved, the Xeloda restarted on 03/31/2019 but reduced to 1000 mg by mouth twice a day concurrent with radiation therapy. He has completed radiation therapy. I am not convinced that he was able to take very much of his Xeloda during radiation. His compliance would be questionable as he frequently said it bothered his stomach and he couldn't take it. None the less, he has completed radiation. He completed 2 fractions for total dosing of 360 cGy to the stomach on May 01, 2019. He had fractionated dosing which consisted of 25 doses starting on March 24, 2019 and ending on April. This total dosing was 4500 cGy. He has required continuous supportive care. He is getting hydration at least 2-3 times a week but completed treatment on 05/01/2019. discussed the role of adjuvant chemotherapy with FOLFOX or [place] ox with and Mrs. Alvarado. Mr. Castro has decided not to take any further chemotherapy because of related side effects and toxicity. He did not tolerate combined chemoradiation well. he would prefer observation alone. Follow-up chest CT report from May 28, 2019 reported resolved left pleural effusion and left lower lobe atelectasis/pneumonia. Chronic emphysema. No adenopathy, but increase in number of subcentimeter bilateral axillary lymph nodes there was a right hilar lymph node measuring at 9.1 mm. Also reported was mild thickening of the esophagus. Consider esophagitis . Follow-up CT scan of abdomen pelvis done on 07/15/2019 showed mild gallbladder wall thickening with slight gallbladder wall enhancement. Normal common bile duct. Post operative changes gastrojejunal anastomosis with subtotal gastrectomy. No lymphadenopathy. Ultrasound gallbladder done on 07/15/2019 shows minimal gallbladder wall thickening no cholelithiasis. No sludge noted. pericholecystic fluid suggestive of trace edema HIDA scan done on 07/22/2019 showed normal HIDA scan normal gallbladder ejection fraction. complaining of mid abdominal pain, more with fried food especially with fried chicken. Denies any nausea vomiting denies any diarrhea constipation, denies any abdominal fullness, denies any dysuria or hematuria, denies any hemoptysis or hematemesis melena or hematochezia. Denies any jaundice denies any fever chills. Poor appetite, and also losing weight. Patient said with the pain medication hydrocodone he can at least eat otherwise having problem with maintaining nutrition.CT scan of her abdomen done on August 18, 2019 showed circumferential diffuse wall thickening and mucosal enhancement involving the transverse colon most consistent with infectious or inflammatory colitis. Diffuse heterogeneous striated enhancement involving the right greater than left kidneys consistent with pyelonephritis. Mild abdominal ascites mainly in the upper abdomen and pericolic gutters likely related to above described colitis. Postoperative changes subtotal gastrectomy and gastrojejunal anastomosis Patient was referred to Dr. 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 And final pathology report came back poorly differentiated adenocarcinoma on the outside of the colonic specimen and with appendix involvement particular the tip, metastatic disease versus second primary was a concern. Patient came for follow-up complaining of poor oral intake and mild but persistent lower abdominal pain/discomfort but no melena or hematochezia, no hematuria, no abdominal fullness surgical wound has healed up good but patient has lost significant weightCase was discussed with Dr. Salomon, pathologist on October 14, 2019, as per Dr. Salomon most of her tumor was exhausted with extensive immunohistochemistry so if further molecular testing is needed patient may need another biopsy. Then case was discussed with Dr. Diaz pathologist who made initial diagnosis, as per Dr. Diaz he has some tissue to do molecular testing to identify the primary source, cancer type ID was ordered on October 15, 2019, to confirm the primary e.g. gastric carcinoma versus second colon primary. CT scan of abdomen pelvis done on October 08, 2019 showed prior gastric and bowel surgeries. Dilated loops of small bowel with fecal ideation appearance distally suggesting reduced motility/ileus. Small bowel obstruction not absolutely excluded although there is no definite transition zone. Moderate sigmoid colon diverticulosis. Pleural effusion and mild scattered ascites Abdominal sonogram done on October 01, 2019 showed moderate ascites within the abdomen, small right pleural effusion, liver is normal. Came for follow-up, complaining of mild to moderate epigastric/mid abdomen pain but under control with current pain medication, also complaining of constipation, sometimes relieved with stool softeners. No nausea or vomiting but poor appetite and poor oral intake. And continued to lose weight now appears emaciated. Denies any hemoptysis or hematemesis denies any melena or hematochezia denies any jaundice. Denies any shortness of breath. Patient has seen Dr. Barraza about 2 weeks ago, as per patient's that they were told there was no obvious disease in the abdomen but extensive scar tissue. And she was not very pleased regarding discussion about hospice care done earlier. Medications: HYDROcodone-Acetaminophen 1 Tablet (of 10-325 mg) Oral four times a day PRN, Lisinopril 1 Tablet (of 20 mg) Oral daily, Multivitamin Adult 1 Tablet Oral daily, Ondansetron HCl 1 Tablet (of 4 mg) Oral q 6 hours PRN, Protonix 1 Tablet (of 40 mg) Tablet, enteric coated Oral daily Allergies: Haldol Review of Systems: Constitutional - Appetite is fair and weight is decreasing. No fever, chills, hot flashes, or night sweats. Energy level is poor, ENMT - No sinus congestion/drainage. No mouth sores. No sore throat. Positive for difficulty swallowing, Hematologic/Lymphatic - No abnormal bruising or bleeding, Respiratory - Positive for shortness of breath. No cough. No pleuritic pain or hemoptysis, Cardiovascular - No angina pain. No palpitations, Gastrointestinal - No nausea or vomiting. No heartburn or acid reflux. Positive for diarrhea, no constipation. Pt reports hemorrhoids, Genitourinary (M) - No dysuria. Negative for hematuria. No urinary frequency. No urgency or incontinence, Musculoskeletal - Positive for back pain, Neurologic - No headache or dizziness. No numbness/paresthesias or other focal neurologic symptoms, Psychiatric - No anxiety or depression. No insomnia. Vital Signs: Performed on Oct 15, 2019 08:20 Height - 75.00 in Weight - 114.4 lbs (LOW) BSA - 1.73 sq.m BMI - 14.30 (LOW) Temperature - 97.1 F (LOW) Pulse - 76 /min Respiration - 16 /min BP - 148/108 mm(hg) (HIGH) O2 Sat - 100 % Pain - 10 Performance Status: 3 - Capable of only limited self-care, confined to bed or chair more than 50% of waking hours. (ECOG) Physical Examination: ENMT - No mouth sores, no thrush but poor oral hygiene, no jaundice, Respiratory - Lungs are clear, Cardiovascular - Regular rate and rhythm of heart, Abdomen - Soft, bowel sounds present mild tenderness in the epigastric area on deep palpation, Well-healed midline surgical scar, Extremities - Generalized muscle wasting, trace edema involving bilateral legs. Lab/Imaging: Test performed on Sep 29, 2019 13:37 Sodium 142 mmol/L Potassium 3.1 mmol/L Chloride 103 mmol/L CO2 27 mmol/L Anion Gap 15.1 BUN 16 mg/dL Creatinine 0.7 mg/dL Cr Clearance (Est) 100.13 mL/min eGFR 118.9 mL/min Glucose 89 mg/dL Calcium 8.6 mg/dL Protein, Total 6.3 g/dL Albumin 3.1 g/dL Globulin 3.2 g/dL Bilirubin, Total 0.2 mg/dL ALT (SGPT) 11 U/L AST (SGOT) 22 U/L Alkaline Phosphatase 75 IU/L WBC 5.5 10 3/uL RBC 3.33 10 6/uL HGB 9.6 g/dL HCT 30.9 % MCV 92.8 fL MCH 28.8 pg MCHC 31.1 g/dL RDW 14.0 % Platelet Count 603 10 3/cmm MPV 9.1 fL Neutrophils 4.1 10 3/uL Lymphocytes 0.5 10 3/uL Monocytes 0.6 10 3/uL Eosinophils 0.2 10 3/uL Basophils 0.1 10 3/uL Neutrophil % 75.2 % Lymphocyte % 8.5 % Monocyte % 11.5 % Eosinophil % 2.9 % Basophils % 1.5 % NRBC % 0 % CEA 1.6 ng/mL Test performed on Jul 27, 2019 11:45 Amylase 44 U/L Impression: Newly diagnosed adenocarcinoma involving serosal surface of right colon and appendiceal tip involvement, per extended right hemicolectomy/mobilization of colonic splenic flexure done on September 12, 2019, metastatic gastric carcinoma versus a second primary, work-up is in progress Gastric signet cell adenocarcinoma, 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 However it is questionable how compliant he has been with the capecitabine because he is having side effects of it. He completed radiation therapy on 05/01/2019. discussed the role of adjuvant chemotherapy with FOLFOX for [facility] ox with . and Mrs. Kenyon. Mr. Palm has decided not to take any further chemotherapy because of related side effects and toxicity. He did not tolerate combined chemoradiation well. The plan was to do a CT follow-up of the abdomen and if it showed no disease he would prefer observation alone. Follow-up chest CT report from May 28, 2019 reported resolved left pleural effusion and left lower lobe atelectasis/pneumonia. Chronic emphysema. No adenopathy, but increase in number of subcentimeter bilateral axillary lymph nodes there was a right hilar lymph node measuring at 9.1 mm. Also reported was mild thickening of the esophagus. Consider esophagitis . Plan: Discussed with patient regarding CT scan of abdomen pelvis and abdominal sonogram findings which showed there is a possibility of small bowel obstruction or ileus. And discussion regarding his pathology with pathologist and the recommendations. Patient was informed cancer type ID test has been ordered to identify the primary e.g. gastric carcinoma versus second primary. As per patient's who is a [employer], they were informed there was no obvious disease seen in the abdomen during surgery rather extensive fibrosis and adhesions. Patient is doing mild to moderate distress due to abdominal pain, his case was discussed with Dr. Barraza today who will see him and discuss with him possible options including diversion ileostomy or adhesion lysis or supportive care to relieve the obstruction. Patient was also advised that narcotics can cause ileus. Patient was advised to use small meals but more often, role of TPN was also discussed. And also discussed about overall prognosis, patient has lost significant amount of weight and now he looks emaciated and has poor performance status that may compromise tolerability to the systemic therapy in case decided. Again discussed about role of hospice but patient's declined and she wanted to talk to Dr. Barraza and wants to do everything if possible. Knowing the risk involved with any treatment specially with his comorbid condition and poor nutritional status as well as poor performance status and persistent symptoms due to small bowel ileus or partial obstruction due to extensive intra-abdominal adhesions/fibrosis. At this point we will refer him to Dr. Barraza for evaluation and as mentioned above cancer type ID has been ordered. In the meantime we will order home health care to maintain his hydration and overall supportive care and then patient will return to clinic in 3 weeks with CBC CMP and hopefully by that time will have his cancer type ID available as well as Dr. Barraza's evaluation. Signed By: Pedro Marrero M.D. <<Signature on File>>
== END 2019-10-15 08:12 | disposition home or self-care (01) ==
LOC: ONCMED 08:15
PROVIDERS: PCP Internal Medicine; Visit Provider Internal Medicine Hematology & Oncology
DX: C16.2 Malignant neoplasm of body of stomach (principal); R18.8 Other ascites; J43.9 Emphysema, unspecified; Z79.891 Long term (current) use of opiate analgesic; Z90.3 Acquired absence of stomach [part of]; Z87.01 Personal history of pneumonia (recurrent); Z92.3 Personal history of irradiation; Z92.21 Personal history of antineoplastic chemotherapy; Z90.49 Acquired absence of other specified parts of digestive tract
CPT/HCPCS: 99214

== ENCOUNTER 2019-10-17 20:00 | Inpatient (IN) | payer MEDICARE, MEDICAID, SELFPAY ==
--- NOTE | 2019-10-17 20:07 | XRR_ITS ---
PROCEDURE INFORMATION: Exam: XR Abdomen, 1 View Exam date and time: 10/17/2019 9:35 PM Age: 49 years old Clinical indication: Abdominal pain; Generalized; Prior surgery; Surgery date: 1-6 months; Surgery type: Bowel resection 4 weeks ago; Additional info: Constipation TECHNIQUE: Imaging protocol: XR of the abdomen. Views: Frontal supine view of the abdomen. 1 View. COMPARISON: CR Upper GI w/ SBS [id number] 09/01/2019 1:18 PM FINDINGS: Gastrointestinal tract: There are multiple dilated loops of thesmall bowel seen compatible with a small-bowel obstruction. Bones/joints: Unremarkable. XR/XR KUB [id number] IMPRESSION: There are multiple loops of dilated small bowel compatible with a small-bowel obstruction.
[2019-10-17 20:42] VITALS: BP 146/99; PULSE 78; RESP 18; TEMP 36.4; O2SAT 98; BMI 13.8
--- NOTE | 2019-10-17 21:27 | CTR_ITS ---
PROCEDURE INFORMATION: Exam: CT Abdomen And Pelvis With Contrast Exam date and time: 10/17/2019 9:43 PM Age: 49 years old Clinical indication: Abdominal pain; Prior surgery; Surgery date: 1-6 months; Surgery type: Bowel resection 4 weeks ago; Additional info: Abd pain TECHNIQUE: Imaging protocol: Computed tomography of the abdomen and pelvis with intravenous contrast. Radiation optimization: All CT scans at this facility use at least one of these dose optimization techniques: automated exposure control; mA and/or kV adjustment per patient size (includes targeted exams where dose is matched to clinical indication); or iterative reconstruction. Contrast material: VISI; Contrast volume: 75 ml; Contrast route: INTRAVENOUS (IV); COMPARISON: CT abdomen pelvis w con* [id number] 10/08/2019 1:09 PM RADIATION DOSE METRICS: Total DLP (mGy-cm): 544.01 FINDINGS: Pleural space: There is a tiny right pleural effusion present. Liver: Normal. No mass. Gallbladder and bile ducts: Normal. No calcified stones. No ductal dilation. Pancreas: Normal. No ductal dilation. Spleen: Normal. No splenomegaly. Adrenals: Normal. No mass. Kidneys and ureters: Normal. No hydronephrosis. Stomach and bowel: Status post gastric and bowel surgeries. There are greatly dilated small bowel loops now present compatible with a small-bowel obstruction. The transition is indeterminate. Moderate stool is present within the descending and sigmoid colon. Appendix: No evidence of appendicitis. Intraperitoneal space: There is some free fluid seen within the right pericolic gutter, overlying the liver and within the pelvis. Vasculature: Unremarkable. No abdominal aortic aneurysm. Lymph nodes: Unremarkable. No enlarged lymph nodes. Bladder: Unremarkable as visualized. Reproductive: Unremarkable as visualized. Bones/joints: Severe loss of disc height and vacuum disc phenomenon is seen at L5-S1 compatible with degenerative disc disease. Soft tissues: Unremarkable. CT/CT abdomen pelvis w con* [id number] IMPRESSION: 1. Status post gastric surgery and bowel resection. There are greatly dilated loops of small bowel seen suggesting small bowel obstruction. The transition is indeterminate in today's examination. 2. Moderate stool is seen within the descending and sigmoid colon. 3. Small amount of fluid seen within the right pericolic gutter, overlying the liver and within the pelvis. 4. Small right pleural effusion Radiation Dose CTDIVOL = (mGy): DLP = 544.01 (mGy-cm)
--- NOTE | 2019-10-17 21:40 | W.ED.ABDPA2 ---
HPI - Abdominal Pain General: Chief Complaint: Abdominal Pain Stated Complaint: constipation Time Seen by Provider: 10/17/19 21:28 Source: patient Mode of arrival: ambulatory Limitations: no limitations History of Present Illness: HPI narrative: 49-year-old male who has a history of gastric cancer and a history of obstructions. Patient had a bowel resection [address] Barraza. He states that since then he has had chronic pain and [place] is not helping his pain. He is concerned he has another obstruction as well. He denies any vomiting. Patient denies any worsening improving factors. He states pain is currently a 9 out of 10. MD elicited complaint: abdominal pain Onset (ago): month(s) Pain Consistency: constant Location: Diffuse Severity: moderate Exacerbating factors: nothing Relieving factors: nothing Associated Symptoms: Denies chills, dysuria and fever(s) Review of Systems Const: Denies: fever(s), chills, body aches or change in appetite Eyes: Denies: blurry vision or eye discomfort ENMT: Denies: throat pain or dental pain Card: Denies: chest pain Resp: Denies: dyspnea GI: Reports: abdominal pain : Denies: dysuria Musc: Denies: neck pain or back pain Skin/Breast: Denies: rash Neuro: Denies: headache(s) Psych: Denies: depression Ceasar/Lymph: Denies: easy bruising All/Imm: Denies: urticaria PFSH ED PFSH: Medical History Bowel obstruction Gastric carcinoma -s/p partial gastrectomy in November 2018, stage II, status post radiation course with last in April 2019. -Follows up with Dr. Marrero. GERD (gastroesophageal reflux disease) History of colon polyps HTN (hypertension), benign Hyperlipidemia Obstruction of transverse colon -POD # 4 s/p exploratory laparotomy with extended right hemicolectomy with reanastomosis -antiemetics, pain control as needed -off IVF hydration, tolerating GI soft diet -on dual antibiotics (Ceftriaxone, Metronidazole) -antiemetics as needed -prelim pathology shows possible metastatic poorly differentiated gastric adenocarcinoma primarily on the serosal surface of the colon and appendix with focal extension into muscularis propria. Final pathology pending, Dr. Barraza to follow-up Surgical History H/O esophagogastroduodenoscopy S/P exploratory laparotomy 09/12/2019 S/P partial gastrectomy Laparoscopic --Dr. Medel in [place] S/P right hemicolectomy Scar conditions/skin fibrosis Excision of subcutaneous/anterior rectus sheath scar tissue at laparoscopic incision Status post colonoscopy with polypectomy 07/2017 -- 1 polyp, pathology unknown ([place]) Family History Family/Other Cancer Paternal uncle with bone cancer Social History Smoking and tobacco status: former smoker Quit status (tobacco): has quit using tobacco Year quit tobacco: 2019, [id number] history previously Physical Exam Const: COMMON NORMALS: no acute distress, patient oriented x3 and healthy appearing HENMT: COMMON NORMALS: normocephalic and atraumatic HEAD & SCALP: normocephalic and atraumatic Eye: COMMON NORMALS: Equal, round and reactive pupils present and EOMs intact bilaterally PUPIL: Yes Equal, round and reactive pupils present Neck/C-Spine: COMMON NORMALS: full ROM and supple Chest: COMMONS NORMALS: normal inspection of the chest and normal palpation of entire chest wall Resp: COMMON NORMALS: normal respiratory effort, No retractions, No use of accessory muscles and clear to auscultation bilaterally AUSCULTATION: clear to auscultation bilaterally Cardio: COMMON NORMALS: regular rate, regular rhythm and No murmurs present (Cardio) RATE: regular rate RHYTHM: regular rhythm GI: COMMON NORMALS: Normal to inspection, nondistended, normoactive bowel sounds present, Soft to palpation and no masses PALPATION: Yes Soft to palpation and Yes Tenderness to palpation present (GI) Extremity: COMMON NORMALS: normal to inspection and full ROM Neuro: COMMON NORMALS: patient oriented x3, moves all extremities and no focal motor deficits Psych: COMMON NORMALS: mental status grossly normal, Normal thought process present and cooperative THOUGHT PROCESS: Normal thought process present Skin: COMMON NORMALS: no rashes or lesions noted and no wounds GENERAL SKIN EXAM: no rashes or lesions noted Course Vital Signs: Vital signs: Vital Signs Temperature 97.5 F L 10/17/19 20:42 Pulse Rate 78 10/17/19 20:42 Respiratory Rate 16 10/17/19 22:31 Blood Pressure 138/103 10/17/19 22:31 Pulse Oximetry 98 10/17/19 22:31 MDM - Abdominal Pain MDM Narrative: Medical decision making narrative: Patient presents here with a small bowel obstruction and has a extensive history of surgery. I spoke to hospitalist Dr. Boudreaux who is admitting and I also spoke to Dr. Lowe of surgery who is consulted at this time. We will place an NG tube and admit patient. Patient has been stable while down here Lab Data: Labs: Lab Results 10/17/19 10/17/19 Range/Units 21:45 21:45 WBC 4.8 (4.0-10.0) 10^3/ uL RBC 3.68 L (4.1-5.3) 10^6/u L Hgb 10.9 L (11.7-16.6) g/dL Hct 34.4 L (42.0-52.0) % MCV 93.5 (80-94) fL MCH 29.6 (28.0-34.0) pg MCHC 31.7 (30.0-36.0) g/dL RDW 14.7 (12.1-15.1) % Plt Count 391 (130-400) 10^3/c mm MPV 9.2 (7.4-10.4) fL Neut % (Auto) 73.4 % Lymph % (Auto) 9.1 % [place] % (Auto) 14.9 % Eos % (Auto) 1.2 % Baso % (Auto) 1.0 % Neut # (Auto) 3.53 (1.8-7.7) 10^3/u L Lymph # (Auto) 0.4 L (0.8-4.8) 10^3/u L [place] # (Auto) 0.7 (0.2-0.9) 10^3/u L Eos # (Auto) 0.1 (0.0-0.8) 10^3/u L Baso # (Auto) 0.1 (0.0-0.1) 10^3/u L Nucleated RBC % (a uto) 0 % Nucleated RBCs # 0.0 /100WBC Sodium 135 L (136-145) mmol/L Potassium 3.8 (3.5-5.1) mmol/L Chloride 95 L (98-107) mmol/L Carbon Dioxide 30 H (22-29) mmol/L Anion Gap 13.8 (5-19) BUN 10 (6-20) mg/dL Creatinine 0.7 (0.7-1.2) mg/dL GFR Calculation 118.9 (90-130) mL/min Glucose 108 (65-115) mg/dL Calculated Osmolal ity 277 L (285-295) mOsm/k g Calcium 9.5 (8.5-10.5) mg/dL Total Bilirubin 0.4 (0.15-1.2) mg/dL AST 23 (0-40) U/L ALT 10 (0-41) U/L Alkaline Phosphata se 106 (40-130) IU/L Total Protein 7.2 (6.6-8.7) g/dL Albumin 3.6 (3.5-5.2) g/dL Globulin 3.6 (1.3-4.6) g/dL Lipase 10 L (13-60) U/L Discharge Plan Discharge Patient Disposition: Admitted As Inpatient Clinical Impression: Small bowel obstruction Condition: Stable Referrals: GREGORIO MATHIS DO [Primary Care Provider] - Coding Level of Care Code ED Compliance Quality Performance Analyst for Chg Fwd Exam Comprehensive
[2019-10-17 21:57] VITALS: RESP 16
[2019-10-17] MEDS: HYDROmorphone 1 mg/mL INJ 1 mL IVP ×2 (21:57→23:43)
[2019-10-17 21:59] LABS: Basophils # 0.1 10^3/uL (0.0-0.1); Eosinophils # 0.1 10^3/uL (0.0-0.8); Eosinophils % 1.2 %; Hematocrit 34.4 % (42.0-52.0); Hemoglobin 10.9 g/dL (11.7-16.6); Lymphocytes # 0.4 10^3/uL (0.8-4.8); Lymphocytes % 9.1 %; Mean Corpuscular HGB Conc 31.7 g/dL (30.0-36.0); Mean Corpuscular Hemoglobin 29.6 pg (28.0-34.0); Mean Corpuscular Volume 93.5 fL (80-94); Mean Platelet Volume 9.2 fL (7.4-10.4); Monocytes # 0.7 10^3/uL (0.2-0.9); Monocytes % 14.9 %; Neutrophils # 3.53 10^3/uL (1.8-7.7); Neutrophils % 73.4 %; Nucleated Red Blood Cells % 0 %; Platelet Count 391 10^3/cmm (130-400); Red Blood Count 3.68 10^6/uL (4.1-5.3); Red Cell Distribution Width 14.7 % (12.1-15.1); White Blood Count 4.8 10^3/uL (4.0-10.0)
[2019-10-17] MEDS: ondansetron 2 mg/ML SDV 2 mL 4 MG IVP (21:59)
[2019-10-17] MEDS: sodium chloride 0.9% 1,000 ML 999 ML IV (21:59)
[2019-10-17] MEDS: iodixanol 320 mg/mL 100mL Btl IV (22:05)
[2019-10-17 22:12] LABS: Alanine Aminotransferase 10 U/L (0-41); Albumin Level 3.6 g/dL (3.5-5.2); Alkaline Phosphatase 106 IU/L (40-130); Anion Gap 13.8 (5-19); Aspartate Amino Transferase 23 U/L (0-40); Blood Urea Nitrogen 10 mg/dL (6-20); Calcium 9.5 mg/dL (8.5-10.5); Carbon Dioxide 30 mmol/L (22-29); Chloride 95 mmol/L (98-107); Globulin 3.6 g/dL (1.3-4.6); Glomerular Filtration Rate 118.9 mL/min (90-130); Glucose 108 mg/dL (65-115); Lipase 10 U/L (13-60); Osmolality Calculated 277 mOsm/kg (285-295); Potassium 3.8 mmol/L (3.5-5.1); Sodium 135 mmol/L (136-145); Total Bilirubin 0.4 mg/dL (0.15-1.2); Total Protein 7.2 g/dL (6.6-8.7)
[2019-10-17 22:31] VITALS: BP 138/103; RESP 16; O2SAT 98
--- NOTE | 2019-10-17 23:05 | PM.HP ---
Providers/Chief Complaint Admitting Physician: April Foley MD Primary Care Provider: GREGORIO MATHIS DO Chief Complaint: constipation History of Present Illness Benny Castro is a 49 year old male who presented to the emergency room with chief complaint of increasing abdominal pain. He has a known history of gastric carcinoma and has undergone previous gastrectomy in 2019. He follows with Dr. Marrero from a cancer standpoint. He has had several bowel obstructions. Some of them have been able to be managed conservatively but last month he required exploratory lap neurotomy and ultimately ended up undergoing extended right hemicolectomy with [address] Barraza. He has continued to have abdominal discomfort since that time that has been progressively worsening. He had a repeat CT of his abdomen and pelvis on October 07 that showed dilated loops of small bowel suggesting reduced motility/ileus although small bowel obstruction was not able to be completely excluded. He had been on some stool softeners prior to that but they were increased after that CT. Arrangements were underway to get patient back into see Dr. Barraza to see what other options there were for managing the obstructive processes in his abdomen. Pathology from the surgery that Dr. Barraza did showed adenocarcinoma involving an area outside of the colon and the appendix. It is unclear at this time if that is a second primary or metastases. Additional studies have been sent on the specimens to help get identification. Over the course of the last week, goal is been for patient to have a bowel movement every day. He did not have a bowel movement on Saturday and ultimately ended up taking a fleets enema. He did have some output from that but after he had that enema he began to have even more severe pain in the lower abdomen. Pain is really more suprapubic in nature and has been all along. He has been passing a little bit of gas. No appetite. No vomiting. Denies nausea. Main complaint is that of pain. CT done in the emergency room tonight shows greatly dilated loops of small bowel suggesting small bowel obstruction with an indeterminate transition point. Moderate amounts of stool was also noted within the descending and sigmoid colon with a small amount of fluid in the right paracolic gutter. Patient required several doses of pain medicine and antiemetics in the emergency room. He declined to have an NG tube placed. With increasing severity of symptoms he is being admitted for further evaluation and possible treatment. ED physician discussed the case with Dr. Juarez who will see him in consultation. Review of Systems Const: Reports: change in appetite, change in weight and fatigue; Denies: fever(s) or chills Eyes: Denies: change in vision ENMT: Reports: dry mouth; Denies: throat pain or nasal congestion Card: Denies: chest pain, palpitations or edema Resp: Denies: dyspnea, productive cough or non-productive cough GI: Reports: abdominal pain, heartburn, constipation, bloating and GI cramping; Denies: nausea, vomiting, hematemesis, dysphagia, diarrhea, rectal pain, hematochezia or melena : Reports: oliguria; Denies: difficulty urinating Skin/Breast: Reports: dry skin; Denies: rash, pruritus or sores Neuro: Reports: headache(s) and weakness in extremities; Denies: numbness in extremities or dizziness Psych: Denies: anxiety or depression Ceasar/Lymph: Denies: easy bruising or easy bleeding Medications/Allergies Home Medications Medication Instructions Recorded Confirmed Last Taken Type lisinopril 20 mg PO DAILY 07/15/19 09/12/19 09/05/19 History pantoprazole 40 mg PO BID 07/15/19 09/12/19 09/05/19 History ibuprofen 800 mg PO Q6H PRN 08/19/19 09/12/19 08/26/19 History ondansetron HCl 4 - 8 mg PO TID PRN 08/19/19 09/12/19 09/10/19 History Gas Relief (simethicone) See Rx Instructions .ROUTE .COMPLEX 09/12/19 09/12/19 Unknown History Mylanta Maximum Strength 20 ml PO PRN 09/12/19 09/12/19 09/12/19 History Tylenol Extra Strength 1,000 mg PO PRN 09/12/19 09/12/19 09/11/19 History dicyclomine 20 mg PO QID 09/12/19 09/12/19 09/10/19 History hydrocodone-acetaminophen [[place]] 1 tab PO Q6H PRN 09/12/19 09/12/19 09/12/19 04:00 History metronidazole 500 mg PO TID 09/12/19 09/12/19 09/12/19 08:00 History hydrocodone-acetaminophen 1 - 2 tab PO Q5H PRN #30 tab 09/16/19 Unknown Rx Allergies Allergy/AdvReac Type Severity Reaction Status Date / Time haloperidol [From Haldol] Allergy ADR/ALGY-Pa Verified 10/18/19 07:24 lpitations PFSH Acute PFSH: Medical History (Updated 10/18/19 @ 07:48 by April Foley MD) Bowel obstruction Gastric carcinoma s/p partial gastrectomy in November 2018, stage II, status post radiation course with last in April 2019. Follows up with Dr. Marrero. Has decided not to take chemotherapy because of related side effects and toxicity after not tolerating Xeloda very well History of colon polyps HTN (hypertension), benign Recurrent intestinal obstruction Surgical History (Updated 10/18/19 @ 07:34 by April Foley MD) H/O esophagogastroduodenoscopy S/P exploratory laparotomy (~09/12/19) for bowel obstruction S/P partial gastrectomy (~2018) Laparoscopic with perigastric lymph node and omental dissection--Dr. Medel in [place] S/P right hemicolectomy (~09/12/19) Dr Barraza, extended right hemicolectomy with reanastomosis Scar conditions/skin fibrosis Excision of subcutaneous/anterior rectus sheath scar tissue at laparoscopic incision Status post colonoscopy with polypectomy 07/2017 -- 1 polyp, pathology unknown ([place]) Family History (Updated 10/17/19 @ 23:24 by April Foley MD) Family/Other Cancer Paternal uncle with bone cancer CAD (coronary artery disease) Social History (Updated 10/17/19 @ 23:24 by April Foley MD) Smoking and tobacco status: former smoker Quit status (tobacco): has quit using tobacco Year quit tobacco: 2019, [id number] history previously Alcohol intake: never Substance/Drug Use: never Household members: spouse Vitals/I&O/Wt Last Vital Signs Temp 97.5 F L 10/17/19 20:42 Pulse 78 10/17/19 20:42 Resp 16 10/17/19 22:31 BP 138/103 10/17/19 22:31 Pulse Ox 98 10/17/19 22:31 Weight last 48 hrs Weight 51.71 kg Physical Exam Const: OTHER: Alert, oriented x3, cooperative, cachectic HENMT: OTHER: Bitemporal wasting, dry mucous membranes Eye: OTHER: Pupils equally round and reactive to light Neck/C-Spine: OTHER: Supple Resp: OTHER: Clear to auscultation bilaterally, no rales, rhonchi or wheezes noted Cardio: OTHER: Regular rate and rhythm, no murmurs gallops or rubs, brisk capillary refill of toes GI: OTHER: Abdomen soft in the upper quadrants but firm in the lower quadrants, some guarding, no rebound, slightly scaphoid at the epigastric area, decreased bowel sounds : OTHER: Deferred Extremity: NARRATIVE EXTREMITY EXAM: Doughy pitting edema to the distal extremities Neuro: OTHER: Speech clear, face symmetric, moves all extremities, extensive muscle wasting Psych: OTHER: Normal affect Skin: OTHER: Dry skin Data : 10/18/19 04:34 10/18/19 04:34 A&P Assessment and plan (1) Acute abdominal pain: This is been progressively worsening over time since his last surgery according to description. It acutely worsened I think potentially because of the fleets enema administered on Saturday. Pain refers down into the suprapubic region for him. Status: Acute (2) Small bowel obstruction: Indicated on CT imaging again. This is been a recurrent problem for him. Last surgical intervention was in September. While he currently has increased abdominal pain he is not having vomiting and is reporting regular stool output with laxative therapy and flatus. Status: Acute (3) Gastric carcinoma: s/p partial gastrectomy in November 2018, stage II, status post radiation course with last in April 2019. Follows up with Dr. Marrero. 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 At home he only has hydrocodone. Most likely needs something stronger for pain control at home but along with this will need increase stool softener/laxative regimen Stool softeners Dr. Juarez has agreed to see the patient in consultation Discussed with patient that should he start having vomiting or more progressive symptoms we will have to reconsider placement of NG tube. He declined it initially Oral medicines are currently held If patient's hospital stay is going to be more than a day or 2, consideration should be given to initiation of TPN and possibly placement of PICC line. He does not have a Port-A-Cath. ROBSON chicholeeanna and SCDs Avoiding pharmacological DVT prophylaxis currently in the event that he needs surgery Full code Home health arrangements appear to be underway from oncology clinic Patient's and the patient have a lot of questions about his cancer. I know that they have been following with oncology and had some discussion regarding prognosis with Dr. Marrero recently. They asked about whether or not he could survive surgery. I explained that his nutritional status and degree of cachexia along with declining functional capacity is a significant concerned about how he will do both during and after surgery. Laboratory studies currently reveal significant challenges for perioperative management. I am not sure the extent of surgery that he would require and recommended that they also discussed this with surgeon when they have an opportunity. I had reviewed patient's records quickly prior to meeting him. I mentioned the term stage IV cancer based on a nomenclature that had the number four shown in it. This concerned both Mr. Castro and his greatly. After repeat review in their presence I was able to find where he was staged at stage IIb, HER-2/perfecto negative. I talked about the fact that the abnormality identified from pathology specimens taken from his last surgery could possibly be metastatic disease and that there were some other concerning findings on imaging that while not definitive could be indicative of other involvement (I did not go into details of pleural effusion, ascites, thickened esophagus or lymph nodes). They both remain hopeful that maybe he will get through this but they were points in the discussion that I think that his is starting to realize that he may not do well. I was upfront about the fact that the overall prognosis was not good. I have a sense that they want to make sure that they have considered all options before transitioning to a more comfort care type situation. I talked about the fact that sometimes in these cases surgical intervention is a way to provide pain control if an obstruction becomes unbearable. Encouraged him to ask similar questions that they asked of me with Dr. Marrero and surgery and other care providers. Attestations Medical Necessity Statement*: Anticipated stay greater than 2 midnights in a patient with progressively worsening abdominal pain associated with recurrent bowel obstruction. He has no cancer. He is required multiple doses of IV pain medication in the emergency room and will be evaluated by surgery. Other plans are as indicated. Coding Level of Care Code Acute Front End Java Developer for Chg Fwd Diagnoses Acute abdominal pain R10.9 Small bowel obstruction K56.609 Gastric carcinoma C16.9 Adenocarcinoma C80.1 Macrocytic anemia D53.9 HTN (hypertension), benign I10 Cancer cachexia R64
[2019-10-17 23:43] VITALS: RESP 16
--- NOTE | 2019-10-17 23:46 | PC.NURSE ---
pt refused NG tube. Dr. Foley notified.
[2019-10-17 23:47] VITALS: BP 170/115; PULSE 86; RESP 16; O2SAT 98
[2019-10-18] VITALS (17 sets, daily range): BP systolic 143–161; BP diastolic 80–114; PULSE 51–86; RESP 14–20; TEMP 36.2–36.6; O2SAT 94–99
[2019-10-18] MEDS: HYDROmorphone 1 mg/mL INJ 1 mL IVP ×9 (03:41→22:13)
[2019-10-18] MEDS: dextrose 5%-sod chloride 0.9% 1,000 ML 100 ML IV ×3 (03:42→23:10)
[2019-10-18 05:04] LABS: Basophils # 0.1 10^3/uL (0.0-0.1); Basophils % 1.2 %; Eosinophils # 0.1 10^3/uL (0.0-0.8); Eosinophils % 2.4 %; Hemoglobin 10.3 g/dL (11.7-16.6); Lymphocytes # 0.5 10^3/uL (0.8-4.8); Lymphocytes % 9.3 %; Mean Corpuscular HGB Conc 30.3 g/dL (30.0-36.0); Mean Corpuscular Hemoglobin 28.7 pg (28.0-34.0); Mean Corpuscular Volume 94.7 fL (80-94); Mean Platelet Volume 9.9 fL (7.4-10.4); Monocytes # 0.7 10^3/uL (0.2-0.9); Monocytes % 14.6 %; Neutrophils # 3.56 10^3/uL (1.8-7.7); Neutrophils % 72.1 %; Nucleated Red Blood Cells % 0 %; Platelet Count 311 10^3/cmm (130-400); Red Blood Count 3.59 10^6/uL (4.1-5.3); Red Cell Distribution Width 14.6 % (12.1-15.1); White Blood Count 4.9 10^3/uL (4.0-10.0)
[2019-10-18 05:20] LABS: Blood Urea Nitrogen 9 mg/dL (6-20); Calcium 9.2 mg/dL (8.5-10.5); Carbon Dioxide 30 mmol/L (22-29); Chloride 98 mmol/L (98-107); Glomerular Filtration Rate 118.9 mL/min (90-130); Glucose 92 mg/dL (65-115); Osmolality Calculated 280 mOsm/kg (285-295); Sodium 137 mmol/L (136-145)
[2019-10-18 05:56] LABS: Magnesium 2.1 mg/dL (1.7-2.3); Phosphorus 3.8 mg/dL (2.5-4.5)
[2019-10-18 06:30] LABS: Anion Gap 13.1 (5-19)
[2019-10-18 06:31] LABS: Potassium 4.1 mmol/L (3.5-5.1)
--- NOTE | 2019-10-18 07:11 | P.CONIM_ITS ---
Providers/Reason For Consult Consulting Physican/Specialty*: Darryl Juarez MD Reason for Consult*: Concern for bowel obstruction Attending Physician: April Foley MD Primary Care Provider: GREGORIO MATHIS DO History of Present Illness History of Present Illness Chief complaint Abdominal pain HPI; Mr suzanne Castro is an unfortunate 49 year old male gives history of chronic abdominal pain back in 2018 had an EGD that showed adenocarcinoma along the lesser curvature in the distal body, pain had started back in 2017 and undergone an EGD and at that time the exam was normal, patient back in October 2018 had endoscopic ultrasound and showed a hypoechoic lesion at the level of the known mass at 60 cm from the ( stage was T1 B, N0 MX). The patient was seen in [place] area and underwent laparoscopic partial gastrectomy and perigastric lymph node and omental dissection and Stephen-en-Y gastric bypass and an ante-colic fashion on 11/19/2018. Pathology showed: Invasive poorly differentiated adenocarcinoma,diffuse/signet ring cell type; Ulcerated tumor measures 1.5 cm in greatest,dimension and shows invasion through the muscularis propria with involvement of serosa pT4a; Surgical margins free; 0 out of 11 lymph nodes showed metastatic disease. N0 stage IIB (T4a, N0 Mx). Adjuvant chemotherapy/chemoradiation was recommended by medical oncologist in [place]. Thereafter patient was referred to GI oncology at [facility] for evaluation for clinical trial/second opinion. Patient was referred to Dr. 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 Final pathology report came back poorly differentiated adenocarcinoma on the outside of the colonic specimen and with appendix involvement particular the tip, metastatic disease versus second primary was a concern.'' Patient presented to the emergency department with vague abdominal pain undergone a CT scan of the abdomen and pelvis that showed: IMPRESSION: 1. Status post gastric surgery and bowel resection. There are greatly dilated loops of small bowel seen suggesting small bowel obstruction. The transition is indeterminate in today's examination. 2. Moderate stool is seen within the descending and sigmoid colon. 3. Small amount of fluid seen within the right pericolic gutter, overlying the liver and within the pelvis. 4. Small right pleural effusion Obtaining history is quite challenging , it looks to me that patient is having chronic small bowel obstruction yet there is large element of stools in his colon and bowels, today he passed gas and he said his last bowel movement was about 3 days ago, his current main concern is nutrition and he is under the assumption that he would go another procedure which sounds like a feeding tube for his nutrition optimization per patient's description. General surgery was consulted for further evaluation for concern of bowel obstruction Review of Systems General: Reports: 10 or more systems reviewed and unremarkable except in HPI and below Meds/Allergies Home Medications and Allergies Home Medications Medication Instructions Recorded Confirmed Last Taken Type lisinopril 20 mg PO DAILY 07/15/19 09/12/19 09/05/19 History pantoprazole 40 mg PO BID 07/15/19 09/12/19 09/05/19 History ibuprofen 800 mg PO Q6H PRN 08/19/19 09/12/19 08/26/19 History ondansetron HCl 4 - 8 mg PO TID PRN 08/19/19 09/12/19 09/10/19 History Gas Relief (simethicone) See Rx Instructions .ROUTE .COMPLEX 09/12/19 09/12/19 Unknown History Mylanta Maximum Strength 20 ml PO PRN 09/12/19 09/12/19 09/12/19 History Tylenol Extra Strength 1,000 mg PO PRN 09/12/19 09/12/19 09/11/19 History dicyclomine 20 mg PO QID 09/12/19 09/12/19 09/10/19 History hydrocodone-acetaminophen [[place]] 1 tab PO Q6H PRN 09/12/19 09/12/19 09/12/19 04:00 History metronidazole 500 mg PO TID 09/12/19 09/12/19 09/12/19 08:00 History hydrocodone-acetaminophen 1 - 2 tab PO Q5H PRN #30 tab 09/16/19 Unknown Rx Allergies Allergy/AdvReac Type Severity Reaction Status Date / Time haloperidol [From Haldol] Allergy ADR/ALGY-Pa Verified 10/18/19 07:24 lpitations Current Medications Current Medications Generic Name Dose Route Start Last Admin Trade Name Freq PRN Reason Stop Dose Admin Hydromorphone HCl 1 mg 10/18/19 03:20 10/18/19 03:41 Dilaudid Inj IVP 1 mg Q2H PRN Administration PAIN Dextrose/Sodium Chloride 1,000 mls @ 100 mls/hr 10/18/19 03:00 10/18/19 03:42 Dextrose 5%-Sod Chloride 0.9% IV 100 mls/hr .Q10H TORRES Administration PFSH Acute PFSH: Medical History (Updated 10/18/19 @ 07:48 by April Foley MD) Bowel obstruction Gastric carcinoma s/p partial gastrectomy in November 2018, stage II, status post radiation course with last in April 2019. Follows up with Dr. Marrero. Has decided not to take chemotherapy because of related side effects and toxicity after not tolerating Xeloda very well History of colon polyps HTN (hypertension), benign Recurrent intestinal obstruction Surgical History (Updated 10/18/19 @ 07:34 by April Foley MD) H/O esophagogastroduodenoscopy S/P exploratory laparotomy (~09/12/19) for bowel obstruction S/P partial gastrectomy (~2018) Laparoscopic with perigastric lymph node and omental dissection--Dr. Medel in [place] S/P right hemicolectomy (~09/12/19) Dr Barraza, extended right hemicolectomy with reanastomosis Scar conditions/skin fibrosis Excision of subcutaneous/anterior rectus sheath scar tissue at laparoscopic incision Status post colonoscopy with polypectomy 07/2017 -- 1 polyp, pathology unknown ([place]) Family History Family/Other Cancer Paternal uncle with bone cancer CAD (coronary artery disease) Social History Smoking and tobacco status: former smoker Quit status (tobacco): has quit using tobacco Year quit tobacco: 2019, [id number] history previously Alcohol intake: never Substance/Drug Use: never Household members: spouse Vitals/I&O/Wt Last Vital Signs Temp 97.7 F 10/18/19 04:00 Pulse 54 L 10/18/19 04:00 Resp 18 10/18/19 04:00 BP 157/97 10/18/19 04:00 Pulse Ox 99 10/18/19 04:00 10/17/19 10/18/19 10/18/19 22:59 06:59 14:59 Output Total 180 / 180 Balance -180 / -180 Weight last 48 hrs Weight 114 lb Physical Exam Narrative: EXAM NARRATIVE: Patient is conscious alert oriented X3 BMI 14 Head and neck examination PERRLA no masses no cervical lymphadenopathy no jaundice Cardiac examination audible S1-S2 no murmurs no gallops no arrhythmias Chest is clear bilateral,abscence of Rhonchi or wheezes,no surgical emphysema Abdomen mild tender particularly at the lower and the left side nondistended soft no organomegaly guarding or rigidity/no signs of peritonitis. Midline scar No evidence of clinically detected hernias including groin regions Extremities no cyanosis no clubbing no edema A&P Assessment and plan (1) Small bowel obstruction: After limited history taking physical examination and reviewing the chart and reviewing the images with my personal interpretation, likely the patient have a chronic small bowel obstruction that he does have a large load of stool in his colon. Patient should benefit from stool softeners Can start on clear liquid diet and I would recommend protein shakes as well(patient did mention to me that he would get diarrhea with protein shakes so I would look into getting a nutrition consultation to help with different cho ices). Will give the patient half a bottle of mag citrate and see if this would help him to have a bowel movement Overall patient is suboptimal surgical candidate for any kind of intervention at this point Per chart there are about 8 CT scans of the abdomen and pelvis were done over a period of 3 months July 2019 I think further clinical decision making with the patient should include future planning and discussion about potential different options for optimization of nutrition and to make him more comfortable. Thank you for consulting general surgery to participate taking care Status: Acute Consult Attestations Medical Necessity Statement: Per hospitalist service Time Spent in Patient Care: (>than 50% of time spent in counselling and/or direct pt care on unit) . Coding Level of Care Code Acute Title Attorney for Chg Fwd Diagnoses Small bowel obstruction K56.609
[2019-10-18] MEDS: magnesium citrate Btl 296 mL 150 ML PO (08:40)
[2019-10-18] MEDS: docusate sodium 100 mg Capsule PO ×2 (08:44→17:17)
[2019-10-18] MEDS: pantoprazole 40 mg SDV IVP (08:44)
[2019-10-18 13:15] LABS: Glucose Urine UA Norm (Normal); Ketones Urine Negative (Negative); Protein Urine Neg (Negative); Urine Appearance Clear (CLEAR); Urine Color Yellow (Yellow); pH Urine 7 (5-7)
[2019-10-18 13:16] LABS: Add Urine Microscopic? YES; Bilirubin Urine Neg (NEGATIVE); Blood Urine 2+ (Negative); Leukocyte Esterase Urine Negative (Negative); Nitrate Urine Negative (Negative); Urobilinogen Urine Norm (Negative)
[2019-10-18 13:17] LABS: Add Urine Culture? Yes; Bacteria Urine TRACE; Squamous Epithelial Cell Urine RARE (0-5)
--- NOTE | 2019-10-18 13:50 | PM.PN ---
Subjective Subjective: Interval history: Patient states that he is passing gas this morning, abdominal pain has subsided to some degree, feeling a bit better, no nausea, no vomiting, no lightheadedness, no dizziness Vitals/I&O/Wt Last Vital Signs Temp 97.9 F 10/18/19 11:42 Pulse 71 10/18/19 11:42 Resp 18 10/18/19 13:44 BP 147/98 10/18/19 11:42 Pulse Ox 97 10/18/19 11:42 10/17/19 10/18/19 10/18/19 22:59 06:59 14:59 Intake Total 1000 / 1000 Output Total 180 / 180 250 / 250 Balance -180 / -180 750 / 750 Weight last 48 hrs Weight 51.71 kg Physical Exam Const: COMMON NORMALS: no acute distress and patient oriented x3 HENMT: COMMON NORMALS: normocephalic HEAD & SCALP: normocephalic Neck/C-Spine: COMMON NORMALS: no JVD Resp: COMMON NORMALS: normal respiratory effort, No retractions, No use of accessory muscles and clear to auscultation bilaterally AUSCULTATION: clear to auscultation bilaterally Cardio: COMMON NORMALS: no JVD, regular rate, regular rhythm, S1 normal heart sound present and S2 normal heart sound present RATE: regular rate RHYTHM: regular rhythm HEART SOUNDS: S1 normal heart sound present and S2 normal heart sound present GI: COMMON NORMALS: Normal to inspection, nondistended, normoactive bowel sounds present, Soft to palpation, non-tender, No hepatosplenomegaly present, no masses and no bruits PALPATION: Yes Soft to palpation and Yes No hepatosplenomegaly present Extremity: COMMON NORMALS: capillary refill normal, no clubbing, cyanosis or edema, no calf tenderness and no pedal edema Neuro: COMMON NORMALS: patient oriented x3 Psych: COMMON NORMALS: mental status grossly normal Data : 10/18/19 04:34 10/18/19 04:34 A&P Assessment and plan (1) Acute abdominal pain: This is been progressively worsening over time since his last surgery according to description. It acutely worsened I think potentially because of the fleets enema administered on Saturday. Pain refers down into the suprapubic region for him. -Abdominal pain this morning has subsided, passing gas, feeling a bit better with Dilaudid Status: Acute (2) Small bowel obstruction: Indicated on CT imaging again. This is been a recurrent problem for him. Last surgical intervention was in September. While he currently has increased abdominal pain he is not having vomiting and is reporting regular stool output with laxative therapy and flatus. -Doing better, passing gas -Surgery is on consult Status: Acute (3) Gastric carcinoma: s/p partial gastrectomy in November 2018, stage II, status post radiation course with last in April 2019. Follows up with Dr. Marrero. 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 Likely discharge him on a higher dose of hydrocodone Stool softeners, will consider adding methylnaltrexone or lubiprostone Dr. Juarez has agreed to see the patient in consultation Oral medicines are currently held If patient's hospital stay is going to be prolonged and oral input remains poor, consideration should be given to initiation of TPN and possibly placement of PICC line. He does not have a Port-A-Cath. ROBSON sullivan and SCDs Heparin for DVT prophylaxis, SCDs Full code Home health arrangements appear to be underway from oncology clinic Attestations Medical Necessity Statement*: Requires hospitalization for small bowel obstruction, cancer related cachexia, poor appetite Coding Level of Care Code Acute Machine Buffer for Chg Fwd Diagnoses Acute abdominal pain R10.9 Small bowel obstruction K56.609 Gastric carcinoma C16.9 Adenocarcinoma C80.1 Macrocytic anemia D53.9 HTN (hypertension), benign I10 Cancer cachexia R64
[2019-10-18] MEDS: pantoprazole DR 40 mg Tablet PO (17:18)
[2019-10-19] VITALS (16 sets, daily range): BP systolic 147–182; BP diastolic 99–106; PULSE 60–74; RESP 14–20; TEMP 36.4–37.1; O2SAT 90–100
[2019-10-19] MEDS: HYDROmorphone 1 mg/mL INJ 1 mL IVP ×9 (01:08→23:29)
[2019-10-19 05:15] LABS: Basophils % 0.7 %; Eosinophils # 0.1 10^3/uL (0.0-0.8); Eosinophils % 1.2 %; Hematocrit 30.1 % (42.0-52.0); Hemoglobin 9.5 g/dL (11.7-16.6); Lymphocytes # 0.3 10^3/uL (0.8-4.8); Lymphocytes % 7.9 %; Mean Corpuscular HGB Conc 31.6 g/dL (30.0-36.0); Mean Corpuscular Hemoglobin 30.2 pg (28.0-34.0); Mean Corpuscular Volume 95.6 fL (80-94); Mean Platelet Volume 9.6 fL (7.4-10.4); Monocytes # 0.7 10^3/uL (0.2-0.9); Neutrophils # 2.99 10^3/uL (1.8-7.7); Nucleated Red Blood Cells % 0 %; Platelet Count 307 10^3/cmm (130-400); Red Blood Count 3.15 10^6/uL (4.1-5.3); Red Cell Distribution Width 14.9 % (12.1-15.1); White Blood Count 4.1 10^3/uL (4.0-10.0)
[2019-10-19] MEDS: docusate sodium 100 mg Capsule PO ×2 (08:00→18:10)
[2019-10-19] MEDS: pantoprazole DR 40 mg Tablet PO ×2 (08:00→18:10)
[2019-10-19] MEDS: lisinopril 20 mg Tablet PO (08:00)
[2019-10-19] MEDS: dextrose 5%-sod chloride 0.9% 1,000 ML 100 ML IV ×2 (08:01→19:54)
[2019-10-19] MEDS: polyethylene glycol 3350 Pkt 17 gm PO (11:21)
--- NOTE | 2019-10-19 11:58 | P.PN_ITS ---
Subjective Subjective: Interval history: This morning I had a discussion with patient's , and patient: -Underwent a laparoscopic partial gastrectomy and isabell-gastric lymph node and omental resection 11/19/2018, biopsy at that time showed invasive poorly differentiated adenocarcinoma, signet ring cell type, stage T4a, N0, MX -He was treated with chemoradiation oral Xeloda with radiation therapy -He finished his radiation therapy -But was not able to tolerate Xeloda well during radiation, compliance was questionable -At that time he had a poor functional status -Adjuvant chemotherapy was discussed, but preferred observation -Patient had colonoscopy by Dr. Barraza, found to have high-grade colonic obstruction by an external stricture, eventually had a exploratory laparotomy September 2019, and extended right hemicolectomy/mobilization of colonic splenic flexure -Pathology at this time came back poorly differentiated adenocarcinoma on the outside of the colonic specimen and the with the appendix involvement -According to saying the concern was was this a new primary, metastatic disease, or possibly carcinomatosis -Unfortunately there is been issues with the specimen, and it still to be de termined if certain testing can be done on that specimen or if there is enough specimen for the test to be done I advised I advised patient that the issues that he face are threefold: -He has poor functional status, recurrent acute on chronic small bowel obstruction, questions in regards to him having gastric carcinoma and/or carcinomatosis on his recent biopsy -He continues to have poor functional status, significant cachexia, nutrition is a big challenge, as he states that with any meal, he has lower abdominal pain, feels bloated, which hampers any effort and feeding him, he has an appetite he tells me -Options for this I discussed were continuing conservative interventions, small meals, Ensure drinks 3 times daily -Other options I discussed was a temporary solution such as a PICC line for TPN, but this to be a temporary solution, risk of bloodstream infection, electrolyte abnormalities, blood sugar issues, liver function abnormalities -PEG tube would be another option, but would be complicated after his gastric surgery, would be suboptimal outcome -I also discussed the nasal jejunostomy tube, but patient said no right away -After discussion with Dr. Marrero, and Dr. Juarez, certainly a diverting end ileostomy would be an option, but he already has a poor functional status, would carry surgical risks, and could really only be done in a tertiary level care center -Given the acute on chronic small bowel obstruction, his young age, and him and his 's persistence on seeking medical interventions, certainly the end ileostomy would provide a relative long-term option. This option would allow him the option for long-term nutrition, to see if his functional status improves , and he could eventually become a candidate for chemotherapy. -But I as a posed to patient, even if he did have recurrence of his gastric carcinoma or even carcinomatosis, he has such a poor functional status, he is unlikely to tolerate chemotherapy or be a candidate -After long discussion with patient and his , they want to see if we can medically stabilize him to get home, get him to see if we can have a bowel movement, see if he can tolerate GI soft diet, so that he can follow-up with Dr. Marrero and an chani as outpatient. They were receptive to going to a tertiary care center, but rather it be done through the outpatient environment I advised patient and his that this might take time, and we might not be successful, they should really think hard about transfer to tertiary care center, or even consider a PICC line for TPN in the meantime, they would think about this Vitals/I&O/Wt Last Vital Signs Temp 97.9 F 10/19/19 07:59 Pulse 74 10/19/19 08:01 Resp 18 10/19/19 11:22 BP 147/105 10/19/19 07:59 Pulse Ox 98 10/19/19 08:01 10/18/19 10/19/19 10/19/19 22:59 06:59 14:59 Intake Total 720 / 2080 1181.667 / 3261.667 885 / 885 Balance 720 / 1830 1181.667 / 3011.667 885 / 885 Weight last 48 hrs Weight 51.71 kg Physical Exam Const: COMMON NORMALS: no acute distress and patient oriented x3 NUTRITIONAL APPEARANCE: thin and underweight HENMT: COMMON NORMALS: normocephalic HEAD & SCALP: normocephalic Neck/C-Spine: COMMON NORMALS: no JVD Resp: COMMON NORMALS: normal respiratory effort, No retractions, No use of accessory muscles and clear to auscultation bilaterally AUSCULTATION: clear to auscultation bilaterally Cardio: COMMON NORMALS: no JVD, regular rate, regular rhythm, S1 normal heart sound present and S2 normal heart sound present RATE: regular rate RHYTHM: regular rhythm HEART SOUNDS: S1 normal heart sound present and S2 normal heart sound present GI: COMMON NORMALS: Normal to inspection, nondistended, normoactive bowel sounds present, Soft to palpation, non-tender, No hepatosplenomegaly present, no masses and no bruits PALPATION: Yes Soft to palpation and Yes No hepatosplenomegaly present Extremity: COMMON NORMALS: capillary refill normal, no clubbing, cyanosis or edema, no calf tenderness and no pedal edema Neuro: COMMON NORMALS: patient oriented x3 Psych: COMMON NORMALS: mental status grossly normal Data : 10/19/19 04:54 10/19/19 04:54 Micro: Microbiology 10/18/19 12:50 Urine Culture - Preliminary Urine,Clean Catch A&P Assessment and plan (1) Acute abdominal pain: This is been progressively worsening over time since his last surgery according to description. It acutely worsened I think potentially because of the fleets enema administered on Saturday. Pain refers down into the suprapubic region for him. -Likely acute on chronic small bowel obstruction -Abdominal pain this morning has subsided, passing gas, feeling a bit better with Dilaudid -We will try MiraLAX, lactulose to see if he can have a bowel movement, can certainly also try methylnaltrexone if conservative interventions fail -I instructed GI soft diet, have instructed nurses to feed him very slowly, have him sit upright, small portions of food, chew carefully -If he does not improve in the next 24 to 48 hours, will discuss with patient PICC line versus transfer Status: Acute (2) Small bowel obstruction: Indicated on CT imaging again. This is been a recurrent problem for him. Last surgical intervention was in September. While he currently has increased abdominal pain he is not having vomiting and is reporting regular stool output with laxative therapy and flatus. -Doing better, passing gas -Surgery is on consult Status: Acute (3) Gastric carcinoma: s/p partial gastrectomy in November 2018, stage II, status post radiation course with last in April 2019. Follows up with Dr. Marrero. 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 Juarez on consult Oral medicines are currently held If patient's hospital stay is going to be prolonged and oral input remains poor, consideration should be given to initiation of TPN and possibly placement of PICC line. He does not have a Port-A-Cath. ROBSON sullivan and SCDs Heparin for DVT prophylaxis, SCDs Full code Home health arrangements appear to be underway from oncology clinic Attestations Medical Necessity Statement*: Patient requires hospitalization, for acute on chronic small bowel obstruction, poor nutrition, poor functional status, cachexia Coding Level of Care Code Acute Physician Recruiter for Chg Fwd Diagnoses Acute abdominal pain R10.9 Small bowel obstruction K56.609 Gastric carcinoma C16.9 Adenocarcinoma C80.1 Macrocytic anemia D53.9 HTN (hypertension), benign I10 Cancer cachexia R64
[2019-10-19] MEDS: bisacodyl 5 mg Tablet 10 MG PO (19:54)
[2019-10-19] MEDS: labetalol 5 mg/mL SDV 20mL 10 MG IVP (20:04)
[2019-10-19] MEDS: sennosides 8.6 mg Tablet 17.2 MG PO (23:29)
[2019-10-20] VITALS (14 sets, daily range): BP systolic 151–174; BP diastolic 87–107; PULSE 65–77; RESP 16–18; TEMP 36.7–36.9; O2SAT 97–100
[2019-10-20] MEDS: HYDROmorphone 1 mg/mL INJ 1 mL IVP ×6 (03:08→16:13)
[2019-10-20] MEDS: dextrose 5%-sod chloride 0.9% 1,000 ML 100 ML IV ×2 (05:44→15:48)
[2019-10-20] MEDS: pantoprazole DR 40 mg Tablet PO (08:10)
[2019-10-20] MEDS: lisinopril 20 mg Tablet PO (08:10)
[2019-10-20] MEDS: docusate sodium 100 mg Capsule PO (08:10)
--- NOTE | 2019-10-20 11:24 | PC.SOCIAL ---
IMM Update Pg 2 of IMM Updated. Initialed, dated, and timed, and placed in chart. Copy provided to patient.
[2019-10-20 12:12] LABS: Alanine Aminotransferase 8 U/L (0-41); Albumin Level 2.9 g/dL (3.5-5.2); Alkaline Phosphatase 82 IU/L (40-130); Aspartate Amino Transferase 20 U/L (0-40); Blood Urea Nitrogen 6 mg/dL (6-20); Calcium 8.5 mg/dL (8.5-10.5); Carbon Dioxide 29 mmol/L (22-29); Chloride 101 mmol/L (98-107); Creatinine Clr Calc Pharmacy 106.5322; Globulin 2.7 g/dL (1.3-4.6); Glucose 90 mg/dL (65-115); Osmolality Calculated 281 mOsm/kg (285-295); Phosphorus 3.3 mg/dL (2.5-4.5); Sodium 138 mmol/L (136-145); Total Bilirubin 0.2 mg/dL (0.15-1.2); Total Protein 5.6 g/dL (6.6-8.7)
[2019-10-20] MEDS: methylnaltrexone 12 /0.6 mL INJ 12 MG SUBCUT (12:44)
--- NOTE | 2019-10-20 13:46 | PM.PN ---
Subjective Subjective: Interval history: Patient is feeling a bit bloated after having a soft diet yesterday afternoon, still has not had a bowel movement yet, still does not want a PICC line in place for IV nutrition, wants to continue conservative management, no fevers overnight, no chest pain, no lightheaded, dizziness, no shortness of breath, does not want to be transferred to higher level of care at this point Vitals/I&O/Wt Last Vital Signs Temp 98.4 F 10/20/19 11:07 Pulse 69 10/20/19 11:07 Resp 18 10/20/19 13:06 BP 153/89 10/20/19 11:07 Pulse Ox 97 10/20/19 13:06 10/19/19 10/20/19 10/20/19 22:59 06:59 14:59 Intake Total 1100 / 2448 983.333 / 3431.333 Output Total 100 / 100 Balance 1100 / 2448 883.333 / 3331.333 Physical Exam Const: COMMON NORMALS: no acute distress and patient oriented x3 NUTRITIONAL APPEARANCE: thin and underweight HENMT: COMMON NORMALS: normocephalic HEAD & SCALP: normocephalic Neck/C-Spine: COMMON NORMALS: no JVD Resp: COMMON NORMALS: normal respiratory effort, No retractions, No use of accessory muscles and clear to auscultation bilaterally AUSCULTATION: clear to auscultation bilaterally Cardio: COMMON NORMALS: no JVD, regular rate, regular rhythm, S1 normal heart sound present and S2 normal heart sound present RATE: regular rate RHYTHM: regular rhythm HEART SOUNDS: S1 normal heart sound present and S2 normal heart sound present GI: COMMON NORMALS: Normal to inspection, nondistended, normoactive bowel sounds present, Soft to palpation and non-tender PALPATION: Yes Soft to palpation Extremity: COMMON NORMALS: capillary refill normal, no clubbing, cyanosis or edema, no calf tenderness and no pedal edema Neuro: COMMON NORMALS: patient oriented x3 Psych: COMMON NORMALS: mental status grossly normal Data : 10/19/19 04:54 10/20/19 04:54 Micro: Microbiology 10/18/19 12:50 Urine Culture - Final Urine,Clean Catch A&P Assessment and plan (1) Acute abdominal pain: This is been progressively worsening over time since his last surgery according to description. It acutely worsened I think potentially because of the fleets enema administered on Saturday. Pain refers down into the suprapubic region for him. -Likely acute on chronic small bowel obstruction -Abdominal pain this morning has subsided, passing gas, feeling a bit better with Dilaudid -We will try MiraLAX, lactulose to see if he can have a bowel movement, will try methylnaltrexone today -I instructed GI soft diet, have instructed nurses to feed him very slowly, have him sit upright, small portions of food, chew carefully -Declined PICC line placement for IV nutrition, declined transfer for surgical intervention Status: Acute (2) Small bowel obstruction: Indicated on CT imaging again. This is been a recurrent problem for him. Last surgical intervention was in September. While he currently has increased abdominal pain he is not having vomiting and is reporting regular stool output with laxative therapy and flatus. -No bowel movement as of yet, passing gas, feels a bit bloated after soft diet -Surgery is on consult Status: Acute (3) Gastric carcinoma: s/p partial gastrectomy in November 2018, stage II, status post radiation course with last in April 2019. Follows up with Dr. Marrero. 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 Juarez on consult Continue oral medications ROBSON nate and SCDs Heparin for DVT prophylaxis, SCDs Full code Home health arrangements appear to be underway from oncology clinic Attestations Medical Necessity Statement*: Requires hospitalization for acute on chronic small bowel obstruction, cachexia, chronic pain Coding Level of Care Code Acute District Representative for [facility] Fwd Diagnoses Acute abdominal pain R10.9 Small bowel obstruction K56.609 Gastric carcinoma C16.9 Adenocarcinoma C80.1 Macrocytic anemia D53.9 HTN (hypertension), benign I10 Cancer cachexia R64
[2019-10-20] MEDS: HYDROcodone-acetaminophen 10-325 mg Tablet 1 TAB PO (15:46)
--- NOTE | 2019-10-20 16:05 | PM.DCS ---
Discharge Providers Date of Admission: 10/17/19 22:49 Date of Discharge: October 20, 2019 Attending Provider at Admission: April Foley MD Attending Provider at Discharge: Syd Peña MD Primary Care Provider: GREGORIO MATHIS DO Diagnoses at Discharge Discharge Diagnosis (1) Acute abdominal pain: Status: Acute (2) Small bowel obstruction: Status: Acute (3) Gastric carcinoma: Status: Chronic Problem details: s/p partial gastrectomy in November 2018, stage II, status post radiation course with last in April 2019. Follows up with Dr. Marrero. Has decided not to take chemotherapy because of related side effects and toxicity after not tolerating Xeloda very well (4) Adenocarcinoma: Status: Acute Problem details: Involving the serosal surface of the right colon and appendiceal tip, as of 10/18/2019, unknown if second primary or metastatic disease, cancer type ID test has been sent (5) Macrocytic anemia: Status: Acute (6) HTN (hypertension), benign: Status: Chronic (7) Cancer cachexia: Status: Acute Reason for Visit Reason for Visit: constipation Hospital Course Discharge Summary: This is a 49-year-old male with a past medical history of hypertension, gastric carcinoma, chronic small bowel obstruction, who presents to [facility] due to complaints of abdominal pain, poor appetite, constipation Patient patient was admitted to [facility] for abdominal pain, poor appetite, constipation secondary to acute on chronic small bowel obstruction, abdominal pain, opiate induced constipation, poor appetite, cancer cachexia, severe protein calorie malnutrition. General surgery was consulted, patient was medically managed - for his diet, he was slowly transitioned from clear liquid diet to a GI soft diet, patient was advised to eat slowly, small portions of meals, monitor for bloating, slowly was able to tolerate small portions of a GI soft diet -For his constipation, patient did not respond to Colace, MiraLAX, lactulose, or enemas. Patient was given methylnaltrexone, he had a bowel movement after this, tolerated it well. -For patient's abdominal pain, was difficult to manage, likely secondary to acute on chronic bowel obstruction, as soon as patient's Dilaudid was switched over to oral [place] patient wanted to go home, I advised patient that Dilaudid is not a long-term option, he has a risk of worsening opiate induced constipation, he understood this, voiced understanding, all questions answered. Wanted to go home on his home [place] 10 every 4 hours PRN. -Patient was advised to follow-up with Dr. Marrero as outpatient, Dr. Barraza Patient's case was complicated, the following discussion was had with the patient as below: \ -Underwent a laparoscopic partial gastrectomy and isabell-gastric lymph node and omental resection 11/19/2018, biopsy at that time showed invasive poorly differentiated adenocarcinoma, signet ring cell type, stage T4a, N0, MX -He was treated with chemoradiation oral Xeloda with radiation therapy -He finished his radiation therapy -But was not able to tolerate Xeloda well during radiation, compliance was questionable -At that time he had a poor functional status -Adjuvant chemotherapy was discussed, but preferred observation -Patient had colonoscopy by Dr. Barraza, found to have high-grade colonic obstruction by an external stricture, eventually had a exploratory laparotomy September 2019, and extended right hemicolectomy/mobilization of colonic splenic flexure -Pathology at this time came back poorly differentiated adenocarcinoma on the outside of the colonic specimen and the with the appendix involvement -According to saying the concern was was this a new primary, metastatic disease, or possibly carcinomatosis -Unfortunately there is been issues with the specimen, and it still to be determined if certain testing can be done on that specimen or if there is enough specimen for the test to be done I advised patient that the issues that he face are threefold: -He has poor functional status, recurrent acute on chronic small bowel obstruction, questions in regards to him having gastric carcinoma and/or carcinomatosis on his recent biopsy -He continues to have poor functional status, significant cachexia, nutrition is a big challenge, as he states that with any meal, he has lower abdominal pain, feels bloated, which hampers any effort and feeding him, he has an appetite he tells me -Options for this I discussed were continuing conservative interventions, small meals, Ensure drinks 3 times daily -Other options I discussed was a temporary solution such as a PICC line for TPN, but this to be a temporary solution, risk of bloodstream infection, electrolyte abnormalities, blood sugar issues, liver function abnormalities -PEG tube would be another option, but would be complicated after his gastric surgery, would be suboptimal outcome -I also discussed the nasal jejunostomy tube, but patient said no right away -After discussion with Dr. Marrero, and Dr. Juarez, certainly a diverting end ileostomy would be an option, but he already has a poor functional status, would carry surgical risks, and could really only be done in a tertiary level care center -Given the acute on chronic small bowel obstruction, his young age, and him and his 's persistence on seeking medical interventions, certainly the end ileostomy would provide a relative long-term option. This option would allow him the option for long-term nutrition, to see if his functional status improves, and he could eventually become a candidate for chemotherapy. -But I as a posed to patient, even if he did have recurrence of his gastric carcinoma or even carcinomatosis, he has such a poor functional status, he is unlikely to tolerate chemotherapy or be a candidate -After long discussion with patient and his , they want to see if we can medically stabilize him to get home, get him to see if we can have a bowel movement, see if he can tolerate GI soft diet, so that he can follow-up with Dr. Marrero and an chani as outpatient. They were receptive to going to a tertiary care center, but rather it be done through the outpatient environment -On the morning of discharge, patient refused transfer, refused PICC line for IV nutrition, wanted to go home with bowel regimen, and GI soft diet as discussed as above -Patient was advised if to have recurrent abdominal pain please come back to emergency room Physical Exam Const: COMMON NORMALS: no acute distress and patient oriented x3 NUTRITIONAL APPEARANCE: thin and underweight HENMT: COMMON NORMALS: normocephalic HEAD & SCALP: normocephalic Neck/C-Spine: COMMON NORMALS: no JVD Resp: COMMON NORMALS: normal respiratory effort, No retractions, No use of accessory muscles and clear to auscultation bilaterally AUSCULTATION: clear to auscultation bilaterally Cardio: COMMON NORMALS: no JVD, regular rate, regular rhythm, S1 normal heart sound present and S2 normal heart sound present RATE: regular rate RHYTHM: regular rhythm HEART SOUNDS: S1 normal heart sound present and S2 normal heart sound present GI: COMMON NORMALS: Normal to inspection, nondistended, normoactive bowel sounds present, Soft to palpation and non-tender PALPATION: Yes Soft to palpation Extremity: COMMON NORMALS: capillary refill normal, no clubbing, cyanosis or edema, no calf tenderness and no pedal edema Neuro: COMMON NORMALS: patient oriented x3 Psych: COMMON NORMALS: mental status grossly normal Discharge Data Data Completed and Pending: Completed Studies During Hospitalization Category Date Time Status CT abdomen pelvis w con* [id number] Urge nt Cat Scan 10/17/19 21:27 Completed XR KUB [id number] Stat Exams 10/17/19 20:07 Completed Pending at discharge Category Date Time Status Complete Blood Co unt w/Auto AM LABS Lab 10/21/19 04:00 Ordered Complete Blood Co unt w/Auto AM LABS Lab 10/22/19 04:00 Ordered Complete Blood Co unt w/Auto AM LABS Lab 10/23/19 04:00 Ordered Comprehensive Met abolic Panel AM LA BS Lab 10/21/19 04:00 Ordered Comprehensive Met abolic Panel AM LA BS Lab 10/22/19 04:00 Ordered Comprehensive Met abolic Panel AM LA BS Lab 10/23/19 04:00 Ordered Magnesium AM LABS Lab 10/21/19 04:00 Ordered Magnesium AM LABS Lab 10/22/19 04:00 Ordered Magnesium AM LABS Lab 10/23/19 04:00 Ordered Phosphorus AM LAB S Lab 10/21/19 04:00 Ordered Phosphorus AM LAB S Lab 10/22/19 04:00 Ordered Phosphorus AM LAB S Lab 10/23/19 04:00 Ordered Labs from last 24 hours 10/20/19 10/19/19 04:54 04:54 Sodium 138 Cancelled Potassium 4.0 Cancelled Chloride 101 Cancelled Carbon Dioxide 29 Cancelled Anion Gap 12.0 Cancelled BUN 6 Cancelled Creatinine 0.6 L Cancelled GFR Calculation 142.0 H Cancelled Glucose 90 Cancelled Calculated Osmolal ity 281 L Cancelled Calcium 8.5 Cancelled Phosphorus 3.3 Magnesium 2.0 Total Bilirubin 0.2 AST 20 ALT 8 Alkaline Phosphata se 82 Total Protein 5.6 L Albumin 2.9 L Globulin 2.7 Vitals: Last Vital Signs Temp 98.4 F 10/20/19 15:08 Pulse 75 10/20/19 15:08 Resp 18 10/20/19 15:08 BP 174/107 10/20/19 15:08 Pulse Ox 97 10/20/19 15:08 Discharge Plan Discharge Patient Disposition: Home, Self-Care Condition: Stable Prescriptions: New docusate sodium 100 mg Capsule 100 mg PO BID 30 Days Qty: 60 RF: 0 Miralax 17 gram Powder In Packet 17 g PO DAILY 30 Days Qty: 30 RF: 0 lactulose 20 gram/30 mL Solution 20 g PO Q6H PRN (Reason: consitpation) Qty: 3000 RF: 0 methylnaltrexone 150 mg tablet 450 mg PO DAILY 15 Days Qty: 45 RF: 0 Continued lisinopril 20 mg tablet 20 mg PO DAILY RF: 0 pantoprazole 40 mg tablet,delayed release (DR/EC) 40 mg PO BID RF: 0 Tylenol Extra Strength 500 mg Tablet 1,000 mg PO PRN RF: 0 dicyclomine 20 mg Tablet 20 mg PO QID RF: 0 [place] 7.5-325 mg Tablet 1 tab PO Q6H PRN (Reason: Pain) RF: 0 Mylanta Maximum Strength 400-400-40 mg/5 mL Suspension 20 ml PO PRN RF: 0 Gas Relief (simethicone) See Rx Instructions .ROUTE .COMPLEX RF: 0 ondansetron HCl 4 mg tablet 4 - 8 mg PO TID PRN (Reason: nausea/vomiting) RF: 0 Discontinued metronidazole 500 mg tablet 500 mg PO TID RF: 0 hydrocodone-acetaminophen 5-325 mg tablet 1 - 2 tab PO Q5H PRN (Reason: pain) Qty: 30 RF: 0 ibuprofen 800 mg Tablet 800 mg PO Q6H PRN (Reason: Pain) RF: 0 Discharge Orders: Discharge Order (Routine); Ordered 10/20/19 Ordered By: Syd Peña Other Ambulatory Orders: DME: Hospital Bed (Order) Location: None Selected Ordered By: Syd Peña Referrals: [facility] [Outside] [facility] [Outside] GREGORIO MATHIS DO [Primary Care Provider] - Pedro Marrero MD [Staff Physician] - 1-3 days Discharge Diet: Cardiac and GI Soft Discharge Activity: Resume usual activity Activity Restrictions/Additional Instructions: -Please minimize opiate use -Please use MiraLAX daily for constipation -Please use methylnaltrexone daily for opiate-induced constipation -Please use lactulose as needed for constipation -Please follow-up with Dr. Snow this week -Please follow-up with Dr. 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
== END 2019-10-20 16:54 | disposition home or self-care (01) | DRG 388 ==
LOC: ER 22:48 → MEDSURG 23:25
PROVIDERS: Emergency Medicine; Admitting Provider Hospitalist; PCP Internal Medicine; Visit Provider Family Medicine
DX: K56.609 Unspecified intestinal obstruction, unspecified as to partial versus complete obstruction (principal); E43 Unspecified severe protein-calorie malnutrition; R64 Cachexia; Z68.1 Body mass index [BMI] 19.9 or less, adult; C16.9 Malignant neoplasm of stomach, unspecified; C80.1 Malignant (primary) neoplasm, unspecified; I10 Essential (primary) hypertension; D53.9 Nutritional anemia, unspecified; Z87.891 Personal history of nicotine dependence
CPT/HCPCS: 12345; 36415; 74018; 74177; 80048; 80053; 81001; 81003; 83605; 83690; 83735; 84100; 85025; 87086; 96372; 96375; 99214; 99283; C9113; J1170; J2212; J2405; J3490; J7030; Q9967

== ENCOUNTER 2019-10-22 14:49 | Emergency (ER) | payer MEDICARE, MEDICAID, SELFPAY ==
[2019-10-22 14:52] VITALS: BP 155/108; PULSE 89; RESP 16; TEMP 36.6; O2SAT 98; BMI 13.8
--- NOTE | 2019-10-22 15:23 | ED_ITS ---
HPI - General Adult General: Chief complaint: General Medical Stated complaint: sent over by doctor Time Seen by Provider: 10/22/19 15:16 History of Present Illness: HPI narrative: Patient sent here by [facility] because of his ongoing pain issues. Patient does see Dr. Marrero here in radiology oncology. Patient was sent by home health nurse to [facility] and stated that he needed a PICC line and and hydromorphone IV and there has not been any ordered by Dr. Marrero patient says he just hurts he wants help. And says his 01/08/2025 hydrocodone's to every 6 hours is not helping his pain. complaint: Chronic pain Onset (ago): year(s) Severity scale (1-10): 8 Quality: aching Pain Consistency: constant Associated symptoms: Deny chest pain, dyspnea, headache(s), nausea, rash or vomiting Review of Systems Const: Denies: fever(s), chills or body aches Eyes: Denies: change in vision or blurry vision ENMT: Denies: throat pain or nasal congestion Card: Denies: chest pain or dyspnea on exertion Resp: Denies: dyspnea, productive cough or non-productive cough GI: Reports: abdominal pain (Chronic x2 years); Denies: nausea or vomiting : Denies: difficulty urinating Musc: Denies: extremity pain Skin/Breast: Denies: rash Neuro: Denies: headache(s) Psych: Denies: anxiety or depression Ceasar/Lymph: Denies: easy bruising PFSH ED PFSH: Medical History (Updated 10/18/19 @ 07:48 by April Foley MD) Bowel obstruction Gastric carcinoma s/p partial gastrectomy in November 2018, stage II, status post radiation course with last in April 2019. Follows up with Dr. Marrero. Has decided not to take chemotherapy because of related side effects and toxicity after not tolerating Xeloda very well History of colon polyps HTN (hypertension), benign Recurrent intestinal obstruction Surgical History (Updated 10/18/19 @ 07:34 by April Foley MD) H/O esophagogastroduodenoscopy S/P exploratory laparotomy (~09/12/19) for bowel obstruction S/P partial gastrectomy (~2018) Laparoscopic with perigastric lymph node and omental dissection--Dr. Medel in [place] S/P right hemicolectomy (~09/12/19) Dr Barraza, extended right hemicolectomy with reanastomosis Scar conditions/skin fibrosis Excision of subcutaneous/anterior rectus sheath scar tissue at laparoscopic incision Status post colonoscopy with polypectomy 07/2017 -- 1 polyp, pathology unknown ([place]) Family History Family/Other Cancer Paternal uncle with bone cancer CAD (coronary artery disease) Social History Smoking and tobacco status: former smoker Quit status (tobacco): has quit using tobacco Year quit tobacco: 2019, [id number] history previously Alcohol intake: never Household members: spouse Physical Exam Const: COMMON NORMALS: no acute distress, average body habitus and patient oriented x3 HENMT: COMMON NORMALS: normocephalic HEAD & SCALP: normal to inspection and normocephalic FACE & SINUS: normal facial exam Eye: COMMON NORMALS: conjunctivae normal GENERAL EYE: appearance normal, both eyes and all related structures CONJUNCTIVA: Yes conjunctivae normal Neck/C-Spine: COMMON NORMALS: no JVD Chest: COMMONS NORMALS: normal inspection of the chest Resp: COMMON NORMALS: normal respiratory effort Cardio: COMMON NORMALS: no JVD and regular rate RATE: regular rate GI: PALPATION: Yes Firmness to palpation present (GI) PERCUSSION: normal to percussion Extremity: COMMON NORMALS: normal to inspection and full ROM Neuro: COMMON NORMALS: patient oriented x3 Course Vital Signs: Vital signs: Vital Signs Temperature 97.9 F 10/22/19 14:52 Pulse Rate 89 10/22/19 14:52 Respiratory Rate 16 10/22/19 14:52 Blood Pressure 155/108 10/22/19 14:52 Pulse Oximetry 98 10/22/19 14:52 Discharge Plan Discharge Prescriptions: No Action lisinopril 20 mg tablet 20 mg PO DAILY RF: 0 pantoprazole 40 mg tablet,delayed release (DR/EC) 40 mg PO BID RF: 0 Tylenol Extra Strength 500 mg Tablet 1,000 mg PO PRN RF: 0 dicyclomine 20 mg Tablet 20 mg PO QID RF: 0 [place] 7.5-325 mg Tablet 1 tab PO Q6H PRN (Reason: Pain) RF: 0 Mylanta Maximum Strength 400-400-40 mg/5 mL Suspension 20 ml PO PRN RF: 0 Gas Relief (simethicone) See Rx Instructions .ROUTE .COMPLEX RF: 0 hydrocodone-acetaminophen 5-325 mg tablet 1 - 2 tab PO Q5H PRN (Reason: pain) Qty: 30 RF: 0 docusate sodium 100 mg Capsule 100 mg PO BID 30 Days Qty: 60 RF: 0 lactulose 20 gram/30 mL Solution 20 g PO Q6H PRN (Reason: consitpation) Qty: 3000 RF: 0 Miralax 17 gram Powder In Packet 17 g PO DAILY 30 Days Qty: 30 RF: 0 methylnaltrexone 150 mg tablet 450 mg PO DAILY 15 Days Qty: 45 RF: 0 ondansetron HCl 4 mg tablet 4 - 8 mg PO TID PRN (Reason: nausea/vomiting) RF: 0 Coding Level of Care Code 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
[2019-10-22 15:34] VITALS: RESP 16
[2019-10-22] MEDS: morphine 4 mg/mL SDV 1 mL IM (15:34)
[2019-10-22] MEDS: ondansetron 2 mg/ML SDV 2 mL 4 MG IM (15:36)
[2019-10-22 15:38] VITALS: BP 141/96; PULSE 72; RESP 18; O2SAT 100
[2019-10-22 16:30] VITALS: BP 141/101; PULSE 66; RESP 16; O2SAT 98
== END 2019-10-22 16:43 | disposition home or self-care (01) ==
PROVIDERS: Emergency Provider Nurse Practitioner Family; PCP Internal Medicine
DX: G89.29 Other chronic pain (principal); I10 Essential (primary) hypertension; Z85.00 Personal history of malignant neoplasm of unspecified digestive organ; Z87.891 Personal history of nicotine dependence
CPT/HCPCS: 12345; 96372; 99281; 99283; J2270; J2405

== ENCOUNTER 2019-10-23 17:25 | Emergency (ER) | payer MEDICARE, MEDICAID, SELFPAY ==
[2019-10-23 17:31] VITALS: BP 165/115; PULSE 88; RESP 18; TEMP 36.4; O2SAT 98; BMI 13.8
[2019-10-23 17:58] VITALS: BP 155/117; PULSE 78; RESP 18; O2SAT 99
[2019-10-23] MEDS: sodium chloride 0.9% 1,000 ML 999 ML IV (18:27)
[2019-10-23 18:28] VITALS: BP 181/128; PULSE 78; RESP 20; O2SAT 99
[2019-10-23 18:30] LABS: Basophils % 0.6 %; Eosinophils % 0.6 %; Hemoglobin 10.7 g/dL (11.7-16.6); Lymphocytes # 0.4 10^3/uL (0.8-4.8); Lymphocytes % 7.4 %; Mean Corpuscular HGB Conc 30.6 g/dL (30.0-36.0); Mean Corpuscular Hemoglobin 28.4 pg (28.0-34.0); Mean Corpuscular Volume 92.8 fL (80-94); Mean Platelet Volume 9.1 fL (7.4-10.4); Monocytes # 0.7 10^3/uL (0.2-0.9); Monocytes % 12.3 %; Neutrophils # 4.25 10^3/uL (1.8-7.7); Neutrophils % 78.9 %; Nucleated Red Blood Cells % 0 %; Platelet Count 385 10^3/cmm (130-400); Red Blood Count 3.77 10^6/uL (4.1-5.3); Red Cell Distribution Width 14.3 % (12.1-15.1); White Blood Count 5.4 10^3/uL (4.0-10.0)
[2019-10-23 18:47] LABS: Alanine Aminotransferase 11 U/L (0-41); Albumin Level 3.4 g/dL (3.5-5.2); Alkaline Phosphatase 114 IU/L (40-130); Anion Gap 12.8 (5-19); Aspartate Amino Transferase 22 U/L (0-40); Blood Urea Nitrogen 14 mg/dL (6-20); Calcium 8.9 mg/dL (8.5-10.5); Carbon Dioxide 29 mmol/L (22-29); Chloride 98 mmol/L (98-107); Globulin 3.4 g/dL (1.3-4.6); Glomerular Filtration Rate 118.9 mL/min (90-130); Glucose 101 mg/dL (65-115); Lipase 12 U/L (13-60); Osmolality Calculated 278 mOsm/kg (285-295); Potassium 3.8 mmol/L (3.5-5.1); Sodium 136 mmol/L (136-145); Total Bilirubin 0.4 mg/dL (0.15-1.2); Total Protein 6.8 g/dL (6.6-8.7)
[2019-10-23 18:53] VITALS: BP 181/128; PULSE 87; RESP 18; O2SAT 99
[2019-10-23 19:11] VITALS: BP 192/117; PULSE 75; RESP 18; O2SAT 100
[2019-10-23] MEDS: diphenhydrAMINE 50 mg/mL SDV 1mL IVP (19:18)
[2019-10-23 20:35] VITALS: BP 149/111; PULSE 113; RESP 15; O2SAT 98
[2019-10-23 20:54] LABS: Add Urine Microscopic? NO
[2019-10-23 21:39] LABS: Bilirubin Urine Neg (NEGATIVE); Blood Urine Neg (Negative); Glucose Urine UA Norm (Normal); Ketones Urine Negative (Negative); Leukocyte Esterase Urine Negative (Negative); Nitrate Urine Negative (Negative); Protein Urine Neg (Negative); Specific Gravity, Urine 1.015 (1.005-1.030); Urine Appearance Clear (CLEAR); Urine Color Yellow (Yellow); Urobilinogen Urine Norm (Negative); pH Urine 6 (5-7)
--- NOTE | 2019-10-23 22:36 | W.ED.ABDPA2 ---
HPI - Abdominal Pain General: Chief Complaint: Abdominal Pain Stated Complaint: abd pain Time Seen by Provider: 10/23/19 18:00 History of Present Illness: HPI narrative: 49-year-old male in with concerns worsening abdominal pain. Patient has had a longstanding history of chronic abdominal pain and apparently has undiagnosed abdominal carcinoma and is scheduled at some point for possible ostomy but he has been weekend unable to get this performed up to this point. Patient has not any fever nor does he have any nausea or vomiting. He denies any dysuria or hematuria. He reports this is very similar to what he has had in the past but he feels like lately that pain medications just have been working quite as well. He has had some longstanding problems with opioid-induced constipation as well. Patient denies any chest pain or shortness of breath. MD elicited complaint: abdominal pain Pertinent past history: constipation Onset (ago): month(s) Pain Consistency: constant Location: Periumbilical, RLQ, LLQ, Suprapubic and Pelvis Severity: moderate Quality: cramping, aching and fullness Radiation: none Migration to: no migration Exacerbating factors: nothing Relieving factors: nothing Associated Symptoms: Reports bloating, change in bowel habits and poor appetite; Denies change in stool character, chills, coffee ground emesis, dyspepsia, fever(s), heartburn, hematuria, hematemesis, fecal incontinence, loose stools and melena Review of Systems Const: Denies: fever(s) or chills Eyes: Denies: change in vision ENMT: Denies: throat pain Card: Denies: chest pain or palpitations Resp: Denies: dyspnea GI: Reports: bloating and change in bowel habits; Denies: hematemesis, coffee ground emesis, heartburn, fecal incontinence, change in stool character or melena : Denies: hematuria Skin/Breast: Denies: rash or erythema PFSH ED PFSH: Medical History (Updated 10/23/19 @ 20:26 by Surjit Robbins DO) Bowel obstruction Gastric carcinoma s/p partial gastrectomy in November 2018, stage II, status post radiation course with last in April 2019. Follows up with Dr. Marrero. Has decided not to take chemotherapy because of related side effects and toxicity after not tolerating Xeloda very well History of colon polyps HTN (hypertension), benign Recurrent intestinal obstruction Surgical History (Updated 10/18/19 @ 07:34 by April Foley MD) H/O esophagogastroduodenoscopy S/P exploratory laparotomy (~09/12/19) for bowel obstruction S/P partial gastrectomy (~2018) Laparoscopic with perigastric lymph node and omental dissection--Dr. Medel in [place] S/P right hemicolectomy (~09/12/19) Dr Barraza, extended right hemicolectomy with reanastomosis Scar conditions/skin fibrosis Excision of subcutaneous/anterior rectus sheath scar tissue at laparoscopic incision Status post colonoscopy with polypectomy 07/2017 -- 1 polyp, pathology unknown ([place]) Family History Family/Other Cancer Paternal uncle with bone cancer CAD (coronary artery disease) Social History Smoking and tobacco status: former smoker Quit status (tobacco): has quit using tobacco Year quit tobacco: 2019, [id number] history previously Alcohol intake: never Household members: spouse Physical Exam Const: COMMON NORMALS: no acute distress, average body habitus, patient oriented x3, no limitations, healthy appearing, alert and well nourished HENMT: COMMON NORMALS: normocephalic HEAD & SCALP: normocephalic Eye: COMMON NORMALS: Equal, round and reactive pupils present, EOMs intact bilaterally and conjunctivae normal CONJUNCTIVA: Yes conjunctivae normal PUPIL: Yes Equal, round and reactive pupils present Neck/C-Spine: COMMON NORMALS: full ROM, no lymphadenopathy, supple, no meningeal signs, no JVD, Thyroid normal and No carotid bruits THYROID: Thyroid normal Chest: COMMONS NORMALS: normal inspection of the chest and normal palpation of entire chest wall Resp: COMMON NORMALS: normal respiratory effort, No retractions, No use of accessory muscles, clear to auscultation bilaterally and percussion normal AUSCULTATION: clear to auscultation bilaterally PERCUSSION: percussion normal Cardio: COMMON NORMALS: no JVD GI: COMMON NORMALS: Normal to inspection, nondistended, normoactive bowel sounds present, Soft to palpation, non-tender, No hepatosplenomegaly present, no masses and no bruits PALPATION: Yes Soft to palpation and Yes No hepatosplenomegaly present : COMMON NORMALS: Yes no CVA tenderness BLADDER/KIDNEY EXAM: Yes no CVA tenderness Back/Pelvis: COMMON NORMALS: no CVA tenderness Extremity: COMMON NORMALS: normal to inspection, full ROM, capillary refill normal, no joint enlargement, no clubbing, cyanosis or edema, no calf tenderness and no pedal edema Neuro: COMMON NORMALS: patient oriented x3 SENSORIUM/ORIENTATION: Yes alert MENINGEAL SIGNS: Yes no meningeal signs Skin: COMMON NORMALS: no rashes or lesions noted, no wounds, turgor normal, no jaundice, no petechiae and no mottling GENERAL SKIN EXAM: no rashes or lesions noted and turgor normal Course Vital Signs: Vital signs: Vital Signs Temperature 97.6 F 10/23/19 17:31 Pulse Rate 113 H 10/23/19 20:35 Respiratory Rate 15 10/23/19 20:35 Blood Pressure 149/111 10/23/19 20:35 Pulse Oximetry 98 10/23/19 20:35 MDM - Abdominal Pain MDM Narrative: Medical decision making narrative: 49-year-old male with acute on chronic abdominal pain. Recommend screening with some routine labs will give him some pain medication and do serial reexaminations currently does not appear that he has a surgical abdomen does not appear to be in any significant distress. He reports the pain was 10 out of 10 initially but certainly does not appear that way especially when I have got him distracted and talking to him. Patient's labs are remarkably stable he was given some Thorazine and Benadryl and this worked remarkably well he reported the pain all but resolved. Patient was much more comfortable and his blood pressure came down. He remained afebrile normal oxygen saturation I talked him about red flag signs and symptoms and indications for him to return to the emergency department he verbalized understanding. He is going to call his primary care physician to talk about a pain management plan on Saturday. Lab Data: Labs: Lab Results 10/23/19 10/23/19 10/23/19 Range/Units 18:24 18:24 20:40 WBC 5.4 (4.0-10.0) 10^3/ uL RBC 3.77 L (4.1-5.3) 10^6/u L Hgb 10.7 L (11.7-16.6) g/dL Hct 35.0 L (42.0-52.0) % MCV 92.8 (80-94) fL MCH 28.4 (28.0-34.0) pg MCHC 30.6 (30.0-36.0) g/dL RDW 14.3 (12.1-15.1) % Plt Count 385 (130-400) 10^3/c mm MPV 9.1 (7.4-10.4) fL Neut % (Auto) 78.9 % Lymph % (Auto) 7.4 % [place] % (Auto) 12.3 % Eos % (Auto) 0.6 % Baso % (Auto) 0.6 % Neut # (Auto) 4.25 (1.8-7.7) 10^3/u L Lymph # (Auto) 0.4 L (0.8-4.8) 10^3/u L [place] # (Auto) 0.7 (0.2-0.9) 10^3/u L Eos # (Auto) 0.0 (0.0-0.8) 10^3/u L Baso # (Auto) 0.0 (0.0-0.1) 10^3/u L Nucleated RBC % (a uto) 0 % Nucleated RBCs # 0.0 /100WBC Sodium 136 (136-145) mmol/L Potassium 3.8 (3.5-5.1) mmol/L Chloride 98 (98-107) mmol/L Carbon Dioxide 29 (22-29) mmol/L Anion Gap 12.8 (5-19) BUN 14 (6-20) mg/dL Creatinine 0.7 (0.7-1.2) mg/dL GFR Calculation 118.9 (90-130) mL/min Glucose 101 (65-115) mg/dL Calculated Osmolal ity 278 L (285-295) mOsm/k g Calcium 8.9 (8.5-10.5) mg/dL Total Bilirubin 0.4 (0.15-1.2) mg/dL AST 22 (0-40) U/L ALT 11 (0-41) U/L Alkaline Phosphata se 114 (40-130) IU/L Total Protein 6.8 (6.6-8.7) g/dL Albumin 3.4 L (3.5-5.2) g/dL Globulin 3.4 (1.3-4.6) g/dL Lipase 12 L (13-60) U/L Urine Color Yellow (Yellow) Urine Appearance Clear (CLEAR) Urine pH 6 (5-7) Ur Specific Gravit y 1.015 (1.005-1.030) Urine Protein Neg (Negative) Urine Glucose (UA) Norm (Normal) Urine Ketones Negative (Negative) Urine Blood Neg (Negative) Urine Nitrate Negative (Negative) Urine Bilirubin Neg (NEGATIVE) Urine Urobilinogen Norm (Negative) mg/dL Ur Leukocyte Beena ase Negative (Negative) Discharge Plan Discharge Patient Disposition: Home, Self-Care Clinical Impression: Chronic abdominal pain Condition: Stable Prescriptions: No Action lisinopril 20 mg tablet 20 mg PO DAILY RF: 0 pantoprazole 40 mg tablet,delayed release (DR/EC) 40 mg PO BID RF: 0 docusate sodium 100 mg Capsule 100 mg PO BID 30 Days Qty: 60 RF: 0 lactulose 20 gram/30 mL Solution 20 g PO Q6H PRN (Reason: consitpation) Qty: 3000 RF: 0 hydrocodone-acetaminophen 10-325 mg Tablet 1 tab PO Q5H PRN (Reason: Pain) RF: 0 Movantik 25 mg tablet 25 mg PO DAILY Qty: 14 RF: 0 Multiple Vitamins Tablet 1 tab PO DAILY RF: 0 Discharge Orders: Discharge Order (Routine); Ordered 10/23/19 Ordered By: Surjit Robbins Referrals: GREGORIO MATHIS DO [Primary Care Provider] - Discharge Diet: Full LIquid Discharge Activity: Limit activity as instructed Patient Instructions: Abdominal Pain (ED) Interventions: ED Discharge Assessment Last Done: 10/23/19 21:01 ED Charges Last Done: 10/23/19 21:01 Discharge Date/Time: 10/23/19 21:02 Coding Level of Care Code ED [employer] Hand for Ramin Alston
== END 2019-10-23 21:02 | disposition home or self-care (01) ==
PROVIDERS: Emergency Provider Family Medicine; PCP Internal Medicine
DX: G89.29 Other chronic pain (principal); R10.9 Unspecified abdominal pain; I10 Essential (primary) hypertension; Z87.891 Personal history of nicotine dependence
CPT/HCPCS: 12345; 80053; 81003; 83690; 85025; 96361; 96372; 96374; 96375; 99283; J1200; J3230; J7030

== ENCOUNTER 2019-10-26 18:39 | Emergency (ER) | payer MEDICARE, MEDICAID, SELFPAY ==
[2019-10-26 18:46] VITALS: BP 164/118; PULSE 81; RESP 14; TEMP 36.7; O2SAT 98; BMI 13.8
== END 2019-10-26 21:03 | disposition left against medical advice (07) ==
LOC: ER 19:25
PROVIDERS: PCP Internal Medicine
DX: Z53.21 Procedure and treatment not carried out due to patient leaving prior to being seen by health care provider (principal)
CPT/HCPCS: 99281

== ENCOUNTER → 2019-10-27 08:29 | Outpatient (BNVA) | payer MEDICARE, MEDICAID, SELFPAY | PROVIDERS: PCP Internal Medicine; Referring Provider Internal Medicine Hematology & Oncology; Visit Provider Anesthesiology Pain Medicine | DX: G89.29 Other chronic pain (principal); C16.9 Malignant neoplasm of stomach, unspecified; Z79.891 Long term (current) use of opiate analgesic | CPT/HCPCS: 99204; 99205 ==

== ENCOUNTER 2019-10-29 08:44 | Outpatient (CLI) | payer MEDICARE, MEDICAID, SELFPAY ==
--- NOTE | 2019-10-29 10:04 | XR_ITS ---
WS: [id number] PORTABLE CHEST HISTORY: POST PICC PLACE COMPARISON: 08/20/2019 LEFT PICC line with tip in the distal SVC with no complications. Lungs are clear and well expanded. No pleural effusion or pneumothorax. Cardiac size: Normal. Mediastinum/Aorta: Normal mediastinum. No osseous abnormality seen. XR/XR chest 1V portable [id number] IMPRESSION: Satisfactory left-sided PICC line placement.
[2019-10-29 10:52] LABS: Basophils % 0.4 %; Eosinophils % 0.6 %; Hematocrit 32.6 % (42.0-52.0); Hemoglobin 10.1 g/dL (11.7-16.6); Lymphocytes # 0.5 10^3/uL (0.8-4.8); Lymphocytes % 6.6 %; Mean Corpuscular Hemoglobin 28.3 pg (28.0-34.0); Mean Corpuscular Volume 91.3 fL (80-94); Mean Platelet Volume 9.7 fL (7.4-10.4); Monocytes # 0.8 10^3/uL (0.2-0.9); Monocytes % 10.7 %; Neutrophils % 81.4 %; Nucleated Red Blood Cells % 0 %; Platelet Count 358 10^3/cmm (130-400); Red Blood Count 3.57 10^6/uL (4.1-5.3); Red Cell Distribution Width 14.3 % (12.1-15.1)
[2019-10-29 11:03] LABS: Alanine Aminotransferase 11 U/L (0-41); Albumin Level 3.3 g/dL (3.5-5.2); Alkaline Phosphatase 100 IU/L (40-130); Anion Gap 10.1 (5-19); Aspartate Amino Transferase 24 U/L (0-40); Blood Urea Nitrogen 16 mg/dL (6-20); Calcium 8.7 mg/dL (8.5-10.5); Carbon Dioxide 31 mmol/L (22-29); Chloride 98 mmol/L (98-107); Globulin 3.1 g/dL (1.3-4.6); Glucose 94 mg/dL (65-115); Osmolality Calculated 276 mOsm/kg (285-295); Potassium 4.1 mmol/L (3.5-5.1); Sodium 135 mmol/L (136-145); Total Bilirubin 0.2 mg/dL (0.15-1.2); Total Protein 6.4 g/dL (6.6-8.7)
== END 2019-10-29 08:45 | disposition home or self-care (01) ==
LOC: OPS 08:49
PROVIDERS: PCP Internal Medicine; Visit Provider Internal Medicine Hematology & Oncology
DX: Z45.2 Encounter for adjustment and management of vascular access device (principal); C16.2 Malignant neoplasm of body of stomach; C78.5 Secondary malignant neoplasm of large intestine and rectum; K56.600 Partial intestinal obstruction, unspecified as to cause; J43.9 Emphysema, unspecified; K57.30 Diverticulosis of large intestine without perforation or abscess without bleeding; R18.8 Other ascites; R63.0 Anorexia; R63.4 Abnormal weight loss; Z79.891 Long term (current) use of opiate analgesic; Z92.3 Personal history of irradiation; Z90.3 Acquired absence of stomach [part of]; Z90.49 Acquired absence of other specified parts of digestive tract; Z92.21 Personal history of antineoplastic chemotherapy
CPT/HCPCS: 36569; 36592; 71045; 80053; 85025; 99214

== ENCOUNTER 2019-10-29 13:35 | Outpatient (CLI) | payer MEDICARE, MEDICAID, SELFPAY ==
--- NOTE | 2019-10-29 16:19 | ONC FU_ITS ---
Dr. Marrero follow up note Patient: Benny Castro Unit #: [id number]: [id number] Dicatated By: Pedro Marrero M.D.Date of Visit:Oct 29, 2019 Onc Med Follow-up/Prog Note History of Present Illness: Mr. Castro is a 49-year-old gentleman with history of chronic anemia, melena and upper abdominal pain/discomfort underwent EGD on 08/05/2017 showed normal stomach with normal exam and duodenal, possible Merritt's esophagitis biopsy or done was negative also had colonoscopy same time, 6 mm polyp was removed from ascending colon. He continued to have abdominal discomfort/pain and he had abdominal sonogram done on 08/06/2017 which showed liver with increased echogenicity which is nonspecific. 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 pylori was identified. Patient underwent CT scan of chest abdomen pelvis on 08/29/2018 which showed no acute findings within the abdomen or pelvis and his blood workup showed normal hemoglobin and hematocrit and CMP was also normal. Patient underwent CT PET scan on 09/25/2018 which showed small focus of increase uptake within the distal gastric body/antrum. No finding to suggest metastatic disease in the chest abdomen or pelvis. Hypermetabolic left thyroid nodule 5 mm right pulmonary nodule along the major fissure probably represents an intrapulmonary lymph node. Underwent endoscopy ultrasound on 10/14/2018 which showed 1.6 x 0.9 cm hypoechoic lesion at the level of the known mass at 60 cm from the incisors. It appeared to penetrate the submucosa but not through it and the muscularis propria was intact and the visualized portion and EUS stage was T1 B, N0 MX, so no neoadjuvant chemotherapy was considered Mr Castro was seen by Dr. Medel and underwent laparoscopic partial gastrectomy and perigastric lymph node and omental dissection on 11/19/2018. Final pathology report showed invasive poorly differentiated adenocarcinoma, diffuse/signet ring cell type; Ulcerated tumor measures 1.5 cm in greatest dimension and shows invasion through the muscularis propria with involvement of serosa pT4a; Surgical margins free; 0 out of 11 lymph nodes showed metastatic disease. N0 stage IIB (T4a, N0 Mx) Based on the findings e.g. T4 a lesion seen on partial gastrectomy specimen compared to T1B on EUS staging, adjuvant chemotherapy/chemoradiation was recommended by medical oncologist in [place]. Mr Castro was referred to GI oncology at [facility] for evaluation for clinical trial/second opinion. He was seen by on 01/12/2019 and her recommendations were, being high risk pT4a, less than D2 lymphadenectomy, adjuvant chemoradiation was recommended to maximize chance of cure. There was no clinical trial available at this time and due to patient's poor performance status and overall condition due to several postoperative complication, adjuvant chemotherapy was also suggested as an option or observation alone was also discussed. If patient's condition improves then FOLFOX or 5-FU alone could be considered and also recommended radiation consult. Mr Castro underwent CT scan of abdomen pelvis on 01/23/2019 which showed partial atelectasis or pneumonia left lower lobe.Small loculated appearing left pleural effusion with an air-fluid level, a small empyema is not excluded. Resolved previous left subdiaphragmatic abscess but post infirmity changes remains in the left subdiaphragmatic soft tissue. Mr Castro was seen by Dr. Kauffman for left lower lobe consolidation and concern about empyema. As per Dr. Kauffman it could be reactive to his subdiaphragmatic process which was treated with catheter drainage and considering area of loculation was very small, he recommended follow-up CT scan in 3 months and patient underwent CT scan of abdomen pelvis on 03/06/2019 which showed significant improvement in the previous pneumonitis and a partial atelectasis left lower lobe and decrease in left pleural effusion since 01/23/2019. He was treatment with combined chemoradiation with oral Xeloda.1500 mg by mouth twice a day concurrent with radiation therapy. He developed diarrhea and hypokalemia so his Xeloda was put on hold. Once the diarrhea had resolved, the Xeloda restarted on 03/31/2019 but reduced to 1000 mg by mouth twice a day concurrent with radiation therapy. He has completed radiation therapy. I am not convinced that he was able to take very much of his Xeloda during radiation. His compliance would be questionable as he frequently said it bothered his stomach and he couldn't take it. None the less, he has completed radiation. He completed 2 fractions for total dosing of 360 cGy to the stomach on May 01, 2019. He had fractionated dosing which consisted of 25 doses starting on March 24, 2019 and ending on April. This total dosing was 4500 cGy. He has required continuous supportive care. He is getting hydration at least 2-3 times a week but completed treatment on 05/01/2019. discussed the role of adjuvant chemotherapy with FOLFOX or [place] ox with and Mrs. Alvarado. Mr. Castro has decided not to take any further chemotherapy because of related side effects and toxicity. He did not tolerate combined chemoradiation well. he would prefer observation alone. Follow-up chest CT report from May 28, 2019 reported resolved left pleural effusion and left lower lobe atelectasis/pneumonia. Chronic emphysema. No adenopathy, but increase in number of subcentimeter bilateral axillary lymph nodes there was a right hilar lymph node measuring at 9.1 mm. Also reported was mild thickening of the esophagus. Consider esophagitis . Follow-up CT scan of abdomen pelvis done on 07/15/2019 showed mild gallbladder wall thickening with slight gallbladder wall enhancement. Normal common bile duct. Post operative changes gastrojejunal anastomosis with subtotal gastrectomy. No lymphadenopathy. Ultrasound gallbladder done on 07/15/2019 shows minimal gallbladder wall thickening no cholelithiasis. No sludge noted. pericholecystic fluid suggestive of trace edema HIDA scan done on 07/22/2019 showed normal HIDA scan normal gallbladder ejection fraction. h/ of mid abdominal pain, more with fried food especially with fried chicken. Denied any nausea vomiting denies any diarrhea constipation, denies any abdominal fullness, denied any dysuria or hematuria, denies any hemoptysis or hematemesis melena or hematochezia. Denies any jaundice denies any fever chills. Poor appetite, and also losing weight. Patient said with the pain medication hydrocodone he can at least eat otherwise having problem with maintaining nutrition.CT scan of her abdomen done on August 18, 2019 showed circumferential diffuse wall thickening and mucosal enhancement involving the transverse colon most consistent with infectious or inflammatory colitis. Diffuse heterogeneous striated enhancement involving the right greater than left kidneys consistent with pyelonephritis. Mild abdominal ascites mainly in the upper abdomen and pericolic gutters likely related to above described colitis. Postoperative changes subtotal gastrectomy and gastrojejunal anastomosis Patient was referred to Dr. 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 And final pathology report came back poorly differentiated adenocarcinoma on the outside of the colonic specimen and with appendix involvement particular the tip, metastatic disease versus second primary was a concern. Patient came for follow-up complaining of poor oral intake and mild but persistent lower abdominal pain/discomfort but no melena or hematochezia, no hematuria, no abdominal fullness surgical wound has healed up good but patient has lost significant weightCase was discussed with Dr. Salomon, pathologist on October 14, 2019, as per Dr. Salomon most of her tumor was exhausted with extensive immunohistochemistry so if further molecular testing is needed patient may need another biopsy. Then case was discussed with Dr. Diaz pathologist who made initial diagnosis, as per Dr. Diaz he has some tissue to do molecular testing to identify the primary source, cancer type ID was ordered on October 15, 2019, to confirm the primary e.g. gastric carcinoma versus second colon primary.Report came back on October 27, 2019 and showed tumor type is indeterminate, the sample may be from the tumor type not included the reference database or having expression profile that is not sufficient similar to the tumor type in the reference database but 59% chances of gastroesophageal adenocarcinoma and 37% chance of pancreaticobiliary origin CT scan of abdomen pelvis done on October 08, 2019 showed prior gastric and bowel surgeries. Dilated loops of small bowel with fecal ideation appearance distally suggesting reduced motility/ileus. Small bowel obstruction not absolutely excluded although there is no definite transition zone. Moderate sigmoid colon diverticulosis. Pleural effusion and mild scattered ascites Abdominal sonogram done on October 01, 2019 showed moderate ascites within the abdomen, small right pleural effusion, liver is normal. Came for follow-up, complaining of abdominal pain but under control with current pain medication and also complaining of delayed nausea vomiting, more with solid food. Tolerating hydration through home health care well, patient is scheduled see Dr. Barraza next week. Otherwise no fever chills no diarrhea or constipation, no melena or hematochezia, no hemoptysis or hematemesis, no jaundice Medications: HYDROcodone-Acetaminophen 1 Tablet (of 10-325 mg) Oral four times a day PRN, Lisinopril 1 Tablet (of 20 mg) Oral daily, Multivitamin Adult 1 Tablet Oral daily, Ondansetron HCl 1 Tablet (of 4 mg) Oral q 6 hours PRN, Protonix 1 Tablet (of 40 mg) Tablet, enteric coated Oral daily Allergies: Haldol Review of Systems: Constitutional - Appetite is extremely poor and weight is significantly decreasing. No fever, chills, hot flashes, or night sweats. Energy level is poor, ENMT - No sinus congestion/drainage. No mouth sores. No sore throat. Positive for difficulty swallowing, Hematologic/Lymphatic - Positive for easy bruisnig, Respiratory - Positive for shortness of breath. No cough. No pleuritic pain or hemoptysis, Cardiovascular - No angina pain. No palpitations, Gastrointestinal - Pt reports that he is unable to eat and that bowel movements are minimal, Genitourinary (M) - No dysuria. Negative for hematuria. No urinary frequency. No urgency or incontinence, Musculoskeletal - Positive for back pain, Neurologic - No headache or dizziness. No numbness/paresthesias or other focal neurologic symptoms, Psychiatric - No anxiety or depression. No insomnia. Vital Signs: Performed on Oct 29, 2019 13:48 Height - 75.00 in Weight - 111.4 lbs (LOW) BSA - 1.71 sq.m BMI - 13.92 (LOW) Temperature - 99.3 F (HIGH) Pulse - 75 /min Respiration - 24 /min BP - 143/104 mm(hg) (HIGH) O2 Sat - 100 % Pain - 5 Performance Status: 3 - Capable of only limited self-care, confined to bed or chair more than 50% of waking hours. (ECOG) Physical Examination: ENMT - Poor oral hygiene but no thrush or mucositis, Respiratory - Lungs are clear, Cardiovascular - Regular rate and rhythm of heart, Abdomen - Soft, bowel sounds present,Mild discomfort on deep palpation but no rebound tenderness, Extremities - No visible edema. Lab/Imaging: Test performed on Oct 29, 2019 10:20 Glucose 94 mg/dL BUN 16 mg/dL Creatinine 0.6 mg/dL Cr Clearance (Est) 104.1000 mL/min Sodium 135 mmol/L Potassium 4.1 mmol/L Chloride 98 mmol/L CO2 31 mmol/L Calcium 8.7 mg/dL Protein, Total 6.4 g/dL Albumin 3.3 g/dL Globulin 3.1 g/dL Bilirubin, Total 0.2 mg/dL Alkaline Phosphatase 100 IU/L AST (SGOT) 24 IU/L ALT (SGPT) 11 IU/L WBC 7.0 10^9/L RBC 3.57 10^12/L HGB 10.1 g/dL HCT 32.6 % MCV 91.3 fl MCH 28.3 pg MCHC 31.0 g/dL RDW 14.3 % Platelet Count 358 10^9/L MPV 9.7 fL Neutrophils (Gran) 5.70 10^9/L Lymphocytes 0.5 10^9/L Monocytes 0.8 10^9/L Eosinophils 0.0 10^9/L Basophils 0.0 10^9/L Manual Lymphocytes 6.6 % Manual Monocytes 10.7 % Manual Eosinophils 0.6 % Manual Basophils 0.4 % Test performed on Sep 29, 2019 13:37 Anion Gap 15.1 eGFR 118.9 mL/min Neutrophil % 75.2 % Lymphocyte % 8.5 % Monocyte % 11.5 % Eosinophil % 2.9 % Basophils % 1.5 % NRBC % 0 % CEA 1.6 ng/mL Test performed on Jul 27, 2019 11:45 Amylase 44 U/L Impression: Newly diagnosed adenocarcinoma involving serosal surface of right colon and appendiceal tip involvement, per extended right hemicolectomy/mobilization of colonic splenic flexure done on September 12, 2019, 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 However it is questionable how compliant he has been with the capecitabine because he is having side effects of it. He completed radiation therapy on 05/01/2019. discussed the role of adjuvant chemotherapy with FOLFOX for [place] ox with and Mrs. Kenyon. Mr. Palm has decided not to take any further chemotherapy because of related side effects and toxicity. He did not tolerate combined chemoradiation well. The plan was to do a CT follow-up of the abdomen and if it showed no disease he would prefer observation alone. Follow-up chest CT report from May 28, 2019 reported resolved left pleural effusion and left lower lobe atelectasis/pneumonia. Chronic emphysema. No adenopathy, but increase in number of subcentimeter bilateral axillary lymph nodes there was a right hilar lymph node measuring at 9.1 mm. Also reported was mild thickening of the esophagus. Consider esophagitis . Plan: Discussed with patient regarding his labs white blood count 7 hemoglobin 10.1 hematocrit 32.6 platelets 358,000 CMP within normal limits except albumin 3.3 And cancer type ID results which unfortunately could not pinpoint the primary. Clinically, patient is in mild to moderate distress due to intra-abdominal pathology, patient has partial small bowel obstruction, inpatient care was recommended but patient said with hydration through home health care and liquid diet is tolerable moreover he is scheduled to see Dr. Barraza next week for possible diversion colostomy/ileostomy or adhesion lysis to relieve questionable partial obstruction and also to reevaluate intra-abdominal pathology and to obtain more tissue to do molecular studies like next generation sequencing, to identify targetable therapy. Now patient is considering going to [facility], he is an established patient there, for second opinion. Again discussed with patient regarding his overall performance status which is poor and also discussed about prognosis especially when source of recurrence in abdomen is not entirely clear and due to poor performance status patient may not tolerate palliative therapy. Patient's does not want to discuss about hospice at this point knowing his overall performance status and deteriorating overall condition. She will make her decision after discussing with Dr. Barraza or visit to [place]. We will see him back after his visit to Dr. Barraza or [facility]. Patient was advised in case he has any worsening of symptoms or new symptoms, he need to call us or go to hospital for evaluation. Signed By: Pedro Marrero M.D. <<Signature on File>>
== END 2019-10-29 13:36 | disposition home or self-care (01) ==
LOC: ONCMED 13:42
PROVIDERS: PCP Internal Medicine; Visit Provider Internal Medicine Hematology & Oncology
DX: C16.2 Malignant neoplasm of body of stomach (principal); C78.5 Secondary malignant neoplasm of large intestine and rectum; K56.600 Partial intestinal obstruction, unspecified as to cause; J43.9 Emphysema, unspecified; K57.30 Diverticulosis of large intestine without perforation or abscess without bleeding; R18.8 Other ascites; R63.0 Anorexia; R63.4 Abnormal weight loss; Z79.891 Long term (current) use of opiate analgesic; Z92.3 Personal history of irradiation; Z90.3 Acquired absence of stomach [part of]; Z90.49 Acquired absence of other specified parts of digestive tract; Z92.21 Personal history of antineoplastic chemotherapy
CPT/HCPCS: 99214

== ENCOUNTER 2019-11-04 11:03 | Outpatient (CLI) | payer MEDICARE, MEDICAID, SELFPAY ==
[2019-11-04] MEDS: sodium chloride 0.9% 1,000 ML 999 ML IV (11:15)
== END 2019-11-04 11:04 | disposition home or self-care (01) ==
LOC: ONCMED 11:07
PROVIDERS: PCP Internal Medicine; Visit Provider Internal Medicine Hematology & Oncology
DX: C16.2 Malignant neoplasm of body of stomach (principal); E86.0 Dehydration; I10 Essential (primary) hypertension
CPT/HCPCS: 96360; J7030